=== PATIENT | female | born 1930 | race Hispanic/Latino ===

== ENCOUNTER 2017-09-18 20:20 | Inpatient (IN) | payer MEDICARE ==
[2017-09-18 20:23] VITALS: BMI 21.2
--- NOTE | 2017-09-18 20:40 | ED PDOC ---
Arrival/HPI - General Chief Complaint: Chest Pain Time Seen by Provider: 09/18/17 20:22 Historian: Patient - History of Present Illness Narrative History of Present Illness (Text): 09/18/17 20:37 A 87 year old female, whose past medical history includes hypertension, NPH with MANAGER SOCIAL SERVICES shunt, anemia, and hypothyroidism, presents to the emergency department complaining of chest discomfort since early today. Patient describes the pain as a burning sensation. She notes 1 episode of non-bilious non-bloody vomiting. Patient denies any nausea at this time, fever, chills, abdominal pain, shortness of breath, leg pain or any other complaints. Time/Duration: Other (today) Symptom Course: Unchanged Quality: Burning Context: Home Past Medical History - Provider Review Nursing Documentation Reviewed: Yes - Infectious Disease Hx of Infectious Diseases: None - Cardiac Hx Cardiac Disorders: Yes Hx Hypertension: Yes - Pulmonary Hx Chronic Obstructive Pulmonary Disease (COPD): Yes - Neurological Hx Neurological Disorder: Yes Hx Dementia: Yes Hx Dizziness: Yes Hx Transient Ischemic Attacks (TIA): No Other/Comment: hydrocephalus-WITH SHUNT - HEENT Hx HEENT Disorder: Yes Hx Deafness: Yes (ROSEBUD) - Renal Hx Renal Failure: Yes (CKD) - Endocrine/Metabolic Hx Diabetes Mellitus Type 1: No Hx Diabetes Mellitus Type 2: No - Hematological/Oncological Hx Blood Disorders: Yes Hx Anemia: Yes - Integumentary Hx Dermatological Disorder: No - Musculoskeletal/Rheumatological Hx Falls: Yes (08-23-16) - Gastrointestinal Hx Gastrointestinal Disorders: Yes Hx Gall Bladder Disease: Yes - Genitourinary/Gynecological Hx Genitourinary Disorders: Yes (BLADDER LIFT) Hx Urinary Tract Infection: Yes - Psychiatric Hx Psychophysiologic Disorder: Yes (INSOMNIA) Hx Depression: Yes Hx Substance Use: No - Surgical History Hx Cholecystectomy: Yes Hx Orthopedic Surgery: Yes (l hip replacement) Other/Comment: shunt on the brain - Anesthesia Hx Anesthesia: Yes Hx Anesthesia Reactions: No Hx Malignant Hyperthermia: No - Suicidal Assessment Feels Threatened In Home Enviroment: No Family/Social History - Physician Review Nursing Documentation Reviewed: Yes Family/Social History: No Known Family HX Smoking Status: Former Smoker Hx Alcohol Use: No Hx Substance Use: No Hx Substance Use Treatment: No Allergies/Home Meds Allergies/Adverse Reactions: Allergies No Known Allergies Allergy (Verified 09/18/17 20:26) Home Medications: Home Meds Medication Instructions Recorded Confirmed Losartan [Cozaar] 25 mg PO DAILY 07/31/16 09/18/17 Levothyroxine [Synthroid] 25 mcg PO DAILY 09/18/17 09/18/17 Potassium Chloride [Klor-Con 20 meq PO DAILY 09/18/17 09/18/17 Sprinkle] Review of Systems - Physician Review All systems were reviewed & negative as marked: Yes - Review of Systems Constitutional: absent: Fevers, Night Sweats Respiratory: absent: SOB Cardiovascular: Chest Pain Gastrointestinal: Vomiting. absent: Abdominal Pain, Nausea Musculoskeletal: absent: Other (leg pain) Physical Exam Vital Signs Reviewed: Yes Vital Signs Temp Pulse Resp BP Pulse Ox 09/18/17 23:00 64 17 109/62 97 09/18/17 20:32 97.6 F 76 17 142/64 99 Temperature: Afebrile Blood Pressure: Normal Pulse: Regular Respiratory Rate: Normal Appearance: Positive for: Well-Appearing, Non-Toxic, Comfortable Pain Distress: None Mental Status: Positive for: Alert and Oriented X 3 - Systems Exam Head: Present: Atraumatic, Normocephalic Pupils: Present: PERRL Extroacular Muscles: Present: EOMI Conjunctiva: Present: Normal Mouth: Present: Moist Mucous Membranes Neck: Present: Normal Range of Motion Respiratory/Chest: Present: Clear to Auscultation, Good Air Exchange. No: Respiratory Distress, Accessory Muscle Use Cardiovascular: Present: Regular Rate and Rhythm, Normal S1, S2. No: Murmurs Abdomen: Present: Normal Bowel Sounds. No: Tenderness, Distention, Peritoneal Signs Back: Present: Normal Inspection Upper Extremity: Present: Normal Inspection. No: Cyanosis, Edema Lower Extremity: Present: Normal Inspection. No: Edema Neurological: Present: GCS=15, CN II-XII Intact, Speech Normal Skin: Present: Warm, Dry, Normal Color. No: Rashes Psychiatric: Present: Alert, Oriented x 3, Normal Insight, Normal Concentration Medical Decision Making ED Course and Treatment: 09/18/17 20:37 Impression: A 87 year old female with chest discomfort. Plan: -- Chest xray -- EKG -- Labs -- Pepcid -- Reassess and disposition Progress Notes: 09/18/17 21:01 Reviewed EKG, NSR at 70 bpm. PACs. RBBB. Non-specific ST/T waver changes. 09/18/17 22:48 Chest X-ray reviewed, no acute processes. 09/18/17 23:[address] Valerio, who is aware and agrees with plan. Accepts pt in to his service. Pt will go to Telemetry observation for chest pain. - Lab Interpretations Lab Results: 09/18/17 20:40 09/18/17 20:40 Lab Results 09/18/17 20:40: PT 11.5, INR 1.05, APTT 28.6 09/18/17 20:40: WBC 5.3, RBC 4.31, Hgb 12.2, Hct 37.7, MCV 87.5, MCH 28.3, MCHC 32.4, RDW 14.3, Plt Count 197, MPV 9.9 09/18/17 20:40: Sodium 140, Potassium 4.7, Chloride 106, Carbon Dioxide 27, Anion Gap 12, BUN 20, Creatinine 0.9, Est GFR ( Amer) > 60, Est GFR (Non- Af Amer) 60, Random Glucose 148 H, Calcium 9.9, Total Bilirubin 0.7, AST 22, ALT 17, Alkaline Phosphatase 70, Lactate Dehydrogenase 412, Total Creatine Kinase 27 L, Troponin I < 0.01, Total Protein 7.2, Albumin 3.9, Globulin 3.3, Albumin/Globulin Ratio 1.2 I have reviewed the lab results: Yes - RAD Interpretation Radiology Orders: 09/18/17 20:25 CHEST PORTABLE [RAD] Stat Care Manager: ED Physician - EKG Interpretation Interpreted by ED Physician: Yes Type: 12 lead EKG - Medication Orders Current Medication Orders: Discontinued Medications Al Hydrox/Mg Hydrox/Simethicone (Maalox Plus 30 Ml) 15 ml PO STAT STA Stop: 09/18/17 20:42 Last Admin: 09/18/17 20:52 Dose: 15 ml Famotidine (Pepcid) 20 mg IVP STAT STA Stop: 09/18/17 20:41 Last Admin: 09/18/17 20:53 Dose: 20 mg IVP Administration Document 09/18/17 20:53 IT (Rec: 09/18/17 20:53 IT [id number]) Charges for Administration # of IVP Administrations 1 - Scribe Statement The provider has reviewed the documentation as recorded by the Scribe Nanci Power Provider Fabricioibe Attestation: All medical record entries made by the Scribe were at my direction and personally dictated by me. I have reviewed the chart and agree that the record accurately reflects my personal performance of the history, physical exam, medical decision making, and the department course for this patient. I have also personally directed, reviewed, and agree with the discharge instructions and disposition. Disposition/Present on Arrival - Present on Arrival Any Indicators Present on Arrival: No History of DVT/PE: No History of Uncontrolled Diabetes: No Urinary Catheter: No History of Decub. Ulcer: No History Surgical Site Infection Following: None - Disposition Have Diagnosis and Disposition been Completed?: Yes Diagnosis: Chest pain Disposition: HOSPITALIZED Disposition Time: 23:05 Patient Plan: Observation Condition: STABLE Discharge Instructions (ExitCare): Chest Pain (ED) Referrals: Syl Avila, [Non-Staff] - Follow up with primary Forms: [employer] ([place])
[2017-09-18] MEDS ORDERED: Alum-Mag Hydrox-Simethicone Susp (30 mL) PO STA (20:41)
[2017-09-18 20:52] LABS: HEMATOCRIT 37.7 % (36.0-48.0); MEAN CELL VOLUME 87.5 fl (80.0-105.0); MEAN CORPUSCULAR HEMOGLOBIN 28.3 pg (25.0-35.0); MEAN CORPUSCULAR HGB CONC 32.4 g/dl (31.0-37.0); MEAN PLATELET VOLUME 9.9 fl (7.0-11.0); RED CELL DISTRIBUTION WIDTH 14.3 % (11.5-14.5); WHITE BLOOD COUNT 5.3 10^3/ul (4.5-11.0)
[2017-09-18 20:58] LABS: ALB/GLOB RATIO 1.2 (1.1-1.8); ALKALINE PHOSPHATASE 70 U/L (38-126); ALT/SGPT 17 U/L (7-56); AST/SGOT 22 U/L (14-36); BILIRUBIN,TOTAL 0.7 mg/dL (0.2-1.3); BLOOD UREA NITROGEN 20 mg/dL (7-21); CALCIUM 9.9 mg/dL (8.4-10.5); CARBON DIOXIDE 27 mmol/L (21-33); CHLORIDE 106 mmol/L (98-107); GFR AFRICAN-AMERICAN > 60; GLUCOSE,RANDOM 148 mg/dL (70-110); POTASSIUM 4.7 mmol/L (3.6-5.0); SODIUM 140 mmol/L (132-148); TOTAL PROTEIN 7.2 g/dL (5.8-8.3)
[2017-09-18 21:03] LABS: INR 1.05 (0.93-1.08); PARTIAL THROMBOPLASTIN TIME 28.6 Seconds (25.1-36.5)
[2017-09-18 21:10] LABS: TROPONIN I < 0.01 ng/mL
[2017-09-19] MEDS ORDERED: Alum-Mag Hydrox-Simethicone Susp (30 mL) PO ONE (04:44)
--- NOTE | 2017-09-19 08:00 | CP.PCM.HP ---
History of Present Illness - History of Present Illness History of Present Illness: 87 year old female with history of hypertension, hypothyroidism, mild dementia, normal pressure hydrocephalus with shunt and anemia presented to the Emergency Room at the [facility] in [place] with chest pain. Patient says that the pain was under the left breast. She denies shortness of breath, or diaphoresis. She did feel nauseus and vomited up some food 1 time 2 days ago. She denies pain this morning. Present on Admission - Present on Admission Any Indicators Present on Admission: No History of DVT/PE: No History of Uncontrolled Diabetes: No Urinary Catheter: No Decubitus Ulcer Present: No Review of Systems - Cardiovascular Cardiovascular: As Per HPI - Respiratory Respiratory: absent: Cough, Dyspnea, Wheezing - Gastrointestinal Gastrointestinal: Nausea, Vomiting. absent: Abdominal Pain Past Patient History - Infectious Disease Hx of Infectious Diseases: None - Past Social History Smoking Status: Former Smoker - CARDIAC Hx Cardiac Disorders: Yes Hx Angina: No Hx Cardia Arrhythmia: No Hx Circulatory Problems: No Hx Congestive Heart Failure: No Hx Heart Murmur: No Hx Heart Transplant: No Hx Hypercholesterolemia: No Hx Hypertension: Yes Hx Internal Defibrillator: No Hx Mitral Valve Prolapse: No Hx Pacemaker: No Hx Peripheral Edema: No Hx Peripheral Vascular Disease: No - PULMONARY Hx Respiratory Disorders: Yes Hx Asthma: No Hx Bronchitis: Yes Hx Chronic Obstructive Pulmonary Disease (COPD): Yes Hx Emphysema: No Hx Pneumonia: No Hx Respiratory Aspiration: No Hx Respiratory Tract Infection: No Hx Sleep Apnea: No Hx Tuberculosis: No - NEUROLOGICAL Hx Neurological Disorder: Yes (hydrocephalus,FISHERIES MANAGER shunt) Hx Alzheimer's Disease: No HX Cerebrovascular Accident: No Hx Dementia: Yes Hx Dizziness: Yes Hx Meningitis: No Hx Migraine: No Hx Parkinson's Disease: No Hx Seizures: No Hx Transient Ischemic Attacks (TIA): No - HEENT Hx HEENT Problems: Yes Hx Blind: No Hx Cataracts: No Hx Deafness: No Hx Difficulty Chewing: No Hx Epistaxis: No Hx Glaucoma: No Hx Macular Degeneration: No - RENAL Hx Dialysis: No Hx Kidney Stones: No Hx Neurogenic Bladder: No Hx Pyelonephritis: No Hx Renal (Kidney) Cancer: No Hx Renal Failure: No - ENDOCRINE/METABOLIC Hx Endocrine Disorders: Yes Hx Adrenal Cancer: No Hx Diabetes Insipidus: No Hx Diabetes Mellitus Type 1: No Hx Diabetes Mellitus Type 2: No Hx Hyperthyroidism: No Hx Hypothyroidism: Yes Hx Systemic Lupus Erythematosus: No - HEMATOLOGICAL/ONCOLOGICAL Hx Blood Disorders: Yes Hx AIDS: No Hx Anemia: Yes Hx Cancer: No Hx Chemotherapy: No Hx Cirrhosis: No Hx Hemophilia: No Hx Hepatitis A: No Hx Hepatitis B: No Hx Hepatitis C: No Hx Human Immunodeficiency Virus (HIV): No Hx Metastesis: No Hx Shingles: Yes Hx Sickle Cell Disease: No Hx Unexplained Bleeding: No - INTEGUMENTARY Hx Dermatological Problems: No Hx Basil Cell: No Hx Eczema: No Hx Melanoma: No Hx Psoriasis: No Hx Squamous Cell: No - MUSCULOSKELETAL/RHEUMATOLOGICAL Hx Musculoskeletal Disorders: Yes Hx Arthritis: Yes Hx Back Pain: No Hx Degenerative Joint Disease: No Hx Falls: Yes Hx Fractures: Yes (hip) Hx Gout: No Hx Herniated Disk: No Hx Myasthenia Gravis: No Hx Osteoarthritis: No Hx Osteomyelitis: No Hx Osteoporosis: No Hx Rhabdomyolysis: No Hx Spinal Stenosis: No Hx Unsteady Gait: Yes - GASTROINTESTINAL Hx Gastrointestinal Disorders: Yes Hx Colostomy: No Hx Crohn's Disease: No Hx Diverticulitis: No Hx Gall Bladder Disease: Yes Hx Gastroesophageal Reflux: Yes Hx Ileostomy: No Hx Liver Failure: No Hx Pancreatitis: No HX Swallowing Problems: No Hx Ulcer: No - GENITOURINARY/GYNECOLOGICAL Hx Genitourinary Disorders: Yes (Bladder lift surgery) Hx Hematuria: No Hx Incontinence: Yes Hx Sexually Transmitted Disorders: No Hx Urinary Tract Infection: Yes - PSYCHIATRIC Hx Psychophysiologic Disorder: Yes Hx Anxiety: Yes Hx Bipolar Disorder: No Hx Depression: No Hx Emotional Abuse: No Hx Hallucinations: No Hx Panic Symptoms: No Hx Paranoia: No Hx Post Traumatic Stress Disorder: No Hx Psychosis: No Hx Physical Abuse: No Hx Schizophrenia: No Hx Sexual Abuse: No - SURGICAL HISTORY Hx Surgeries: Yes (FISHERIES MANAGER shunt) Hx Amputation: No Hx Appendectomy: No Hx Cardiac Catheterization: No Hx Cholecystectomy: Yes Hx Coronary Stent: No Hx Gastric Bypass Surgery: No Hx Hysterectomy: No Hx Joint Replacement: Yes (left hip replacement) Hx Kidney Transplant: No Hx Liver Transplant: No Hx Mastectomy: No Hx Musculoskeletal Surgery: Yes Hx Open Heart Surgery: No Hx Orthopedic Surgery: Yes (right knee surgery, rotator cuff surgery) Hx Splenectomy: No Hx Valve Replacement: No - ANESTHESIA Hx Anesthesia: Yes Hx Anesthesia Reactions: No Hx Malignant Hyperthermia: No Meds Allergies/Adverse Reactions: Allergies Allergy/AdvReac Type Severity Reaction Status Date / Time No Known Allergies Allergy Verified 09/18/17 20:26 Physical Exam - Constitutional Appears: No Acute Distress - Head Exam Head Exam: ATRAUMATIC, NORMOCEPHALIC - Respiratory Exam Respiratory Exam: Clear to Auscultation Bilateral, NORMAL BREATHING PATTERN - Cardiovascular Exam Cardiovascular Exam: REGULAR RHYTHM, +S1, +S2. absent: Systolic Murmur - GI/Abdominal Exam GI & Abdominal Exam: Normal Bowel Sounds, Soft. absent: Tenderness - Extremities Exam Extremities exam: Positive for: normal inspection - Neurological Exam Neurological exam: Alert, CN II-XII Intact, Oriented x3 Results - Vital Signs Recent Vital Signs: Last Vital Signs Temp 98.3 F 09/19/17 06:00 Pulse 62 09/19/17 06:00 Resp 19 09/19/17 06:00 BP 119/60 09/19/17 06:00 Pulse Ox 97 09/19/17 06:00 - Labs Result Diagrams: 09/18/17 20:40 09/18/17 20:40 Assessment & Plan - Assessment and Plan (Free Text) Assessment: Chest pain GERD Hypothyroidism mild dementia arthritis NPH with shunt Anemia COPD Plan: Patient here for chest pain. She denies pain this morning. continue ASA, Losartan. Cardiology consult with Dr. Wolf. 1st set of CE and troponin negative. 2nd set of troponin pending will start Protonix. continue synthroid for hypothyroidism. check TSH and free T4 continue aricept for dementia continue respiratory treatments for COPD
[2017-09-19 08:03] LABS: TROPONIN I 0.01 ng/mL
--- NOTE | 2017-09-19 08:15 | RAD ---
HISTORY: chest pain COMPARISON: 08/26/2016 FINDINGS: LUNGS: No active pulmonary disease. PLEURA: No significant pleural effusion identified, no pneumothorax apparent. CARDIOVASCULAR: Normal. OSSEOUS STRUCTURES: No significant abnormalities. VISUALIZED UPPER ABDOMEN: Normal. OTHER FINDINGS: None. IMPRESSION: No active disease.
[2017-09-19 08:27] LABS: IRON 61 ug/dL (45-180)
[2017-09-19] MEDS: Albuterol-Ipratrop 3 mg / 0.5 (3 ml) UD IH SCH ×3 (09:09→20:52)
[2017-09-19] MEDS: Pantoprazole 40 mg EC Tab PO SCH (09:37)
[2017-09-19] MEDS: Levothyroxine 25 MCG TAB PO SCH (09:37)
[2017-09-19 10:02] LABS: FREE T4 1.03 ng/dL (0.78-2.19)
[2017-09-19 10:16] LABS: THYROID STIMULATING HORMONE 2.38 mIU/mL (0.46-4.68)
--- NOTE | 2017-09-19 10:53 | CARD ---
APPROVED REPORT EKG Measurement Heart [id number] <Conclusion> Sinus rhythm with premature atrial complexes Right bundle branch block Abnormal ECG
[2017-09-19 16:13] LABS: TROPONIN I < 0.01 ng/mL
--- NOTE | 2017-09-19 23:52 | CON ---
DATE: 09/19/2017 CONSULT SERVICE: Cardiology. REASON FOR CONSULTATION: Chest pain and cardiac evaluation. BRIEF CLINICAL HISTORY: This is an 87-year-old female with past medical history significant for hypertension, normal-pressure hydrocephalus status post WIDE AREA NETWORK ADMINISTRATOR shunt, chronic back pain, insomnia, iron-deficiency anemia, dementia, brought by the family because the patient was complaining of chest pain. The patient initially had vomiting and nausea and then developed chest pain just below the clavicle and the back, and then the patient had nonbilious large vomitus and then feel chest pain off and on. Later on, chest pain completely subsided. The patient is sitting on the bed and the son is at the bedside. Information obtained from the son as the patient is unable to give the detail, but complained that she feels better and no further episode of chest pain. PAST MEDICAL HISTORY: Significant for dementia; normal-pressure hydrocephalus, status post WIDE AREA NETWORK ADMINISTRATOR shunt, ventriculoperitoneal shunt; hypertension; back pain; insomnia; iron-deficiency anemia; history of dehydration; history of diarrhea; history of CVA; history of altered mental status; and history of COPD. CURRENT MEDICATIONS: Levothyroxine, aspirin, potassium, and losartan 25 mg daily. ALLERGIES: NO KNOWN DRUG ALLERGIES. REVIEW OF SYSTEMS: As per HPI. PHYSICAL EXAMINATION: As follows: VITAL SIGNS: Temperature is afebrile, heart rate is 62, and blood pressure is 119/60. HEENT: PERRLA. Extraocular muscles intact. NECK: Supple. No carotid bruits or thyromegaly. CHEST: Clear to auscultation. HEART: S1 and S2 regular. ABDOMEN: Soft. EXTREMITIES: Clubbing and cyanosis negative. LABORATORY DATA: Blood workup as follows: WBC of 5.3, hemoglobin of 12.3, hematocrit of 37.7, and platelet count of 197. Chemistry shows sodium of 140, potassium of 4.7, chloride of 106, carbon dioxide of 27, anion gap of 4, BUN of 20, and creatinine of 0.9. Hemoglobin A1c of 5.4. Troponins of 0.01 and 0.01. IMPRESSION: An 87-year-old female with past medical history significant for normal blood pressure, hydrocephalus, status post ventriculoperitoneal shunt; chronic back pain; hypertension; dementia; iron-deficiency anemia in the past; hypertension, and chronic obstructive pulmonary disease admitted with one episode of chest pain after having vomitus. So far, no evidence of acute myocardial infarction. Electrocardiogram shows normal sinus, right bundle-branch block at a rate of 80. RECOMMENDATIONS: Given the patient's overall condition, dementia, mental status, and atypical chest pain, we will try to treat medical management. The patient has history of shaking and unable to lie, so we will not go for invasive or noninvasive test. Discussed with son, he wanted to be treated medically and wanted to take home when the patient is medically cleared. We suggested, we will do one more sets of troponin, and if the troponin remains negative, possibly the patient will be discharged home tomorrow on medical treatment. The patient had last echocardiography in the system is 2011 that showed normal LV function, mild tricuspid regurgitation, possible tricuspid regurgitation. The patient's repeat echo on 08/30/2016, recently that showed ejection fraction 55% to 60%, aortic sclerosis, mild aortic stenosis, trace [id number] tricuspid regurgitation and end diastolic pressure of 45. So, we will continue Aricept, continue baby aspirin, continue losartan, and continue levothyroxine. If the blood pressure remains stable, we can start low dose of beta madeleine; otherwise, if the blood pressure is on the lower side, then we will leave it on home previous medication that is losartan and aspirin. We will follow with you. Thank you Dr. Valerio for providing us the opportunity in taking care of the patient, Bethany Espinoza. We will repeat another CPK at 2:00 p.m. Christa Wolf MD
[2017-09-20] MEDS: Albuterol-Ipratrop 3 mg / 0.5 (3 ml) UD IH SCH ×3 (02:03→13:51)
[2017-09-20] MEDS: Pantoprazole 40 mg EC Tab PO SCH (05:47)
[2017-09-20 06:38] VITALS: O2SAT 95
--- NOTE | 2017-09-20 07:57 | CON ---
DATE: 09/19/2017 This patient was seen and evaluated earlier today. REASON FOR CONSULTATION: Anemia and history of vomiting. HISTORY OF PRESENT ILLNESS: This is an 87-year-old patient with past medical history of hypertension, hypothyroidism, mild dementia, and normal pressure hydrocephalus, who was initially admitted with a certain chest discomfort, and she was complaining of left-sided chest discomfort. She had an episode of vomiting also, nonbilious. No further episodes. The patient's both sons were at bedside. PAST MEDICAL HISTORY: Other past medical history as above, history of status post CVA, COPD, status post cholecystectomy. ALLERGIES: NO KNOWN DRUG ALLERGIES. REVIEW OF SYSTEMS: Limited. Positive as above. Other systems reviewed, negative. PHYSICAL EXAMINATION: GENERAL: The patient is lying on the bed, not in acute distress. VITAL SIGNS: Temperature 98.1, pulse 80, blood pressure 92/41, respirations . HEENT: Atraumatic, anicteric. NECK: Supple. HEART: S1 and S2 heard. LUNGS: Bilateral air entry present. ABDOMEN: Soft. There is no mass palpable. No tenderness. EXTREMITIES: No edema. No cyanosis. NEUROLOGIC: Alert. Moves all the extremities. LABORATORY DATA: Hemoglobin 12.2, hematocrit 37.7, WBC 5.3, and platelet count 157,000. Chemistry is essentially unremarkable. The patient did have CT scan of the abdomen and pelvis with p.o. contrast done in 08/27/2017 was unremarkable. IMPRESSION: This is an 87-year-old patient admitted with an episode of vomiting and chest pain. No further episodes of vomiting. History of anemia, now repeat hemoglobin on this admission was normal. PLAN: 1. The patient's hemoglobin was around 8.5. We will consider repeating the hemoglobin and hematocrit. 2. Refer her to do iron studies B12, and folate. 3. Empiric therapy with proton pump inhibitors. 4. I did discuss with the patient's both sons who were at bedside. They are very reluctant to have any invasive procedure. The plan is now to continue to follow her with hemoglobin, hematocrit, and PPI therapy. If there is any acute bleeding or drop in blood count significantly, we will consider endoscopic evaluation and also consider transfusion, and we will also consider elective endoscopy evaluation. Thank you very much for allowing us to participate in the care of the patient. Caroline Brown MD [facility] # [id number]
[2017-09-20 09:07] LABS: BASO # 0.01 K/mm3 (0.0-2.0); BASO % 0.2 % (0.0-3.0); EOS # 0.1 (0.0-0.7); EOS % 1.2 % (1.5-5.0); GRAN # 2.83 (1.4-6.5); GRAN % 56.9 % (50.0-68.0); HEMATOCRIT 30.4 % (36.0-48.0); LYMPH # 1.6 (1.2-3.4); LYMPH % 32.6 % (22.0-35.0); MEAN CELL VOLUME 87.9 fl (80.0-105.0); MEAN CORPUSCULAR HEMOGLOBIN 29.2 pg (25.0-35.0); MEAN CORPUSCULAR HGB CONC 33.2 g/dl (31.0-37.0); MONO # 0.5 (0.1-0.6); MONO % 9.1 % (1.0-6.0); RED CELL DISTRIBUTION WIDTH 14.3 % (11.5-14.5)
--- NOTE | 2017-09-20 09:19 | PN ---
DATE: SUBJECTIVE: The patient is in [facility] in [place], room 277, bed 1. The patient was admitted with chest pain. The patient has had prior to admission, 2 episodes of vomiting and epigastric discomfort. The patient was admitted with rule out [place]. The patient does not have any diagnostic criteria for myocardial infarction. She has past history of normal pressure hydrocephalus. She has a ventriculoperitoneal shunt. She has a history of hypertension, history of dementia, history of chronic lung disease, anemia, hypothyroidism. The patient is seen this morning. She is getting respiratory treatment. PHYSICAL EXAMINATION: GENERAL: The patient is awake and responds to questions. VITAL SIGNS: The pulse is 72, blood pressure 105/89, respirations are 19, O2 sat 95% on room air, temperature 97.6. HEENT: Examination of head is normocephalic; there is of course evidence of the shunting between the brain and the intestine is noted. NECK: JVP is flat. Carotid pulses are present. Thyroid is not enlarged clinically. LUNGS: Trachea central. Breath sounds vesicular. Scattered rhonchi and rales present. HEART: Normal sinus rhythm. S1 and S2 present. No murmurs. ABDOMEN: Soft. No tenderness. No masses. EGG BUYER: The patient is conscious, confused. No focal neurological deficit. Cranial nerves are intact. The patient is able to ambulate prior to her admission. LABORATORY DATA: The laboratory findings; the hemoglobin is 12.2. The chemistry, the patient's admission sugar was 148. The patient has total iron of 61 and the lactic dehydrogenase was elevated slightly. The numbers have come down during the last 2 days. The patient's total protein is 7.2. The patient's HDL cholesterol is 62, total cholesterol is 161. ASSESSMENT AND PLAN: The patient is evaluated by pruner and further management depends on the plan of treatment, patient might be in an upper endoscopy to rule out any acute process of the stomach. She is placed on pantoprazole 40 mg daily. The patient is on albuterol treatment, losartan 25 mg daily, aspirin 81 mg daily, Aricept 5 mg daily. The patient is on Synthroid 25 mcg daily. Overall, prognosis is guarded. Condition is clinically improving. We will continue current management. Wait for GI evaluation and further management will depend on that. Rick Valerio MD
[2017-09-20 09:25] LABS: INR 1.04 (0.93-1.08)
[2017-09-20] MEDS: Levothyroxine 25 MCG TAB PO SCH (10:28)
[2017-09-20 11:51] VITALS: BP 125/60; RESP 16; TEMP 98.7
[2017-09-20 15:51] VITALS: PULSE 90
--- NOTE | 2017-09-20 17:32 | CP.PCM.PN ---
Subjective - Date & Time of Evaluation Date of Evaluation: 09/20/17 Time of Evaluation: 08:20 - Subjective Subjective: S&E at bedside, chart reviewed, no acute overnight events as per nursing staff, patient c/o epigastric discomfort, no N/V or acid reflux. No SOB or chest pain. Objective - Vital Signs/Intake and Output Vital Signs (last 24 hours): Temp Pulse Resp BP Pulse Ox 98.7 F 90 16 125/60 95 09/20/17 11:51 09/20/17 14:00 09/20/17 11:51 09/20/17 11:51 09/20/17 06:00 Intake and Output: 09/20/17 09/20/17 06:59 18:59 Intake Total 80 Output Total 0 Balance 80 - Medications Medications: Current Medications Albuterol/Ipratropium (Duoneb 3 Mg/0.5 Mg (3 Ml) Ud) 3 ml IH [id number] [facility] Last Admin: 09/20/17 13:51 Dose: 3 ml Aspirin (Aspirin Chewable) 81 mg PO DAILY [facility] Last Admin: 09/20/17 10:27 Dose: Not Given Donepezil HCl (Aricept) 5 mg PO HS [facility] Last Admin: 09/19/17 22:06 Dose: 5 mg Levothyroxine Sodium (Synthroid) 25 mcg PO DAILY [facility] Last Admin: 09/20/17 10:28 Dose: 25 mcg Losartan Potassium (Cozaar) 25 mg PO DAILY [facility] Last Admin: 09/20/17 10:28 Dose: 25 mg Ondansetron HCl (Zofran Inj) 4 mg IVP Q4H PRN PRN Reason: Nausea/Vomiting Pantoprazole Sodium (Protonix Ec Tab) 40 mg PO 0600 [facility] Last Admin: 09/20/17 05:47 Dose: 40 mg - Labs Labs: 09/20/17 08:55 PT 11.5 SECONDS (9.4-12.5) 09/20/17 08:55 INR 1.04 (0.93-1.08) 09/20/17 08:55 APTT 25.0 Seconds (25.1-36.5) L 09/20/17 08:55 - Constitutional Appears: No Acute Distress - Head Exam Head Exam: NORMOCEPHALIC - Eye Exam Eye Exam: Normal appearance. absent: Scleral icterus - ENT Exam ENT Exam: Mucous Membranes Moist - Neck Exam Neck Exam: Normal Inspection - Respiratory Exam Respiratory Exam: NORMAL BREATHING PATTERN. absent: Respiratory Distress - Cardiovascular Exam Cardiovascular Exam: +S1, +S2 - GI/Abdominal Exam GI & Abdominal Exam: Soft, Tenderness (epigastric), Normal Bowel Sounds. absent : Guarding, Organomegaly, Rebound - Neurological Exam Neurological Exam: Alert, Awake, Oriented x3 - Skin Skin Exam: Dry, Warm Assessment and Plan - Assessment and Plan (Free Text) Assessment: ASSESSMENT: Chest pain GERD Anemia NPH w/shunt Dementia, mild PLAN: clear liquid for breakfast,npo after for possible EGD, will FU CBC, if drop consider, spoke to nursing staff abdominal US, c/o epigastric pain continue PPI spoke to Dr. Wolf, no contraindication for EGD if needed Discussed w/ Dr. Brown.
--- NOTE | 2017-09-20 22:02 | PN ---
DATE: 09/20/2017 REASON FOR CONSULTATION AND FOLLOWUP: Chest pain, cardiac evaluation. SUBJECTIVE: Denies any chest pain, denies any shortness of breath, denies any palpitation. OBJECTIVE: GENERAL: Not in apparent distress. VITAL SIGNS: As follows: Temperature afebrile, heart rate 60, blood pressure 125/60. HEENT: PERRLA, intact. NECK: Supple. No carotid bruit or thyromegaly. CHEST: Clear to auscultation. HEART: S1, S2 regular. ABDOMEN: Soft. EXTREMITIES: Clubbing and cyanosis negative. LABORATORY DATA: Blood workup as follows: WBC 5, hemoglobin 10, hematocrit 30.4, platelet count 142. Chemistry shows sodium 140, potassium 4.7, chloride 106, anion gap of 12, BUN 20, creatinine 0.9. Troponin 0.01 x3 negative. TSH 2.38 total, triglycerides 73, cholesterol 161, LDL 86, HDL 62. IMPRESSION: Chest pain, so far no evidence no of acute myocardial infarction, history of cerebrovascular accident, history of chronic obstructive pulmonary disease, history of dementia, normal pressure hydrocephalus, status post ventriculoperitoneal shunt, history of insomnia. Patient had echocardiogram on 08/30/2016, it shows ejection fraction 55% to 60%, mild aortic stenosis, [id number] mitral regurgitation, [id number] tricuspid regurgitation, right ventricular systolic pressure of 45. RECOMMENDATIONS: Continue aggressive medical treatment, continue levothyroxine, continue baby aspirin, continue Aricept. We will start low dose of beta-madeleine as blood pressure and heart rate is tolerated. Discussed with son, discussed with Dr. Valerio. If the blood pressure remains elevated, we will start low dose of beta-blockers. Otherwise continue aspirin and losartan. Discussed with the patient's son. Christa Wolf MD
== END 2017-09-20 17:28 | disposition home or self-care (01) | DRG 313 ==
LOC: ED 20:20 → ERH 23:05 → 2RSO 09-19 00:03 → OBSVTOIN 09-19 16:02
PROVIDERS: ADMIT Internal Medicine; ATTEND Internal Medicine
DX: R07.89 Other chest pain (principal); G91.2 (Idiopathic) normal pressure hydrocephalus; D64.9 Anemia, unspecified; F03.90 Unspecified dementia, unspecified severity, without behavioral disturbance, psychotic disturbance, mood disturbance, and anxiety; J44.9 Chronic obstructive pulmonary disease, unspecified; E03.9 Hypothyroidism, unspecified; H91.90 Unspecified hearing loss, unspecified ear; I12.9 Hypertensive chronic kidney disease with stage 1 through stage 4 chronic kidney disease, or unspecified chronic kidney disease; N18.9 Chronic kidney disease, unspecified; I45.10 Unspecified right bundle-branch block; K21.9 Gastro-esophageal reflux disease without esophagitis; M19.90 Unspecified osteoarthritis, unspecified site; Z79.82 Long term (current) use of aspirin; Z79.899 Other long term (current) drug therapy; Z86.73 Personal history of transient ischemic attack (TIA), and cerebral infarction without residual deficits; Z87.440 Personal history of urinary (tract) infections; Z87.891 Personal history of nicotine dependence; Z90.49 Acquired absence of other specified parts of digestive tract; Z96.642 Presence of left artificial hip joint; Z98.2 Presence of cerebrospinal fluid drainage device

== ENCOUNTER 2017-12-20 15:00 | Inpatient (IN) | payer MEDICARE ==
[2017-12-20 15:07] VITALS: BMI 22.1
--- NOTE | 2017-12-20 15:36 | ED PDOC ---
Arrival/HPI - General Chief Complaint: Cough, Cold, Congestion Time Seen by Provider: 12/20/17 15:09 - History of Present Illness Narrative History of Present Illness (Text): 87 y/o F c PMHx thyroid disease, COPD, L hip replacement, NPH s/p MANAGER HOME shunt p/w cough x 1 week. Family states patient with cough x 1 week, no sputum expectorated but sounds congested. Today, the patient began complaining of bilateral chest pain only with coughing and L hip pain only with coughing. Denies fever, dyspnea, vomiting. Past Medical History - Infectious Disease Hx of Infectious Diseases: None - Reproductive Menopause: Yes - Cardiac Hx Cardiac Disorders: Yes Hx Hypertension: Yes - Pulmonary Hx Respiratory Disorders: Yes Hx Bronchitis: Yes Hx Chronic Obstructive Pulmonary Disease (COPD): Yes - Neurological Hx Neurological Disorder: Yes (hydrocephalus,MANAGER HOME shunt) Hx Dementia: Yes Hx Dizziness: Yes Hx Transient Ischemic Attacks (TIA): No - HEENT Hx HEENT Disorder: Yes - Renal Hx Dialysis: No Hx Kidney Stones: No Hx Neurogenic Bladder: No Hx Pyelonephritis: No Hx Renal Cancer: No Hx Renal Failure: No - Endocrine/Metabolic Hx Endocrine Disorders: Yes Hx Hypothyroidism: Yes - Hematological/Oncological Hx Blood Disorders: Yes Hx Anemia: Yes Hx Shingles: Yes - Integumentary Hx Dermatological Disorder: No - Musculoskeletal/Rheumatological Hx Musculoskeletal Disorders: Yes Hx Arthritis: Yes Hx Falls: Yes Hx Fractures: Yes (hip) Hx Unsteady Gait: Yes - Gastrointestinal Hx Gastrointestinal Disorders: Yes Hx Gall Bladder Disease: Yes Hx Gastroesophageal Reflux: Yes - Genitourinary/Gynecological Hx Genitourinary Disorders: Yes (Bladder lift surgery) Hx Incontinence: Yes Hx Urinary Tract Infection: Yes - Psychiatric Hx Psychophysiologic Disorder: Yes Hx Anxiety: Yes Hx Substance Use: No - Surgical History Hx Cholecystectomy: Yes Hx Joint Replacement: (left hip replacement) Hx Musculoskeletal Surgery: Yes Hx Orthopedic Surgery: Yes (right knee surgery, rotator cuff surgery) Hx Splenectomy: No Hx Valve Replacement: No - Anesthesia Hx Anesthesia: Yes Hx Anesthesia Reactions: No Hx Malignant Hyperthermia: No - Suicidal Assessment Feels Threatened In Home Enviroment: No Family/Social History Family/Social History: No Known Family HX Smoking Status: Former Smoker Hx Alcohol Use: No Hx Substance Use: No Hx Substance Use Treatment: No Allergies/Home Meds Allergies/Adverse Reactions: Allergies No Known Allergies Allergy (Verified 09/18/17 20:26) Home Medications: Home Meds Medication Instructions Recorded Confirmed Losartan [Cozaar] 25 mg PO DAILY 07/31/16 12/20/17 Levothyroxine [Synthroid] 25 mcg PO DAILY 09/18/17 12/20/17 Potassium Chloride [Klor-Con 20 meq PO DAILY 09/18/17 12/20/17 Sprinkle] Albuterol 0.083% [Albuterol 0.083% 2.5 mg IH 5XD 12/20/17 12/20/17 Inhal Bhumi (2.5 mg/3 ml) UD] Fluticasone Propionate [Flovent 10.6 gm IH BID 12/20/17 12/20/17 Hfa] Review of Systems - Physician Review All systems were reviewed & negative as marked: Yes - Review of Systems Constitutional: absent: Fevers Respiratory: absent: SOB Physical Exam - Physical Exam Narrative Physical Exam (Text): Gen: Elderly female in no acute distress Head: NC Eyes: No scleral icterus ENT: MMM Neck: Supple Chest: Reproducible tenderness CV: Regular rate Lungs: Bilateral rhonchi Abd: Soft, NT Skin: No rash Back: No CVA tenderness Extremities: L hip tenderness without deformity. FROM x 4. Neuro: Alert, no focal deficit Vital Signs Temp Pulse Resp BP Pulse Ox 12/20/17 17:12 101.1 F H 12/20/17 17:00 84 22 115/55 L 97 12/20/17 15:01 99.7 F H 95 H 22 116/59 L 91 L Medical Decision Making ED Course and Treatment: EKG NSR 80 bpm, no ST/T wave changes CXR shows retrocardiac infiltrate Patient developed fever while in ED. Acetaminophen ordered. Now triggers sepsis screening. Lactate ordered. Lactate normal, no acidosis, no criteria met for severe sepsis. However, patient with pneumonia, elderly, febrile, elevated WBC and somewhat hypoxic. Dr. Valerio accepts patient to his service, will treat with antibiotics, duonebs, steroids, monitor closely to improvement. - Lab Interpretations Lab Results: 12/20/17 16:00 12/20/17 16:00 Lab Results 12/20/17 17:40: pCO2 34 L, pO2 58.0 L, HCO3 23.6, ABG pH 7.45, ABG Total CO2 24.6, ABG O2 Saturation 94.9 L, ABG Base Excess 0.1, ABG Potassium 3.7, Glucose 116 H, Lactate 0.9, FiO2 21.0, Sodium 135.0, Chloride 108.0 H, Arterial Blood Potassium 3.7 12/20/17 16:00: Sodium 137, Potassium 4.0, Chloride 104, Carbon Dioxide 23, Anion Gap 14, BUN 28 H, Creatinine 0.8, Est GFR ( Amer) > 60, Est GFR ( Non-Af Amer) > 60, Random Glucose 126 H, Calcium 9.3, Total Bilirubin 0.6, AST 19, ALT 27, Alkaline Phosphatase 62, Total Protein 6.4, Albumin 3.4, Globulin 3.0, Albumin/Globulin Ratio 1.1 12/20/17 16:00: WBC 14.6 H D, RBC 3.96, Hgb 10.1 L, Hct 31.5 L, MCV 79.5 L D, MCH 25.5, MCHC 32.1, RDW 14.6 H, Plt Count 217, MPV 10.5, Gran % 80.8 H, Lymph % (Auto) 10.2 L, [place] % (Auto) 8.9 H, Eos % (Auto) 0.0 L, Baso % (Auto) 0.1, Gran # 11.81 H, Lymph # (Auto) 1.5, [place] # (Auto) 1.3 H, Eos # (Auto) 0.0, Baso # (Auto) 0.01 - RAD Interpretation Radiology Orders: 12/20/17 15:33 CHEST TWO VIEWS (PA/LAT) [RAD] Stat PELVIS ONE VIEW [RAD] Stat - Medication Orders Current Medication Orders: Cefepime HCl (Maxipime 1gm) 1 gm in 100 mls @ 100 mls/hr IVPB Q8 JARRELL PRN Reason: Protocol Last Admin: 12/20/17 17:33 Dose: 100 mls/hr eMAR Start Stop Document 12/20/17 17:33 SRE (Rec: 12/20/17 17:34 SRE [id number]) Intravenous Solution Start Date 12/20/17 Start Time 17:33 End Date 12/20/17 End time 18:35 Total Infusion Time 62 Sodium Chloride (Sodium Chloride 0.9%) 1,000 mls @ 999 mls/hr IV .Q1H1M STA Stop: 12/20/17 18:48 Discontinued Medications Acetaminophen (Tylenol 650mg/20.3ml Solution Ud) 650 mg PO STAT STA Stop: 12/20/17 17:37 Albuterol/Ipratropium (Duoneb 3 Mg/0.5 Mg (3 Ml) Ud) 3 ml IH STAT STA Stop: 12/20/17 17:46 Levofloxacin/Dextrose (Levaquin 750mg) 750 mg IVPB STAT STA Stop: 12/20/17 17:45 Methylprednisolone (Solu-Medrol) 125 mg IVP STAT STA Stop: 12/20/17 17:45 Disposition/Present on Arrival - Present on Arrival Any Indicators Present on Arrival: No History of DVT/PE: No History of Uncontrolled Diabetes: No Urinary Catheter: No History of Decub. Ulcer: No History Surgical Site Infection Following: None - Disposition Have Diagnosis and Disposition been Completed?: Yes Diagnosis: COPD exacerbation, Pneumonia Disposition: HOSPITALIZED Disposition Time: 17:33 Patient Plan: Admission, Telemetry Condition: GUARDED Referrals: Garrett Valerio MD [Primary Care Provider] - Follow up with primary Forms: [employer] ([place])
[2017-12-20 16:18] LABS: BASO # 0.01 K/mm3 (0.0-2.0); BASO % 0.1 % (0.0-3.0); GRAN # 11.81 (1.4-6.5); GRAN % 80.8 % (50.0-68.0); HEMOGLOBIN 10.1 g/dL (12.0-16.0); LYMPH # 1.5 (1.2-3.4); LYMPH % 10.2 % (22.0-35.0); MEAN CELL VOLUME 79.5 fl (80.0-105.0); MEAN CORPUSCULAR HEMOGLOBIN 25.5 pg (25.0-35.0); MEAN CORPUSCULAR HGB CONC 32.1 g/dl (31.0-37.0); MEAN PLATELET VOLUME 10.5 fl (7.0-11.0); MONO # 1.3 (0.1-0.6); MONO % 8.9 % (1.0-6.0); RBC 3.96 10^6/uL (3.5-6.1); RED CELL DISTRIBUTION WIDTH 14.6 % (11.5-14.5); WHITE BLOOD COUNT 14.6 10^3/ul (4.5-11.0)
[2017-12-20 16:39] LABS: ALB/GLOB RATIO 1.1 (1.1-1.8); ALBUMIN 3.4 g/dL (3.0-4.8); ALT/SGPT 27 U/L (7-56); AST/SGOT 19 U/L (14-36); BLOOD UREA NITROGEN 28 mg/dL (7-21); CALCIUM 9.3 mg/dL (8.4-10.5); GFR AFRICAN-AMERICAN > 60; GFR NON-AFRICAN AMERICAN > 60
--- NOTE | 2017-12-20 17:15 | RAD ---
HISTORY: cough COMPARISON: 09/18/2017 TECHNIQUE: Chest PA and lateral FINDINGS: LUNGS: There is a minimal infiltrate at the left lung base that partially obscures the diaphragm. This could represent atelectasis or a developing pneumonia PLEURA: No significant pleural effusion identified. No pneumothorax apparent. CARDIOVASCULAR: Normal. OSSEOUS STRUCTURES: No significant abnormalities. VISUALIZED UPPER ABDOMEN: Normal. OTHER FINDINGS: None. IMPRESSION: There is a minimal infiltrate at the left lung base that partially obscures the diaphragm. This could represent atelectasis or a developing pneumonia
--- NOTE | 2017-12-20 17:16 | RAD ---
PROCEDURE: Radiographs of the pelvis. HISTORY: L hip pain with coughing COMPARISON: None. FINDINGS: BONES: Pelvic Bones: Unremarkable. Hips: There is a left hip prosthesis. There is no dislocation or loosening JOINTS: Sacroiliac Joints: Unremarkable. Pubic Symphysis: Unremarkable. OTHER FINDINGS: None. IMPRESSION: Unremarkable radiographs of the pelvis.
[2017-12-20] MEDS: Cefepime 1gm in NS 100ml 1 GM/100 ML BAG IVPB SCH ×2 (17:33→22:06)
[2017-12-20] MEDS ORDERED: Acetaminophen 650mg/20.3ml solution UD PO STA (17:36)
[2017-12-20] MEDS ORDERED: levoFLOXacin 750 mg in D5W 150 ML BAG IVPB STA (17:44)
[2017-12-20] MEDS ORDERED: Albuterol-Ipratrop 3 mg / 0.5 (3 ml) UD IH STA (17:45)
[2017-12-20 17:46] LABS: ARTERIAL BLOOD GAS HCO3 23.6 mmol/L (21-28); ARTERIAL BLOOD GAS O2 SAT 94.9 % (95-98); ARTERIAL BLOOD GAS PCO2 34 mm/Hg (35-45); ARTERIAL BLOOD GAS PH 7.45 (7.35-7.45); ARTERIAL BLOOD GAS TCO2 24.6 mmol.L (22-28)
[2017-12-20] MEDS ORDERED: Sodium Chloride 0.9% 1,000 ML IV STA (17:48)
[2017-12-20 18:15] LABS: URINE BILIRUBIN NEGATIVE (NEGATIVE); URINE BLOOD TRACE-INTACT (NEGATIVE); URINE GLUCOSE (UA) NEGATIVE (NEGATIVE); URINE LEUKOCYTE ESTERASE NEGATIVE Leu/uL (NEGATIVE); URINE PROTEIN NEGATIVE mg/dL (<30 mg/dL); URINE UROBILINOGEN 0.2 E.U./dL (<1 E.U./dL)
[2017-12-20 18:16] LABS: URINE APPEARANCE CLEAR (CLEAR); URINE COLOR YELLOW (YELLOW)
[2017-12-20 18:23] LABS: URINE RBC 0 - 2 /hpf (0-2); URINE WBC NEGATIVE /hpf (0-6)
[2017-12-20] MEDS: Budesonide 0.25 mg/2 ml Inhal Susp UD IH SCH (20:00)
[2017-12-20] MEDS: Albuterol-Ipratrop 3 mg / 0.5 (3 ml) UD IH SCH (20:04)
[2017-12-20] MEDS ORDERED: Influenza Vaccine 60 mcg/0.5 mL SYR (4YR UP) IM ONE (22:52)
[2017-12-20] MEDS ORDERED: Pneumococcal 23-Valent Vaccine IM ONE (22:52)
[2017-12-21] MEDS: Albuterol-Ipratrop 3 mg / 0.5 (3 ml) UD IH SCH ×4 (01:05→20:54)
[2017-12-21] MEDS: Cefepime 1gm in NS 100ml 1 GM/100 ML BAG IVPB SCH ×3 (05:08→21:33)
[2017-12-21 07:11] LABS: GRAN # 9.38 (1.4-6.5); GRAN % 90.5 % (50.0-68.0); HEMOGLOBIN 8.7 g/dL (12.0-16.0); LYMPH # 0.7 (1.2-3.4); LYMPH % 6.9 % (22.0-35.0); MEAN CELL VOLUME 79.9 fl (80.0-105.0); MEAN CORPUSCULAR HEMOGLOBIN 25.4 pg (25.0-35.0); MEAN CORPUSCULAR HGB CONC 31.8 g/dl (31.0-37.0); MEAN PLATELET VOLUME 10.5 fl (7.0-11.0); MONO # 0.3 (0.1-0.6); MONO % 2.6 % (1.0-6.0); PLATELET COUNT 177 10^3/uL (120.0-450.0); RBC 3.43 10^6/uL (3.5-6.1); RED CELL DISTRIBUTION WIDTH 14.7 % (11.5-14.5); WHITE BLOOD COUNT 10.4 10^3/ul (4.5-11.0)
[2017-12-21] MEDS: Budesonide 0.25 mg/2 ml Inhal Susp UD IH SCH ×2 (07:29→20:54)
[2017-12-21 07:31] LABS: ALBUMIN 2.9 g/dL (3.0-4.8); ALT/SGPT 20 U/L (7-56); AST/SGOT 23 U/L (14-36); BLOOD UREA NITROGEN 23 mg/dL (7-21); CALCIUM 9.2 mg/dL (8.4-10.5); GFR AFRICAN-AMERICAN > 60; GFR NON-AFRICAN AMERICAN 60
--- NOTE | 2017-12-21 09:36 | CARD ---
APPROVED REPORT EKG Measurement Heart [id number] <Conclusion> Sinus rhythm with premature atrial complexes Incomplete right bundle branch block Borderline ECG
[2017-12-21] MEDS: MethylPREDNISolone 40 mg Vial IVP SCH ×2 (09:52→21:35)
[2017-12-21] MEDS: Levothyroxine 25 MCG TAB PO SCH (09:58)
[2017-12-21] MEDS: Potassium Chloride 20 mEq ER Tab PO SCH (09:58)
[2017-12-21 10:46] LABS: BAND 3 % (0-2); LYMPHOCYTE 8 % (22.0-35.0); MONOCYTE 2 % (1.0-6.0); NEUTROPHIL 87 % (50.0-70.0)
--- NOTE | 2017-12-21 11:13 | PN ---
DATE: LOCATION: The patient is in [facility] in [place], room 262, bed 2. SUBJECTIVE: The patient was seen in the Emergency Room and admitted with shortness of breath, fever. The patient had hypoxia at the time of evaluation initially in the Emergency Room. The patient was diagnosed with left-sided pulmonary infiltrate. The patient has past history of hypertension, anemia, chronic lung disease. She had normal-pressure hydrocephalus. She has a ventriculoperitoneal shunt . PHYSICAL EXAMINATION: GENERAL: She is awake, but tired and lethargic. VITAL SIGNS: Pulse is 72, blood pressure 110/62, respirations are 18, O2 saturation 94% on 2 liters of oxygen. HEENT: The patient's head is normocephalic. NECK: The thyroid is not clinically enlarged. The patient does have history of hypothyroidism. LUNGS: Trachea central. Bilateral crepitation and rhonchi present. HEART: Normal sinus rhythm. S1, S2 present. ABDOMEN: Soft. Liver and spleen not palpable. No ascites. CENTRAL NERVOUS SYSTEM: The patient is conscious, somewhat confused. She has mild dementia. MEDICATIONS: The patient is on aspirin 81 mg daily, losartan 25 mg daily. The patient is on doxycycline 100 mg q. 12 hours, DuoNeb respiratory treatment, Pulmicort respiratory treatment. The patient is on Maxipime 1 g q. 8 hours and Solu-Medrol twice a day 40 mg. The patient is on a heart-healthy diet. The patient's condition seems to be improving. We will continue . Rick Valerio MD
--- NOTE | 2017-12-21 11:33 | CP.PCM.CON ---
History of Present Illness - History of Present Illness History of Present Illness: 87 year old female with PMH of HTN, COPD, S/P left hip replacement, normal pressure hydrocephalus S/P PAD MACHINE OFFBEARER shunt placement, hypothyroidism, history of shingles, GERD, S/P right knee surgery was brought in to [facility] because of cough which has been ongoing for the past week, worsening over the lasst several days. She denies fever or chills but was noted to have fever yesterday afternoon on this admission. She denies headache or dizziness, no chest pain, no SOB, no abdominal pain, no sore throat, no rhinorrhea, no dysuria or diarrhea. CXR was done which showed left lower lobe infiltrate. Infectious Diseases consult is requested to further evaluate and manage. Review of Systems - Review of Systems All systems: reviewed and no additional remarkable complaints except (as per HPI ) Past Patient History - Infectious Disease Hx of Infectious Diseases: None - Past Social History Smoking Status: Former Smoker - CARDIAC Hx Cardiac Disorders: Yes Hx Hypertension: Yes - PULMONARY Hx Respiratory Disorders: Yes Hx Bronchitis: Yes Hx Chronic Obstructive Pulmonary Disease (COPD): Yes - NEUROLOGICAL Hx Neurological Disorder: Yes (hydrocephalus,PAD MACHINE OFFBEARER shunt) Hx Dementia: Yes Hx Dizziness: Yes Hx Transient Ischemic Attacks (TIA): No - HEENT Hx HEENT Problems: Yes - RENAL Hx Dialysis: No Hx Kidney Stones: No Hx Neurogenic Bladder: No Hx Pyelonephritis: No Hx Renal (Kidney) Cancer: No Hx Renal Failure: No - ENDOCRINE/METABOLIC Hx Endocrine Disorders: Yes Hx Hypothyroidism: Yes - HEMATOLOGICAL/ONCOLOGICAL Hx Blood Disorders: Yes Hx Anemia: Yes Hx Shingles: Yes - INTEGUMENTARY Hx Dermatological Problems: No - MUSCULOSKELETAL/RHEUMATOLOGICAL Hx Musculoskeletal Disorders: Yes Hx Arthritis: Yes Hx Falls: Yes Hx Fractures: Yes (hip) Hx Unsteady Gait: Yes - GASTROINTESTINAL Hx Gastrointestinal Disorders: Yes Hx Gall Bladder Disease: Yes Hx Gastroesophageal Reflux: Yes - GENITOURINARY/GYNECOLOGICAL Hx Genitourinary Disorders: Yes (Bladder lift surgery) Hx Incontinence: Yes Hx Urinary Tract Infection: Yes - PSYCHIATRIC Hx Psychophysiologic Disorder: Yes Hx Anxiety: Yes Hx Substance Use: No - SURGICAL HISTORY Hx Cholecystectomy: Yes Hx Joint Replacement: (left hip replacement) Hx Musculoskeletal Surgery: Yes Hx Orthopedic Surgery: Yes (right knee surgery, rotator cuff surgery) Hx Splenectomy: No Hx Valve Replacement: No - ANESTHESIA Hx Anesthesia: Yes Hx Anesthesia Reactions: No Hx Malignant Hyperthermia: No Meds Allergies/Adverse Reactions: Allergies Allergy/AdvReac Type Severity Reaction Status Date / Time No Known Allergies Allergy Verified 12/20/17 20:02 - Medications Medications: Current Medications Albuterol/Ipratropium (Duoneb 3 Mg/0.5 Mg (3 Ml) Ud) 3 ml IH [id number] JARRELL Aspirin (Aspirin Chewable) 81 mg PO DAILY JARRELL Budesonide (Pulmicort Respules) 0.25 mg IH [id number] JARRELL Cefepime HCl (Maxipime 1gm) 1 gm in 100 mls @ 100 mls/hr IVPB Q8 JARRELL PRN Reason: Protocol Last Admin: 12/20/17 22:06 Dose: 100 mls/hr Levothyroxine Sodium (Synthroid) 25 mcg PO DAILY JARRELL Losartan Potassium (Cozaar) 25 mg PO DAILY JARRELL Methylprednisolone (Solu-Medrol) 40 mg IVP Q12 JARRELL Potassium Chloride (K-Dur 20 Meq Er Tab) 20 meq PO DAILY JARRELL Physical Exam - Constitutional Appears: Non-toxic, Chronically Ill - Head Exam Head Exam: NORMAL INSPECTION - ENT Exam ENT Exam: Mucous Membranes Moist - Neck Exam Neck exam: Negative for: Meningismus - Respiratory Exam Respiratory Exam: Decreased Breath Sounds - Cardiovascular Exam Cardiovascular Exam: +S1, +S2 - GI/Abdominal Exam GI & Abdominal Exam: Soft. absent: Tenderness Results - Vital Signs Recent Vital Signs: Last Vital Signs Temp 99.1 F 12/20/17 20:31 Pulse 84 12/20/17 21:57 Resp 18 12/20/17 20:31 BP 112/72 12/20/17 20:31 Pulse Ox 93 L 12/20/17 20:31 - Labs Result Diagrams: 12/21/17 05:20 12/21/17 05:20 Labs: Laboratory Results - last 24 hr 12/20/17 12/20/17 18:03 18:43 Urine Color Yellow Urine Appearance Clear Urine pH 6.0 Ur Specific Bates 1.020 Urine Protein Negative Urine Glucose (UA) Negative Urine Ketones Trace H Urine Blood Trace-intact H Urine Nitrate Negative Urine Bilirubin Negative Urine Urobilinogen 0.2 Ur Leukocyte Esterase Negative Urine RBC 0 - 2 Urine WBC Negative Urine Other Mucus Influenza Typ A,B (EIA) Negative for flu a/b Assessment & Plan - Assessment and Plan (Free Text) Plan: Assessment Sepsis from left lower lobe healthcare-associated pneumonia HTN COPD S/P left hip replacement normal pressure hydrocephalus S/P PAD MACHINE OFFBEARER shunt placement hypothyroidism history of shingles GERD S/P right knee surgery Plan Started the patient on Cefepime, Doxycycline and will add Vancomycin pending blood, sputum cx, PCT; reviewed CXR rapid flu test is negative will monitor clinically
[2017-12-21] MEDS ORDERED: Vancomycin 1gm in NS 250ml 1 GM/250 ML BAG IVPB SCH (11:45)
[2017-12-21] MEDS: Vancomycin 1gm in NS 250ml 1 GM/250 ML BAG IVPB SCH (18:49)
[2017-12-21] MEDS ORDERED: guaiFENesin DM 200 mg-20 mg/10 ml UD PO ONE (23:37)
[2017-12-22] MEDS: Albuterol-Ipratrop 3 mg / 0.5 (3 ml) UD IH SCH ×4 (03:58→21:15)
[2017-12-22] MEDS: Vancomycin 1gm in NS 250ml 1 GM/250 ML BAG IVPB SCH ×2 (05:18→18:38)
[2017-12-22] MEDS: Cefepime 1gm in NS 100ml 1 GM/100 ML BAG IVPB SCH ×3 (05:18→21:33)
[2017-12-22] MEDS: Budesonide 0.25 mg/2 ml Inhal Susp UD IH SCH ×2 (07:44→21:15)
[2017-12-22] MEDS: MethylPREDNISolone 40 mg Vial IVP SCH ×2 (11:05→21:32)
[2017-12-22] MEDS: Potassium Chloride 20 mEq ER Tab PO SCH (11:05)
[2017-12-22] MEDS: Levothyroxine 25 MCG TAB PO SCH (11:07)
[2017-12-22] MEDS ORDERED: Potassium Chloride 20 mEq ER Tab PO ONE (11:09)
--- NOTE | 2017-12-22 12:09 | PN ---
PHYSICAL EXAMINATION: VITAL SIGNS: Pulse is 50, blood pressure 123/55, respirations are 18, O2 sat 96% on 2 L oxygen. LUNGS: Bilateral crepitations and rales heard. HEART: Normal sinus rhythm, sinus bradycardia. ABDOMEN: Soft. Liver and spleen not palpable. CENTRAL NERVOUS SYSTEM: The patient is conscious, oriented, and confused. Occasionally, the patient has SHOWROOM MANAGER lethargy. The patient had diagnosis of normal-pressure hydrocephalus. She has a ventriculoperitoneal shunt. MEDICATIONS: Consist of potassium chloride 20 mEq daily. The patient is on Losartan 25 mg daily. The patient is on Pulmicort for respiratory treatment. The patient is on DuoNeb for respiratory treatment. The patient is on vancomycin 1 g. The patient is also on Synthroid 25 mcg, Solu-Medrol 40 mg q. 12 hours. The patient's diet is heart-healthy diet. The patient gets Maxipime 1 g q. 8 hours, potassium chloride as mentioned 20 mEq. The patient is seen by Infectious Disease. We will have the patient to be seen by her marksmanship instructor because of significant bradycardia the patient has at this time, may put a Holter monitor on and request an echocardiogram. Rick Valerio MD
[2017-12-22] MEDS: guaiFENesin 100 mg/5 ml Syrup UD PO PRN ×2 (14:30→21:35)
--- NOTE | 2017-12-22 15:59 | CP.PCM.PN ---
Subjective - Date & Time of Evaluation Date of Evaluation: 12/22/17 Time of Evaluation: 09:25 - Subjective Subjective: Comfortable, still with cough, no SOB at rest, no fevers. Objective - Vital Signs/Intake and Output Vital Signs (last 24 hours): Temp Pulse Resp BP Pulse Ox 98.5 F 50 L 18 123/55 L 96 12/22/17 06:00 12/22/17 06:00 12/22/17 06:00 12/22/17 06:00 12/22/17 06:00 Intake and Output: 12/22/17 12/22/17 06:59 18:59 Intake Total 1000 Output Total 800 Balance 200 - Medications Medications: Current Medications Albuterol/Ipratropium (Duoneb 3 Mg/0.5 Mg (3 Ml) Ud) 3 ml IH [id number] [facility] Last Admin: 12/22/17 07:44 Dose: 3 ml Aspirin (Aspirin Chewable) 81 mg PO DAILY [facility] Last Admin: 12/21/17 09:57 Dose: 81 mg Budesonide (Pulmicort Respules) 0.25 mg IH [id number] [facility] Last Admin: 12/22/17 07:44 Dose: 0.25 mg Cefepime HCl (Maxipime 1gm) 1 gm in 100 mls @ 100 mls/hr IVPB Q8 JARRELL PRN Reason: Protocol Last Admin: 12/22/17 05:18 Dose: 100 mls/hr Doxycycline Hyclate 100 mg/ (Sodium Chloride) 100 mls @ 100 mls/hr IVPB Q12 JARRELL PRN Reason: Protocol Last Admin: 12/21/17 21:35 Dose: 100 mls/hr Vancomycin HCl (Vancomycin 1gm) 1 gm in 250 mls @ 167 mls/hr IVPB 0600,1800 JARRELL PRN Reason: Protocol Last Admin: 12/22/17 05:18 Dose: 167 mls/hr Levothyroxine Sodium (Synthroid) 25 mcg PO DAILY [facility] Last Admin: 12/21/17 09:58 Dose: 25 mcg Losartan Potassium (Cozaar) 25 mg PO DAILY [facility] Last Admin: 12/21/17 09:52 Dose: 25 mg Methylprednisolone (Solu-Medrol) 40 mg IVP Q12 [facility] Last Admin: 12/21/17 21:35 Dose: 40 mg Potassium Chloride (K-Dur 20 Meq Er Tab) 20 meq PO DAILY JARRELL Last Admin: 12/21/17 09:58 Dose: 20 meq - Labs Labs: 12/21/17 05:20 12/21/17 05:20 - Constitutional Appears: Chronically Ill - Head Exam Head Exam: NORMAL INSPECTION - Respiratory Exam Respiratory Exam: Decreased Breath Sounds - Cardiovascular Exam Cardiovascular Exam: +S1, +S2 - GI/Abdominal Exam GI & Abdominal Exam: Soft. absent: Tenderness Assessment and Plan - Assessment and Plan (Free Text) Plan: Assessment Sepsis from left lower lobe healthcare-associated pneumonia HTN COPD S/P left hip replacement normal pressure hydrocephalus S/P CARE COORDINATION MANAGER shunt placement hypothyroidism history of shingles GERD S/P right knee surgery Plan continue Cefepime, Doxycycline and will add Vancomycin day 2; cultures have been negative; reviewed CXR - complete 4-7 days of therapy rapid flu test is negative will continue to monitor clinically
--- NOTE | 2017-12-22 20:42 | PN ---
DATE: REASON FOR CONSULTATION AND FOLLOWUP: Cardiac evaluation, admitted with cold congestion, bradycardia. 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 Denies any chest pain. PAST HISTORY: Significant for dementia, normal pressure hydrocephalus status post ventriculoperitoneal shunt, hypertension, back pain, insomnia, iron deficiency anemia, history of dehydration, history of diarrhea in the past, history of CVA, history of altered mental status and COPD. ALLERGIES: NO KNOW DRUG ALLERGIES. CURRENT MEDICATIONS: The patient is on levothyroxine, aspirin, potassium and losartan daily as well as albuterol inhaler. REVIEW OF SYSTEMS: As per HPI. PREVIOUS CARDIAC WORKUP: As follows, the patient's echo at 08/30/2016 showed ejection fraction of 55%-60%, mild aortic regurgitation, mild aortic stenosis, mitral regurgitation, mild to moderate tricuspid regurgitation, RV systolic pressure of 45, no vegetation, no thrombus noted. IMPRESSION: This is an 87-year-old female who was admitted with congestion, cough, found to be in bradycardia, heart rate baseline at 43, but hemodynamically stable, history of dementia, normal pressure hydrocephalus, status post ventriculoperitoneal shunt, chronic back pain, hypertension, iron deficiency anemia, chronic obstructive pulmonary disease, impaired cognitive behavior. RECOMMENDATION: EKG at baseline shows sinus rate, incomplete right bundle. Telemetry, the patient has sometime heart rate of 43 while sleeping. Because of these risk factors, we will try to treat the patient medically. In the previous admission, it was also discussed with the son, who wanted her to be treated medically. We will get echo to assess LV function. We will get TSH, lipid profile, hemoglobin A1c. Further recommendations will be made as per hospital course. We will follow with you. Thank you Dr. Valerio to provide us the opportunity in taking care of the patient, Bethany Espinoza. We will follow with you. Christa Wolf MD
[2017-12-23] MEDS: Albuterol-Ipratrop 3 mg / 0.5 (3 ml) UD IH SCH ×3 (03:00→13:15)
[2017-12-23] MEDS: Cefepime 1gm in NS 100ml 1 GM/100 ML BAG IVPB SCH ×3 (05:18→21:21)
[2017-12-23] MEDS: Vancomycin 1gm in NS 250ml 1 GM/250 ML BAG IVPB SCH ×2 (05:18→17:33)
[2017-12-23 06:16] LABS: GRAN # 8.26 (1.4-6.5); GRAN % 90.6 % (50.0-68.0); HEMOGLOBIN 8.4 g/dL (12.0-16.0); LYMPH # 0.5 (1.2-3.4); LYMPH % 5.5 % (22.0-35.0); MEAN CELL VOLUME 79.8 fl (80.0-105.0); MEAN CORPUSCULAR HEMOGLOBIN 25.4 pg (25.0-35.0); MEAN CORPUSCULAR HGB CONC 31.8 g/dl (31.0-37.0); MEAN PLATELET VOLUME 10.7 fl (7.0-11.0); MONO # 0.4 (0.1-0.6); MONO % 3.9 % (1.0-6.0); RBC 3.31 10^6/uL (3.5-6.1); RED CELL DISTRIBUTION WIDTH 15.1 % (11.5-14.5); WHITE BLOOD COUNT 9.1 10^3/ul (4.5-11.0)
[2017-12-23 06:42] LABS: ALBUMIN 2.8 g/dL (3.0-4.8); ALT/SGPT 22 U/L (7-56); AST/SGOT 20 U/L (14-36); BLOOD UREA NITROGEN 24 mg/dL (7-21); CALCIUM 9.3 mg/dL (8.4-10.5); GFR AFRICAN-AMERICAN > 60; GFR NON-AFRICAN AMERICAN > 60; HDL CHOLESTEROL 52 mg/dL (29-60)
[2017-12-23 06:53] LABS: LDL CHOLESTEROL 72 mg/dL (0-129)
--- NOTE | 2017-12-23 07:35 | HP ---
HISTORY OF PRESENT ILLNESS: The patient is seen in the emergency room. The patient was brought in by ambulance to the emergency room because she had shortness of breath, coughing and shallow respirations with rodriguez color of face. The patient was evaluated in the emergency room. The patient's presentation, the patient was in some distress when evaluated in the ER. The patient's O2 saturation at the time of initial evaluation showed that it was about 91% on room air. PAST MEDICAL HISTORY: Significant in that she has had history of chronic obstructive lung disease. The patient has history of hypertension. The patient has history of normal pressure hydrocephalus. She has a ventriculoperitoneal shunt and the patient has been treated for anemia also, chronic. ALLERGIC: THE PATIENT IS NOT ALLERGIC TO ANY MEDICATIONS AT THIS TIME. The patient has had surgery that was mentioned. PHYSICAL EXAMINATION: GENERAL: The patient is lying in bed. She has a cough that is present, on and off she coughs and has some respiratory difficulty. VITAL SIGNS: Temperature 101.1. The patient's pulse is 95, blood pressure 115/55. O2 sat is 91% and improved with treatment in the emergency room to 97%. HEENT: Head is normocephalic. She has the site of ventriculoperitoneal shunt on the right side of the head temporal area. NECK: Thyroid is not enlarged. JVP is flat. No lymphadenopathy in the neck. HEART: Normal sinus rhythm. S1 and S2 present as mentioned. ABDOMEN: Soft. Liver and spleen not palpable. No tenderness. LUNGS: Trachea is central. Breath sounds are vesicular. No adventitious sounds heard. The patient has bilateral crepitations and rhonchi. There is evidence of localizing signs on the left side of the chest. CENTRAL NERVOUS SYSTEM: She is conscious. She is rational, oriented, but her ability to talk is very muffled. LABORATORY DATA: Done in the emergency room, white count is 14,600, hemoglobin is 10.1. The patient's granulocyte which has shifted to the left, consistent with sepsis. Chemistry: The patient's sodium is 137, BUN is 28, creatinine 0.8, sugar is 126. Other parameters are within normal limits. The patient's chest x-ray shows an infiltrate in the left side of the lung. EKG showed nonspecific ST-T wave changes. The patient had blood cultures taken in the emergency room, antibiotic is started on the patient. The patient will have IV fluids, oxygen, Solu-Medrol. The patient will have consultation with Dr. Ward, who is a crm marketing analyst, and also the patient be seen by Infectious Disease Department. MEDICATIONS: The patient's list of medication at this time, the patient is on aspirin 81 mg daily, losartan 25 mg daily, DuoNeb q. 6 hours, potassium chloride 20 mEq daily, Maxipime 1 g q. 8 hours. The patient is on Pulmicort 0.25 mg q. 12 hours, methylprednisolone 40 mg IV q. 12 hours, Synthroid 25 mcg. The patient also will be placed on a heart-healthy diet. The patient's condition is clinically stable at this time. Overall prognosis is guarded. We will follow up with medical management. Rick Valerio MD
[2017-12-23] MEDS: Budesonide 0.25 mg/2 ml Inhal Susp UD IH SCH (07:53)
--- NOTE | 2017-12-23 08:27 | PN ---
DATE: 12/23/2017 PULMONARY NOTE SUBJECTIVE: The patient appears comfortable this morning. She is not short of breath at rest. PHYSICAL EXAMINATION VITAL SIGNS: Temperature is 98.6, pulse is 74, respirations 18, blood pressure 118/55. Oxygen saturation on nasal cannula is 97%. HEENT: Normocephalic, atraumatic. No JVD. CARDIOVASCULAR: Systolic ejection murmur at the lower left sternal border. No S3 gallop. LUNGS: Minimal crackles at left base. Minimal bilateral rhonchi. No wheezing. EXTREMITIES: Positive for mild edema. No cyanosis, no clubbing. Calves are nontender to palpation. GI: Abdomen is soft, nontender and nondistended. Bowel sounds are positive. SKIN: No acute rash. NEUROLOGIC: Limited at the present time. IMPRESSION: 1. Left lower lobe pneumonia. 2. Chronic obstructive pulmonary disease. 3. Mild bronchospasm. 4. Anemia. PLAN: The patient appears comfortable this morning. She is not short of breath at rest. She does state to feeling better overall. On physical exam, only minimal bronchospasm is noted. In addition, there is no significant alveolar-arterial gradient. I will continue the current nebulizer treatments and decrease the intravenous steroids this morning. The patient remains on antibiotic therapy - as per Infectious Disease. The temperatures have now fully resolved. The leukocytosis has also fully resolved. The clinical status of the patient is certainly improved - compared to the initial presentation. The patient is reminded to be out of bed as much as possible. Repeat a.m. labs are pending. I will discuss the above with the attending physician. Abdoul Ward MD JESSICA
--- NOTE | 2017-12-23 08:35 | CP.PCM.PN ---
Subjective - Date & Time of Evaluation Date of Evaluation: 12/23/17 Time of Evaluation: 08:00 - Subjective Subjective: Patient is seen this morning in room 262 bed 2. She is tired and wants to sleep. Objective - Vital Signs/Intake and Output Vital Signs (last 24 hours): Temp Pulse Resp BP Pulse Ox 98.6 F 74 18 118/55 L 97 12/23/17 06:00 12/23/17 06:00 12/23/17 06:00 12/23/17 06:00 12/23/17 06:00 Intake and Output: 12/23/17 12/23/17 06:59 18:59 Intake Total 550 0 Output Total 250 Balance 550 -250 - Medications Medications: Current Medications Albuterol/Ipratropium (Duoneb 3 Mg/0.5 Mg (3 Ml) Ud) 3 ml IH [id number] [facility] Last Admin: 12/23/17 07:53 Dose: 3 ml Aspirin (Aspirin Chewable) 81 mg PO DAILY [facility] Last Admin: 12/22/17 11:05 Dose: 81 mg Budesonide (Pulmicort Respules) 0.25 mg IH [id number] [facility] Last Admin: 12/23/17 07:53 Dose: 0.25 mg Guaifenesin (Robitussin) 100 mg PO Q6H PRN PRN Reason: Cough Last Admin: 12/22/17 21:35 Dose: 100 mg Cefepime HCl (Maxipime 1gm) 1 gm in 100 mls @ 100 mls/hr IVPB Q8 [facility] PRN Reason: Protocol Last Admin: 12/23/17 05:18 Dose: 100 mls/hr Doxycycline Hyclate 100 mg/ (Sodium Chloride) 100 mls @ 100 mls/hr IVPB Q12 [facility] PRN Reason: Protocol Last Admin: 12/22/17 21:32 Dose: 100 mls/hr Vancomycin HCl (Vancomycin 1gm) 1 gm in 250 mls @ 167 mls/hr IVPB 0600,1800 J[facility] PRN Reason: Protocol Last Admin: 12/23/17 05:18 Dose: 167 mls/hr Levothyroxine Sodium (Synthroid) 25 mcg PO DAILY [facility] Last Admin: 12/22/17 11:07 Dose: 25 mcg Losartan Potassium (Cozaar) 25 mg PO DAILY [facility] Last Admin: 12/22/17 11:06 Dose: 25 mg Methylprednisolone (Solu-Medrol) 30 mg IVP Q12 [facility] Potassium Chloride (K-Dur 20 Meq Er Tab) 20 meq PO DAILY [facility] Last Admin: 12/22/17 11:05 Dose: 20 meq - Labs Labs: 12/23/17 06:00 12/23/17 06:00 - Constitutional Appears: No Acute Distress - Head Exam Head Exam: ATRAUMATIC, NORMOCEPHALIC - Respiratory Exam Respiratory Exam: Rhonchi, NORMAL BREATHING PATTERN - Cardiovascular Exam Cardiovascular Exam: +S1, +S2 - GI/Abdominal Exam GI & Abdominal Exam: Soft, Normal Bowel Sounds. absent: Tenderness - Extremities Exam Extremities Exam: Normal Inspection - Neurological Exam Neurological Exam: Alert, Awake Assessment and Plan - Assessment and Plan (Free Text) Assessment: Pneumonia Bradycardia normal pressure hydrocephalus hypothyroidism mild dementia COPD Plan: Patient is on antibiotics for pneumonia as per infectious disease. She is currently undergoing evaluation for bradycardia by cardiology, Dr Iniguez and Dr. Wolf. Echocardiogram has been ordered. continue respiratory treatments and steroids as per pulmonary.
--- NOTE | 2017-12-23 08:58 | CON ---
DATE: 12/21/2017 PULMONARY CONSULTATION This is an 87-year-old female who was seen in the emergency room last night, worked up and diagnosed with suspected sepsis, suspected pneumonia, respiratory distress and fever. Patient was worked up and admitted to medical floor, given intravenous antibiotics and intravenous steroids. I evaluated the patient on telemetry floor. She is currently not in acute distress. HISTORY OF PRESENT ILLNESS: An 87-year-old with past medical history of chronic obstructive pulmonary disease, thyroid disease, left hip replacement. Apparently, she complained of cough that started one week prior to that. She did not state that she had any expectoration. She sounded congested. In the emergency room, she apparently had fever of 101. She also complained of left hip pain. She did not admit to any fever during this week at home. 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 MEDICATIONS AT HOME: Included losartan, levothyroxine, potassium, albuterol, Flovent. FAMILY HISTORY: Negative for inherited diseases. SOCIAL HISTORY: She is nonsmoker, nondrinker, never used illicit drugs. REVIEW OF SYSTEMS: Conducted by reviewing all sources. RESPIRATORY: See history of present illness. CARDIOVASCULAR: Denied chest pain. Denied palpitations. GASTROINTESTINAL: No history of nausea, vomiting, or diarrhea. GENITOURINARY: No history of dysuria or hematuria. The rest of the systems were reviewed and found to be negative. PHYSICAL EXAMINATION: GENERAL: Elderly female, in no acute distress. VITAL SIGNS: Temperature is 99.7, pulse is 84, respirations 22, blood pressure 115/55, pulse oximetry is 97% on nasal cannula and 91% room air. HEENT: Examination of head, ears, nose, and throat is within normal limits. NECK: Supple with no jugular vein distentions. CARDIOVASCULAR: S1, S2. No S3. Regular. PULMONARY: Diminished breath sounds at both lung bases with few rhonchi. No wheezing. There is upper airway congestion and coarse rhonchi in the anterior chest. GASTROINTESTINAL: Soft, nontender. No organomegaly. EXTREMITIES: No pedal edema. SKIN: Clear with no cyanosis. No skin rashes. NEUROLOGIC: Limited at present time. IMAGING STUDIES: I personally evaluated her chest x-ray, which was reported as left lower lobe pneumonia. There is a haziness at the left lung base, which appears more technical than real because on the lateral film, there are no infiltrates and diaphragms are sharp. So I doubt pneumonia in this case, although patient has severe bronchitis with congestive changes. So, the treatment will be the same. ASSESSMENT: 1. Acute bronchitis. 2. Exacerbation of chronic obstructive pulmonary disease. 3. Rule out pneumonia. 4. Sepsis syndrome. 5. Status post ventriculoperitoneal shunt for hydrocephalus. PLAN: Patient will be treated with antibiotics. She already started on doxycycline and ceftriaxone. Her laboratory data was reviewed by me. She has an elevated white count of 14.6. She also has mild anemia with hemoglobin of 10.1. Her chemistries are unremarkable. Her arterial blood gas shows mild hypoxia, normal pH of 7.45 and pCO2 of 34. She is not a CO2 retainer. The hypoxia could be caused by acute bronchitis with congestion and suspected pneumonia. The rest of her laboratory data was described above. She was given a dose of intravenous steroids and she is on nebulizer treatment, which I agree with. Josiah Lance MD
--- NOTE | 2017-12-23 09:46 | CARD ---
APPROVED REPORT EKG Measurement Heart [id number] <Conclusion> Sinus rhythm with premature atrial complexes Incomplete right bundle branch block Borderline ECG
--- NOTE | 2017-12-23 10:00 | PN ---
DATE: 12/22/2017 PULMONARY PROGRESS NOTE SUBJECTIVE: The patient was seen and examined at bedside. She is an 87-year-old female with past medical history of COPD, hypertension and normal pressure hydrocephalous status post repeat shunt placement. She was brought to [facility] because of cough and shortness of breath. We evaluated her yesterday and reviewed her chest x-ray. The official report was of left lower lobe infiltrate; however, on lateral film, it does not appear to be infiltrate. There is a haziness on the PA chest x-ray. The chest x-ray will be repeated. In the meantime, she is being treated with double antibiotic therapy for exacerbation of chronic obstructive pulmonary disease and community-acquired pneumonia. PHYSICAL EXAMINATION GENERAL: On today's examination, she is awake, confused, in no respiratory distress. HEAD, EARS, NOSE, AND THROAT: Within normal limits. NECK: Supple with no jugular vein distention. CHEST: Symmetrical. HEART: S1 and S2. No S3. Regular. LUNGS: Slightly diminished breath sounds at both lung bases with no rhonchi, rales or wheezing. GASTROINTESTINAL: Soft, nontender. No organomegaly. GENITOURINARY: No costovertebral angle tenderness. EXTREMITIES: A 1+ pedal edema. SKIN: Clear with no skin rashes. NEUROLOGIC: No focal deficits. MEDICATIONS: The patient is receiving inhalations with DuoNeb, was added budesonide and she is on Solu-Medrol 40 mg every 12 hours. ASSESSMENT: 1. Exacerbation of chronic obstructive pulmonary disease. 2. Rule out pneumonia. PLAN: The patient will continue with current inhalation therapy with DuoNeb and added budesonide. She is on appropriate antibiotic coverage. Chest x-ray initially reported as left lower lobe infiltrate; however, left lateral film does not reveal infiltrates, so repeat chest x-ray or CT scan will be done in the next 24-48 hours to further review whether there is actual pneumonia or just bronchitis and exacerbation of chronic obstructive pulmonary disease. We will follow closely. Josiah Lance MD
[2017-12-23] MEDS: guaiFENesin 100 mg/5 ml Syrup UD PO PRN (10:49)
[2017-12-23] MEDS: Levothyroxine 25 MCG TAB PO SCH (10:49)
[2017-12-23] MEDS: Potassium Chloride 20 mEq ER Tab PO SCH (10:49)
[2017-12-23] MEDS: MethylPREDNISolone 40 mg Vial IVP SCH ×2 (10:49→21:21)
--- NOTE | 2017-12-23 14:24 | PN ---
DATE: 12/23/2017 LOCATION: Patient in room 262, bed 2. REASON FOR CONSULTATION AND FOLLOWUP: Bradycardia, COPD, hypothyroidism, normal pressure hydrocephalus. SUBJECTIVE: Patient lying flat in bed. There is no history of any chest pain, shortness of breath, or palpitations. Patient does not respond well on calling; however, patient's heart rate has been stable since yesterday, this night, and this morning. Only one time, patient's heart rate yesterday morning was 48, other time it was in the 70s, 90s, and 80s. PHYSICAL EXAMINATION: VITAL SIGNS: Blood pressure 118/55, respirations 18, pulse 74, temperature 98.6. HEENT: Head is normocephalic. Eyes: Pupils are normal. Conjunctivae slightly pale. NECK: JVP low. Carotids are equal. THORAX: AP diameter normal. LUNGS: Clear. CARDIOVASCULAR: S1 and S2. ABDOMEN: Soft. No tenderness. No organomegaly. EXTREMITIES: No clubbing. No cyanosis. LABORATORY DATA: WBC 9.1, hemoglobin 8.4, hematocrit 26.4, and platelet 192. Sodium 140, potassium 3.8. BUN 24, creatinine 0.7. AST and ALT normal. Total protein 5.6, albumin 2.8. TSH 0.42. DIAGNOSES: Bradycardia, asymptomatic, admitted with cough, congestion, dementia, normal pressure hydrocephalus status post ventriculoperitoneal shunt, chronic back pain, hypertension, iron deficiency anemia, chronic obstructive pulmonary disease, impaired cognitive behavior. RECOMMENDATION: Plan is, patient yesterday only had one time, morning time heart rate 48, otherwise most of the day, last night, and this morning, heart rate had been 70, 80, and 90, and then heart rate was 48. Patient hemodynamically stable. So we will continue to treat the patient medically. Dr. Wolf had discussed with the son who also wanted the patient to be treated medically and the patient at the present moment with the finding does not need any pacemaker anyway. Patient's echo has been ordered. We will follow the echo and give further recommendation if any. At the present moment, patient on aspirin 81 mg daily, Cozaar 25 daily, DuoNeb hand nebulizer therapy, cefepime 1 g IV q. 8 hours, methylprednisolone 30 mg IV q. 12 hours, levothyroxine 25 mcg p.o. daily, vancomycin 1 g IV b.i.d. Continue present therapy. We will follow. Christa Iniguez MD
--- NOTE | 2017-12-23 14:31 | CP.PCM.PN ---
Subjective - Date & Time of Evaluation Date of Evaluation: 12/23/17 Time of Evaluation: 09:35 - Subjective Subjective: Comfortable, no fevers, improved cough and breathing. Objective - Vital Signs/Intake and Output Vital Signs (last 24 hours): Temp Pulse Resp BP Pulse Ox 97 F L 67 16 124/83 96 12/22/17 12:00 12/22/17 12:00 12/22/17 12:00 12/22/17 12:00 12/22/17 06:00 Intake and Output: 12/22/17 12/22/17 06:59 18:59 Intake Total 1000 Output Total 800 Balance 200 - Medications Medications: Current Medications Albuterol/Ipratropium (Duoneb 3 Mg/0.5 Mg (3 Ml) Ud) 3 ml IH [id number] [facility] Last Admin: 12/22/17 13:41 Dose: 3 ml Aspirin (Aspirin Chewable) 81 mg PO DAILY [facility] Last Admin: 12/22/17 11:05 Dose: 81 mg Budesonide (Pulmicort Respules) 0.25 mg IH [id number] [facility] Last Admin: 12/22/17 07:44 Dose: 0.25 mg Guaifenesin (Robitussin) 100 mg PO Q6H PRN PRN Reason: Cough Last Admin: 12/22/17 14:30 Dose: 100 mg Cefepime HCl (Maxipime 1gm) 1 gm in 100 mls @ 100 mls/hr IVPB Q8 [facility] PRN Reason: Protocol Last Admin: 12/22/17 14:09 Dose: 100 mls/hr Doxycycline Hyclate 100 mg/ (Sodium Chloride) 100 mls @ 100 mls/hr IVPB Q12 [facility] PRN Reason: Protocol Last Admin: 12/22/17 11:08 Dose: 100 mls/hr Vancomycin HCl (Vancomycin 1gm) 1 gm in 250 mls @ 167 mls/hr IVPB 0600,1800 J[facility]RELL PRN Reason: Protocol Last Admin: 12/22/17 05:18 Dose: 167 mls/hr Levothyroxine Sodium (Synthroid) 25 mcg PO DAILY [facility] Last Admin: 12/22/17 11:07 Dose: 25 mcg Losartan Potassium (Cozaar) 25 mg PO DAILY [facility] Last Admin: 12/22/17 11:06 Dose: 25 mg Methylprednisolone (Solu-Medrol) 40 mg IVP Q12 [facility] Last Admin: 12/22/17 11:05 Dose: 40 mg Potassium Chloride (K-Dur 20 Meq Er Tab) 20 meq PO DAILY [facility] Last Admin: 12/22/17 11:05 Dose: 20 meq - Labs Labs: 12/21/17 05:20 12/21/17 05:20 - Constitutional Appears: Chronically Ill - Head Exam Head Exam: NORMAL INSPECTION - ENT Exam ENT Exam: Mucous Membranes Moist - Neck Exam Neck Exam: absent: Meningismus - Respiratory Exam Respiratory Exam: Decreased Breath Sounds - Cardiovascular Exam Cardiovascular Exam: +S1, +S2 - GI/Abdominal Exam GI & Abdominal Exam: Soft. absent: Tenderness Assessment and Plan - Assessment and Plan (Free Text) Plan: Assessment Sepsis from left lower lobe healthcare-associated pneumonia, slowly improving HTN COPD S/P left hip replacement normal pressure hydrocephalus S/P DIELECTRIC TESTER shunt placement hypothyroidism history of shingles GERD S/P right knee surgery Plan continue Cefepime, Doxycycline and Vancomycin day 3; cultures have been negative ; reviewed CXR - complete 4-7 days of therapy; will repeat PCT today to trend rapid flu test is negative will continue to monitor clinically
--- NOTE | 2017-12-23 16:17 | CARD ---
APPROVED REPORT EXAM: Two-dimensional and M-mode echocardiogram with Doppler and color Doppler. INDICATION BRADYCARDIA/LVFX 2D DIMENSIONS Left Atrium (2D)4.1 (1.6-4.0cm)IVSd0.9 (0.7-1.1cm) LVDd3.9 (3.9-5.9cm)PWd1.0 (0.7-1.1cm) LVDs2.5 (2.5-4.0cm)FS (%) 35.6 % LVEF (%)65.7 (>50%) M-Mode DIMENSIONS Aortic Root3.20 (2.2-3.7cm)Aortic Cusp Exc.1.80 (1.5-2.0cm) Aortic Valve AoV Peak Txkpbkah137.0cm/[place] Peak GR.12mmHgAI P 1/2 [id number] Mitral Valve E/A ratio0.0 TDI E/Lateral E'0.0E/Medial E'0.0 Pulmonary Valve PV Peak Ayonpajg200.0cm/sPV Peak Grad.4mmHg Tricuspid Valve TR Peak Yafvymca306wu/sRAP [id number] Peak Gr.63mmHg [id number] LEFT VENTRICLE The left ventricle is normal size. There is normal left ventricular wall thickness. The left ventricular function is normal.EF-65% There is normal LV segmental wall motion. The left ventricular diastolic function is normal. No left ventricle thrombus noted on this study. There is no ventricular septal defect visualized. There is no left ventricular aneurysm. There is no mass noted in the left ventricle. RIGHT VENTRICLE The right ventricle is mildly dilated. The right ventricle is borderline hypertrophied. Systolic function of RV is mildly to moderately reduced. ATRIA The left atrium is mildly dilated. The right atrium is mildly dilated. Asmall intermittent Left to right shunt by color flow noted ( small tiny intermittent PFO). AORTIC VALVE The aortic valve is thickened but opens well. There is mild aortic regurgitation. There is no aortic valvular stenosis. There is no aortic valvular vegetation. MITRAL VALVE The mitral valve is thickened but opens well. Mitral annular calcification is mild to moderate. Mitral regurgitation is mild. There is no mitral valve stenosis. There is no evidence of mitral valve prolapse. TRICUSPID VALVE The tricuspid valve leaflets are thickened , but open well. There is moderate to severe tricuspid regurgitation.RVSP-73 mmof Hg There is moderate to severe pulmonary hypertension. There is no tricuspid valve stenosis. There is no tricuspid valve prolapse or vegetation. PULMONIC VALVE The pulmonic valve is borderline thickened. There is mild to moderate pulmonic valvular regurgitation. There is no pulmonic valvular stenosis. GREAT VESSELS The aortic root is normal in size. The ascending aorta is normal in size. The pulmonary artery is normal. The IVC is normal in size and collapses >50% with inspiration. PERICARDIAL EFFUSION There is no pleural effusion. There is no pericardial effusion. <Conclusion> The left ventricle is normal size. There is normal left ventricular wall thickness. The left ventricular function is normal.EF-65% The right ventricle is mildly dilated. There is mild aortic regurgitation. Mitral regurgitation is mild. There is moderate to severe tricuspid regurgitation.RVSP-73 mmof Hg There is moderate to severe pulmonary hypertension. There is mild to moderate pulmonic valvular regurgitation. The IVC is normal in size and collapses >50% with inspiration. Asmall intermittent Left to right shunt by color flow noted ( small tiny intermittent PFO).
[2017-12-23 17:07] LABS: FOLATE 18.2 ng/mL
[2017-12-24] MEDS: Cefepime 1gm in NS 100ml 1 GM/100 ML BAG IVPB SCH ×2 (05:36→14:25)
[2017-12-24] MEDS: Vancomycin 1gm in NS 250ml 1 GM/250 ML BAG IVPB SCH (06:29)
[2017-12-24 06:32] LABS: GRAN # 6.15 (1.4-6.5); GRAN % 83.5 % (50.0-68.0); HEMOGLOBIN 7.9 g/dL (12.0-16.0); LYMPH # 0.8 (1.2-3.4); LYMPH % 10.9 % (22.0-35.0); MEAN CELL VOLUME 79.7 fl (80.0-105.0); MEAN CORPUSCULAR HEMOGLOBIN 25.5 pg (25.0-35.0); MONO # 0.4 (0.1-0.6); MONO % 5.6 % (1.0-6.0); RBC 3.1 10^6/uL (3.5-6.1); RED CELL DISTRIBUTION WIDTH 15.1 % (11.5-14.5); WHITE BLOOD COUNT 7.4 10^3/ul (4.5-11.0)
--- NOTE | 2017-12-24 07:31 | PN ---
DATE: 12/24/2017 SUBJECTIVE: The patient appears comfortable this morning. She is not short of breath at rest. OBJECTIVE VITAL SIGNS: Temperature is 97.8, pulse 70, respirations 18, blood pressure 141/75. Oxygen saturation on nasal cannula is 97%. HEENT: Normocephalic, atraumatic. NECK: No JVD. CARDIOVASCULAR: Systolic ejection murmur at the lower left sternal border. No S3 gallop. LUNGS: Minimal crackles at the left base. Less rhonchi. No wheezing. EXTREMITIES: Positive for mild edema. No cyanosis or clubbing. Calves are nontender to palpation. GASTROINTESTINAL: Abdomen is soft, nontender and nondistended. Bowel sounds are positive. Skin: No acute rash. NEUROLOGIC: Exam limited at the present time. IMPRESSION 1. Left lower lobe pneumonia. 2. Chronic obstructive pulmonary disease. 3. Mild bronchospasm. 4. Anemia. PLAN: The patient appears comfortable this morning. She is not short of breath at rest. On physical exam, there is less bronchospasm noted. In addition, the oxygen saturation on nasal cannula is 97%. I will continue with the current nebulizer treatments and current low dose intravenous steroids (decreased yesterday) for now. The patient also remains on antibiotic therapy - as per Infectious Disease. Temperatures have completely resolved. The leukocytosis has also completely resolved. Clinical status of the patient is certainly improved - compared to the initial presentation. Repeat morning labs are pending. Physical Therapy has been consulted. I will discuss the above with the attending physician. Abdoul Ward MD < MTDD
[2017-12-24] MEDS: Budesonide 0.25 mg/2 ml Inhal Susp UD IH SCH ×2 (07:47→19:24)
[2017-12-24] MEDS: Albuterol-Ipratrop 3 mg / 0.5 (3 ml) UD IH SCH ×3 (07:47→19:24)
--- NOTE | 2017-12-24 07:54 | CP.PCM.PN ---
Subjective - Date & Time of Evaluation Date of Evaluation: 12/24/17 Time of Evaluation: 07:15 - Subjective Subjective: Patient is seen this morning in room 262 bed 2. She is arousable but lethargic this morning. Her hemoglobin is steadily dropping. Objective - Vital Signs/Intake and Output Vital Signs (last 24 hours): Temp Pulse Resp BP Pulse Ox 97.8 F 70 18 141/75 97 12/24/17 05:58 12/24/17 05:58 12/24/17 05:58 12/24/17 05:58 12/24/17 05:58 Intake and Output: 12/24/17 12/24/17 06:59 18:59 Intake Total 570 Output Total 300 Balance 270 - Medications Medications: Current Medications Albuterol/Ipratropium (Duoneb 3 Mg/0.5 Mg (3 Ml) Ud) 3 ml IH [id number] [facility] Last Admin: 12/23/17 13:15 Dose: 3 ml Aspirin (Aspirin Chewable) 81 mg PO DAILY [facility] Last Admin: 12/23/17 10:49 Dose: 81 mg Budesonide (Pulmicort Respules) 0.25 mg IH [id number] [facility] Last Admin: 12/23/17 07:53 Dose: 0.25 mg Doxycycline Hyclate (Doryx) 100 mg PO Q12 [facility] Last Admin: 12/23/17 21:21 Dose: 100 mg Guaifenesin (Robitussin) 100 mg PO Q6H PRN PRN Reason: Cough Last Admin: 12/23/17 10:49 Dose: 100 mg Cefepime HCl (Maxipime 1gm) 1 gm in 100 mls @ 100 mls/hr IVPB Q8 [facility] PRN Reason: Protocol Last Admin: 12/24/17 05:36 Dose: 100 mls/hr Vancomycin HCl (Vancomycin 1gm) 1 gm in 250 mls @ 167 mls/hr IVPB 0600,1800 [facility] PRN Reason: Protocol Last Admin: 12/24/17 06:29 Dose: 167 mls/hr Levothyroxine Sodium (Synthroid) 25 mcg PO DAILY [facility] Last Admin: 12/23/17 10:49 Dose: 25 mcg Losartan Potassium (Cozaar) 25 mg PO DAILY [facility] Last Admin: 12/23/17 10:49 Dose: 25 mg Methylprednisolone (Solu-Medrol) 30 mg IVP Q12 [facility] Last Admin: 12/23/17 21:21 Dose: 30 mg Potassium Chloride (K-Dur 20 Meq Er Tab) 20 meq PO DAILY [facility] Last Admin: 12/23/17 10:49 Dose: 20 meq - Labs Labs: 12/24/17 05:30 12/23/17 06:00 - Constitutional Appears: No Acute Distress - Head Exam Head Exam: ATRAUMATIC, NORMOCEPHALIC - Respiratory Exam Respiratory Exam: Decreased Breath Sounds, NORMAL BREATHING PATTERN - Cardiovascular Exam Cardiovascular Exam: +S1, +S2 - GI/Abdominal Exam GI & Abdominal Exam: Soft, Normal Bowel Sounds. absent: Tenderness - Neurological Exam Neurological Exam: Awake Assessment and Plan - Assessment and Plan (Free Text) Assessment: Pneumonia Anemia COPD HTN Hypothyroidism Plan: Patient's hemoglobin is 7.9 this morning. We will type and cross and transfuse 1 unit of blood. Stool for occult blood is pending. Patient has not had a bowel movement the past 2 days according to the nurse. Will order Miralax for constipation. check iron levels. TSH is low. Will check free T4. continue antibiotics as per infectious disease.
[2017-12-24] MEDS: Levothyroxine 25 MCG TAB PO SCH (09:12)
[2017-12-24] MEDS: Potassium Chloride 20 mEq ER Tab PO SCH (09:12)
[2017-12-24] MEDS: MethylPREDNISolone 40 mg Vial IVP SCH ×2 (09:19→21:21)
[2017-12-24] MEDS ORDERED: Albuterol-Ipratrop 3 mg / 0.5 (3 ml) UD IH PRN (12:10)
--- NOTE | 2017-12-24 13:06 | PN ---
DATE: 12/23/2017 LOCATION: Patient in room 262, bed 2. REASON FOR CONSULTATION AND FOLLOWUP: Bradycardia, COPD, hypothyroidism, normal-pressure hydrocephalus. SUBJECTIVE: The patient conscious and alert, answering questions. Denies any chest pain, shortness of breath or palpitation. No dizziness. No syncope. PHYSICAL EXAMINATION VITAL SIGNS: Blood pressure 141/75 earlier, blood pressure today was 133/70; respirations 18; pulse 70 and temperature 97.8. HEENT: Head is normocephalic. Eyes: Pupils normal. Conjunctivae slightly pale. NECK: JVP low. Carotids equal. THORAX: AP diameter normal. LUNGS: Clear. CARDIOVASCULAR: S1 and S2. ABDOMEN: Soft, nontender. No organomegaly. Bowel sounds normal. EXTREMITIES: No clubbing. No cyanosis. LABORATORY DATA: WBC 7.4, hemoglobin 7.9, hematocrit 24.7, platelet 193,000. Sodium 140, potassium 3.8, BUN 24, creatinine 0.7, random glucose 158. Calcium, phosphorus and magnesium is normal. AST and ALT normal. Total protein 5.6. Albumin 2.8. TSH 0.42. Echo was done on 12/23/2017 and it showed left ventricular normal size, normal LV systolic function with ejection fraction of 65%, right ventricle mildly dilated, mild aortic regurgitation, mild mitral regurgitation, bvqkkehv-[id number] tricuspid regurgitation with RVSP 73 mmHg suggestive of [id number] pulmonary hypertension. There is ydvh-pn-axhsuljn pulmonic valvular regurgitation. A small intermittent xayz-mp-sfrjt shunt by color flow noted. This is suggestive of a very small tiny intermittent PFO. DIAGNOSES: Bradycardia at present, but the patient has been asymptomatic and no more bradycardia seen. The patient had two days ago, one episode when heart rate was 148, after that heart . The patient is asymptomatic, doing , cough with congestion, dementia, normal pressure hydrocephalus, status post ventriculoperitoneal shunt, chronic back pain, hypertension, iron deficiency anemia, chronic obstructive pulmonary disease with swanftqu-xf-ypmfme pulmonary hypertension, impaired cognitive behavior. On echo, very tiny small intermittent shunt from left to right on color flow suggestive of very tiny intermittent PFO. The patient is on levothyroxine 25 mcg daily, vancomycin 1 g IV b.i.d., Cozaar 25 mg daily, doxycycline hyclate 100 mg p.o. q. 12 hour, aspirin 81 mg daily, potassium 20 mEq p.o. daily, cefepime 1 g IV q. 8 hours, methylprednisolone 30 mg IV q. 12 hours. The patient's telemetry can be discontinued. We will follow. Christa Iniguez MD
[2017-12-24] MEDS: guaiFENesin 100 mg/5 ml Syrup UD PO PRN ×2 (16:33→21:21)
--- NOTE | 2017-12-24 21:00 | PN ---
DATE: SUBJECTIVE: Patient is seen early this morning, in room 262, bed 2. No fevers and no chills. No abdominal pain or diarrhea. PHYSICAL EXAMINATION: VITAL SIGNS: On exam, temperature is 98, blood pressure is 130/70, respiratory rate of 20, heart rate of 81. HEENT: Unremarkable. NECK: Supple. LUNGS: Have decreased breath sounds. HEART: Normal S1 and S2. ABDOMEN: Mild tenderness. No rebound, guarding or masses. LABORATORY DATA: Reveals a white count of 7.4, hemoglobin of 7, platelets of 193. Chemistries reveal a procalcitonin of 0.60, and BUN of 24 and creatinine of 0.7, and the LFTs are noted. Earlier procalcitonin was 1.56. Urinalysis is noted. Serology, influenza type is negative. Urine for Legionella antigen is negative. Microbiology reveals the blood cultures are no growth, urine cultures are no growth. Dr. Iniguez's progress note is reviewed. progress note is reviewed. Dr. Prajapati's progress note is reviewed. Dr. Ward's progress note is reviewed. 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 Reviewed medication doxycycline, cefepime and vancomycin to be active, with negative blood and negative urine cultures, and concerned about that abdominal tenderness. We will order a CAT scan of the abdomen and pelvis with p.o. contrast only. We will follow closely with you. We will change the cefepime to meropenem, and repeat a procalcitonin, and discontinue the vancomycin. The patient is also on Solu-Medrol. We will follow with you. Eduar Nolan MD [facility] # [id number]
[2017-12-24] MEDS: Meropenem IV 1 gm in NS 50 ML IVPB SCH (21:22)
[2017-12-25] MEDS: Albuterol-Ipratrop 3 mg / 0.5 (3 ml) UD IH SCH ×5 (00:54→20:17)
[2017-12-25] MEDS: guaiFENesin 100 mg/5 ml Syrup UD PO PRN (02:51)
[2017-12-25] MEDS: Meropenem IV 1 gm in NS 50 ML IVPB SCH ×3 (05:04→23:10)
[2017-12-25 06:26] LABS: BASO # 0.01 K/mm3 (0.0-2.0); BASO % 0.1 % (0.0-3.0); GRAN # 5.5 (1.4-6.5); GRAN % 80.2 % (50.0-68.0); LYMPH # 0.9 (1.2-3.4); LYMPH % 12.8 % (22.0-35.0); MEAN CELL VOLUME 80.2 fl (80.0-105.0); MEAN CORPUSCULAR HEMOGLOBIN 26.2 pg (25.0-35.0); MEAN CORPUSCULAR HGB CONC 32.7 g/dl (31.0-37.0); MEAN PLATELET VOLUME 10.4 fl (7.0-11.0); MONO # 0.5 (0.1-0.6); MONO % 6.9 % (1.0-6.0); RBC 3.43 10^6/uL (3.5-6.1); RED CELL DISTRIBUTION WIDTH 15.3 % (11.5-14.5); WHITE BLOOD COUNT 6.9 10^3/ul (4.5-11.0)
[2017-12-25] MEDS ORDERED: Barium Sulfate Susp 2.1% w/v, 2.0% w/w 450 mL Bottle PO ONE (06:38)
[2017-12-25 06:50] LABS: BLOOD UREA NITROGEN 22 mg/dL (7-21); GFR AFRICAN-AMERICAN > 60; GFR NON-AFRICAN AMERICAN > 60
[2017-12-25] MEDS: Budesonide 0.25 mg/2 ml Inhal Susp UD IH SCH ×2 (08:02→20:21)
[2017-12-25] MEDS: Levothyroxine 25 MCG TAB PO SCH (11:20)
[2017-12-25] MEDS: MethylPREDNISolone 40 mg Vial IVP SCH ×2 (11:21→23:09)
[2017-12-25] MEDS: Potassium Chloride 20 mEq ER Tab PO SCH (11:21)
--- NOTE | 2017-12-25 11:53 | CT ---
PROCEDURE: CT Abdomen and Pelvis without intravenous contrast HISTORY: left abd tenderness COMPARISON: CT 08/28/2016 TECHNIQUE: Without contrast. Contrast Dose: Radiation dose: Total exam DLP = 415 mGy-cm. This CT exam was performed using one or more of the following dose reduction techniques: Automated exposure control, adjustment of the mA and/or kV according to patient size, and/or use of iterative reconstruction technique. FINDINGS: LOWER THORAX: Moderate hiatal hernia. Small pleural effusions LIVER: Unremarkable. No gross lesion or ductal dilatation. GALLBLADDER AND BILE DUCTS: Unremarkable. PANCREAS: Unremarkable. No gross lesion or ductal dilatation. SPLEEN: Unremarkable. ADRENALS: Unremarkable. No mass. KIDNEYS AND URETERS: Unremarkable. No hydronephrosis. No solid mass. VASCULATURE: Unremarkable. No aortic aneurysm. BOWEL: Unremarkable. No obstruction. No gross mural thickening. Mild sigmoid diverticulosis. No evidence of diverticulitis APPENDIX: Unremarkable. Normal appendix. PERITONEUM: Unremarkable. No free fluid. No free air. LYMPH NODES: Unremarkable. No enlarged lymph nodes. BLADDER: Unremarkable. REPRODUCTIVE: Unremarkable. BONES: No acute fracture. OTHER FINDINGS: None. IMPRESSION: No acute intra-abdominal findings
--- NOTE | 2017-12-25 11:56 | PN ---
DATE: 12/25/2017 PULMONARY NOTE SUBJECTIVE: The patient appears comfortable this morning. She is not short of breath at rest. OBJECTIVE VITAL SIGNS: Temperature is 98.7, pulse 72, respirations 18/20, blood pressure 144/76. Oxygen saturation on nasal cannula is 96%. HEENT: Normocephalic, atraumatic. NECK: No JVD. CARDIOVASCULAR: Systolic ejection murmur at the lower left sternal border. No S3 gallop. LUNGS: Minimal crackles in the left base. Much less rhonchi. No wheezing. EXTREMITIES: Positive for mild edema. No cyanosis, no clubbing. Calves are nontender to palpation. GASTROINTESTINAL: Abdomen is soft, nontender and nondistended. Bowel sounds are positive. SKIN: No acute rash. NEUROLOGIC: Exam limited at the present time. IMPRESSION 1. Left lower lobe pneumonia. 2. Chronic obstructive pulmonary disease. 3. Mild bronchospasm. 4. Anemia. PLAN: The patient appears comfortable this morning. She is not short of breath at rest. On physical exam, her bronchospasm continues to slowly resolve. In addition, there is no significant alveolar-arterial gradient. I will continue with the current nebulizer treatments and decrease the intravenous steroids this morning. The patient remains on antibiotic therapy - as per Infectious Disease. The temperatures have fully resolved. The leukocytosis has also fully resolved. Clinical status of the patient is certainly improved - compared to the initial presentation. I will discuss the above the attending physician. Abdoul Ward MD MTDAncelmo
--- NOTE | 2017-12-25 12:44 | PN ---
DATE: 12/25/2017 REASON FOR CONSULTATION AND FOLLOWUP: Bradycardia, COPD, hypothyroidism, and normal pressure hydrocephalus. SUBJECTIVE: The patient is conscious, alert, awake. Denies any chest pain, shortness of breath, or any palpitation. OBJECTIVE: GENERAL: Not in apparent distress, lying flat on the bed. VITAL SIGNS: Temperature afebrile, heart rate 72, blood pressure 144/76. HEENT: PERRLA, intact. NECK: Supple. No carotid bruit. No thyromegaly. CHEST: Clear to auscultation. HEART: S1 and S2, regular. ABDOMEN: Soft. EXTREMITIES: Clubbing and cyanosis negative. LABORATORY DATA: Blood workup as follows; WBC 6.9, hemoglobin 9, hematocrit 27.5, platelet count of 175. Chemistries show sodium 137, potassium 4.1, chloride of 106, carbon dioxide 24, anion gap of 10. BUN 22, creatinine 0.7. EKG on 12/23/2017, shows normal sinus rhythm, premature atrial complex, incomplete right bundle branch block. IMPRESSION: An 87-year-old female with past medical history of hypertension, admitted with history of hypertension, history of ventriculoperitoneal shunt, normal pressure hydrocephalus, dementia, chronic back pain, chronic obstructive pulmonary disease, severe pulmonary hypertension, impaired cognitive behavior, admitted with congestion, found to be in bradycardia, heart rate in 43, but hemodynamically remained stable, history of dementia in the past, history of hypertension, iron deficiency anemia, chronic obstructive pulmonary disease, as mentioned impaired cognitive behavior. The patient underwent echocardiography that showed ejection fraction of 65%, right ventricle mildly dilated, mild aortic regurgitation, mild mitral regurgitation, moderate severe tricuspid regurgitation, right ventricular systolic pressure of 73 consistent with moderate severe pulmonary hypertension, mild to moderate pulmonary insufficiency, a small intermittent left to right shunt by color flow noted. A small tiny intermittent patent foramen ovale noted. RECOMMENDATION: Continue levothyroxine. Continue antibiotic. Supplemental electrolytes as needed. Discontinue telemetry. CVS status is stable. No more bradyarrhythmia noted. In the past also discussed with son who wanted to be treated medically. Currently, the patient is hemodynamically stable. No further episode of bradyarrhythmia noted. We will follow with you. Avoid beta-madeleine. Avoid rate limiting calcium channel madeleine. Thank you Dr. Valerio to provide us the opportunity in taking care of the patient, Olga Sims. Christa Wolf MD
--- NOTE | 2017-12-25 13:10 | PN ---
DATE: The patient is in [facility], room 262, bed 2. SUBJECTIVE: The patient was admitted via the Emergency Room. The patient was septic and the patient has history of shortness of breath and cough, respiratory induction. The patient is seen this morning. She is awake, alert but lethargic and seems to be very lethargic in the morning, but the patient recovers in the afternoon. The patient's past history is significant. She has history of ventriculoperitoneal shunt for normal-pressure hydrocephalus. She has a history of mild dementia associated with anemia, chronic. The patient has history of chronic obstructive lung disease, hypertension and the patient has had GI evaluation in the past, does not show any significant pathology. The patient has history of myelodysplastic syndrome too, chronic anemia associated with inactive bone marrow. The patient's platelet count is 175,000, hemoglobin is 9.0. We will give another unit of blood today because of the patient's chronic diagnosis of myelodysplastic syndrome. PHYSICAL EXAMINATION LUNGS: Clear. HEART: Normal sinus rhythm. ABDOMEN: Soft, distended. Liver and spleen not palpable. CENTRAL NERVOUS SYSTEM: The patient is lethargic. No focal neurological deficits are noted. MEDICATIONS: Consists of aspirin 81 mg daily, Colace 100 mg b.i.d., losartan 25 mg p.o. daily, docusate 500 mg q. 12 hours. For respiratory infection, the patient is on albuterol, DuoNeb treatment. The patient is on meropenem 1 g q. 8 hours. The patient is on Pulmicort 0.25 mg q. 12 hours, methylprednisolone 20 mg IV q. 12 hours. The steroid has been decreased from 40 to 20 now and we will gradually decrease the steroid to more lesser and convert it to oral steroid. In view of the fact that the patient's mental state and anemia problem, we will give another blood transfusion. I think it will help her general condition and the mental consciousness. Rick Valerio MD
--- NOTE | 2017-12-25 22:05 | PN ---
DATE: 12/25/2017 SUBJECTIVE: The patient is seen in room 262, bed 1. No fevers. No chills. The patient was seen early this morning. Denied any abdominal pain. I have reviewed the CAT scan earlier. PHYSICAL EXAMINATION: VITAL SIGNS: Temperature is 98, blood pressure is 150/70, respiratory rate of 19, heart rate of 75. HEENT: Examination of HEENT is unremarkable. NECK: Supple. LUNGS: Have decreased breath sounds. HEART: Normal S1 and S2. ABDOMEN: Soft, nontender. LABORATORY DATA: Laboratory examination reveals the patient's white count of 6.9, hemoglobin of 9, platelets of 175. Chemistries reveals a BUN of 22, creatinine of 0.7. Procalcitonin is 0.14. Urinalysis is noted and influenza is negative. Microbiology reveals the blood cultures not growth, urine cultures no growth. The patient did agree with a CAT scan of the abdomen and pelvis finally for today. Did have the CAT scan. No acute intraabdominal findings. There is mild sigmoid diverticulosis. No evidence of diverticulitis. Dr. Ward's note is reviewed. ASSESSMENT AND PLAN: This is an 87-year-old female, seen earlier this morning, who was admitted with sepsis with a left lower lobe healthcare-associated pneumonia. The patient is doing better. The patient with chronic obstructive lung disease and hypertension, history of left hip replacement and normal pressure hydrocephalus, status post ventriculoperitoneal shunt placement, hypothyroidism and history of shingles and gastroesophageal reflux disease, knee surgery and currently on doxycycline and meropenem, day #5. Negative CAT scan of the abdomen and pelvis. We will complete 4 to 7 days of antibiotics. The patient has a repeat procalcitonin, it is now within normal as of yesterday 0.14, initial one was 0.60. May be able to discharge on p.o. doxycycline to complete a total of 7 days. Eduar Nolan MD
--- NOTE | 2017-12-25 22:26 | CP.PCM.CON ---
<Becky Balbuena - Last Filed: 12/25/17 22:19> History of Present Illness - History of Present Illness History of Present Illness: GI Consult Note - Dr. 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 Pt found to have lower lobe pneumonia and is being managed with IV abx. Pt was found to be anemic as well with concerns of GI bleed. Pt noted to have LLQ abdominal pain. Pt transfused without complications. Pt denied fever, chills, sob, chest pains, nausea, vomiting, diarrhea or urinary symptoms. 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, hypothyroidism, history of shingles, GERD PSHx: total hip replacement, rt knee, bladder lift SHx: social etoh, +tobacco, denied illicits FamHx; Noncontributory Meds: MAR Reviewed Allergies: NKDA Review of Systems - Review of Systems Review of Systems: as per HPI otherwise negative Past Patient History - Infectious Disease Hx of Infectious Diseases: None - Past Social History Smoking Status: Former Smoker - CARDIAC Hx Cardiac Disorders: Yes Hx Hypertension: Yes - PULMONARY Hx Respiratory Disorders: Yes Hx Bronchitis: Yes Hx Chronic Obstructive Pulmonary Disease (COPD): Yes - NEUROLOGICAL Hx Neurological Disorder: Yes (hydrocephalus,CHIEF STATION ENGINEER shunt) Hx Dementia: Yes Hx Dizziness: Yes Hx Transient Ischemic Attacks (TIA): No - HEENT Hx HEENT Problems: Yes - RENAL Hx Dialysis: No Hx Kidney Stones: No Hx Neurogenic Bladder: No Hx Pyelonephritis: No Hx Renal (Kidney) Cancer: No Hx Renal Failure: No - ENDOCRINE/METABOLIC Hx Endocrine Disorders: Yes Hx Hypothyroidism: Yes - HEMATOLOGICAL/ONCOLOGICAL Hx Blood Disorders: Yes Hx Anemia: Yes Hx Shingles: Yes - INTEGUMENTARY Hx Dermatological Problems: No - MUSCULOSKELETAL/RHEUMATOLOGICAL Hx Musculoskeletal Disorders: Yes Hx Arthritis: Yes Hx Falls: Yes Hx Fractures: Yes (hip) Hx Unsteady Gait: Yes - GASTROINTESTINAL Hx Gastrointestinal Disorders: Yes Hx Gall Bladder Disease: Yes Hx Gastroesophageal Reflux: Yes - GENITOURINARY/GYNECOLOGICAL Hx Genitourinary Disorders: Yes (Bladder lift surgery) Hx Incontinence: Yes Hx Urinary Tract Infection: Yes - PSYCHIATRIC Hx Psychophysiologic Disorder: Yes Hx Anxiety: Yes Hx Substance Use: No - SURGICAL HISTORY Hx Cholecystectomy: Yes Hx Joint Replacement: (left hip replacement) Hx Musculoskeletal Surgery: Yes Hx Orthopedic Surgery: Yes (right knee surgery, rotator cuff surgery) Hx Splenectomy: No Hx Valve Replacement: No - ANESTHESIA Hx Anesthesia: Yes Hx Anesthesia Reactions: No Hx Malignant Hyperthermia: No Meds Allergies/Adverse Reactions: Allergies Allergy/AdvReac Type Severity Reaction Status Date / Time No Known Allergies Allergy Verified 12/20/17 20:02 - Medications Medications: Current Medications Albuterol/Ipratropium (Duoneb 3 Mg/0.5 Mg (3 Ml) Ud) 3 ml IH [id number] [facility] Last Admin: 12/25/17 20:17 Dose: 3 ml Albuterol/Ipratropium (Duoneb 3 Mg/0.5 Mg (3 Ml) Ud) 3 ml IH Q2 PRN PRN Reason: Shortness of Breath Last Admin: 12/24/17 12:16 Dose: 3 ml Aspirin (Aspirin Chewable) 81 mg PO DAILY [facility] Last Admin: 12/25/17 11:20 Dose: 81 mg Budesonide (Pulmicort Respules) 0.25 mg IH [id number] [facility] Last Admin: 12/25/17 20:21 Dose: 0.25 mg Docusate Sodium (Colace) 100 mg PO BID [facility] Last Admin: 12/25/17 18:26 Dose: 100 mg Doxycycline Hyclate (Doryx) 100 mg PO Q12 [facility] Last Admin: 12/25/17 11:21 Dose: 100 mg Guaifenesin (Robitussin) 100 mg PO Q6H PRN PRN Reason: Cough Last Admin: 12/25/17 02:51 Dose: 100 mg Meropenem (Merrem Iv 1 Gm Premix) 50 mls @ 100 mls/hr IVPB Q8 JARRELL PRN Reason: Protocol Stop: 01/02/18 22:01 Last Admin: 12/25/17 15:49 Dose: 100 mls/hr Levothyroxine Sodium (Synthroid) 25 mcg PO DAILY [facility] Last Admin: 12/25/17 11:20 Dose: 25 mcg Losartan Potassium (Cozaar) 25 mg PO DAILY [facility] Last Admin: 12/25/17 11:20 Dose: 25 mg Methylprednisolone (Solu-Medrol) 20 mg IVP Q12 [facility] Last Admin: 12/25/17 11:21 Dose: 20 mg Potassium Chloride (K-Dur 20 Meq Er Tab) 20 meq PO DAILY JARRELL Last Admin: 12/25/17 11:21 Dose: 20 meq Physical Exam - Constitutional Appears: No Acute Distress - Head Exam Head Exam: ATRAUMATIC, NORMAL INSPECTION, NORMOCEPHALIC - Eye Exam Eye Exam: EOMI, Normal appearance, PERRL Pupil Exam: NORMAL ACCOMODATION, PERRL - ENT Exam ENT Exam: Mucous Membranes Moist, Normal Exam - Respiratory Exam Respiratory Exam: Clear to Auscultation Bilateral, NORMAL BREATHING PATTERN - Cardiovascular Exam Cardiovascular Exam: REGULAR RHYTHM, +S1, +S2 - GI/Abdominal Exam GI & Abdominal Exam: Normal Bowel Sounds, Soft, Tenderness (LLQ) - Neurological Exam Neurological exam: Alert, CN II-XII Intact, Oriented x3, Reflexes Normal - Psychiatric Exam Psychiatric exam: Normal Affect, Normal Mood - Skin Skin Exam: Dry, Intact, Normal Color, Warm Results - Vital Signs Recent Vital Signs: Last Vital Signs Temp 98.2 F 12/25/17 18:01 Pulse 75 12/25/17 18:01 Resp 19 12/25/17 18:01 BP 150/79 12/25/17 18:01 Pulse Ox 97 12/25/17 18:01 - Labs Result Diagrams: 12/25/17 06:00 12/25/17 06:00 Labs: Laboratory Results - last 24 hr 12/24/17 12/25/17 12/25/17 08:00 06:00 06:00 WBC 6.9 RBC 3.43 L Hgb 9.0 L Hct 27.5 L MCV 80.2 MCH 26.2 MCHC 32.7 RDW 15.3 H Plt Count 175 MPV 10.4 Gran % 80.2 H Lymph % (Auto) 12.8 L Merrick % (Auto) 6.9 H Eos % (Auto) 0.0 L Baso % (Auto) 0.1 Gran # 5.50 Lymph # (Auto) 0.9 L Merrick # (Auto) 0.5 Eos # (Auto) 0.0 Baso # (Auto) 0.01 Sodium 136 Potassium 4.1 Chloride 106 Carbon Dioxide 24 Anion Gap 10 BUN 22 H Creatinine 0.7 Est GFR ( Amer) > 60 Est GFR (Non-Af Amer) > 60 Random Glucose 125 H Calcium 9.0 Procalcitonin Blood Type O POSITIVE Antibody Screen Negative Crossmatch See Detail BBK History Checked Patient has bt 12/25/17 06:30 WBC RBC Hgb Hct MCV MCH MCHC RDW Plt Count MPV Gran % Lymph % (Auto) Merrick % (Auto) Eos % (Auto) Baso % (Auto) Gran # Lymph # (Auto) Merrick # (Auto) Eos # (Auto) Baso # (Auto) Sodium Potassium Chloride Carbon Dioxide Anion Gap BUN Creatinine Est GFR ( Amer) Est GFR (Non-Af Amer) Random Glucose Calcium Procalcitonin 0.14 L Blood Type Antibody Screen Crossmatch BBK History Checked Assessment & Plan - Assessment and Plan (Free Text) Assessment: Sepsis from left lower lobe healthcare-associated pneumonia, slowly improving HTN COPD S/P left hip replacement NPH s/p CHIEF STATION ENGINEER shunt placement hypothyroidism history of shingles GERD S/P right knee surgery anemia s/p transfusion constipation CT abdomen reviewed, hiatal hernia noted, constipation anemia likely 2/2 hiatal hernia causing aren ulcer bladder scan miralax for constipation PPI, pt on steroids soft diet Possible EGD Discussed with Dr. Brown <Caroline Brown V - Last Filed: 12/26/17 00:00> Meds - Medications Medications: Current Medications Albuterol/Ipratropium (Duoneb 3 Mg/0.5 Mg (3 Ml) Ud) 3 ml IH [id number] [facility] Last Admin: 12/25/17 20:17 Dose: 3 ml Albuterol/Ipratropium (Duoneb 3 Mg/0.5 Mg (3 Ml) Ud) 3 ml IH Q2 PRN PRN Reason: Shortness of Breath Last Admin: 12/24/17 12:16 Dose: 3 ml Aspirin (Aspirin Chewable) 81 mg PO DAILY [facility] Last Admin: 12/25/17 11:20 Dose: 81 mg Budesonide (Pulmicort Respules) 0.25 mg IH [id number] [facility] Last Admin: 12/25/17 20:21 Dose: 0.25 mg Docusate Sodium (Colace) 100 mg PO BID [facility] Last Admin: 12/25/17 18:26 Dose: 100 mg Doxycycline Hyclate (Doryx) 100 mg PO Q12 [facility] Last Admin: 12/25/17 23:10 Dose: 100 mg Guaifenesin (Robitussin) 100 mg PO Q6H PRN PRN Reason: Cough Last Admin: 12/25/17 02:51 Dose: 100 mg Meropenem (Merrem Iv 1 Gm Premix) 50 mls @ 100 mls/hr IVPB Q8 JARRELL PRN Reason: Protocol Stop: 01/02/18 22:01 Last Admin: 12/25/17 23:10 Dose: 100 mls/hr Levothyroxine Sodium (Synthroid) 25 mcg PO DAILY [facility] Last Admin: 12/25/17 11:20 Dose: 25 mcg Losartan Potassium (Cozaar) 25 mg PO DAILY [facility] Last Admin: 12/25/17 11:20 Dose: 25 mg Methylprednisolone (Solu-Medrol) 20 mg IVP Q12 JARRELL Last Admin: 12/25/17 23:09 Dose: 20 mg Pantoprazole Sodium (Protonix Ec Tab) 40 mg PO 0600 [facility] Potassium Chloride (K-Dur 20 Meq Er Tab) 20 meq PO DAILY [facility] Last Admin: 12/25/17 11:21 Dose: 20 meq Results - Vital Signs Recent Vital Signs: Last Vital Signs Temp 98.2 F 12/25/17 18:01 Pulse 75 12/25/17 18:01 Resp 19 12/25/17 18:01 BP 150/79 12/25/17 18:01 Pulse Ox 97 12/25/17 18:01 - Labs Result Diagrams: 12/25/17 06:00 12/25/17 06:00 Labs: Laboratory Results - last 24 hr 12/24/17 12/25/17 12/25/17 08:00 06:00 06:00 WBC 6.9 RBC 3.43 L Hgb 9.0 L Hct 27.5 L MCV 80.2 MCH 26.2 MCHC 32.7 RDW 15.3 H Plt Count 175 MPV 10.4 Gran % 80.2 H Lymph % (Auto) 12.8 L Merrick % (Auto) 6.9 H Eos % (Auto) 0.0 L Baso % (Auto) 0.1 Gran # 5.50 Lymph # (Auto) 0.9 L Merrick # (Auto) 0.5 Eos # (Auto) 0.0 Baso # (Auto) 0.01 Sodium 136 Potassium 4.1 Chloride 106 Carbon Dioxide 24 Anion Gap 10 BUN 22 H Creatinine 0.7 Est GFR ( Amer) > 60 Est GFR (Non-Af Amer) > 60 Random Glucose 125 H Calcium 9.0 Procalcitonin Blood Type O POSITIVE Antibody Screen Negative Crossmatch See Detail BBK History Checked Patient has bt 12/25/17 06:30 WBC RBC Hgb Hct MCV MCH MCHC RDW Plt Count MPV Gran % Lymph % (Auto) Merrick % (Auto) Eos % (Auto) Baso % (Auto) Gran # Lymph # (Auto) Merrick # (Auto) Eos # (Auto) Baso # (Auto) Sodium Potassium Chloride Carbon Dioxide Anion Gap BUN Creatinine Est GFR ( Amer) Est GFR (Non-Af Amer) Random Glucose Calcium Procalcitonin 0.14 L Blood Type Antibody Screen Crossmatch BBK History Checked Attending/Attestation - Attestation I have personally seen and examined this patient.: Yes I have fully participated in the care of the patient.: Yes I have reviewed all pertinent clinical information: Yes Notes (Text): This is an addendum to GI consult report dictated by the Glass Installer Technician.The patient was seen and examined earlier. Medical records, lab studies, imagings were reviewed. Last 24 hours events reviewed. Agreed with the above treatment plan as outlined in Glass Installer Technician 's notes the with the addition of the following 12/26/17 00:00
[2017-12-25] MEDS ORDERED: POLYETHYLENE GLYCOL 3350 17 GM/Dose PACKET PO ONE (22:37)
[2017-12-26] MEDS: Albuterol-Ipratrop 3 mg / 0.5 (3 ml) UD IH SCH ×3 (02:30→13:10)
[2017-12-26] MEDS ORDERED: Pantoprazole 40 mg EC Tab PO SCH (06:00)
[2017-12-26] MEDS: Meropenem IV 1 gm in NS 50 ML IVPB SCH ×2 (06:12→13:33)
[2017-12-26] MEDS: Budesonide 0.25 mg/2 ml Inhal Susp UD IH SCH (07:07)
--- NOTE | 2017-12-26 07:29 | PN ---
DATE: 12/26/2017 PULMONARY NOTE SUBJECTIVE: The patient appears comfortable this morning. She is not short of breath at rest. PHYSICAL EXAMINATION: VITAL SIGNS: (last noted in the computer): Temperature is 98.2, pulse is 75, respirations 19, blood pressure 150/79. Oxygen saturation on nasal cannula is 97-99%. HEENT: Normocephalic, atraumatic. No JVD. CARDIOVASCULAR: Systolic ejection murmur at the lower left sternal border. No S3 gallop. LUNGS: Minimal crackles at the left base. Very minimal/less rhonchi. No wheezing. EXTREMITIES: Positive for mild edema. No cyanosis, no clubbing. Calves are nontender to palpation. GI: Abdomen is soft, nontender and nondistended. Bowel sounds are positive. SKIN: No acute rash. NEUROLOGIC: Limited at the present time. IMPRESSION: 1. Left lower lobe pneumonia. 2. Chronic obstructive pulmonary disease. 3. Mild bronchospasm. 4. Anemia. PLAN: The patient appears comfortable this morning. She is not short of breath at rest. She does state to feeling better overall. I did discuss the case with the night nurse at length. The night nurse stated that the patient had a good night. On physical exam, there is certainly less bronchospasm noted. In addition, oxygen saturation on nasal cannula is 97-99%. I will continue with the current nebulizer treatments and low-dose intravenous steroids (decreased yesterday) for now. I would continue with the antibiotic coverage as per Infectious Disease. Input by Dr. Nolan is noted. I will also continue with the aspiration precautions. Clinical status of the patient is definitely improved - compared to the initial presentation. However, her overall status/prognosis does remain guarded. The patient is for possible transfer to the transitional unit. I will discuss the above with the attending physician. Abdoul Ward MD MTDD
[2017-12-26 07:55] VITALS: RESP 18
--- NOTE | 2017-12-26 08:42 | CP.PCM.PN ---
Subjective - Date & Time of Evaluation Date of Evaluation: 12/26/17 Time of Evaluation: 08:15 - Subjective Subjective: Patient is seen this morning. She is much more awake and alert this morning. She has not had a bowel movement. Objective - Vital Signs/Intake and Output Vital Signs (last 24 hours): Temp Pulse Resp BP Pulse Ox 98.9 F 64 18 145/78 97 12/26/17 07:54 12/26/17 07:54 12/26/17 07:54 12/26/17 07:54 12/26/17 07:54 Intake and Output: 12/26/17 12/26/17 06:59 18:59 Intake Total 120 Balance 120 - Medications Medications: Current Medications Albuterol/Ipratropium (Duoneb 3 Mg/0.5 Mg (3 Ml) Ud) 3 ml IH [id number] [facility] Last Admin: 12/26/17 07:07 Dose: 3 ml Albuterol/Ipratropium (Duoneb 3 Mg/0.5 Mg (3 Ml) Ud) 3 ml IH Q2 PRN PRN Reason: Shortness of Breath Last Admin: 12/24/17 12:16 Dose: 3 ml Aspirin (Aspirin Chewable) 81 mg PO DAILY [facility] Last Admin: 12/25/17 11:20 Dose: 81 mg Budesonide (Pulmicort Respules) 0.25 mg IH [id number] [facility] Last Admin: 12/26/17 07:07 Dose: 0.25 mg Docusate Sodium (Colace) 100 mg PO BID [facility] Last Admin: 12/25/17 18:26 Dose: 100 mg Doxycycline Hyclate (Doryx) 100 mg PO Q12 [facility] Last Admin: 12/25/17 23:10 Dose: 100 mg Guaifenesin (Robitussin) 100 mg PO Q6H PRN PRN Reason: Cough Last Admin: 12/25/17 02:51 Dose: 100 mg Meropenem (Merrem Iv 1 Gm Premix) 50 mls @ 100 mls/hr IVPB Q8 [facility] PRN Reason: Protocol Stop: 01/02/18 22:01 Last Admin: 12/26/17 06:12 Dose: 100 mls/hr Levothyroxine Sodium (Synthroid) 25 mcg PO DAILY [facility] Last Admin: 12/25/17 11:20 Dose: 25 mcg Losartan Potassium (Cozaar) 25 mg PO DAILY [facility] Last Admin: 12/25/17 11:20 Dose: 25 mg Methylprednisolone (Solu-Medrol) 20 mg IVP Q12 [facility] Last Admin: 12/25/17 23:09 Dose: 20 mg Pantoprazole Sodium (Protonix Ec Tab) 40 mg PO 0600 [facility] Last Admin: 12/26/17 06:12 Dose: 40 mg Potassium Chloride (K-Dur 20 Meq Er Tab) 20 meq PO DAILY [facility] Last Admin: 12/25/17 11:21 Dose: 20 meq - Labs Labs: 12/25/17 06:00 12/25/17 06:00 - Constitutional Appears: No Acute Distress - Head Exam Head Exam: ATRAUMATIC, NORMOCEPHALIC - Respiratory Exam Respiratory Exam: Rhonchi, NORMAL BREATHING PATTERN - Cardiovascular Exam Cardiovascular Exam: +S1, +S2 - GI/Abdominal Exam GI & Abdominal Exam: Soft, Normal Bowel Sounds. absent: Tenderness - Extremities Exam Extremities Exam: Normal Inspection - Neurological Exam Neurological Exam: Alert, Awake Assessment and Plan - Assessment and Plan (Free Text) Assessment: Pneumonia HTN ASHD Hydrocephalus s/p SLEEP MANAGER shunt COPD Plan: Patient has not had a bowel movement since admission. continue Colace. will order enema for today. Abdominal tenderness has resolved. CT abd/pelvis shows no acute abnormalities. Patient received transfusion yesterday. She is more awake and less lethargic than yesterday. Awaiting today's labs. She is on IV Merrem and oral doxycyline for pneumonia. continue PT. TRCU evaluation has been ordered.
[2017-12-26 08:57] LABS: BASO # 0.02 K/mm3 (0.0-2.0); BASO % 0.2 % (0.0-3.0); GRAN # 7.8 (1.4-6.5); GRAN % 75.2 % (50.0-68.0); HEMOGLOBIN 12.9 g/dL (12.0-16.0); LYMPH # 1.6 (1.2-3.4); LYMPH % 14.9 % (22.0-35.0); MEAN CELL VOLUME 81.9 fl (80.0-105.0); MEAN CORPUSCULAR HEMOGLOBIN 27.2 pg (25.0-35.0); MEAN CORPUSCULAR HGB CONC 33.2 g/dl (31.0-37.0); MEAN PLATELET VOLUME 10.4 fl (7.0-11.0); MONO % 9.7 % (1.0-6.0); RBC 4.75 10^6/uL (3.5-6.1); RED CELL DISTRIBUTION WIDTH 15.2 % (11.5-14.5); WHITE BLOOD COUNT 10.4 10^3/ul (4.5-11.0)
[2017-12-26] MEDS: Levothyroxine 25 MCG TAB PO SCH (09:25)
[2017-12-26] MEDS: Potassium Chloride 20 mEq ER Tab PO SCH (09:25)
[2017-12-26] MEDS: MethylPREDNISolone 40 mg Vial IVP SCH (09:25)
[2017-12-26] MEDS: Lactulose 10 gm/15 ml (Rectal Use) PR ONE ×2 (09:25→09:33)
--- NOTE | 2017-12-26 15:07 | PN ---
DATE: 12/26/2017 LOCATION: The patient is in room 262, bed 2. REASON FOR CONSULTATION: Bradycardia, COPD, hypothyroidism, normal pressure hydrocephalus. SUBJECTIVE: The patient is sitting in chair comfortably without chest pain, shortness of breath, or palpitation. The patient is conscious, alert, and answering questions. PHYSICAL EXAMINATION: VITAL SIGNS: Blood pressure 145/78, respirations 18, pulse 64, temperature 98.9. HEENT: Head is normocephalic. Eyes: Pupils normal. Conjunctivae normal. NECK: JVP is low. Carotids are equal. THORAX: AP diameter normal. LUNGS: Clear. CARDIOVASCULAR: S1 and S2. ABDOMEN: Soft. No tenderness. No organomegaly. Bowel sounds normal. EXTREMITIES: No clubbing. No cyanosis. LABORATORY DATA: WBC 10.4, hemoglobin 12.9, hematocrit 38.9, and platelets 190. Sodium 136, potassium 4.1. BUN 22, creatinine 0.7. Glucose 90. Calcium 9.0. DIAGNOSES: Hypertension, ventriculoperitoneal shunt, normal pressure hydrocephalus, dementia, chronic back pain, chronic obstructive lung disease, severe pulmonary hypertension, impaired cognitive behavior. On admission, the patient had bradycardia which has improved. The patient was asymptomatic, anemia. Echo showed left ventricular ejection fraction 65%, right ventricle mildly dilated, mild aortic regurgitation, mild mitral regurgitation, moderate to severe tricuspid regurgitation with right ventricular pressure of 73 mmHg consistent with moderate to severe pulmonary hypertension, mild to moderate pulmonary insufficiency, a small intermittent left to right shunt by color flow and Doppler suggestive of a small tiny intermittent patent foramen ovale noted on echo. PLAN: The patient is on aspirin 81 mg daily, Losartan 25 daily, doxycycline hyclate 100 mg q. 12 hours, potassium 20 mEq daily, meropenem IV q. 8 hours, Protonix 40 daily, methylprednisolone 20 mg IV q. 12 hours, levothyroxine 50 mcg p.o. daily. We will continue present therapy and monitor heart rate. We will follow with you. Christa Iniguez MD
[2017-12-26 17:02] VITALS: BP 113/69; PULSE 72; TEMP 98.3; O2SAT 100
--- NOTE | 2017-12-27 01:32 | PN ---
DATE: SUBJECTIVE: The patient is seen in bed, in no acute distress. OBJECTIVE: VITAL SIGNS: On exam, temperature is 98, blood pressure is 113/60, respiratory rate of 18. HEENT: Unremarkable. NECK: Supple. LUNGS: Had decreased breath sounds. HEART: Normal S1 and S2. ABDOMEN: Soft. LABORATORY DATA: Reveals the patient's white count is 10,000 and chemistries are noted. ASSESSMENT AND PLAN: An 87-year-old female seen earlier this morning, who was admitted with sepsis, left lower lobe healthcare-associated pneumonia, and doing better, chronic obstructive lung disease, history of left hip replacement, and negative CAT scan of the abdomen. She will complete the antibiotic therapy, doxycycline and meropenem be discharged on p.o. doxycycline for a total of 7 days. Eduar Nolan MD
--- NOTE | 2017-12-27 05:35 | PN ---
DATE: 12/26/2017 SUBJECTIVE: This patient was seen and evaluated earlier today. Patient tolerated the diet. No further episode of vomiting. No abdominal pain. PHYSICAL EXAMINATION: VITAL SIGNS: Temperature is 97.9, pulse 72, blood pressure is 105/59, respirations 20. HEENT: Atraumatic, anicteric. NECK: Supple. HEART: S1 and S2 heard. LUNGS: Bilateral air entry present. ABDOMEN: Soft. No tenderness. LABORATORY DATA: Hemoglobin now 12.9, hematocrit 38.9, WBC 10.4, platelets 190, status post 2 units of packed RBC transfusion. Hemoglobin is stable. IMPRESSION: This is an 87-year-old patient admitted with shortness of breath, has pneumonia, coronary artery disease, found to be anemic, guaiac positive, status post 2 units transfusion, hemodynamically stable. CAT scan shows hiatal hernia. Patient does have some large amount of stool present mainly in the right side of the colon. Patient has DuoNeb, dose of Miralax yesterday. Patient is placed on aspirin, Plavix, and also on steroid and the . Patient would benefit from the PPI short course at least at the present time and start her on Protonix. Close followup of the hemoglobin and hematocrit. Patient may benefit from the upper GI endoscopic evaluation and possibly colon, but I did discuss during the previous admission with the patient's children they wanted . The patient wanted only conservative management at that time. We will reach out to them again after discussing with Dr. Valerio. In view of the patient's respiratory status, we will await for it to be optimized even before considering this. Thank you very much for allowing me to participate in the care of this patient. Caroline Brown MD
== END 2017-12-26 16:59 | DRG 871 ==
LOC: ED 15:00 → ERH 17:49 → 2RNO 20:24 → 5RNO 12-25 21:06
PROVIDERS: ADMIT Internal Medicine; ATTEND Internal Medicine
PROC: 30233N1 Transfusion of Nonautologous Red Blood Cells into Peripheral Vein, Percutaneous Approach (ICD-10-PCS; principal; 2017-12-24)
DX: A41.9 Sepsis, unspecified organism (principal); J18.9 Pneumonia, unspecified organism; J44.1 Chronic obstructive pulmonary disease with (acute) exacerbation; J44.0 Chronic obstructive pulmonary disease with (acute) lower respiratory infection; G91.2 (Idiopathic) normal pressure hydrocephalus; Q21.1 Atrial septal defect; J20.9 Acute bronchitis, unspecified; F03.90 Unspecified dementia, unspecified severity, without behavioral disturbance, psychotic disturbance, mood disturbance, and anxiety; D46.9 Myelodysplastic syndrome, unspecified; I08.3 Combined rheumatic disorders of mitral, aortic and tricuspid valves; I27.20 Pulmonary hypertension, unspecified; I10 Essential (primary) hypertension; K21.9 Gastro-esophageal reflux disease without esophagitis; E03.9 Hypothyroidism, unspecified; D50.9 Iron deficiency anemia, unspecified; R00.1 Bradycardia, unspecified; K59.00 Constipation, unspecified; I45.10 Unspecified right bundle-branch block; I25.10 Atherosclerotic heart disease of native coronary artery without angina pectoris; K44.9 Diaphragmatic hernia without obstruction or gangrene; Y95 Nosocomial condition; Z96.642 Presence of left artificial hip joint; Z98.2 Presence of cerebrospinal fluid drainage device; Z86.73 Personal history of transient ischemic attack (TIA), and cerebral infarction without residual deficits; Z87.891 Personal history of nicotine dependence; Z86.19 Personal history of other infectious and parasitic diseases; Z79.82 Long term (current) use of aspirin

== ENCOUNTER 2017-12-26 16:59 | Inpatient (IN) | payer OTHER, MEDICARE ==
[2017-12-26 17:59] VITALS: BMI 19.3
[2017-12-26] MEDS ORDERED: Albuterol-Ipratrop 3 mg / 0.5 (3 ml) UD IH PRN (18:10)
[2017-12-26] MEDS: Albuterol-Ipratrop 3 mg / 0.5 (3 ml) UD IH SCH (20:40)
[2017-12-26] MEDS: Budesonide 0.25 mg/2 ml Inhal Susp UD IH SCH (20:40)
[2017-12-26] MEDS ORDERED: MethylPREDNISolone 40 mg Vial IVP SCH (22:00)
[2017-12-27] MEDS: Pantoprazole 40 mg EC Tab PO SCH (05:28)
[2017-12-27] MEDS: Levothyroxine 25 MCG TAB PO SCH (05:28)
[2017-12-27 06:19] LABS: BASO # 0.01 K/mm3 (0.0-2.0); BASO % 0.1 % (0.0-3.0); GRAN # 5.9 (1.4-6.5); GRAN % 74.1 % (50.0-68.0); HEMOGLOBIN 11.3 g/dL (12.0-16.0); LYMPH # 1.4 (1.2-3.4); LYMPH % 16.9 % (22.0-35.0); MEAN CELL VOLUME 81.6 fl (80.0-105.0); MEAN CORPUSCULAR HEMOGLOBIN 26.7 pg (25.0-35.0); MEAN CORPUSCULAR HGB CONC 32.8 g/dl (31.0-37.0); MEAN PLATELET VOLUME 10.4 fl (7.0-11.0); MONO # 0.7 (0.1-0.6); MONO % 8.9 % (1.0-6.0); RBC 4.23 10^6/uL (3.5-6.1); RED CELL DISTRIBUTION WIDTH 15.6 % (11.5-14.5)
[2017-12-27 07:13] LABS: BLOOD UREA NITROGEN 23 mg/dL (7-21); CALCIUM 9.1 mg/dL (8.4-10.5); GFR AFRICAN-AMERICAN > 60; GFR NON-AFRICAN AMERICAN > 60
[2017-12-27] MEDS: Albuterol-Ipratrop 3 mg / 0.5 (3 ml) UD IH SCH ×3 (07:26→20:09)
[2017-12-27] MEDS: Budesonide 0.25 mg/2 ml Inhal Susp UD IH SCH ×2 (07:26→20:10)
--- NOTE | 2017-12-27 08:13 | PN ---
DATE: 12/27/2017 PULMONARY NOTE SUBJECTIVE: The patient appears comfortable this morning. She is not short of breath at rest. PHYSICAL EXAMINATION VITAL SIGNS: Temperature is 97.9, pulse is 72, respirations 18/20, blood pressure 105/57. Oxygen saturation on nasal cannula is 100%. HEENT: Normocephalic, atraumatic. No JVD. CARDIOVASCULAR: Systolic ejection murmur at the lower left sternal border. No S3 gallop. LUNGS: Minimal crackles at the left base. Very minimal/less rhonchi. No wheezing. EXTREMITIES: Positive for mild edema. No cyanosis, no clubbing. Calves are nontender to palpation. GI: Abdomen is soft, nontender and nondistended. Bowel sounds are positive. SKIN: No acute rash. NEUROLOGIC: Limited at the present time. IMPRESSION: 1. Left lower lobe pneumonia. 2. Chronic obstructive pulmonary disease. 3. Mild bronchospasm. 4. Anemia. PLAN: The patient appears comfortable this morning. She is not short of breath at rest. She does state to feeling better overall. On physical exam, her bronchospasm continues to resolve. In addition, the oxygen saturation on nasal cannula is now 100%. I will continue the current nebulizer treatments and change to oral steroids this morning. The patient remains on antibiotic therapy - as per Infectious Disease. Input by Dr. Nolan is noted. Clinical status of the patient is significantly improved overall. She is now on the Transitional Unit - where she will participate with physical therapy. I will discuss the above with the attending physician. Abdoul Ward MD MTDAncelmo
[2017-12-27] MEDS: Potassium Chloride 20 mEq ER Tab PO SCH (08:45)
--- NOTE | 2017-12-27 14:20 | HP ---
HISTORY OF PRESENT ILLNESS: Patient is in the Transitional Care Unit, room 320, bed 1. Patient was admitted to the Transitional Care Unit from the Acute Care Facility of [facility] in [place]. The patient was originally admitted with pneumonia. The patient has history of hypertension, chronic lung disease. Patient also has history of hypothyroidism. PATIENT IS NOT ALLERGIC TO ANY MEDICATIONS. She has a DNR order. Patient's past history is significant in that she has a history of chronic obstructive lung disease, anemia. Patient has history of normal-pressure hydrocephalus. She has ventriculoperitoneal shunt, which has been placed several years ago. PHYSICAL EXAMINATION VITAL SIGNS: The pulse is 72, blood pressure 105/57. Patient's O2 saturation 97% on 2 liters of oxygen. HEENT: The head is normocephalic. There is a bump over the eye on the right side of the moravian at the site where the COMMUNITY HEALTH ADVISOR shunt was placed. NECK: Patient's neck is flat. JVP is not elevated. Carotid pulses are present. HEART: Normal sinus rhythm. S1, S2 present. LUNGS: Trachea central, breath sounds are vesicular. Crepitation and rhonchi are heard, bilaterally scattered. ABDOMEN: Soft. Liver and spleen not palpable. No focal deficits are noted. CENTRAL NERVOUS SYSTEM: Patient is conscious, very confused at times, but answers questions. LABORATORY FINDINGS: Patient's hemoglobin is 11.3. The chemistry is noted. The potassium is 4.8. Sodium is 136. BUN is 23, sugar is 121. MEDICATIONS: Patient's list of medication consist of aspirin 81 mg daily, Colace. Patient is on losartan 25 mg daily, doxycycline 100 mg q. 12 hours. Patient is on respiratory treatment with DuoNeb and also, patient gets Pulmicort q. 12 hours, prednisone 30 mg daily p.o. Patient is also on pantoprazole 40 mg daily, and Synthroid 25 mcg daily. Patient's diet is heart-healthy diet. The patient gets physical therapy, rehabilitation, deconditioning, management of treatment with antibiotics for her respiratory infection. We will continue this management. Rick Valerio MD [facility] # [id number] JESSICA
--- NOTE | 2017-12-27 16:38 | CP.PCM.CON ---
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 The patient was given antibiotics and has been doing well. She is now transferred to [facility] for continued medical therapy and physical rehab. Infectious diseases consult is requested to continue her antibiotics. She is currently comfortable in bed, breathing better, cough is improved, no fever or chills, no nausea or vomiting, no abdominal pain, no sore throat, no rhinorrhea, no dysuria or diarrhea. Review of Systems - Review of Systems All systems: reviewed and no additional remarkable complaints except (as per HPI ) Past Patient History - Infectious Disease Hx of Infectious Diseases: None - Past Social History Smoking Status: Former Smoker - CARDIAC Hx Cardiac Disorders: Yes Hx Hypertension: Yes - PULMONARY Hx Respiratory Disorders: Yes Hx Bronchitis: Yes Hx Chronic Obstructive Pulmonary Disease (COPD): Yes - NEUROLOGICAL Hx Neurological Disorder: Yes (hydrocephalus,SYSTEM MANAGER shunt) Hx Dementia: Yes Hx Dizziness: Yes Hx Transient Ischemic Attacks (TIA): No - HEENT Hx HEENT Problems: Yes - RENAL Hx Dialysis: No Hx Kidney Stones: No Hx Neurogenic Bladder: No Hx Pyelonephritis: No Hx Renal (Kidney) Cancer: No Hx Renal Failure: No - ENDOCRINE/METABOLIC Hx Endocrine Disorders: Yes Hx Hypothyroidism: Yes - HEMATOLOGICAL/ONCOLOGICAL Hx Blood Disorders: Yes Hx Anemia: Yes Hx Shingles: Yes - INTEGUMENTARY Hx Dermatological Problems: No - MUSCULOSKELETAL/RHEUMATOLOGICAL Hx Falls: Yes - GASTROINTESTINAL Hx Gastrointestinal Disorders: Yes (GERD) - GENITOURINARY/GYNECOLOGICAL Hx Genitourinary Disorders: No Hx Reproductive Disorders: No - PSYCHIATRIC Hx Psychophysiologic Disorder: Yes Hx Anxiety: Yes Hx Substance Use: No - SURGICAL HISTORY Hx Cholecystectomy: Yes Hx Joint Replacement: (left hip replacement) Hx Musculoskeletal Surgery: Yes Hx Orthopedic Surgery: Yes (right knee surgery, rotator cuff surgery) Hx Splenectomy: No Hx Valve Replacement: No - ANESTHESIA Hx Anesthesia: Yes Hx Anesthesia Reactions: No Hx Malignant Hyperthermia: No Meds Allergies/Adverse Reactions: Allergies Allergy/AdvReac Type Severity Reaction Status Date / Time No Known Allergies Allergy Verified 12/27/17 03:54 - Medications Medications: Current Medications Albuterol/Ipratropium (Duoneb 3 Mg/0.5 Mg (3 Ml) Ud) 3 ml IH [id number] JARRELL PRN Reason: Protocol Last Admin: 12/27/17 07:26 Dose: 3 ml Albuterol/Ipratropium (Duoneb 3 Mg/0.5 Mg (3 Ml) Ud) 3 ml IH Q2H PRN; Protocol PRN Reason: Shortness of Breath Aspirin (Aspirin Chewable) 81 mg PO 0800 JARRELL PRN Reason: Protocol Last Admin: 12/27/17 08:45 Dose: 81 mg Budesonide (Pulmicort Respules) 0.25 mg IH [id number] JARRELL PRN Reason: Protocol Last Admin: 12/27/17 07:26 Dose: 0.25 mg Docusate Sodium (Colace) 100 mg PO BID JARRELL PRN Reason: Protocol Last Admin: 12/27/17 09:59 Dose: 100 mg Doxycycline Hyclate (Doryx) 100 mg PO Q12 JARRELL PRN Reason: Protocol Last Admin: 12/27/17 09:58 Dose: 100 mg Levothyroxine Sodium (Synthroid) 25 mcg PO 0600 JARRELL PRN Reason: Protocol Last Admin: 12/27/17 05:28 Dose: 25 mcg Losartan Potassium (Cozaar) 25 mg PO DAILY JARRELL PRN Reason: Protocol Last Admin: 12/27/17 09:58 Dose: 25 mg Pantoprazole Sodium (Protonix Ec Tab) 40 mg PO 0600 JARRELL PRN Reason: Protocol Last Admin: 12/27/17 05:28 Dose: 40 mg Potassium Chloride (K-Dur 20 Meq Er Tab) 20 meq PO 0800 JARRELL PRN Reason: Protocol Last Admin: 12/27/17 08:45 Dose: 20 meq Prednisone (Prednisone Tab) 30 mg PO 0800 [facility] Physical Exam - Constitutional Appears: Non-toxic, Chronically Ill - Head Exam Head Exam: NORMAL INSPECTION - ENT Exam ENT Exam: Mucous Membranes Moist - Neck Exam Neck exam: Negative for: Meningismus - Respiratory Exam Respiratory Exam: Decreased Breath Sounds - Cardiovascular Exam Cardiovascular Exam: +S1, +S2 - GI/Abdominal Exam GI & Abdominal Exam: Soft. absent: Tenderness Results - Vital Signs Recent Vital Signs: Last Vital Signs Temp 97.9 F 12/26/17 17:40 Pulse 62 12/27/17 09:58 Resp 20 12/26/17 17:40 BP 139/65 12/27/17 09:58 Pulse Ox - Labs Result Diagrams: 12/27/17 06:10 12/27/17 06:10 Labs: Laboratory Results - last 24 hr 12/27/17 12/27/17 06:10 06:10 WBC 8.0 D RBC 4.23 Hgb 11.3 L Hct 34.5 L MCV 81.6 MCH 26.7 MCHC 32.8 RDW 15.6 H Plt Count 183 MPV 10.4 Gran % 74.1 H Lymph % (Auto) 16.9 L Pratt % (Auto) 8.9 H Eos % (Auto) 0.0 L Baso % (Auto) 0.1 Gran # 5.90 Lymph # (Auto) 1.4 Pratt # (Auto) 0.7 H Eos # (Auto) 0.0 Baso # (Auto) 0.01 Sodium 136 Potassium 4.8 Chloride 102 Carbon Dioxide 29 Anion Gap 10 BUN 23 H Creatinine 0.8 Est GFR ( Amer) > 60 Est GFR (Non-Af Amer) > 60 Random Glucose 121 H Calcium 9.1 Assessment & Plan - Assessment and Plan (Free Text) Plan: Assessment sepsis from left lower lobe healthcare-associated pneumonia, clinically improving HTN COPD S/P left hip replacement normal pressure hydrocephalus S/P SYSTEM MANAGER shunt placement hypothyroidism history of shingles GERD S/P right knee surgery Plan continue Doxycycline to complete a 5-7 day course
--- NOTE | 2017-12-27 18:12 | CP.PCM.CON ---
History of Present Illness - History of Present Illness History of Present Illness: GI Consult Note - Dr. Brown 87 F with a PMHx of HTN, COPD, S/P left hip replacement, NPH s/p RADIOLOGY SERVICES MANAGER shunt placement, hypothyroidism, history of shingles, GERD, presented to [facility] ED with complaints of dyspnea, cough. Pt found to have lower lobe pneumonia and is being managed with IV abx. Pt was found to be anemic as well with concerns of GI bleed. Pt noted to have LLQ abdominal pain. Abdominal pain has improved. Pt cough has also improved. Pt is tolerating po intake. Pt denied fever, chills, sob, chest pains, nausea, vomiting, diarrhea or urinary symptoms. PMHx: PMH of HTN, COPD, S/P left hip replacement, NPH s/p RADIOLOGY SERVICES MANAGER shunt placement, hypothyroidism, history of shingles, GERD PSHx: total hip replacement, rt knee, bladder lift SHx: social etoh, +tobacco, denied illicits FamHx; Noncontributory Meds: MAR Reviewed Allergies: NKDA Review of Systems - Review of Systems Review of Systems: as per HPI otherwise negative Past Patient History - Infectious Disease Hx of Infectious Diseases: None - Past Social History Smoking Status: Former Smoker - CARDIAC Hx Cardiac Disorders: Yes Hx Hypertension: Yes - PULMONARY Hx Respiratory Disorders: Yes Hx Bronchitis: Yes Hx Chronic Obstructive Pulmonary Disease (COPD): Yes - NEUROLOGICAL Hx Neurological Disorder: Yes (hydrocephalus,RADIOLOGY SERVICES MANAGER shunt) Hx Dementia: Yes Hx Dizziness: Yes Hx Transient Ischemic Attacks (TIA): No - HEENT Hx HEENT Problems: Yes - RENAL Hx Dialysis: No Hx Kidney Stones: No Hx Neurogenic Bladder: No Hx Pyelonephritis: No Hx Renal (Kidney) Cancer: No Hx Renal Failure: No - ENDOCRINE/METABOLIC Hx Endocrine Disorders: Yes Hx Hypothyroidism: Yes - HEMATOLOGICAL/ONCOLOGICAL Hx Blood Disorders: Yes Hx Anemia: Yes Hx Shingles: Yes - INTEGUMENTARY Hx Dermatological Problems: No - MUSCULOSKELETAL/RHEUMATOLOGICAL Hx Falls: Yes - GASTROINTESTINAL Hx Gastrointestinal Disorders: Yes (GERD) - GENITOURINARY/GYNECOLOGICAL Hx Genitourinary Disorders: No Hx Reproductive Disorders: No - PSYCHIATRIC Hx Psychophysiologic Disorder: Yes Hx Anxiety: Yes Hx Substance Use: No - SURGICAL HISTORY Hx Cholecystectomy: Yes Hx Joint Replacement: (left hip replacement) Hx Musculoskeletal Surgery: Yes Hx Orthopedic Surgery: Yes (right knee surgery, rotator cuff surgery) Hx Splenectomy: No Hx Valve Replacement: No - ANESTHESIA Hx Anesthesia: Yes Hx Anesthesia Reactions: No Hx Malignant Hyperthermia: No Meds Allergies/Adverse Reactions: Allergies Allergy/AdvReac Type Severity Reaction Status Date / Time No Known Allergies Allergy Verified 12/27/17 03:54 - Medications Medications: Current Medications Albuterol/Ipratropium (Duoneb 3 Mg/0.5 Mg (3 Ml) Ud) 3 ml IH [id number] JARRELL PRN Reason: Protocol Last Admin: 12/27/17 13:07 Dose: 3 ml Albuterol/Ipratropium (Duoneb 3 Mg/0.5 Mg (3 Ml) Ud) 3 ml IH Q2H PRN; Protocol PRN Reason: Shortness of Breath Aspirin (Aspirin Chewable) 81 mg PO 0800 JARRELL PRN Reason: Protocol Last Admin: 12/27/17 08:45 Dose: 81 mg Budesonide (Pulmicort Respules) 0.25 mg IH [id number] JARRELL PRN Reason: Protocol Last Admin: 12/27/17 07:26 Dose: 0.25 mg Docusate Sodium (Colace) 100 mg PO BID JARRELL PRN Reason: Protocol Last Admin: 12/27/17 17:55 Dose: 100 mg Doxycycline Hyclate (Doryx) 100 mg PO Q12 JARRELL PRN Reason: Protocol Last Admin: 12/27/17 09:58 Dose: 100 mg Levothyroxine Sodium (Synthroid) 25 mcg PO 0600 JARRELL PRN Reason: Protocol Last Admin: 12/27/17 05:28 Dose: 25 mcg Losartan Potassium (Cozaar) 25 mg PO DAILY JARRELL PRN Reason: Protocol Last Admin: 12/27/17 09:58 Dose: 25 mg Pantoprazole Sodium (Protonix Ec Tab) 40 mg PO 0600 JARRELL PRN Reason: Protocol Last Admin: 12/27/17 05:28 Dose: 40 mg Potassium Chloride (K-Dur 20 Meq Er Tab) 20 meq PO 0800 JARRELL PRN Reason: Protocol Last Admin: 12/27/17 08:45 Dose: 20 meq Prednisone (Prednisone Tab) 30 mg PO 0800 JARRELL Physical Exam - Constitutional Appears: No Acute Distress - Head Exam Head Exam: ATRAUMATIC, NORMAL INSPECTION, NORMOCEPHALIC - Eye Exam Eye Exam: EOMI, Normal appearance, PERRL Pupil Exam: NORMAL ACCOMODATION, PERRL - ENT Exam ENT Exam: Mucous Membranes Moist, Normal Exam - Neck Exam Neck exam: Positive for: Normal Inspection - Respiratory Exam Respiratory Exam: Clear to Auscultation Bilateral, NORMAL BREATHING PATTERN - Cardiovascular Exam Cardiovascular Exam: REGULAR RHYTHM, +S1, +S2 - GI/Abdominal Exam GI & Abdominal Exam: Normal Bowel Sounds, Soft. absent: Tenderness - Neurological Exam Neurological exam: Alert, CN II-XII Intact, Oriented x3, Reflexes Normal - Psychiatric Exam Psychiatric exam: Normal Affect, Normal Mood - Skin Skin Exam: Dry, Intact, Normal Color, Warm Results - Vital Signs Recent Vital Signs: Last Vital Signs Temp 98 F 12/27/17 16:35 Pulse 80 12/27/17 16:35 Resp 18 12/27/17 16:35 BP 112/59 L 12/27/17 16:35 Pulse Ox 96 12/27/17 16:35 - Labs Result Diagrams: 12/27/17 06:10 12/27/17 06:10 Labs: Laboratory Results - last 24 hr 12/27/17 12/27/17 06:10 06:10 WBC 8.0 D RBC 4.23 Hgb 11.3 L Hct 34.5 L MCV 81.6 MCH 26.7 MCHC 32.8 RDW 15.6 H Plt Count 183 MPV 10.4 Gran % 74.1 H Lymph % (Auto) 16.9 L Miller % (Auto) 8.9 H Eos % (Auto) 0.0 L Baso % (Auto) 0.1 Gran # 5.90 Lymph # (Auto) 1.4 Miller # (Auto) 0.7 H Eos # (Auto) 0.0 Baso # (Auto) 0.01 Sodium 136 Potassium 4.8 Chloride 102 Carbon Dioxide 29 Anion Gap 10 BUN 23 H Creatinine 0.8 Est GFR ( Amer) > 60 Est GFR (Non-Af Amer) > 60 Random Glucose 121 H Calcium 9.1 Assessment & Plan - Assessment and Plan (Free Text) Assessment: Sepsis from left lower lobe healthcare-associated pneumonia, slowly improving HTN COPD S/P left hip replacement NPH s/p RADIOLOGY SERVICES MANAGER shunt placement hypothyroidism history of shingles GERD S/P right knee surgery anemia s/p transfusion constipation CT abdomen reviewed, hiatal hernia noted, constipation Doxycycline to complete a 5-7 day course as per ID anemia likely 2/2 hiatal hernia causing aren ulcer miralax for constipation PPI, pt on steroids soft diet Possible EGD outpt after pneumonia resolves Discussed with Dr. Brown
--- NOTE | 2017-12-27 20:05 | CON ---
DATE: 12/27/2017 REASON FOR THE CONSULTATION: Bradycardia, hypotension, hypothyroidism, normal pressure hydrocephalus, cardiac evaluation; continuity of the care and continued care in Transitional Care Unit. BRIEF CLINICAL HISTORY: This is an 87-year-old female with a past medical history of significant for hypothyroidism, COPD, history of hip replacement, normal pressure hydrocephalus status post ventriculoperitoneal shunt, admitted to the acute floor in telemetry with 1 week history of cough and mild shortness of breath. Denies any bringing up of sputum phlegm, found to be bradycardic, Cardiology consult was called. Now, patient stabilizes and transferred to TCU and Cardiology consult was called for continuity of care. PAST HISTORY: Significant for dementia, normal pressure hydrocephalus status post ventriculoperitoneal shunt, hypertension, back pain, insomnia, iron-deficiency anemia, history of dehydration, history of diarrhea in the past, history of CVA, history of altered mental status, mild dementia, and COPD. ALLERGY: NO KNOWN DRUG ALLERGY. CURRENT MEDICATIONS: The patient is taking levothyroxine, aspirin, potassium, losartan as well as albuterol inhaler. PREVIOUS CARDIAC WORKUP: As follows; patient's echo at 08/30/2016, ejection fraction of 55% to 60%, mild aortic regurgitation, mild aortic stenosis, mild mitral regurgitation, [id number] tricuspid regurgitation, RV systolic pressure of 45, no vegetation or thrombus noted. REVIEW OF SYSTEMS: As per HPI. PHYSICAL EXAMINATION: VITAL SIGNS: Temperature afebrile, heart rate 72, and blood pressure 105/57. HEENT: PERRLA. Extraocular muscles intact. NECK: Supple. No carotid bruits or thyromegaly. CHEST: Clear to auscultation. HEART: S1 and S2, regular. ABDOMEN: Soft. EXTREMITIES: Clubbing and cyanosis negative. LABORATORY DATA: Blood workup as follows; WBC 8, hemoglobin 11. , hematocrit 34.5, and platelet count 183. Chemistry shows sodium , chloride 102, carbon dioxide 29, anion gap of 10, BUN 23, and creatinine 0.8. IMPRESSION: Hypotension; bradycardia, resolved; normal pressure hydrocephalus, status post ventriculoperitoneal shunt; dementia; chronic back pain; chronic obstructive pulmonary disease; impaired cognitive behavior. Bradycardia on admission, which improved. The patient is asymptomatic. Echocardiogram recently shows ejection fraction of 65%, right ventricle dilated, mild aortic regurgitation, mild mitral regurgitation, [id number] tricuspid regurgitation, right ventricular systolic pressure of 76 which is severe consistent with [id number]-[id number] pulmonary hypertension, [id number] pulmonary insufficiency, intermittent left to right shunt by color Doppler a small tiny intermittent patent foramen ovale by echocardiogram. RECOMMENDATION: Continue baby aspirin. Continue losartan. Continue antibiotic for COPD exacerbation. Continue levothyroxine. Bradycardia as mentioned improved. CVS status is stable. Continue rehab. Continue doxycycline as per Pulmonary. Continue treatment for COPD. We will follow with you. No further cardiac workup is planned. Thank you Dr. Valerio to provide us the opportunity in taking care of the patient, Bethany Espinoza. Christa Wolf MD
[2017-12-28] MEDS: Albuterol-Ipratrop 3 mg / 0.5 (3 ml) UD IH SCH ×5 (01:47→19:46)
[2017-12-28] MEDS: Pantoprazole 40 mg EC Tab PO SCH (05:15)
[2017-12-28] MEDS: Levothyroxine 25 MCG TAB PO SCH (05:15)
[2017-12-28] MEDS: Budesonide 0.25 mg/2 ml Inhal Susp UD IH SCH (07:23)
[2017-12-28] MEDS: Potassium Chloride 20 mEq ER Tab PO SCH (07:54)
--- NOTE | 2017-12-28 11:47 | CP.PCM.PN ---
Subjective - Date & Time of Evaluation Date of Evaluation: 12/28/17 Time of Evaluation: 09:55 - Subjective Subjective: Seen and examined by me and Dr. Iniguez Reason for consultation and follow up: bradycardia, hypotension,hypothyroidism, cardiac evaluation,continuity of care in TCU Denies shortness of breath or chest pain, feeling okay Objective - Vital Signs/Intake and Output Vital Signs (last 24 hours): Temp Pulse Resp BP Pulse Ox 97.6 F 64 18 101/56 L 98 12/28/17 06:00 12/28/17 06:00 12/28/17 06:00 12/28/17 10:02 12/28/17 06:00 - Medications Medications: Current Medications Albuterol/Ipratropium (Duoneb 3 Mg/0.5 Mg (3 Ml) Ud) 3 ml IH [id number] JARRELL PRN Reason: Protocol Last Admin: 12/28/17 07:21 Dose: 3 ml Albuterol/Ipratropium (Duoneb 3 Mg/0.5 Mg (3 Ml) Ud) 3 ml IH Q2H PRN; Protocol PRN Reason: Shortness of Breath Aspirin (Aspirin Chewable) 81 mg PO 0800 JARRELL PRN Reason: Protocol Last Admin: 12/28/17 07:54 Dose: 81 mg Budesonide (Pulmicort Respules) 0.25 mg IH [id number] JARRELL PRN Reason: Protocol Last Admin: 12/28/17 07:23 Dose: 0.25 mg Docusate Sodium (Colace) 100 mg PO BID JARRELL PRN Reason: Protocol Last Admin: 12/28/17 10:02 Dose: 100 mg Doxycycline Hyclate (Doryx) 100 mg PO Q12 JARRELL PRN Reason: Protocol Last Admin: 12/28/17 10:02 Dose: 100 mg Levothyroxine Sodium (Synthroid) 25 mcg PO 0600 JARRELL PRN Reason: Protocol Last Admin: 12/28/17 05:15 Dose: 25 mcg Losartan Potassium (Cozaar) 25 mg PO DAILY JARRELL PRN Reason: Protocol Last Admin: 12/28/17 10:02 Dose: 25 mg Pantoprazole Sodium (Protonix Ec Tab) 40 mg PO 0600 JARRELL PRN Reason: Protocol Last Admin: 12/28/17 05:15 Dose: 40 mg Potassium Chloride (K-Dur 20 Meq Er Tab) 20 meq PO 0800 JARRELL PRN Reason: Protocol Last Admin: 12/28/17 07:54 Dose: 20 meq Prednisone (Prednisone Tab) 30 mg PO 0800 [facility] Last Admin: 12/28/17 07:54 Dose: 30 mg - Labs Labs: 12/27/17 06:10 12/27/17 06:10 - Constitutional Appears: Well, No Acute Distress - Head Exam Head Exam: NORMAL INSPECTION - ENT Exam ENT Exam: Normal Exam - Respiratory Exam Respiratory Exam: Clear to Ausculation Bilateral, NORMAL BREATHING PATTERN - Cardiovascular Exam Cardiovascular Exam: +S1, +S2 - GI/Abdominal Exam GI & Abdominal Exam: Soft, Normal Bowel Sounds - Extremities Exam Extremities Exam: Normal Capillary Refill - Psychiatric Exam Psychiatric exam: Flat Affect - Skin Skin Exam: Dry, Intact, Normal Color, Warm Assessment and Plan - Assessment and Plan (Free Text) Assessment: Impression: Hypotension,bradycardia, s/p ventriculoperitoneal shunt,dementia, chronic back pain, chronic obstructive pulmonary disease,dementia, Recent ECHO EF 65% with moderate to severe tricuspid regurgitation, mild to moderate pulmonary insufficiency Plan: Bradycardia and hypotension resolved Contniue ASA 81 mg and Cozaar as ordered No further cardiac work up Will follow up Plan and treatment reviewed with Dr. Iniguez
--- NOTE | 2017-12-28 13:46 | PN ---
DATE: SUBJECTIVE: The patient is in [facility] Transitional Care Unit, room 320, bed 1. The patient was admitted to [facility] with respiratory infection. The patient has had lethargy and fever. PAST MEDICAL HISTORY: She has history of hypertension, normal pressure hydrocephalus, dementia, hypothyroidism, chronic respiratory disorder, and COPD. PHYSICAL EXAMINATION: GENERAL: Currently, the patient is seen this morning. She is awake, able to communicate, seems to be much better than couple of days ago. VITAL SIGNS: The patient's pulse is 64, blood pressure 110/70, respirations are 18, O2 sat is 98% on 2 L of oxygen. HEENT: The patient's head is normocephalic. NECK: Thyroid is not enlarged. JVP is flat. LUNGS: Trachea central. Occasional scattered rales and rhonchi heard. HEART: Normal sinus rhythm. S1, S2 present. ABDOMEN: Soft. No tenderness. No enlargement of any organ like liver or spleen. NEUROLOGIC: The patient is seen and examined. She is conscious, confused somewhat. There are no focal neurological deficits. MEDICATIONS: Consist of aspirin. The patient is on Colace, losartan, doxycycline, DuoNeb. The patient is on prednisone, pantoprazole, Pulmicort and Synthroid. She is on heart healthy diet 2 g sodium. LABORATORY DATA: Currently, the hemoglobin is 11.3. She did receive 1 unit of blood, then, her hemoglobin was going down to 9. The patient has past history of myelodysplastic syndrome also. The patient's platelet count is 183,000. The patient's chemistry: BUN is 23, GFR is within normal limits. The patient's sodium is 136, potassium is 4.8. ASSESSMENT AND PLAN: The patient's condition is improving. She is getting physical therapy, rehabilitation, deconditioning. The patient will continue current management. Rick Valerio MD JESSICA
--- NOTE | 2017-12-28 16:33 | PN ---
DATE: SUBJECTIVE: The patient is seen early this morning in room 310. The patient is in bed, in no acute distress, nontoxic. PHYSICAL EXAMINATION: VITAL SIGNS: Temperature is 98, blood pressure is 109/60, respiratory rate of 18. HEENT: Examination of HEENT is unremarkable. NECK: Supple. LUNGS: Decreased breath sounds. HEART: Normal S1 and S2. ABDOMEN: Soft, nontender. LABORATORY DATA: Laboratory examination reveals a white count of 8 and hemoglobin of 11, platelets of 183. BUN of 23, creatinine of 0.8. Microbiology is noted. ASSESSMENT AND PLAN: An 87-year-old with hypertension and chronic obstructive pulmonary disease, status post left hip replacement, history of normal pressure hydrocephalus, status post ventriculoperitoneal shunt placement, hypothyroidism, history of shingles and gastroesophageal reflux disease, status post right knee surgery with sepsis , healthcare-associated pneumonia. Doxycycline, complete a 5 to 7 grade A course. The patient is also on prednisone. Eduar Nolan MD
[2017-12-29] MEDS: Albuterol-Ipratrop 3 mg / 0.5 (3 ml) UD IH SCH ×4 (01:16→20:26)
--- NOTE | 2017-12-29 01:42 | PN ---
DATE:12/28/2017 SUBJECTIVE: This patient was seen and evaluated earlier today. Patient is comfortable, tolerating the diet. PHYSICAL EXAMINATION: VITAL SIGNS: Temperature is 98.4, pulse 51, blood pressure 105/63, respirations is 16, O2 saturation 99%. HEENT: Atraumatic, anicteric. NECK: Supple. HEART: S1, S2 heard. LUNGS: Bilateral air entry present. ABDOMEN: Soft. There is no mass palpable. No tenderness. EXTREMITIES: No edema. No cyanosis. LABORATORY DATA: There is no recent labs today, but last hemoglobin on 12/28 was stable, hemoglobin was 11.3. IMPRESSION: This 87-year-old patient with normal pressure hydrocephalus status post ventriculoperitoneal shunt placement, hypertension, chronic obstructive pulmonary edema, admitted with pneumonia. Patient is on doxycyline antibiotics, in Transitional Care Unit. Patient was anemic with occult blood positive status post transfusion given. Patient has been on aspirin and steroid She was started on Protonix. The hemoglobin is stable. Patient clearly would benefit from the endoscopic evaluation in view of the severe anemia , especially in the setting the patient being on aspirin. I did have a discussion in the past with the family if they wanted a more conservative management and they were concerned about doing any invasive procedure. I did discuss with Dr. Valerio today. I will also discuss with the patient's family. If they are agreeable, we will consider upper gastrointestinal endoscopy. Meanwhile, we will continue the proton pump inhibitors and close followup of the hemoglobin and hematocrit. In view of the pneumonia, we will be concerned about doing the endoscopy till her respiratory status is more optimized. Thank you very much for allowing me to participate in the care of this patient. Caroline Brown MD JESSICA
[2017-12-29] MEDS: Pantoprazole 40 mg EC Tab PO SCH (05:40)
[2017-12-29] MEDS: Levothyroxine 25 MCG TAB PO SCH (05:40)
[2017-12-29] MEDS: Budesonide 0.25 mg/2 ml Inhal Susp UD IH SCH ×2 (07:10→20:27)
[2017-12-29] MEDS: Potassium Chloride 20 mEq ER Tab PO SCH (09:00)
--- NOTE | 2017-12-29 09:24 | PN ---
DATE: 12/29/2017 PULMONARY NOTE SUBJECTIVE: The patient appears comfortable this morning. She is not short of breath at rest. OBJECTIVE VITAL SIGNS (last noted in the computer): Temperature is 98.4, pulse 51, respirations 16, blood pressure 105/63. Oxygen saturation on nasal cannula is 99%. HEENT: Normocephalic, atraumatic. NECK: No JVD. CARDIOVASCULAR: Systolic ejection murmur at the lower left sternal border. No S3 gallop. LUNGS: Minimal crackles at the left base. Very minimal rhonchi. No wheezing. EXTREMITIES: Positive for mild edema. No cyanosis, no clubbing. Calves are nontender to palpation. GASTROINTESTINAL: Abdomen is soft, nontender, nondistended. Bowel sounds are positive. SKIN: No acute rash. NEUROLOGIC: Exam limited at the present time. IMPRESSION 1. Left lower lobe pneumonia. 2. Chronic obstructive pulmonary disease. 3. Mild bronchospasm. 4. Anemia. PLAN: The patient appears comfortable this morning. She is not short of breath at rest. She does state to feeling much better overall. On physical exam, her bronchospasm continues to resolve. In addition, the alveolar arterial gradient also continues to resolve. I will continue with the current nebulizer treatments and decrease the oral steroids this morning. The patient remains on oral antibiotic therapy. The temperatures have resolved. The leukocytosis has also resolved. Clinical status of the patient is significantly improved - compared to the initial presentation. Her overall status/prognosis does remain somewhat guarded. I will discuss the above with the attending physician. Abdolu Ward MD JESSICA
--- NOTE | 2017-12-29 11:54 | PN ---
DATE: SUBJECTIVE: The patient is in the Transitional Care Unit - room 320, bed 1. The patient was admitted for rehabilitation, deconditioning and antibiotic treatment for respiratory infection. The patient has a history of dementia and normal-pressure hydrocephalus. The patient has a history of gastritis. The patient has a history of anemia and hypothyroidism. This morning, the patient was sleeping - she was awakened for conversation. PHYSICAL EXAMINATION VITAL SIGNS: The pulse is 56 per minute, blood pressure 110/70, the patient's respirations were 16, and O2 saturation is 97% on room air. HEENT: Head is normocephalic. She has a bump in the right temporal area where the ventriculoperitoneal shunt was inserted. LUNGS: Clear excepting that the patient has scattered rales and rhonchi. No localizing signs. HEART: Normal sinus rhythm/sinus bradycardia. ABDOMEN: Soft. Liver and spleen are not palpable. CENTRAL NERVOUS SYSTEM: She is conscious and able to recognize people. She has mild dementia associated with normal-pressure hydrocephalus. MEDICATIONS: Consist of aspirin 81 mg daily. The patient is on Colace for constipation, losartan 25 mg daily. The patient is on doxycycline for respiratory infection. The patient is on DuoNeb and Pulmicort. The prednisone - the patient is getting 20 mg at this time. She is also on pantoprazole IV for GI support - the patient has gastritis and there is some occult blood in the stool. DATA: The patient's blood work - the hemoglobin is 11.3 - that was the day before yesterday. White count is normal. Chemistry: The BUN and creatinine are within normal limits more or less. Sugar is 121. The patient's condition is improving. The patient gets deconditioning treatment, physical therapy, and antibiotic treatment. Rick Valerio MD JESSICA
--- NOTE | 2017-12-29 15:29 | PN ---
DATE: 12/29/2017 SUBJECTIVE: The patient is in bed, in no acute distress, nontoxic. PHYSICAL EXAMINATION: VITAL SIGNS: Temperature is 98, blood pressure is 125/70, respiratory rate of 18. HEENT: Unremarkable. NECK: Supple. LUNGS: Have decreased breath sounds. HEART: Normal S1, S2. ABDOMEN: Soft, nontender. LABORATORY DATA: Reveals a white count of 8000, hemoglobin of 11, platelets of 183. Chemistries reveals a BUN of 23, creatinine of 0.8. Microbiology is noted. ASSESSMENT AND PLAN: An 87-year-old female with hypertension, chronic obstructive lung disease, status post left hip replacement, history of normal-pressure hydrocephalus, status post ventricular peritoneal shunt placement, hypothyroidism, history of shingles, gastroesophageal reflux disease, status post a right knee surgery, sepsis and completed course of doxycycline. We will discontinue doxycycline. Patient is on prednisone. Eduar Nolan MD
--- NOTE | 2017-12-29 15:32 | PN ---
DATE: 12/28/2017 LOCATION: Room 320, bed 1. REASON FOR CONSULTATION AND FOLLOWUP: Episode of bradycardia, hypotension, hypothyroidism, deconditioning. SUBJECTIVE: The patient is lying flat in bed without any cardiac symptom. No chest pain, no shortness of breath, no palpitations, no dizziness. PHYSICAL EXAMINATION: VITAL SIGNS: Blood pressure 125/70, respirations 16, pulse 78, temperature 98.4. HEENT: Head is normocephalic. Eyes: Pupils normal. Conjunctivae are slightly pale. NECK: JVP low. Carotids equal. THORAX: AP diameter normal. LUNGS: Clear. CARDIOVASCULAR: S1 and S2. ABDOMEN: Soft. No tenderness. No organomegaly. Bowel sounds normal. EXTREMITIES: No clubbing, no cyanosis. LABORATORY DATA: WBC 8.0, hemoglobin 11.3, hematocrit 34.5, and platelets 183. Sodium 136, potassium 4.8, BUN 23, creatinine 0.8. Random glucose 121. Calcium 9.1. DIAGNOSES: Episode of hypotension; bradycardia, which has improved. The patient is status post ventriculoperitoneal shunt, dementia, chronic back pain, chronic obstructive pulmonary disease. Recent echocardiogram showed left ventricular ejection fraction 65% with [id number]-[id number] tricuspid regurgitation, aior-vz-[id number] pulmonary insufficiency. PLAN: Continue physical therapy for deconditioning. Bradycardia and hypotension have resolved. So, we will continue therapy with aspirin 81 mg daily, losartan 25 mg daily, doxycycline hyclate 100 mg p.o. q. 12 hours, DuoNeb hand nebulizer therapy, potassium 20 mEq p.o. daily, prednisone 20 daily, Protonix 40 daily, levothyroxine 25 mcg p.o. daily. We will follow with you. Christa Iniguez MD
--- NOTE | 2017-12-29 21:59 | PN ---
DATE: 12/29/2017 SUBJECTIVE: This patient was seen and evaluated earlier today. Patient comfortable, tolerating the diet. Patient's son was at the bedside who has the power of commercial real estate attorney. PHYSICAL EXAMINATION: VITAL SIGNS: Temperature is 97.8, pulse 73, and blood pressure 126/69. HEENT: Atraumatic, anicteric. NECK: Supple. HEART: S1, S2 heard. LUNGS: Bilateral air entry present. ABDOMEN: Soft. There is no tenderness present. EXTREMITIES: No cyanosis or clubbing. NEUROLOGICAL: Alert and oriented. Moves all the extremities. LABORATORY DATA: There is no recent labs. IMPRESSION AND PLAN: This is an 87-year-old patient with a normal pressure hydrocephalus, status post ventriculoperitoneal shunt, chronic obstructive pulmonary disease, admitted with pneumonia. Patient was on doxycycline. I do not find in MAR today the medication. Patient is also on steroid for chronic obstructive pulmonary disease. The patient was found to be anemic, status post transfusion, given hemoglobin was stable. The patient was started on Protonix. We will follow up the hemoglobin and hematocrit. I had a detailed discussion with the patient's son who was at bedside, who has the power of commercial real estate attorney. He is reluctant at the present time to have any invasive workup done. He will discuss with his brothers and other families and also with Dr. Valerio and primary physician before making the decision. Meanwhile, we will follow up the blood count. We will discuss with Dr. Valerio regarding the doxycycline. We will continue the Protonix at the present time. Thank you very much for allowing me to participate in the care of this patient. Caroline Brown MD
[2017-12-30] MEDS: Albuterol-Ipratrop 3 mg / 0.5 (3 ml) UD IH SCH ×4 (01:18→20:16)
[2017-12-30] MEDS: Levothyroxine 25 MCG TAB PO SCH (05:33)
[2017-12-30] MEDS: Pantoprazole 40 mg EC Tab PO SCH (05:33)
[2017-12-30] MEDS: Budesonide 0.25 mg/2 ml Inhal Susp UD IH SCH ×2 (07:21→20:23)
[2017-12-30] MEDS: Potassium Chloride 20 mEq ER Tab PO SCH (07:57)
--- NOTE | 2017-12-30 08:03 | PN ---
DATE: 12/30/2017 PULMONARY NOTE SUBJECTIVE: The patient appears comfortable this morning. She is not short of breath at rest. PHYSICAL EXAMINATION: VITAL SIGNS: (Last noted in the computer): Temperature is 97.3, pulse 54, respirations 16, blood pressure 133/67. Oxygen saturation on nasal cannula is 99%. HEENT: Normocephalic, atraumatic. No JVD. CARDIOVASCULAR: Systolic ejection murmur at the lower left sternal border. No S3 gallop. LUNGS: Minimal crackles at the left base. Very minimal rhonchi. No wheezing. EXTREMITIES: Less edema. No cyanosis. No clubbing. Calves are nontender to palpation. GI: Abdomen is soft, nontender and nondistended. Bowel sounds are positive. SKIN: No acute rash. NEUROLOGIC: Limited at the present time. IMPRESSION: 1. Left lower lobe pneumonia. 2. Chronic obstructive pulmonary disease. 3. Mild bronchospasm. 4. Anemia. PLAN: The patient appears comfortable this morning. She is not short of breath at rest. She does state to feeling much better overall. On physical exam, her bronchospasm continues to slowly resolve. In addition, there is no significant alveolar-arterial gradient. I will continue with the current nebulizer treatments and low-dose oral steroids (decreased yesterday) for now. The patient is now off antibiotic therapy - as per Infectious Disease. Input by Dr. Nolan is noted. There are no temperatures noted. There is no leukocytosis. Clinical status of the patient is significantly improved overall. I will discuss the above with the attending physician. Abdoul Ward MD JESSICA
--- NOTE | 2017-12-30 10:17 | PN ---
DATE: 12/28/2017 PULMONARY PROGRESS NOTE SUBJECTIVE: The patient was seen and examined on Transitional Care Unit. She appears comfortable. No signs of respiratory distress. PHYSICAL EXAMINATION VITAL SIGNS: Temperature is 97.6, pulse 64, respirations 18, her pulse oxymetry on room air is 94%. HEAD, EYES, EARS, NOSE, AND THROAT: Within normal limits. NECK: Supple with no jugular vein distention. CHEST: Symmetrical. CARDIOVASCULAR: S1 and S2. No S3. Regular. PULMONARY: Few basal crackles. No wheezing. GASTROINTESTINAL: Soft, nontender. No organomegaly. EXTREMITIES: No pedal edema. SKIN: Clear. There are no skin rashes. NEUROLOGIC: Limited at the present time. IMPRESSION: 1. Left lower lobe pneumonia. 2. Chronic obstructive pulmonary disease. 3. Mild bronchospasm. 4. Chronic congestive heart failure. PLAN: The patient appears comfortable and stable. She should continue with passive and active physical therapy, range of motions, and breathing exercises. There is minimal bronchospasm and her oxygen saturation has improved. We will continue with current nebulizer treatment and taper oral steroids. Infectious Disease, Dr. Nolan, is administering the antibiotics. We will follow on an as needed basis. Josiah Lance MD
--- NOTE | 2017-12-30 11:25 | CP.PCM.PN ---
Subjective - Date & Time of Evaluation Date of Evaluation: 12/30/17 Time of Evaluation: 11:05 - Subjective Subjective: Patient is improving. She continues to have cough. Objective - Vital Signs/Intake and Output Vital Signs (last 24 hours): Temp Pulse Resp BP Pulse Ox 97.3 F L 54 L 16 125/67 99 12/29/17 17:34 12/29/17 17:34 12/29/17 17:34 12/30/17 10:21 12/29/17 17:34 - Medications Medications: Current Medications Albuterol/Ipratropium (Duoneb 3 Mg/0.5 Mg (3 Ml) Ud) 3 ml IH [id number] JARRELL PRN Reason: Protocol Last Admin: 12/30/17 07:20 Dose: 3 ml Albuterol/Ipratropium (Duoneb 3 Mg/0.5 Mg (3 Ml) Ud) 3 ml IH Q2H PRN; Protocol PRN Reason: Shortness of Breath Aspirin (Aspirin Chewable) 81 mg PO 0800 JARRELL PRN Reason: Protocol Last Admin: 12/30/17 07:57 Dose: 81 mg Budesonide (Pulmicort Respules) 0.25 mg IH [id number] JARRELL PRN Reason: Protocol Last Admin: 12/30/17 07:21 Dose: 0.25 mg Docusate Sodium (Colace) 100 mg PO BID JARRELL PRN Reason: Protocol Last Admin: 12/30/17 10:19 Dose: Not Given Levothyroxine Sodium (Synthroid) 25 mcg PO 0600 JARRELL PRN Reason: Protocol Last Admin: 12/30/17 05:33 Dose: 25 mcg Losartan Potassium (Cozaar) 25 mg PO DAILY JARRELL PRN Reason: Protocol Last Admin: 12/30/17 10:21 Dose: 25 mg Pantoprazole Sodium (Protonix Ec Tab) 40 mg PO 0600 JARRELL PRN Reason: Protocol Last Admin: 12/30/17 05:33 Dose: 40 mg Potassium Chloride (K-Dur 20 Meq Er Tab) 20 meq PO 0800 JARRELL PRN Reason: Protocol Last Admin: 12/30/17 07:57 Dose: 20 meq Prednisone (Prednisone Tab) 20 mg PO DAILY [facility] Last Admin: 12/30/17 10:26 Dose: 20 mg - Labs Labs: 12/27/17 06:10 12/27/17 06:10 - Constitutional Appears: No Acute Distress - Head Exam Head Exam: ATRAUMATIC, NORMOCEPHALIC - Respiratory Exam Respiratory Exam: Decreased Breath Sounds, NORMAL BREATHING PATTERN - Cardiovascular Exam Cardiovascular Exam: +S1, +S2 - GI/Abdominal Exam GI & Abdominal Exam: Soft, Normal Bowel Sounds. absent: Tenderness - Extremities Exam Extremities Exam: Normal Inspection - Neurological Exam Neurological Exam: Alert, Awake Assessment and Plan - Assessment and Plan (Free Text) Assessment: Pneumonia Anemia COPD HTN Hypothyroidism normal pressure hydrocephalus s/p [employer] shunt Plan: Patient is improving. continue duoneb, pulmicort respiratory treatments and prednisone taper. continue PT. Will repeat H&H. Family does not want endoscopy. continue colace for constipation.
--- NOTE | 2017-12-30 12:57 | PN ---
DATE: 12/30/2017 LOCATION: Patient in room 320, bed 1. REASON FOR CONSULTATION AND FOLLOWUP: Episode of bradycardia, hypotension, hypothyroidism, deconditioning. SUBJECTIVE: The patient lying flat in bed without any cardiac symptoms like chest pain, shortness of breath, palpitations. Family present at bedside. PHYSICAL EXAMINATION: VITAL SIGNS: Blood pressure is 125/67, respirations 16, pulse 74, temperature 97.8. HEENT: Head is normocephalic. Eyes: Pupils normal. Conjunctivae slightly pale. NECK: JVP low. Carotids equal. THORAX: AP diameter normal. LUNGS: Few rales. CARDIOVASCULAR: S1, S2. ABDOMEN: Soft, nontender. No organomegaly. EXTREMITIES: No clubbing, no cyanosis. LABORATORY DATA: WBC 8, hemoglobin is 11.3, hematocrit 34.5, platelet 183. Sodium 136, potassium 4.8, BUN 23, creatinine 0.8, random glucose 121, calcium 9.1. DIAGNOSES: Episode of hypotension, bradycardia which has improved, patient is status post ventriculoperitoneal shunt, dementia, chronic back pain, chronic obstructive pulmonary disease. Recent echo showed normal left ventricular ejection fraction of 65% with pyxpuulq-ps-[id number] tricuspid regurgitation, [id number]-hk-[id number] pulmonary insufficiency. PLAN: Patient lying comfortably in bed without any cardiac symptoms. Continue physical therapy and we will continue present medications, aspirin 81 daily, Coreg 25 daily, DuoNeb hand nebulizer therapy, potassium 20 daily, prednisone 20 daily, Protonix 40 daily, levothyroxine 25 mcg p.o. daily. We will follow with you. Christa Iniguez MD
--- NOTE | 2017-12-30 13:34 | CP.PCM.PN ---
Subjective - Date & Time of Evaluation Date of Evaluation: 12/30/17 Time of Evaluation: 12:00 - Subjective Subjective: Comfortable, afebrile, no distress. Objective - Vital Signs/Intake and Output Vital Signs (last 24 hours): Temp Pulse Resp BP Pulse Ox 97.3 F L 54 L 16 133/67 99 12/29/17 17:34 12/29/17 17:34 12/29/17 17:34 12/29/17 17:34 12/29/17 17:34 - Medications Medications: Current Medications Albuterol/Ipratropium (Duoneb 3 Mg/0.5 Mg (3 Ml) Ud) 3 ml IH [id number] JARRELL PRN Reason: Protocol Last Admin: 12/30/17 07:20 Dose: 3 ml Albuterol/Ipratropium (Duoneb 3 Mg/0.5 Mg (3 Ml) Ud) 3 ml IH Q2H PRN; Protocol PRN Reason: Shortness of Breath Aspirin (Aspirin Chewable) 81 mg PO 0800 JARRELL PRN Reason: Protocol Last Admin: 12/30/17 07:57 Dose: 81 mg Budesonide (Pulmicort Respules) 0.25 mg IH [id number] JARRELL PRN Reason: Protocol Last Admin: 12/30/17 07:21 Dose: 0.25 mg Docusate Sodium (Colace) 100 mg PO BID JARRELL PRN Reason: Protocol Last Admin: 12/29/17 17:22 Dose: 100 mg Levothyroxine Sodium (Synthroid) 25 mcg PO 0600 JARRELL PRN Reason: Protocol Last Admin: 12/30/17 05:33 Dose: 25 mcg Losartan Potassium (Cozaar) 25 mg PO DAILY JARRELL PRN Reason: Protocol Last Admin: 12/29/17 09:41 Dose: 25 mg Pantoprazole Sodium (Protonix Ec Tab) 40 mg PO 0600 JARRELL PRN Reason: Protocol Last Admin: 12/30/17 05:33 Dose: 40 mg Potassium Chloride (K-Dur 20 Meq Er Tab) 20 meq PO 0800 JARRELL PRN Reason: Protocol Last Admin: 12/30/17 07:57 Dose: 20 meq Prednisone (Prednisone Tab) 20 mg PO DAILY [facility] Last Admin: 12/29/17 09:41 Dose: 20 mg - Labs Labs: 12/27/17 06:10 12/27/17 06:10 - Constitutional Appears: Non-toxic - Head Exam Head Exam: NORMAL INSPECTION - Respiratory Exam Respiratory Exam: Decreased Breath Sounds - Cardiovascular Exam Cardiovascular Exam: +S1, +S2 - GI/Abdominal Exam GI & Abdominal Exam: Soft. absent: Tenderness Assessment and Plan - Assessment and Plan (Free Text) Assessment: Assessment S/P sepsis from left lower lobe healthcare-associated pneumonia, clinically improved and S/P treatment with antibiotics HTN COPD S/P left hip replacement normal pressure hydrocephalus S/P [employer] OUT shunt placement hypothyroidism history of shingles GERD S/P right knee surgery Plan continue to monitor off antibiotics since she is at risk for nosocomial infections
[2017-12-30] MEDS: Promethazine DM 6.25 mg-15 mg/5 ml Syrup PO PRN (21:53)
[2017-12-31] MEDS: Albuterol-Ipratrop 3 mg / 0.5 (3 ml) UD IH SCH ×4 (01:29→21:15)
--- NOTE | 2017-12-31 03:39 | PN ---
DATE:12/30/2017 SUBJECTIVE: This patient was seen and evaluated earlier today. Comfortable, tolerating the diet. No complaints of any abdominal pain. The patient is off the antibiotics. PHYSICAL EXAMINATION: VITAL SIGNS: Temperature 97.7, blood pressure 101/63. HEENT: Atraumatic, anicteric. HEART: S1 and S2 heard. LUNGS: Bilateral air entry present. Occasional rhonchi present. ABDOMEN: Soft, no tenderness. EXTREMITIES: No cyanosis, no clubbing. LABORATORY DATA: No recent labs. IMPRESSION and PLAN : This is an 87-year-old patient with normal pressure hydrocephalus, status post ventriculoperitoneal shunt, chronic obstructive pulmonary disease, admitted with pneumonia. Patient was on doxycycline which has been discontinued, now on steroid, also on aspirin. Started on proton pump inhibitor for prophylaxis at this time. History of anemia, drop in blood count, status post transfusion, hemoglobin has been stable. I did discuss with the patient's son yesterday. At the present time, patient does not want any endoscopic evaluation, but wanted to discuss with the primary physician and family members. If the patient is agreeable, we will consider endoscopy; otherwise, follow the conservative management. Thank you very much for allowing us to participate in the care of this patient. Caroline Brown MD JESSICA
[2017-12-31] MEDS: Promethazine DM 6.25 mg-15 mg/5 ml Syrup PO PRN ×2 (05:13→18:01)
[2017-12-31] MEDS: Levothyroxine 25 MCG TAB PO SCH (05:13)
[2017-12-31] MEDS: Pantoprazole 40 mg EC Tab PO SCH (05:13)
--- NOTE | 2017-12-31 07:19 | CP.PCM.PN ---
Subjective - Date & Time of Evaluation Date of Evaluation: 12/31/17 Time of Evaluation: 06:50 - Subjective Subjective: Seen and examined by me and Dr. Iniguez Reason for consultation and follow up: bradycardia, hypotension,hypothyroidism, cardiac evaluation,continuity of care in TCU,COPD Denies shortness of breath or chest pain, feeling okay,feels cold Objective - Vital Signs/Intake and Output Vital Signs (last 24 hours): Temp Pulse Resp BP Pulse Ox 97.7 F 90 20 101/63 95 12/30/17 17:37 12/30/17 17:37 12/30/17 17:37 12/30/17 17:37 12/30/17 17:37 - Medications Medications: Current Medications Albuterol/Ipratropium (Duoneb 3 Mg/0.5 Mg (3 Ml) Ud) 3 ml IH [id number] JARRELL PRN Reason: Protocol Last Admin: 12/31/17 01:29 Dose: Not Given Albuterol/Ipratropium (Duoneb 3 Mg/0.5 Mg (3 Ml) Ud) 3 ml IH Q2H PRN; Protocol PRN Reason: Shortness of Breath Aspirin (Aspirin Chewable) 81 mg PO 0800 JARRELL PRN Reason: Protocol Last Admin: 12/30/17 07:57 Dose: 81 mg Budesonide (Pulmicort Respules) 0.25 mg IH [id number] JARRELL PRN Reason: Protocol Last Admin: 12/30/17 20:23 Dose: 0.25 mg Docusate Sodium (Colace) 100 mg PO BID JARRELL PRN Reason: Protocol Last Admin: 12/30/17 17:54 Dose: 100 mg Levothyroxine Sodium (Synthroid) 25 mcg PO 0600 JARRELL PRN Reason: Protocol Last Admin: 12/31/17 05:13 Dose: 25 mcg Losartan Potassium (Cozaar) 25 mg PO DAILY JARRELL PRN Reason: Protocol Last Admin: 12/30/17 10:21 Dose: 25 mg Pantoprazole Sodium (Protonix Ec Tab) 40 mg PO 0600 JARRELL PRN Reason: Protocol Last Admin: 12/31/17 05:13 Dose: 40 mg Potassium Chloride (K-Dur 20 Meq Er Tab) 20 meq PO 0800 JARRELL PRN Reason: Protocol Last Admin: 12/30/17 07:57 Dose: 20 meq Prednisone (Prednisone Tab) 20 mg PO DAILY JARRELL Last Admin: 12/30/17 10:26 Dose: 20 mg Promethazine HCl/Dextromethorphan (Phenergan Dm Syrup) 5 ml PO Q6H PRN PRN Reason: Cough Last Admin: 12/31/17 05:13 Dose: 5 ml - Labs Labs: 12/27/17 06:10 12/27/17 06:10 - Constitutional Appears: No Acute Distress - Head Exam Head Exam: NORMAL INSPECTION - Eye Exam Eye Exam: Normal appearance Pupil Exam: NORMAL ACCOMODATION - ENT Exam ENT Exam: Mucous Membranes Moist - Neck Exam Neck Exam: Normal Inspection - Respiratory Exam Respiratory Exam: Clear to Ausculation Bilateral - Cardiovascular Exam Cardiovascular Exam: REGULAR RHYTHM, +S1, +S2 - GI/Abdominal Exam GI & Abdominal Exam: Soft, Normal Bowel Sounds - Extremities Exam Extremities Exam: Normal Capillary Refill - Neurological Exam Neurological Exam: Alert, Awake, Oriented x3 - Psychiatric Exam Psychiatric exam: Normal Affect, Normal Mood - Skin Skin Exam: Dry, Intact, Normal Color, Warm Assessment and Plan - Assessment and Plan (Free Text) Assessment: Impression: bradycardia, hypotension,hypothyroidism, COPD Plan: Stable cardiac alan Continue current medications Cozaar 25 mg OD,ASA 81 mg OD Continue physical theraphy Continue current plan of care Will follow up. Plan and treatment discussed with Dr. Iniguez
[2017-12-31] MEDS: Budesonide 0.25 mg/2 ml Inhal Susp UD IH SCH ×2 (07:23→21:15)
[2017-12-31 07:28] LABS: EOS # 0.1 (0.0-0.7); EOS % 1.2 % (1.5-5.0); GRAN # 4.74 (1.4-6.5); GRAN % 61.8 % (50.0-68.0); HEMOGLOBIN 11.6 g/dL (12.0-16.0); LYMPH # 2.2 (1.2-3.4); LYMPH % 29.2 % (22.0-35.0); MEAN CELL VOLUME 81.3 fl (80.0-105.0); MEAN CORPUSCULAR HEMOGLOBIN 26.1 pg (25.0-35.0); MEAN CORPUSCULAR HGB CONC 32.1 g/dl (31.0-37.0); MEAN PLATELET VOLUME 10.8 fl (7.0-11.0); MONO # 0.6 (0.1-0.6); MONO % 7.8 % (1.0-6.0); RBC 4.44 10^6/uL (3.5-6.1); RED CELL DISTRIBUTION WIDTH 16.3 % (11.5-14.5); WHITE BLOOD COUNT 7.7 10^3/ul (4.5-11.0)
[2017-12-31 07:42] LABS: BLOOD UREA NITROGEN 27 mg/dL (7-21); CALCIUM 9.1 mg/dL (8.4-10.5); GFR AFRICAN-AMERICAN > 60; GFR NON-AFRICAN AMERICAN > 60
--- NOTE | 2017-12-31 09:34 | PN ---
DATE: 12/31/2017 PULMONARY NOTE SUBJECTIVE: The patient appears comfortable this morning. She is not short of breath at rest. PHYSICAL EXAMINATION: VITAL SIGNS: (Last noted in the computer): Temperature is 97.7, pulse 90, respirations 18/20, blood pressure 101/63. Oxygen saturation on room air is 95%. HEENT: Normocephalic, atraumatic. No JVD. CARDIOVASCULAR: Systolic ejection murmur at the lower left sternal border. No S3 gallop. LUNGS: Minimal crackles at the left base. No rhonchi or wheezing this morning. EXTREMITIES: Less edema. No cyanosis. No clubbing. Calves are nontender to palpation. GI: Abdomen is soft, nontender and nondistended. Bowel sounds are positive. SKIN: No acute rash. NEUROLOGIC: Limited at the present time. IMPRESSION: 1. Left lower lobe pneumonia. 2. Chronic obstructive pulmonary disease. 3. Mild bronchospasm. 4. Anemia. PLAN: The patient appears comfortable this morning. She is not short of breath at rest. She does state to feeling much better overall. On physical exam, her bronchospasm continues to slowly resolve. In addition, the oxygen saturation on room air is now 95%. I will continue with the current nebulizer treatments and low-dose oral steroids for now. The patient remains off antibiotic therapy. Input by Dr. Ngo is noted. Repeat a.m. labs are pending. Clinical status of the patient is significantly improved overall. I will discuss the above with the attending physician. Abdoul Ward MD cc: MTDD
[2017-12-31] MEDS: Potassium Chloride 20 mEq ER Tab PO SCH (11:18)
--- NOTE | 2017-12-31 15:42 | PN ---
DATE: SUBJECTIVE: The patient is in the transitional care unit, room 320, bed 1. Patient was admitted for treatment of respiratory infection, anemia. Patient has history of dementia, shortness of breath, chronic lung disease, respiratory infection. I have seen the patient this morning. She is sitting in the recliner. The patient feels comfortable and she has no complaints. She is comfortable as far her breathing is concerned and responds to questions. She barely speaks, but nods her head. OBJECTIVE: VITAL SIGNS: Patient's pulse is 92, blood pressure 108/51, respirations are 16, O2 saturation is 94% on room air, temperature 97.3. HEENT: Patient's head is normocephalic. As mentioned, the patient has bump on the right rastafarian area where the ventriculoperitoneal shunt was inserted. NECK: Thyroid is not enlarged. JVP is flat. Carotid pulses present. LUNGS: Trachea central. Scattered rhonchi heard. No localizing signs. HEART: Normal sinus rhythm. Sinus tachycardia. ABDOMEN: Soft. Liver and spleen not palpable. No tenderness. No masses. CENTRAL NERVOUS SYSTEM: Patient is conscious, answers questions, but patient has features of mild dementia; patient is able to ambulate. MEDICATIONS: The patient is on aspirin 81 mg daily. Patient is on Colace, losartan 25 mg daily, DuoNeb, respiratory treatment. Patient is on prednisone 20 mg daily. At this time, patient is also taking pantoprazole 40 mg p.o. daily. Patient gets Pulmicort which is budesonide, respiratory treatment by nebulizer 0.25 mg inhalation q. 12 hours. Patient's diet is heart-healthy diet. Patient also takes 25 mcg of Synthroid for hypothyroidism related to chronic sickness. LABORATORY DATA: CBC 7,700, hemoglobin 11.6. Patient's platelets are within normal limits. Chemistry: Patient's BUN is 27. Sugar is 74 today. The patient seems to be in good spirits. We will continue the physical therapy and continue current medication. We will follow up. Rick Valerio MD JESSICA
--- NOTE | 2017-12-31 15:58 | CP.PCM.PN ---
Subjective - Date & Time of Evaluation Date of Evaluation: 12/31/17 Time of Evaluation: 11:20 - Subjective Subjective: No fevers, not in distress, afebrile. Objective - Vital Signs/Intake and Output Vital Signs (last 24 hours): Temp Pulse Resp BP Pulse Ox 97.3 F L 61 16 108/51 L 94 L 12/31/17 10:14 12/31/17 13:33 12/31/17 10:14 12/31/17 10:14 12/31/17 10:14 - Medications Medications: Current Medications Albuterol/Ipratropium (Duoneb 3 Mg/0.5 Mg (3 Ml) Ud) 3 ml IH [id number] JARRELL PRN Reason: Protocol Last Admin: 12/31/17 13:32 Dose: 3 ml Albuterol/Ipratropium (Duoneb 3 Mg/0.5 Mg (3 Ml) Ud) 3 ml IH Q2H PRN; Protocol PRN Reason: Shortness of Breath Aspirin (Aspirin Chewable) 81 mg PO 0800 JARRELL PRN Reason: Protocol Last Admin: 12/31/17 11:14 Dose: 81 mg Budesonide (Pulmicort Respules) 0.25 mg IH [id number] JARRELL PRN Reason: Protocol Last Admin: 12/31/17 07:23 Dose: 0.25 mg Docusate Sodium (Colace) 100 mg PO BID JARRELL PRN Reason: Protocol Last Admin: 12/31/17 11:17 Dose: 100 mg Levothyroxine Sodium (Synthroid) 25 mcg PO 0600 JARRELL PRN Reason: Protocol Last Admin: 12/31/17 05:13 Dose: 25 mcg Losartan Potassium (Cozaar) 25 mg PO DAILY JARRELL PRN Reason: Protocol Last Admin: 12/31/17 11:17 Dose: 25 mg Pantoprazole Sodium (Protonix Ec Tab) 40 mg PO 0600 JARRELL PRN Reason: Protocol Last Admin: 12/31/17 05:13 Dose: 40 mg Potassium Chloride (K-Dur 20 Meq Er Tab) 20 meq PO 0800 JARRELL PRN Reason: Protocol Last Admin: 12/31/17 11:18 Dose: 20 meq Prednisone (Prednisone Tab) 20 mg PO DAILY [facility] Last Admin: 12/31/17 11:18 Dose: 20 mg Promethazine HCl/Dextromethorphan (Phenergan Dm Syrup) 5 ml PO Q6H PRN PRN Reason: Cough Last Admin: 12/31/17 05:13 Dose: 5 ml - Labs Labs: 12/31/17 06:45 12/31/17 06:45 - Constitutional Appears: Non-toxic, Chronically Ill - Head Exam Head Exam: NORMAL INSPECTION - Respiratory Exam Respiratory Exam: Decreased Breath Sounds - Cardiovascular Exam Cardiovascular Exam: +S1, +S2 - GI/Abdominal Exam GI & Abdominal Exam: Soft. absent: Tenderness Assessment and Plan - Assessment and Plan (Free Text) Plan: Assessment S/P sepsis from left lower lobe healthcare-associated pneumonia, clinically improved and S/P treatment with antibiotics HTN COPD S/P left hip replacement normal pressure hydrocephalus S/P FABRIC CUTTER shunt placement hypothyroidism history of shingles GERD S/P right knee surgery Plan continue to monitor off antibiotics since she is at risk for hospital-acquired infections
[2018-01-01] MEDS: Albuterol-Ipratrop 3 mg / 0.5 (3 ml) UD IH SCH ×4 (02:00→19:35)
[2018-01-01] MEDS: Levothyroxine 25 MCG TAB PO SCH (05:33)
[2018-01-01] MEDS: Pantoprazole 40 mg EC Tab PO SCH (05:33)
[2018-01-01] MEDS: Budesonide 0.25 mg/2 ml Inhal Susp UD IH SCH ×2 (07:17→19:35)
--- NOTE | 2018-01-01 08:18 | PN ---
DATE: 01/01/2018 PULMONARY NOTE SUBJECTIVE: The patient appears comfortable this morning. She is not short of breath at rest. PHYSICAL EXAMINATION: VITAL SIGNS: Temperature is 97.9, pulse 61, respirations 16, blood pressure 107/53. Oxygen saturation on room air is 93%-94%. HEENT: Normocephalic, atraumatic. NECK: No JVD. CARDIOVASCULAR: Systolic ejection murmur at the lower left sternal border. No S3 gallop. LUNGS: Minimal crackles at the left base. No rhonchi or wheezing. EXTREMITIES: Less edema. No cyanosis, no clubbing. Calves are nontender to palpation. GI: Abdomen is soft, nontender, nondistended. Bowel sounds are positive. SKIN: No acute rash. NEUROLOGIC: Exam limited at the present time. IMPRESSION: 1. Left lower lobe pneumonia. 2. Chronic obstructive pulmonary disease. 3. Mild bronchospasm. 4. Anemia. PLAN: The patient appears comfortable this morning. She is not short of breath at rest. She does state to feeling much better overall. On physical exam, there is no significant bronchospasm noted. In addition, there is no significant alveolar-arterial gradient. I will continue the current nebulizer treatments and decrease the oral prednisone this morning. The patient remains off antibiotic therapy. There are no temperatures noted. There is no leukocytosis. Clinical status of the patient is significantly improved. I will discuss the above with the attending physician. Abdoul Ward MD MTDD
[2018-01-01] MEDS: Potassium Chloride 20 mEq ER Tab PO SCH (09:56)
--- NOTE | 2018-01-01 12:58 | PN ---
DATE: 01/01/2018 LOCATION: The patient is in room 320, bed 1. REASON FOR CONSULTATION AND FOLLOWUP: Episode of bradycardia, hypotension, hypothyroidism, deconditioning. SUBJECTIVE: The patient is lying fat in bed. Denies any dizziness or syncope or chest pain. No shortness of breath. PHYSICAL EXAMINATION: VITAL SIGNS: Blood pressure 107/53, respirations 16, pulse 61, temperature 97.9. HEENT: Head is normocephalic. Eyes: Pupils normal. Conjunctivae normal. Nose and throat normal. NECK: JVP low. Carotids equal. THORAX: AP diameter normal. LUNGS: Clear. CARDIOVASCULAR: S1 and S2. ABDOMEN: Soft. No tenderness. No organomegaly. Bowel sounds normal. EXTREMITIES: No clubbing. No cyanosis. LABORATORY DATA: WBC 7.7, hemoglobin 11.6, hematocrit 36.1, platelet 177. Sodium 136, potassium 4.3, BUN 27, creatinine 0.7, sugar 74, calcium 9.1, creatinine 0.7, BUN 27. DIAGNOSES: Episode of hypotension and bradycardia, which has improved now; status post ventriculoperitoneal shunt; dementia; chronic back pain; chronic obstructive pulmonary disease. Recent echocardiogram shows normal left ventricular ejection fraction of 65% with moderate to severe tricuspid regurgitation, mild to moderate pulmonary insufficiency. PLAN: Continue physical therapy. From cardiac point of view, the patient is stable. The patient on aspirin 81 daily, losartan 25 daily, potassium 20 daily, prednisone 10 daily, Protonix 40 daily, levothyroxine 25 mcg daily. We will continue present therapy. We will follow. Christa Iniguez MD
--- NOTE | 2018-01-01 15:38 | CP.PCM.PN ---
Subjective - Date & Time of Evaluation Date of Evaluation: 01/01/18 Time of Evaluation: 11:25 - Subjective Subjective: No fevers, not in distress, no diarrhea. Objective - Vital Signs/Intake and Output Vital Signs (last 24 hours): Temp Pulse Resp BP Pulse Ox 97.7 F 84 16 109/68 98 01/01/18 10:00 01/01/18 10:00 01/01/18 10:00 01/01/18 10:00 01/01/18 10:00 - Medications Medications: Current Medications Albuterol/Ipratropium (Duoneb 3 Mg/0.5 Mg (3 Ml) Ud) 3 ml IH [id number] JARRELL PRN Reason: Protocol Last Admin: 01/01/18 13:38 Dose: 3 ml Albuterol/Ipratropium (Duoneb 3 Mg/0.5 Mg (3 Ml) Ud) 3 ml IH Q2H PRN; Protocol PRN Reason: Shortness of Breath Aspirin (Aspirin Chewable) 81 mg PO 0800 JARRELL PRN Reason: Protocol Last Admin: 01/01/18 09:57 Dose: 81 mg Budesonide (Pulmicort Respules) 0.25 mg IH [id number] JARRELL PRN Reason: Protocol Last Admin: 01/01/18 07:17 Dose: 0.25 mg Docusate Sodium (Colace) 100 mg PO BID JARRELL PRN Reason: Protocol Last Admin: 01/01/18 10:00 Dose: Not Given Levothyroxine Sodium (Synthroid) 25 mcg PO 0600 JARRELL PRN Reason: Protocol Last Admin: 01/01/18 05:33 Dose: 25 mcg Losartan Potassium (Cozaar) 25 mg PO DAILY JARRELL PRN Reason: Protocol Last Admin: 01/01/18 09:57 Dose: 25 mg Pantoprazole Sodium (Protonix Ec Tab) 40 mg PO 0600 JARRELL PRN Reason: Protocol Last Admin: 01/01/18 05:33 Dose: 40 mg Potassium Chloride (K-Dur 20 Meq Er Tab) 20 meq PO 0800 JARRELL PRN Reason: Protocol Last Admin: 01/01/18 09:56 Dose: 20 meq Prednisone (Prednisone Tab) 10 mg PO DAILY JARRELL Last Admin: 01/01/18 10:00 Dose: 10 mg Promethazine HCl/Dextromethorphan (Phenergan Dm Syrup) 5 ml PO Q6H PRN PRN Reason: Cough Last Admin: 12/31/17 18:01 Dose: 5 ml - Labs Labs: 12/31/17 06:45 12/31/17 06:45 - Constitutional Appears: Non-toxic, Chronically Ill - Head Exam Head Exam: NORMAL INSPECTION - Respiratory Exam Respiratory Exam: Decreased Breath Sounds - Cardiovascular Exam Cardiovascular Exam: +S1, +S2 - GI/Abdominal Exam GI & Abdominal Exam: Soft. absent: Tenderness Assessment and Plan - Assessment and Plan (Free Text) Plan: Assessment S/P sepsis from left lower lobe healthcare-associated pneumonia, clinically improved and S/P treatment with antibiotics HTN COPD S/P left hip replacement normal pressure hydrocephalus S/P MANAGER ROOM shunt placement hypothyroidism history of shingles GERD S/P right knee surgery Plan continue to monitor off antibiotics since she is at risk for healthcare- associated infections
--- NOTE | 2018-01-01 21:21 | CP.PCM.PN ---
Subjective - Date & Time of Evaluation Date of Evaluation: 01/01/18 Time of Evaluation: 14:30 - Subjective Subjective: Patient is improving. She has a cough at times. Objective - Vital Signs/Intake and Output Vital Signs (last 24 hours): Temp Pulse Resp BP Pulse Ox 97.5 F L 92 H 18 95/61 L 99 01/01/18 17:36 01/01/18 17:36 01/01/18 17:36 01/01/18 17:36 01/01/18 17:36 - Medications Medications: Current Medications Albuterol/Ipratropium (Duoneb 3 Mg/0.5 Mg (3 Ml) Ud) 3 ml IH [id number] JARRELL PRN Reason: Protocol Last Admin: 01/01/18 19:35 Dose: 3 ml Albuterol/Ipratropium (Duoneb 3 Mg/0.5 Mg (3 Ml) Ud) 3 ml IH Q2H PRN; Protocol PRN Reason: Shortness of Breath Aspirin (Aspirin Chewable) 81 mg PO 0800 JARRELL PRN Reason: Protocol Last Admin: 01/01/18 09:57 Dose: 81 mg Budesonide (Pulmicort Respules) 0.25 mg IH [id number] JARRELL PRN Reason: Protocol Last Admin: 01/01/18 19:35 Dose: 0.25 mg Docusate Sodium (Colace) 100 mg PO BID JARRELL PRN Reason: Protocol Last Admin: 01/01/18 17:36 Dose: 100 mg Levothyroxine Sodium (Synthroid) 25 mcg PO 0600 JARRELL PRN Reason: Protocol Last Admin: 01/01/18 05:33 Dose: 25 mcg Losartan Potassium (Cozaar) 25 mg PO DAILY JARRELL PRN Reason: Protocol Last Admin: 01/01/18 09:57 Dose: 25 mg Pantoprazole Sodium (Protonix Ec Tab) 40 mg PO 0600 JARRELL PRN Reason: Protocol Last Admin: 01/01/18 05:33 Dose: 40 mg Potassium Chloride (K-Dur 20 Meq Er Tab) 20 meq PO 0800 JARRELL PRN Reason: Protocol Last Admin: 01/01/18 09:56 Dose: 20 meq Prednisone (Prednisone Tab) 10 mg PO DAILY [facility] Last Admin: 01/01/18 10:00 Dose: 10 mg Promethazine HCl/Dextromethorphan (Phenergan Dm Syrup) 5 ml PO Q6H PRN PRN Reason: Cough Last Admin: 12/31/17 18:01 Dose: 5 ml - Labs Labs: 12/31/17 06:45 12/31/17 06:45 - Constitutional Appears: No Acute Distress - Head Exam Head Exam: ATRAUMATIC, NORMOCEPHALIC - Respiratory Exam Respiratory Exam: Clear to Ausculation Bilateral, NORMAL BREATHING PATTERN - Cardiovascular Exam Cardiovascular Exam: +S1, +S2 - GI/Abdominal Exam GI & Abdominal Exam: Soft, Normal Bowel Sounds. absent: Tenderness - Neurological Exam Neurological Exam: Alert, Awake Assessment and Plan - Assessment and Plan (Free Text) Assessment: Pneumonia COPD Hypothyroidism mild dementia NPH s/p INCINERATOR PLANT LABORER shunt anemia Plan: Patient is currently off antibiotics. finished course of antibiotics for pneumonia, respiratory infection. continue respiratory treatments. Prednisone has been tapered down to 10 mg. continue physical therapy.
[2018-01-01] MEDS: Promethazine DM 6.25 mg-15 mg/5 ml Syrup PO PRN (21:46)
[2018-01-02] MEDS: Albuterol-Ipratrop 3 mg / 0.5 (3 ml) UD IH SCH ×3 (03:00→19:32)
[2018-01-02] MEDS: Pantoprazole 40 mg EC Tab PO SCH (05:42)
[2018-01-02] MEDS: Levothyroxine 25 MCG TAB PO SCH (05:42)
[2018-01-02] MEDS: Budesonide 0.25 mg/2 ml Inhal Susp UD IH SCH ×2 (07:35→19:32)
--- NOTE | 2018-01-02 07:40 | CP.PCM.PN ---
Subjective - Date & Time of Evaluation Date of Evaluation: 01/02/18 Time of Evaluation: 06:40 - Subjective Subjective: Seen and examined by me and Dr. Wolf Reason for consultation and follow up:episode of bradycardia,hypotension, shortness of breath, Subjective: denies chest pain,denies shortness of breath,lying comfortably in bed Objective - Vital Signs/Intake and Output Vital Signs (last 24 hours): Temp Pulse Resp BP Pulse Ox 97.5 F L 92 H 18 95/61 L 99 01/01/18 17:36 01/01/18 17:36 01/01/18 17:36 01/01/18 17:36 01/01/18 17:36 - Medications Medications: Current Medications Albuterol/Ipratropium (Duoneb 3 Mg/0.5 Mg (3 Ml) Ud) 3 ml IH [id number] JARRELL PRN Reason: Protocol Last Admin: 01/02/18 07:35 Dose: 3 ml Albuterol/Ipratropium (Duoneb 3 Mg/0.5 Mg (3 Ml) Ud) 3 ml IH Q2H PRN; Protocol PRN Reason: Shortness of Breath Aspirin (Aspirin Chewable) 81 mg PO 0800 JARRELL PRN Reason: Protocol Last Admin: 01/01/18 09:57 Dose: 81 mg Budesonide (Pulmicort Respules) 0.25 mg IH [id number] JARRELL PRN Reason: Protocol Last Admin: 01/02/18 07:35 Dose: 0.25 mg Docusate Sodium (Colace) 100 mg PO BID JARRELL PRN Reason: Protocol Last Admin: 01/01/18 17:36 Dose: 100 mg Levothyroxine Sodium (Synthroid) 25 mcg PO 0600 JARRELL PRN Reason: Protocol Last Admin: 01/02/18 05:42 Dose: 25 mcg Losartan Potassium (Cozaar) 25 mg PO DAILY JARRELL PRN Reason: Protocol Last Admin: 01/01/18 09:57 Dose: 25 mg Pantoprazole Sodium (Protonix Ec Tab) 40 mg PO 0600 JARRELL PRN Reason: Protocol Last Admin: 01/02/18 05:42 Dose: 40 mg Potassium Chloride (K-Dur 20 Meq Er Tab) 20 meq PO 0800 JARRELL PRN Reason: Protocol Last Admin: 01/01/18 09:56 Dose: 20 meq Prednisone (Prednisone Tab) 10 mg PO DAILY JARRELL Last Admin: 01/01/18 10:00 Dose: 10 mg Promethazine HCl/Dextromethorphan (Phenergan Dm Syrup) 5 ml PO Q6H PRN PRN Reason: Cough Last Admin: 01/01/18 21:46 Dose: 5 ml - Labs Labs: 12/31/17 06:45 12/31/17 06:45 - Constitutional Appears: No Acute Distress - Head Exam Head Exam: NORMAL INSPECTION - Eye Exam Eye Exam: Normal appearance Pupil Exam: NORMAL ACCOMODATION - ENT Exam ENT Exam: Mucous Membranes Moist - Neck Exam Neck Exam: Normal Inspection - Respiratory Exam Respiratory Exam: Clear to Ausculation Bilateral, NORMAL BREATHING PATTERN - Cardiovascular Exam Cardiovascular Exam: REGULAR RHYTHM, +S1, +S2 - GI/Abdominal Exam GI & Abdominal Exam: Soft, Normal Bowel Sounds - Extremities Exam Extremities Exam: Full ROM, Normal Capillary Refill - Neurological Exam Neurological Exam: Alert, Awake - Psychiatric Exam Psychiatric exam: Normal Affect, Normal Mood - Skin Skin Exam: Dry, Intact, Normal Color, Warm Assessment and Plan - Assessment and Plan (Free Text) Assessment: Impression:Episode of bradycardia,episode of hypotension,hypothyroidism, status post ventriculoperitoneal shunt,dementia,chronic back pain,chronic obstructive pulmonary disease, ECHO normal EF 65%, Moderate to severe tricuspid regurgitation,mild to moderate pulmonary insufficiency. Plan: Cardiac status stable Continue current medications Cozaar 25 mg OD,ASA 81 mg OD Continue physical theraphy Continue current plan of care Will follow up. Plan and treatment discussed with Dr. Wolf
[2018-01-02] MEDS: Potassium Chloride 20 mEq ER Tab PO SCH (08:10)
--- NOTE | 2018-01-02 09:27 | PN ---
DATE: 01/02/2018 PULMONARY NOTE SUBJECTIVE: The patient appears very comfortable this morning. She is not short of breath at rest. PHYSICAL EXAMINATION: VITAL SIGNS (Last noted in the computer): Temperature is 97.5, pulse 92, respirations 18, blood pressure 95/61. Oxygen saturation on room air is 99%. HEENT: Normocephalic, atraumatic. No JVD. CARDIOVASCULAR: Systolic ejection murmur at the lower left sternal border. No S3 gallop. LUNGS: Minimal/less crackles at the left base. No rhonchi or wheezing. EXTREMITIES: Less edema. No cyanosis, no clubbing. Calves are nontender to palpation. GASTROINTESTINAL: Abdomen is soft, nontender and nondistended. Bowel sounds are positive. SKIN: No acute rash. NEUROLOGIC: Exam limited at the present time. IMPRESSION: 1. Left lower lobe pneumonia. 2. Chronic obstructive pulmonary disease. 3. Mild bronchospasm. 4. Anemia. PLAN: Patient appears very comfortable this morning. She is not short of breath at rest. She does state to feeling much better overall. On physical exam, her bronchospasm continues to resolve. In addition, the oxygen saturation on room air is now 99%. I will continue the current nebulizer treatments and low-dose oral steroids (decreased yesterday) for now. The patient remains off antibiotic therapy. There are no temperatures noted. There is no leukocytosis. Clinical status of the patient is significantly improved overall. I will discuss the above with the attending physician. Abdoul Ward MD MTDAncelmo
--- NOTE | 2018-01-02 11:35 | PN ---
DATE: The patient is in Transitional Care Unit. SUBJECTIVE: The patient is seen this morning. She is comfortable, lying down. She gets physical therapy rehabilitation, deconditioning and administration of antibiotics. She presented with respiratory infection, chronic obstructive lung disease, and anemia. The patient had blood transfusion during this hospital stay. The patient is comfortable, lying down, respirations are normal, respiratory rate is about 15. PHYSICAL EXAMINATION VITAL SIGNS: The pulse is 92, blood pressure is 110/70. The patient's respirations are 18, O2 saturation is 99% on room air. HEENT: The patient's head is normocephalic. She has bump on the right temporal area which is area where the ventriculoperitoneal shunt was inserted. NECK: Thyroid is not enlarged (the patient is hypothyroid). The JVP is flat. Carotid pulses are present. LUNGS: Trachea central. Breath sounds vesicular. There are crepitations and occasional rhonchi heard, scattered. No focal signs. HEART: Normal sinus rhythm. S1 and S2 present. No murmur. ABDOMEN: Soft. Liver and spleen not palpable. No tenderness. No masses. CENTRAL NERVOUS SYSTEM: The patient has altered mental state, but oriented to person and place. The patient able to answer questions. She cannot concentrate. Cranial nerves are intact. The motor functions and sensory functions are clinically obtainable. MEDICATIONS LIST: Consists of aspirin 81 mg daily, Colace 100 mg b.i.d. and losartan 25 mg daily. The patient is on DuoNeb and Pulmicort for respiratory treatment. She gets potassium 20 mEq daily, prednisone 10 mg daily. LABORATORY DATA: The recent lab work done on the , hemoglobin 11.6 which is good for her and the patient's chemistry shows that sodium is 136, GFR is greater than 60, BUN is 27, creatinine is 0.7. DIAGNOSES: Chronic obstructive lung disease, respiratory infection. The patient has anemia, normal-pressure hydrocephalus and dementia. PLAN: We will follow up. Discharge plan is for tomorrow. We will continue all her medications when she goes home. Rick Valerio MD [facility] # [id number] JESSICA
[2018-01-02 13:44] VITALS: RESP 16
--- NOTE | 2018-01-02 15:46 | CP.PCM.PN ---
Subjective - Date & Time of Evaluation Date of Evaluation: 01/02/18 Time of Evaluation: 11:25 - Subjective Subjective: Comfortable, afebrile, not in distress. Objective - Vital Signs/Intake and Output Vital Signs (last 24 hours): Temp Pulse Resp BP Pulse Ox 98.1 F 78 16 102/65 94 L 01/02/18 10:00 01/02/18 10:00 01/02/18 10:00 01/02/18 10:00 01/02/18 10:00 - Medications Medications: Current Medications Albuterol/Ipratropium (Duoneb 3 Mg/0.5 Mg (3 Ml) Ud) 3 ml IH [id number] JARRELL PRN Reason: Protocol Last Admin: 01/02/18 07:35 Dose: 3 ml Albuterol/Ipratropium (Duoneb 3 Mg/0.5 Mg (3 Ml) Ud) 3 ml IH Q2H PRN; Protocol PRN Reason: Shortness of Breath Aspirin (Aspirin Chewable) 81 mg PO 0800 JARRELL PRN Reason: Protocol Last Admin: 01/02/18 08:09 Dose: 81 mg Budesonide (Pulmicort Respules) 0.25 mg IH [id number] JARRELL PRN Reason: Protocol Last Admin: 01/02/18 07:35 Dose: 0.25 mg Docusate Sodium (Colace) 100 mg PO BID JARRELL PRN Reason: Protocol Last Admin: 01/02/18 09:06 Dose: 100 mg Levothyroxine Sodium (Synthroid) 25 mcg PO 0600 JARRELL PRN Reason: Protocol Last Admin: 01/02/18 05:42 Dose: 25 mcg Losartan Potassium (Cozaar) 25 mg PO DAILY JARRELL PRN Reason: Protocol Last Admin: 01/02/18 09:06 Dose: 25 mg Pantoprazole Sodium (Protonix Ec Tab) 40 mg PO 0600 JARRELL PRN Reason: Protocol Last Admin: 01/02/18 05:42 Dose: 40 mg Potassium Chloride (K-Dur 20 Meq Er Tab) 20 meq PO 0800 JARRELL PRN Reason: Protocol Last Admin: 01/02/18 08:10 Dose: 20 meq Prednisone (Prednisone Tab) 10 mg PO DAILY [facility] Last Admin: 01/02/18 09:06 Dose: 10 mg Promethazine HCl/Dextromethorphan (Phenergan Dm Syrup) 5 ml PO Q6H PRN PRN Reason: Cough Last Admin: 01/01/18 21:46 Dose: 5 ml - Labs Labs: 12/31/17 06:45 12/31/17 06:45 - Constitutional Appears: Chronically Ill - Head Exam Head Exam: NORMAL INSPECTION - ENT Exam ENT Exam: Mucous Membranes Moist - Neck Exam Neck Exam: absent: Meningismus - Respiratory Exam Respiratory Exam: Decreased Breath Sounds - Cardiovascular Exam Cardiovascular Exam: +S1, +S2 - GI/Abdominal Exam GI & Abdominal Exam: Soft. 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
[2018-01-02 17:48] VITALS: TEMP 98.3; O2SAT 100
[2018-01-02] MEDS: Promethazine DM 6.25 mg-15 mg/5 ml Syrup PO PRN (21:32)
[2018-01-03] MEDS: Albuterol-Ipratrop 3 mg / 0.5 (3 ml) UD IH SCH ×2 (01:49→07:19)
[2018-01-03] MEDS: Levothyroxine 25 MCG TAB PO SCH (05:26)
[2018-01-03] MEDS: Promethazine DM 6.25 mg-15 mg/5 ml Syrup PO PRN (05:26)
[2018-01-03] MEDS: Pantoprazole 40 mg EC Tab PO SCH (05:26)
--- NOTE | 2018-01-03 07:10 | CP.PCM.PN ---
Subjective - Date & Time of Evaluation Date of Evaluation: 01/03/18 Time of Evaluation: 06:55 - Subjective Subjective: Seen and examined by me and Dr. Iniguez Reason for consult and follow up: Episode of bradycardia,episode of hypotension, hypothyroidism, status post ventriculoperitoneal shunt,dementia,chronic back pain,chronic obstructive pulmonary disease, Subjective: denies chest pain, denies shortness of breath, verbalized she is hungry Objective - Vital Signs/Intake and Output Vital Signs (last 24 hours): Temp Pulse Resp BP Pulse Ox 98.3 F 72 16 119/98 H 100 01/02/18 17:47 01/02/18 17:47 01/02/18 17:47 01/02/18 17:47 01/02/18 17:47 - Medications Medications: Current Medications Albuterol/Ipratropium (Duoneb 3 Mg/0.5 Mg (3 Ml) Ud) 3 ml IH [id number] JARRELL PRN Reason: Protocol Last Admin: 01/03/18 01:49 Dose: Not Given Albuterol/Ipratropium (Duoneb 3 Mg/0.5 Mg (3 Ml) Ud) 3 ml IH Q2H PRN; Protocol PRN Reason: Shortness of Breath Aspirin (Aspirin Chewable) 81 mg PO 0800 JARRELL PRN Reason: Protocol Last Admin: 01/02/18 08:09 Dose: 81 mg Budesonide (Pulmicort Respules) 0.25 mg IH [id number] JARRELL PRN Reason: Protocol Last Admin: 01/02/18 19:32 Dose: 0.25 mg Docusate Sodium (Colace) 100 mg PO BID JARRELL PRN Reason: Protocol Last Admin: 01/02/18 17:08 Dose: 100 mg Levothyroxine Sodium (Synthroid) 25 mcg PO 0600 JARRELL PRN Reason: Protocol Last Admin: 01/03/18 05:26 Dose: 25 mcg Losartan Potassium (Cozaar) 25 mg PO DAILY JARRELL PRN Reason: Protocol Last Admin: 01/02/18 09:06 Dose: 25 mg Pantoprazole Sodium (Protonix Ec Tab) 40 mg PO 0600 JARRELL PRN Reason: Protocol Last Admin: 01/03/18 05:26 Dose: 40 mg Potassium Chloride (K-Dur 20 Meq Er Tab) 20 meq PO 0800 JARRELL PRN Reason: Protocol Last Admin: 01/02/18 08:10 Dose: 20 meq Prednisone (Prednisone Tab) 10 mg PO DAILY JARRELL Last Admin: 01/02/18 09:06 Dose: 10 mg Promethazine HCl/Dextromethorphan (Phenergan Dm Syrup) 5 ml PO Q6H PRN PRN Reason: Cough Last Admin: 01/03/18 05:26 Dose: 5 ml - Labs Labs: 12/31/17 06:45 12/31/17 06:45 - Constitutional Appears: Well, No Acute Distress - Head Exam Head Exam: NORMAL INSPECTION - Eye Exam Eye Exam: Normal appearance Pupil Exam: NORMAL ACCOMODATION - ENT Exam ENT Exam: Mucous Membranes Moist - Neck Exam Neck Exam: Normal Inspection - Respiratory Exam Respiratory Exam: Clear to Ausculation Bilateral, NORMAL BREATHING PATTERN - Cardiovascular Exam Cardiovascular Exam: REGULAR RHYTHM, +S1 - GI/Abdominal Exam GI & Abdominal Exam: Soft, Normal Bowel Sounds - Extremities Exam Extremities Exam: Full ROM, Normal Capillary Refill - Neurological Exam Neurological Exam: Alert, Awake - Psychiatric Exam Psychiatric exam: Normal Affect, Normal Mood - Skin Skin Exam: Intact, Normal Color, Warm Assessment and Plan - Assessment and Plan (Free Text) Assessment: Impression:Episode of bradycardia,episode of hypotension,hypothyroidism, status post ventriculoperitoneal shunt,dementia,chronic back pain,chronic obstructive pulmonary disease, ECHO normal EF 65%, Moderate to severe tricuspid regurgitation,mild to moderate pulmonary insufficiency. Plan: Possible discharge today Cardiac status stable Continue current medications Cozaar 25 mg OD,ASA 81 mg OD Continue physical theraphy Plan and treatment discussed with Dr. Iniguez
[2018-01-03] MEDS: Budesonide 0.25 mg/2 ml Inhal Susp UD IH SCH (07:19)
[2018-01-03] MEDS: Potassium Chloride 20 mEq ER Tab PO SCH (08:04)
[2018-01-03 10:51] VITALS: BP 100/58; PULSE 79
--- NOTE | 2018-01-03 11:10 | PN ---
DATE: 01/03/2018 PULMONARY NOTE SUBJECTIVE: The patient appears very comfortable this morning. She is not short of breath at rest. PHYSICAL EXAMINATION: VITAL SIGNS: (Last noted in the computer): Temperature is 98.3, pulse 72, respirations 16, blood pressure 119/98. Oxygen saturation on room air is 100%. HEENT: Normocephalic, atraumatic. No JVD. CARDIOVASCULAR: Systolic ejection murmur at the lower left sternal border. No S3 gallop. LUNGS: Minimal/less crackles at the left base. Otherwise clear. EXTREMITIES: Less edema. No cyanosis. No clubbing. Calves are nontender to palpation. GI: Abdomen is soft, nontender and nondistended. Bowel sounds are positive. SKIN: No acute rash. NEUROLOGIC: Limited at the present time. IMPRESSION: 1. Left lower lobe pneumonia. 2. Chronic obstructive pulmonary disease. 3. Mild bronchospasm. 4. Anemia. PLAN: The patient appears very comfortable this morning. She is not short of breath at rest. She does state to feeling much better overall. On physical exam, her bronchospasm continues to resolve. In addition, the oxygen saturation on room air is now 100%. I will continue with the current nebulizer treatments and very low-dose oral steroids for now. The patient remains off antibiotic therapy. There are no temperatures noted. There is no leukocytosis. Clinical status of the patient is significantly improved overall. I will discuss the above with the attending physician. Abdoul Ward MD MTDD
--- NOTE | 2018-01-03 11:58 | CP.PCM.PN ---
Subjective - Date & Time of Evaluation Date of Evaluation: 01/03/18 Time of Evaluation: 07:30 - Subjective Subjective: GI Progress Note Dr rBown Pt was seen and examined at bedside. No acute complaints, pt found to be resting comfortably. Pt is moving bowels regularly and is well formed. Pt denied fever, chills, sob, chest pains, abdominal pains, nausea, vomiting, diarrhea, or constipation. Objective - Vital Signs/Intake and Output Vital Signs (last 24 hours): Temp Pulse Resp BP Pulse Ox 98.3 F 79 16 100/58 L 100 01/02/18 17:47 01/03/18 10:42 01/02/18 17:47 01/03/18 10:42 01/02/18 17:47 - Medications Medications: Current Medications Albuterol/Ipratropium (Duoneb 3 Mg/0.5 Mg (3 Ml) Ud) 3 ml IH [id number] JARRELL PRN Reason: Protocol Last Admin: 01/03/18 07:19 Dose: 3 ml Albuterol/Ipratropium (Duoneb 3 Mg/0.5 Mg (3 Ml) Ud) 3 ml IH Q2H PRN; Protocol PRN Reason: Shortness of Breath Aspirin (Aspirin Chewable) 81 mg PO 0800 JARRELL PRN Reason: Protocol Last Admin: 01/03/18 08:03 Dose: 81 mg Budesonide (Pulmicort Respules) 0.25 mg IH [id number] JARRELL PRN Reason: Protocol Last Admin: 01/03/18 07:19 Dose: 0.25 mg Docusate Sodium (Colace) 100 mg PO BID JARRELL PRN Reason: Protocol Last Admin: 01/03/18 10:41 Dose: 100 mg Levothyroxine Sodium (Synthroid) 25 mcg PO 0600 JARRELL PRN Reason: Protocol Last Admin: 01/03/18 05:26 Dose: 25 mcg Losartan Potassium (Cozaar) 25 mg PO DAILY JARRELL PRN Reason: Protocol Last Admin: 01/03/18 10:42 Dose: 25 mg Pantoprazole Sodium (Protonix Ec Tab) 40 mg PO 0600 JARRELL PRN Reason: Protocol Last Admin: 01/03/18 05:26 Dose: 40 mg Potassium Chloride (K-Dur 20 Meq Er Tab) 20 meq PO 0800 JARRELL PRN Reason: Protocol Last Admin: 01/03/18 08:04 Dose: 20 meq Prednisone (Prednisone Tab) 10 mg PO DAILY JARRELL Last Admin: 01/03/18 10:46 Dose: 10 mg Promethazine HCl/Dextromethorphan (Phenergan Dm Syrup) 5 ml PO Q6H PRN PRN Reason: Cough Last Admin: 01/03/18 05:26 Dose: 5 ml - Labs Labs: 12/31/17 06:45 12/31/17 06:45 - Constitutional Appears: No Acute Distress - Head Exam Head Exam: ATRAUMATIC, NORMAL INSPECTION, NORMOCEPHALIC - Eye Exam Eye Exam: EOMI, Normal appearance, PERRL - ENT Exam ENT Exam: Mucous Membranes Moist, Normal Exam - Neck Exam Neck Exam: Full ROM, Normal Inspection. absent: Lymphadenopathy - Respiratory Exam Respiratory Exam: Clear to Ausculation Bilateral, NORMAL BREATHING PATTERN - Cardiovascular Exam Cardiovascular Exam: REGULAR RHYTHM, +S1, +S2. absent: Murmur - GI/Abdominal Exam GI & Abdominal Exam: Soft, Normal Bowel Sounds. absent: Tenderness - Neurological Exam Neurological Exam: Alert, Awake, CN II-XII Intact, Oriented x3 - Psychiatric Exam Psychiatric exam: Normal Affect, Normal Mood - Skin Skin Exam: Dry, Intact, Normal Color, Warm Assessment and Plan - Assessment and Plan (Free Text) Assessment: Sepsis from left lower lobe healthcare-associated pneumonia, slowly improving HTN COPD S/P left hip replacement NPH s/p TREASURER shunt placement hypothyroidism history of shingles GERD S/P right knee surgery anemia s/p transfusion constipation CT abdomen reviewed, hiatal hernia noted, constipation Doxycycline course completed miralax for constipation as needed PPI, pt on steroids soft diet EGD outpt Discussed with Dr. Brown
--- NOTE | 2018-01-03 13:50 | PN ---
DATE: SUBJECTIVE: The patient is in the transitional care unit, room 320, bed 1. The patient was admitted for rehabilitation, deconditioning, treatment of respiratory infection, chronic obstructive lung disease, anemia and mild dementia. The patient is seen this morning. She is awake. PHYSICAL EXAMINATION: VITAL SIGNS: The patient's pulse is 72, blood pressure 120/90, respirations are 16, O2 sat is 100% on room air. HEENT: The patient's head is normocephalic. NECK: Thyroid is not enlarged. JVP is flat. Carotid pulses present. HEART: Normal sinus rhythm. S1 and S2 present. LUNGS: Trachea is central. Breath sounds are vesicular, equal bilaterally. ABDOMEN: Soft. Liver and spleen not palpable. No ascites. No tenderness. CENTRAL NERVOUS SYSTEM: Patient is conscious, rational, oriented in person, but not in place and not in time. The patient's cranial nerves are intact. Sensory and motor functions are relatively normal. MEDICATIONS: The patient's medications consist of aspirin 81 mg daily. Losartan 25 mg daily; DuoNeb for respiratory treatment, the patient gets that at home; potassium chloride 20 mEq. The patient is on prednisone 10 mg daily, Protonix 40 mg, Synthroid 25 mcg. Patient is on Pulmicort 0.25 mg twice a day by inhalation, metered-dose inhaler. PLAN: The patient is to be discharged today. She will continue her home medications with the addition of Protonix 40 mg daily. Rick Valerio MD MTDAncelmo
--- NOTE | 2018-01-05 12:09 | DS ---
HISTORY OF PRESENT ILLNESS: This is an 87-year-old female with history of hypertension, COPD, normal pressure hydrocephalus, hypothyroidism, atherosclerotic heart disease, and anemia, who was admitted to the acute medical floor for pneumonia. She was then transferred to Transitional Care Unit for rehab, for deconditioning, tapering off steroids, and completion of IV antibiotics. HOSPITAL COURSE: The patient's steroids were tapered. She completed her course of antibiotics. Her breathing improved and she was discharged home in improved condition. DISCHARGE DIAGNOSES: Pneumonia, chronic obstructive pulmonary disease, atherosclerotic heart disease, normal pressure hydrocephalus, hypothyroidism, and hypertension. DISCHARGE MEDICATIONS: Albuterol q. 6 hours, aspirin 81 mg once a day, Cozaar 25 mg daily, Flovent twice a day, potassium 10 mEq daily, Protonix 40 mg daily, and Synthroid 25 mcg daily. FOLLOWUP: The patient will be followed up as a house call. Pedro Valerio MD
== END 2018-01-03 13:01 | disposition home health service (06) | DRG 871 ==
LOC: TRCU 16:59
PROVIDERS: ADMIT Internal Medicine; ATTEND Internal Medicine
PROC: 3E0F7GC Introduction of Other Therapeutic Substance into Respiratory Tract, Via Natural or Artificial Opening (ICD-10-PCS; 2017-12-26)
PROC: F07Z9FZ Gait Training/Functional Ambulation Treatment using Assistive, Adaptive, Supportive or Protective Equipment (ICD-10-PCS; principal; 2017-12-27)
PROC: F08Z4FZ Home Management Treatment using Assistive, Adaptive, Supportive or Protective Equipment (ICD-10-PCS; 2017-12-27)
DX: A41.9 Sepsis, unspecified organism (principal); J18.9 Pneumonia, unspecified organism; Z79.2 Long term (current) use of antibiotics; I11.0 Hypertensive heart disease with heart failure; G91.2 (Idiopathic) normal pressure hydrocephalus; I27.20 Pulmonary hypertension, unspecified; I50.9 Heart failure, unspecified; J44.0 Chronic obstructive pulmonary disease with (acute) lower respiratory infection; I08.3 Combined rheumatic disorders of mitral, aortic and tricuspid valves; I25.10 Atherosclerotic heart disease of native coronary artery without angina pectoris; E03.9 Hypothyroidism, unspecified; D64.9 Anemia, unspecified; Z66 Do not resuscitate; K21.9 Gastro-esophageal reflux disease without esophagitis; K59.00 Constipation, unspecified; K44.9 Diaphragmatic hernia without obstruction or gangrene; D50.9 Iron deficiency anemia, unspecified; F03.90 Unspecified dementia, unspecified severity, without behavioral disturbance, psychotic disturbance, mood disturbance, and anxiety; J98.01 Acute bronchospasm; Y95 Nosocomial condition; G89.29 Other chronic pain; Z98.2 Presence of cerebrospinal fluid drainage device; Z86.19 Personal history of other infectious and parasitic diseases; Z86.73 Personal history of transient ischemic attack (TIA), and cerebral infarction without residual deficits; Z96.642 Presence of left artificial hip joint; Z87.891 Personal history of nicotine dependence

== ENCOUNTER 2018-10-31 17:55 | Inpatient (IN) | payer MEDICARE ==
[2018-10-31 18:29] VITALS: BMI 21.9
[2018-10-31] MEDS: Albuterol-Ipratrop 3 mg / 0.5 (3 ml) UD IH SCH ×3 (19:17→19:55)
[2018-10-31 19:51] LABS: BASO # 0.01 K/mm3 (0.0-2.0); BASO % 0.2 % (0.0-3.0); EOS % 0.3 % (1.5-5.0); GRAN # 4.46 (1.4-6.5); GRAN % 70.9 % (50.0-68.0); LYMPH # 1.1 (1.2-3.4); LYMPH % 16.7 % (22.0-35.0); MEAN CELL VOLUME 67.6 fl (80.0-105.0); MEAN CORPUSCULAR HEMOGLOBIN 19.6 pg (25.0-35.0); MEAN CORPUSCULAR HGB CONC 28.9 g/dl (31.0-37.0); MEAN PLATELET VOLUME 9.2 fl (7.0-11.0); MONO # 0.8 (0.1-0.6); MONO % 11.9 % (1.0-6.0); RBC 2.81 10^6/uL (3.5-6.1); RED CELL DISTRIBUTION WIDTH 17.4 % (11.5-14.5); WHITE BLOOD COUNT 6.3 10^3/uL (4.5-11.0)
--- NOTE | 2018-10-31 19:51 | ED PDOC ---
Arrival/HPI - General Historian: Patient, Family - History of Present Illness Narrative History of Present Illness (Text): 10/31/18 19:51 88 y/o F with PMHx of COPD, HTN, NPH w/ LIVESTOCK RANCHER shunt, hypothyroidism presents to ED brought in by family after family noticed increased SOB and wheezing since this am, with associated cough. Per family, pt has chronic cough, but was wheezing more than usual today. Pt had tried flonvent treatment prior to arrival without treatment. Pt has baseline dementia, majority of history obtained from family members at bedside. Upon interview, pt denies any acute complaints. She denies fevers, chills, headache, dizziness, chest pain, palpitations, n/v/c/d. PMD: Dr. Valerio Time/Duration: Prior to Arrival Symptom Onset: Gradual Symptom Course: Unchanged Severity Level: Moderate Context: Sitting <Marcelino Juares - Last Filed: 10/31/18 20:27> <Jeffrey Jenkins DO - Last Filed: 10/31/18 20:39> - General Chief Complaint: Respiratory Distress Past Medical History - Provider Review Nursing Documentation Reviewed: Yes - Infectious Disease Hx of Infectious Diseases: None - Cardiac Hx Cardiac Disorders: Yes Hx Hypertension: Yes - Pulmonary Hx Respiratory Disorders: Yes Hx Bronchitis: Yes Hx Chronic Obstructive Pulmonary Disease (COPD): Yes - Neurological Hx Neurological Disorder: Yes (hydrocephalus,LIVESTOCK RANCHER shunt) Hx Dementia: Yes Hx Dizziness: Yes - HEENT Hx HEENT Disorder: Yes - Renal Hx Renal Disorder: No - Endocrine/Metabolic Hx Endocrine Disorders: Yes Hx Hypothyroidism: Yes - Hematological/Oncological Hx Blood Disorders: Yes Hx Anemia: Yes Hx Shingles: Yes - Integumentary Hx Dermatological Disorder: No - Musculoskeletal/Rheumatological Hx Musculoskeletal Disorders: Yes Hx Falls: Yes - Gastrointestinal Hx Gastrointestinal Disorders: Yes - Genitourinary/Gynecological Hx Genitourinary Disorders: Yes (Bladder lift surgery) - Psychiatric Hx Psychophysiologic Disorder: Yes Hx Anxiety: Yes Hx Substance Use: No - Surgical History Hx Cholecystectomy: Yes Hx Joint Replacement: (left hip replacement) Hx Musculoskeletal Surgery: Yes Hx Orthopedic Surgery: Yes (right knee surgery, rotator cuff surgery) - Anesthesia Hx Anesthesia: Yes Hx Anesthesia Reactions: No Hx Malignant Hyperthermia: No - Suicidal Assessment Feels Threatened In Home Enviroment: No <Marcelino Juares - Last Filed: 10/31/18 20:27> Family/Social History - Physician Review Nursing Documentation Reviewed: Yes Family/Social History: Unknown Family HX Smoking Status: Former Smoker Hx Alcohol Use: Yes (SOCIAL) Hx Substance Use: No Hx Substance Use Treatment: No <Marcelino Juares - Last Filed: 10/31/18 20:27> Allergies/Home Meds <Marcelino Juares - Last Filed: 10/31/18 20:27> <Jeffrey Jenkins DO - Last Filed: 10/31/18 20:39> Allergies/Adverse Reactions: Allergies No Known Allergies Allergy (Verified 10/31/18 18:17) Home Medications: Home Meds Medication Instructions Recorded Confirmed Losartan [Cozaar] 25 mg PO DAILY 07/31/16 12/27/17 Levothyroxine [Synthroid] 25 mcg PO DAILY 09/18/17 12/27/17 Potassium Chloride [Klor-Con 20 meq PO DAILY 09/18/17 12/27/17 Sprinkle] Albuterol 0.083% [Albuterol 0.083% 2.5 mg IH 5XD 12/20/17 12/27/17 Inhal Bhumi (2.5 mg/3 ml) UD] Fluticasone Propionate [Flovent 10.6 gm IH BID 12/20/17 12/27/17 Hfa] Review of Systems - Review of Systems Constitutional: Normal Eyes: Normal ENT: Normal Respiratory: SOB, Cough, Wheezing Cardiovascular: Normal Gastrointestinal: Normal. absent: Hematochezia, Hematemesis Genitourinary Female: Normal. absent: Vaginal Bleeding Musculoskeletal: Normal Skin: Normal Neurological: Normal Endocrine: Normal Hemo/Lymphatic: Normal Psychiatric: Normal <Marcelino Juares - Last Filed: 10/31/18 20:27> Physical Exam Vital Signs Reviewed: Yes Vital Signs Pulse BP 10/31/18 18:46 90 116/52 L Temperature: Afebrile Blood Pressure: Normal Pulse: Regular Respiratory Rate: Normal Appearance: Positive for: Well-Appearing, Non-Toxic, Comfortable Pain Distress: None Mental Status: Positive for: Alert and Oriented X 3 - Systems Exam Head: Present: Atraumatic, Normocephalic Pupils: Present: PERRL Extroacular Muscles: Present: EOMI Conjunctiva: Present: Normal Mouth: Present: Moist Mucous Membranes Neck: Present: Normal Range of Motion Respiratory/Chest: Present: Clear to Auscultation, Good Air Exchange Cardiovascular: Present: Regular Rate and Rhythm, Normal S1, S2. No: Murmurs Abdomen: No: Tenderness, Distention, Peritoneal Signs Back: Present: Normal Inspection Upper Extremity: Present: Normal Inspection. No: Cyanosis, Edema Lower Extremity: Present: Normal Inspection. No: Edema Neurological: Present: GCS=15, CN II-XII Intact, Speech Normal Skin: Present: Warm, Dry, Normal Color. No: Rashes Psychiatric: Present: Alert, Oriented x 3, Normal Insight, Normal Concentration <Marcelino Juares - Last Filed: 10/31/18 20:27> Vital Signs Pulse BP 10/31/18 18:46 90 116/52 L <Jeffrey Jenkins DO - Last Filed: 10/31/18 20:39> Medical Decision Making ED Course and Treatment: 10/31/18 19:56 Impression: 88 y/o F with PMHx of COPD, HTN, NPH w/ LIVESTOCK RANCHER shunt, hypothyroidism presents to ED with COPD exacerbation Prior notes and results have been reviewed Differential diagnosis includes but is not limited to: COPD exacerbation Plan: Solumedrol IVP Duoneb treatments Labs EKG Chest xray Rapid flu Reassess & dispo Progress Notes: 10/31/18 20:23 CBC resulted. Family informed of results. Consent for transfusion obtained from POA. Case discussed with PMD, Dr. Valerio. Accepted to his service. Will admit to remote telemetry - RAD Interpretation Radiology Orders: 10/31/18 18:54 CHEST PORTABLE [RAD] Stat - Medication Orders Current Medication Orders: Discontinued Medications Albuterol/Ipratropium (Duoneb 3 Mg/0.5 Mg (3 Ml) Ud) 3 ml IH Q15M JARRELL Stop: 10/31/18 19:31 Last Admin: 10/31/18 19:28 Dose: 3 ml Methylprednisolone (Solu-Medrol) 125 mg IVP STAT STA Stop: 10/31/18 18:55 Last Admin: 10/31/18 19:28 Dose: 125 mg IVP Administration Document 10/31/18 19:28 [place] (Rec: 10/31/18 19:28 [facility] [id number]) Charges for Administration # of IVP Administrations 1 <Marcelino Juares - Last Filed: 10/31/18 20:27> ED Course and Treatment: 10/31/18 20:32 Bethany Espinoza is an 88 year old female who presents to the emergency department with a complaint of SOB and wheezing. In agreement with resident note, which includes further HPI details. Patient was seen and evaluated with resident, came up with plan and treatment together. - Lab Interpretations Lab Results: Troponin I < 0.01 ng/mL 10/31/18 19:38 NT-Pro-B Natriuret Pep 738 pg/mL (0-450) H 10/31/18 19:38 Total Bilirubin 0.3 mg/dL (0.2-1.3) 10/31/18 19:38 AST 29 U/L (14-36) 10/31/18 19:38 ALT 19 U/L (7-56) 10/31/18 19:38 Alkaline Phosphatase 66 U/L (38-126) 10/31/18 19:38 Total Protein 5.9 g/dL (5.8-8.3) 10/31/18 19:38 Albumin 3.3 g/dL (3.0-4.8) 10/31/18 19:38 Globulin 2.6 gm/dL 10/31/18 19:38 Albumin/Globulin Ratio 1.3 (1.1-1.8) 10/31/18 19:38 - RAD Interpretation Radiology Orders: 10/31/18 18:54 CHEST PORTABLE [RAD] Stat - Medication Orders Current Medication Orders: Pantoprazole Sodium (Protonix 40mg Ivpb) 40 mg in 100 mls @ 20 mls/hr IVPB .Q5H JARRELL Discontinued Medications Albuterol/Ipratropium (Duoneb 3 Mg/0.5 Mg (3 Ml) Ud) 3 ml IH Q15M JARRELL Stop: 10/31/18 19:31 Last Admin: 10/31/18 19:28 Dose: 3 ml Methylprednisolone (Solu-Medrol) 125 mg IVP STAT STA Stop: 10/31/18 18:55 Last Admin: 10/31/18 19:28 Dose: 125 mg IVP Administration Document 10/31/18 19:28 [place] (Rec: 10/31/18 19:28 [place] [facility] [id number]) Charges for Administration # of IVP Administrations 1 <Jeffrey Jenkins DO - Last Filed: 10/31/18 20:39> - PA / CUSTOMER GREETER / Resident Statement ELEAZAR has reviewed & agrees with the documentation as recorded. ELEAZAR has examined the patient and agrees with the treatment plan. <Marcelino Juares - Last Filed: 10/31/18 20:27> - Scribe Statement The provider has reviewed the documentation as recorded by the Heri Rudolph Provider Fabricioibe Attestation: All medical record entries made by the Fabricioibshanika were at my direction and personally dictated by me. I have reviewed the chart and agree that the record accurately reflects my personal performance of the history, physical exam, medical decision making, and the department course for this patient. I have also personally directed, reviewed, and agree with the discharge instructions and disposition. <Alice LEONEJeffrey - Last Filed: 10/31/18 20:39> Disposition/Present on Arrival - Present on Arrival Any Indicators Present on Arrival: No History of DVT/PE: No History of Uncontrolled Diabetes: No Urinary Catheter: No History of Decub. Ulcer: No History Surgical Site Infection Following: None - Disposition Have Diagnosis and Disposition been Completed?: Yes Disposition Time: 20:24 Patient Plan: Admission <Marcelino Juares - Last Filed: 10/31/18 20:27> - Disposition Disposition Time: 20:10 <Alice LEONEJeffrey - Last Filed: 10/31/18 20:39> - Disposition Diagnosis: Symptomatic anemia Disposition: HOSPITALIZED Patient Problems: Current Active Problems Problem Status Onset COPD exacerbation Acute Symptomatic anemia Acute Condition: GUARDED Forms: [employer] (Urdu)
[2018-10-31 19:57] LABS: ALB/GLOB RATIO 1.3 (1.1-1.8); ALBUMIN 3.3 g/dL (3.0-4.8); ALT/SGPT 19 U/L (7-56); AST/SGOT 29 U/L (14-36); BLOOD UREA NITROGEN 20 mg/dL (7-21); CALCIUM 9.1 mg/dL (8.4-10.5); GFR NON-AFRICAN AMERICAN 53; HEMOGLOBIN 5.5 g/dL (12.0-16.0)
[2018-10-31 20:09] LABS: B-TYPE NATRIURETIC PEPTIDE 738 pg/mL (0-450); TROPONIN I < 0.01 ng/mL
[2018-10-31] MEDS: Pantoprazole 40mg/100mL NS 40 MG/100 ML BAG IVPB SCH (20:45)
[2018-11-01 00:07] LABS: IRON < 10 ug/dL (45-180); TOTAL IRON BINDING CAPACITY 430 ug/dL (265-497)
[2018-11-01 00:11] LABS: % IRON SATURATION 2 % (20-55)
[2018-11-01] MEDS: Pantoprazole 40mg/100mL NS 40 MG/100 ML BAG IVPB SCH ×6 (02:00→21:57)
[2018-11-01] MEDS: Albuterol-Ipratrop 3 mg / 0.5 (3 ml) UD IH SCH ×4 (02:45→20:06)
[2018-11-01] MEDS: Levothyroxine 25 MCG TAB PO SCH (05:48)
--- NOTE | 2018-11-01 09:45 | HP ---
DATE OF EXAM: 11/01/2018 HISTORY OF PRESENT ILLNESS: The patient was admitted via the emergency room, where she presented with shortness of breath according to the family. She was feeling confused and weak. She also had some abdominal discomfort. She was evaluated in the emergency room, and she was found to have severe anemia, presumably iron deficiency anemia with her low MCV. PAST MEDICAL HISTORY: Significant in that she has had history of hypertension. She has history of normal pressure hydrocephalus. She has a ventriculoperitoneal shunt. She has history of chronic lung disease. The patient has history of anemia, chronic and hypothyroidism. The patient has chronic lung disease. PHYSICAL EXAMINATION: The patient is seen this morning on examination. VITAL SIGNS: The pulse is 89, blood pressure 120/60, and respirations are 18. The patient's O2 saturation is 95% on room air. HEENT: The patient's head is normocephalic, but she has the site of the ventriculoperitoneal shunt on the right side. NECK: The thyroid is not clinically enlarged. JVP is flat. Carotid pulses present. HEART: Normal sinus rhythm. S1 and S2 present. No murmurs. ABDOMEN: Soft. There are no localizing signs. The patient has some diffuse tenderness. CENTRAL NERVOUS SYSTEM: The patient has no focal neurological deficits, but she has symptoms of cognitive dysfunction. No orientation. Attention is poor, but she is confused from time to time and disoriented. LABORATORY DATA: The patient's blood work done in the emergency room, the hemoglobin was 5.5. The patient's white count was normal. Platelet count; the patient's platelet count was 327,000. The patient's MCV is significantly low at 70, that is consistent with iron deficiency anemia. The patient's chemistry; the potassium is 4.9. The patient's magnesium is 2.1. Iron level is very low, it is less than 10. The patient's TIBC is 430. The patient received 2 units of blood after admission in the emergency room. The patient is on telemetry, being observed. MEDICATIONS: The patient is on losartan 25 mg daily, DuoNeb every 6 hours. The patient is on pantoprazole IV drip. The patient is on Synthroid 25 mcg. We will have to place the patient on Aricept 5 mg daily. IMPRESSION AND PLAN: We will have a gastroenterological evaluation with Dr. Brown and hematological evaluation with Dr. Coleman. The patient's current condition is clinically improved. Her overall prognosis is guarded. We will continue and follow up clinical management. Rick Valerio MD MTDAncelmo
--- NOTE | 2018-11-01 09:46 | RAD ---
Date of service: 10/31/2018 HISTORY: Shortness of breath COMPARISON: 12/20/2017 single-view chest FINDINGS: LUNGS: Left lower lobe infiltrate. PLEURA: Left pleural effusion. CARDIOVASCULAR: Cardiomegaly. No evidence of acute, significant cardiovascular disease. Atherosclerotic calcifications identified primarily aortic arch. OSSEOUS STRUCTURES: No significant abnormalities. VISUALIZED UPPER ABDOMEN: Normal. OTHER FINDINGS: None. IMPRESSION: New left lower lobe infiltrate inseparable from left pleural effusion.
[2018-11-01 10:39] LABS: GRAN # 5.57 (1.4-6.5); GRAN % 89.8 % (50.0-68.0); LYMPH # 0.4 (1.2-3.4); LYMPH % 7.1 % (22.0-35.0); MEAN CELL VOLUME 71.8 fl (80.0-105.0); MEAN CORPUSCULAR HEMOGLOBIN 22.8 pg (25.0-35.0); MEAN CORPUSCULAR HGB CONC 31.7 g/dl (31.0-37.0); MEAN PLATELET VOLUME 9.6 fl (7.0-11.0); MONO # 0.2 (0.1-0.6); MONO % 3.1 % (1.0-6.0); RBC 3.51 10^6/uL (3.5-6.1); RED CELL DISTRIBUTION WIDTH 21.2 % (11.5-14.5); WHITE BLOOD COUNT 6.2 10^3/uL (4.5-11.0)
[2018-11-01] MEDS ORDERED: Iohexol 240 (50 ml) ONE (11:12)
[2018-11-01 11:39] LABS: ALB/GLOB RATIO 1.4 (1.1-1.8); ALBUMIN 3.3 g/dL (3.0-4.8); ALT/SGPT 18 U/L (7-56); AST/SGOT 40 U/L (14-36); BLOOD UREA NITROGEN 22 mg/dL (7-21); GFR NON-AFRICAN AMERICAN 59
--- NOTE | 2018-11-01 16:36 | CT ---
Date of service: 11/01/2018 PROCEDURE: CT Abdomen and Pelvis with contrast HISTORY: anemia COMPARISON: 12/25/2017 CT abdomen and pelvis TECHNIQUE: Oral contrast only. Radiation dose: Total exam DLP = 373.02 mGy-cm. This CT exam was performed using one or more of the following dose reduction techniques: Automated exposure control, adjustment of the mA and/or kV according to patient size, and/or use of iterative reconstruction technique. FINDINGS: LOWER THORAX: Left lower lobe infiltrate/left pleural effusion. Confirmation of findings on recent chest radiograph. Hiatal hernia. Intrathoracic component of the stomach displays wall thickening likely gastritis. LIVER: Unremarkable. No gross lesion or ductal dilatation. GALLBLADDER AND BILE DUCTS: Status post cholecystectomy. No abnormality is seen in the gallbladder fossa. PANCREAS: Atrophic pancreas. No mass or ductal dilatation identified. SPLEEN: Unremarkable. ADRENALS: Unremarkable. No mass. KIDNEYS AND URETERS: Unremarkable. No hydronephrosis. No solid mass. Incidental finding(s): Bilateral simple renal cysts. VASCULATURE: Calcified nonaneurysmal abdominal aorta. BOWEL: Fecal impaction without constipation or mechanical obstruction. APPENDIX: No abnormalities to suggest acute appendicitis. No right lower quadrant inflammatory processes identified. PERITONEUM: Unremarkable. No free fluid. No free air. THERMITE WELDER shunt catheter again identified. LYMPH NODES: Unremarkable. No enlarged lymph nodes. BLADDER: Hernandez catheter in place in a decompressed urinary bladder. REPRODUCTIVE: Prior hysterectomy. BONES: No acute fracture. OTHER FINDINGS: None. IMPRESSION: Hiatal hernia with gastric wall thickening likely gastritis. Fecal impaction without obstructing lesion. Additional benign and/or incidental findings described above.
[2018-11-01] MEDS ORDERED: levoFLOXacin 500 mg in D5W 500 MG/100 ML BAG IVPB SCH (17:45)
[2018-11-01] MEDS ORDERED: levoFLOXacin 500 mg in D5W 500 MG/100 ML BAG IVPB ONE (18:31)
--- NOTE | 2018-11-01 20:52 | CARD ---
APPROVED REPORT Date of service: 10/31/2018 EKG Measurement Heart [id number] <Conclusion> Normal sinus rhythm with frequent premature atrial complexes Incomplete right bundle branch block Abnormal ECG
--- NOTE | 2018-11-01 21:20 | CON ---
DATE: 11/01/2018 This consult is for Dr. Brown, Dr. Moraima miner. REASON FOR CONSULT: I have been asked to see this 88-year-old female with multiple comorbidities including hypertension, normal-pressure hydrocephalous, COPD, hypothyroidism, anemia, who comes to the hospital with weakness, shortness of breath, dyspnea on exertion, and confusion. In the emergency room, the patient was found to be profoundly anemic with the hemoglobin in the 5 g range. She denies any nausea, vomiting, rectal bleeding, or melena. She admits to occasional mild mid abdominal pain. She denies any chest pain or palpitations. PAST MEDICAL HISTORY: As above. She has a history of normal-pressure hydrocephalus, status post ventriculoperitoneal shunt; hypertension; anemia; COPD; hypothyroidism. PAST SURGICAL HISTORY: Notable for placement of a ventriculoperitoneal shunt, cholecystectomy, left hip replacement, right knee surgery, and rotator cuff surgery. SOCIAL HISTORY: She is a former cigarette smoker, having quit years ago. She denies alcohol use. She lives at home in a multi-family dwelling alone with her family living below her. REVIEW OF SYSTEMS: A 14-point review of systems is notable for generalized weakness, dyspnea on exertion, and cough. MEDICATIONS AT HOME: Include potassium chloride, Protonix, losartan, Levoxyl, Flovent, aspirin, and albuterol. PHYSICAL EXAMINATION: GENERAL: Elderly female, awake, alert, in no acute distress. VITAL SIGNS: Reveals temperature of 98.3, blood pressure 122/61, heart rate of 90. HEENT: Reveals sclerae to be white, conjunctivae pale. NECK: Supple. CHEST: Reveals lungs to be clear. HEART: Reveals a regular rate and rhythm. ABDOMEN: Soft. Minimal mid abdominal tenderness to deep palpation. No mass. EXTREMITIES: No edema. LABORATORY DATA: Reveal white blood cell count 6.3, hemoglobin 5.5, platelet count 327,000. Chemistries reveal an iron saturation of 2%. Chloride of 111. AST, ALT, alk phos were all normal. IMPRESSION: An 88-year-old female with multiple comorbidities including normal-pressure hydrocephalous, hypertension, chronic obstructive pulmonary disease, anemia, comes to the hospital with symptomatic anemia with dyspnea on exertion, shortness of breath, generalized weakness and found to be profoundly anemic with hemoglobin of 5.5. I suspect that this is a chronic anemia. She is iron deficient. One must rule out chronic gastrointestinal blood loss. RECOMMENDATIONS: 1. Check stool for occult blood. 2. We will request a CT scan of the abdomen and pelvis to rule out any masses in the GI tract to account for iron deficiency anemia. Tan Valera MD
[2018-11-02] MEDS: Albuterol-Ipratrop 3 mg / 0.5 (3 ml) UD IH SCH ×5 (01:05→19:34)
[2018-11-02] MEDS: Pantoprazole 40mg/100mL NS 40 MG/100 ML BAG IVPB SCH ×2 (03:44→08:16)
[2018-11-02] MEDS: Levothyroxine 25 MCG TAB PO SCH (05:28)
[2018-11-02 08:04] LABS: BASO # 0.01 K/mm3 (0.0-2.0); BASO % 0.1 % (0.0-3.0); EOS # 0.1 (0.0-0.7); EOS % 0.5 % (1.5-5.0); GRAN # 8.02 (1.4-6.5); GRAN % 76.9 % (50.0-68.0); HEMOGLOBIN 7.4 g/dL (12.0-16.0); LYMPH # 1.5 (1.2-3.4); MEAN CELL VOLUME 72.2 fl (80.0-105.0); MEAN CORPUSCULAR HEMOGLOBIN 22.6 pg (25.0-35.0); MEAN CORPUSCULAR HGB CONC 31.4 g/dl (31.0-37.0); MEAN PLATELET VOLUME 9.5 fl (7.0-11.0); MONO # 0.9 (0.1-0.6); MONO % 8.5 % (1.0-6.0); RBC 3.27 10^6/uL (3.5-6.1); RED CELL DISTRIBUTION WIDTH 21.3 % (11.5-14.5); WHITE BLOOD COUNT 10.4 10^3/uL (4.5-11.0)
[2018-11-02] MEDS ORDERED: Magnesium Citrate Oral SOL (300 ml) PO ONE (08:15)
--- NOTE | 2018-11-02 08:37 | CP.PCM.PN ---
Subjective - Date & Time of Evaluation Date of Evaluation: 11/02/18 Time of Evaluation: 08:00 - Subjective Subjective: Patient is seen this morning. She denies abdominal pain. She was retaining urine. Hernandez catheter was inserted. Objective - Vital Signs/Intake and Output Vital Signs (last 24 hours): Temp Pulse Resp BP Pulse Ox 98.6 F 58 L 18 120/62 97 11/02/18 06:00 11/02/18 06:00 11/02/18 06:00 11/02/18 06:00 11/02/18 06:00 Intake and Output: 11/02/18 11/02/18 06:59 18:59 Intake Total 480 Output Total 1100 Balance -620 - Medications Medications: Current Medications Albuterol/Ipratropium (Duoneb 3 Mg/0.5 Mg (3 Ml) Ud) 3 ml IH [id number] [facility] Last Admin: 11/02/18 07:47 Dose: 3 ml Ferrous Sulfate (Feosol) 324 mg PO TID [facility] [place] Pantoprazole Sodium (Protonix 40mg Ivpb) 40 mg in 100 mls @ 20 mls/hr IVPB .Q5H [facility] [place] Last Admin: 11/02/18 08:16 Dose: 20 mls/hr Levofloxacin/Dextrose (Levaquin 250mg) 250 mg in 50 mls @ 50 mls/hr IVPB 1800 [facility] [place] Levothyroxine Sodium (Synthroid) 25 mcg PO 0600 [facility] [place] Last Admin: 11/02/18 05:28 Dose: 25 mcg Losartan Potassium (Cozaar) 25 mg PO DAILY [facility] [place] Last Admin: 11/01/18 09:44 Dose: 25 mg Polyethylene Glycol (Miralax) 17 gm PO TID [facility] - Labs Labs: 11/01/18 10:15 11/01/18 10:15 - Constitutional Appears: No Acute Distress - Head Exam Head Exam: ATRAUMATIC, NORMOCEPHALIC - Respiratory Exam Respiratory Exam: Decreased Breath Sounds, NORMAL BREATHING PATTERN - Cardiovascular Exam Cardiovascular Exam: REGULAR RHYTHM, +S1, +S2 - GI/Abdominal Exam GI & Abdominal Exam: Soft, Normal Bowel Sounds. absent: Tenderness - Extremities Exam Extremities Exam: Normal Inspection - Neurological Exam Neurological Exam: Alert, Awake Assessment and Plan - Assessment and Plan (Free Text) Assessment: Symptomatic Anemia Pneumonia Pleural Effusion HTN dementia COPD Hypothyroidism Plan: Patient's CT abd/pelvis shows fecal impaction, pleural effusion and infiltrate. Patient started on IV Levaquin. Will consult infectious disease with Dr. Nolan. Enema has been ordered. Hernandez catheter inserted for urinary retention. Stool for occult blood is negative. We will discontinue protonix drip and change to IV protonix. Hemoglobin is 7.4 today after 2 units packed red blood cells. continue to monitor hemoglobin. Patient may need iron infusion.
[2018-11-02] MEDS: POLYETHYLENE GLYCOL 3350 17 GM/Dose PACKET PO SCH ×3 (09:14→18:02)
--- NOTE | 2018-11-02 10:37 | PN ---
DATE: 11/02/2018 This visit is for Dr. Brown, Dr. Valera covering. SUBJECTIVE: The patient is lying in bed, comfortable. She is tolerating a diet. She denies any rectal bleeding, melena, nausea, vomiting or abdominal pain. PHYSICAL EXAMINATION: VITAL SIGNS: Temperature of 98.6, blood pressure 120/62, heart rate of 94. HEENT: Sclerae to be white. Conjunctivae pale. NECK: Supple. CHEST: Lungs are clear. HEART: Regular rate and rhythm. ABDOMEN: Soft, nontender. No mass. EXTREMITIES: Show no edema. LABORATORY DATA: Hemoglobin of 7.4 after 2 units of packed red blood cells. Chemistries reveal BUN 22, creatinine 0.9. CT scan of the abdomen and pelvis revealed fecal impaction and a large hiatal hernia with thickened gastric wall in the hiatal hernia sac. IMPRESSION: 1. Anemia, iron deficient. Stool for occult blood is negative. 2. Fecal impaction. 3. Large hiatal hernia. RECOMMENDATIONS: 1. We will transfuse two more units of packed red blood cells. 2. Citrate of magnesia 10 ounces now. 3. MiraLax 17 g twice a day. 4. I will schedule the patient for an upper endoscopy with Dr. Brown for the morning. He will take over the case starting tomorrow. Tan Valera MD
[2018-11-02 13:13] LABS: URINE BILIRUBIN NEGATIVE (NEGATIVE); URINE BLOOD SMALL (NEGATIVE); URINE GLUCOSE (UA) NEGATIVE (NEGATIVE); URINE LEUKOCYTE ESTERASE SMALL Leu/uL (NEGATIVE); URINE PROTEIN NEGATIVE mg/dL (<30 mg/dL); URINE UROBILINOGEN 0.2 E.U./dL (<1 E.U./dL)
[2018-11-02 13:14] LABS: URINE APPEARANCE CLEAR (CLEAR); URINE COLOR YELLOW (YELLOW)
[2018-11-02 14:31] LABS: URINE BACTERIA MOD /hpf
[2018-11-02] MEDS: Cefepime 1gm in NS 100ml 1 GM/100 ML BAG IVPB SCH ×2 (14:47→22:40)
[2018-11-02] MEDS ORDERED: levoFLOXacin 250 mg in D5W 250 MG/50 ML BAG IVPB SCH (18:00)
[2018-11-02] MEDS ORDERED: Promethazine 6.25 MG/5 ML CUP PO PRN (18:44)
--- NOTE | 2018-11-02 20:13 | CON ---
DATE OF CONSULTATION: 11/02/2018 The patient is seen in Room 277, Bed 1 CHIEF COMPLAINT: Shortness of breath and cough for several days. HISTORY OF PRESENT ILLNESS: This is an 88-year-old female with a history of normal-pressure hydrocephalus with a ventriculoperitoneal shunt, has a history of hypertension, iron-deficiency anemia, depression, history of zoster and dementia, chronic obstructive lung disease, who has had a left hip replacement in the past, who was admitted through the emergency room 2 days ago, on 10/31/2018. The patient was found to have weakness, shortness of breath and complaining of cough, and no fevers. PAST MEDICAL HISTORY: Significant for chronic obstructive lung disease, dementia, zoster, depression, iron-deficiency anemia, hypertension, normal pressure hydrocephalus. PAST SURGICAL HISTORY: Significant for cholecystectomy, left hip surgery and a [employer] shunt placement. MEDICATIONS AT HOME: Reviewed and include Protonix, Cozaar, Synthroid, inhaler, aspirin. ALLERGIES: THE PATIENT HAS NO KNOWN ALLERGIES. REVIEW OF SYSTEMS: A 12-point review of systems is performed. No bright red blood per rectum. No melena. No dysuria or frequency. No headaches. No blurred vision. No abdominal pain or diarrhea. There is constipation. No nausea or vomiting. PHYSICAL EXAMINATION: GENERAL: She is in bed, in no acute distress and communicates. No headaches have been reported. VITAL SIGNS: Temperature of 98, heart rate of 94, blood pressure is 120/60, respiratory rate 20. HEENT: Unremarkable. NECK: Supple. LUNGS: Decreased breath sounds. HEART: Normal S1 and S2. ABDOMEN: Soft, nontender. No rebound, guarding or masses. LABORATORY EXAMINATION: White count of 6.3, hemoglobin of 5, platelets of 327,000. Chemistries: BUN of 20 and creatinine of 1. BNP is 738. Stool occult blood negative. Influenza is negative. The patient had a CAT scan of the abdomen, which is negative except for a left infiltrate. Chest x-ray showed left lower lobe infiltrate. EKG showed a QTc of 460. ASSESSMENT/PLAN: This is an 88-year-old female with normal-pressure hydrocephalus, hypertension, anemia, depression, history of zoster and dementia, chronic obstructive lung disease, who was admitted now from home. She has had recent hospitalization with a left lower lobe community-acquired pneumonia versus healthcare-associated pneumonia because of normal pressure hydrocephalus. We will treat the patient with Maxipime and doxycycline. Order blood cultures, urine cultures, sputum cultures, MRSA screen, urine for Legionella antigen, procalcitonin and a nasal MRSA screen. We will treat with cefepime and doxycycline and we will make further recommendations upon availability of initial results and we will follow with you. Eduar Nolan MD
[2018-11-03] MEDS: Albuterol-Ipratrop 3 mg / 0.5 (3 ml) UD IH SCH ×4 (02:22→20:23)
[2018-11-03] MEDS: Cefepime 1gm in NS 100ml 1 GM/100 ML BAG IVPB SCH ×3 (06:17→21:59)
[2018-11-03] MEDS: Levothyroxine 25 MCG TAB PO SCH (06:18)
[2018-11-03 07:32] LABS: BASO # 0.02 K/mm3 (0.0-2.0); BASO % 0.3 % (0.0-3.0); EOS # 0.2 (0.0-0.7); EOS % 2.9 % (1.5-5.0); GRAN # 4.68 (1.4-6.5); GRAN % 66.7 % (50.0-68.0); LYMPH # 1.3 (1.2-3.4); LYMPH % 18.1 % (22.0-35.0); MEAN CELL VOLUME 74.1 fl (80.0-105.0); MEAN CORPUSCULAR HEMOGLOBIN 23.8 pg (25.0-35.0); MEAN CORPUSCULAR HGB CONC 32.2 g/dl (31.0-37.0); MEAN PLATELET VOLUME 9.8 fl (7.0-11.0); MONO # 0.8 (0.1-0.6); RBC 4.24 10^6/uL (3.5-6.1); RED CELL DISTRIBUTION WIDTH 20.7 % (11.5-14.5)
[2018-11-03 07:34] LABS: HEMOGLOBIN 10.1 g/dL (12.0-16.0)
[2018-11-03 08:06] LABS: ALB/GLOB RATIO 1.3 (1.1-1.8); ALBUMIN 3.2 g/dL (3.0-4.8); ALT/SGPT 23 U/L (7-56); AST/SGOT 27 U/L (14-36); BLOOD UREA NITROGEN 14 mg/dL (7-21); CALCIUM 8.7 mg/dL (8.4-10.5); GFR NON-AFRICAN AMERICAN 59
--- NOTE | 2018-11-03 08:27 | CP.PCM.PN ---
Subjective - Date & Time of Evaluation Date of Evaluation: 11/03/18 Time of Evaluation: 08:00 - Subjective Subjective: Patient is seen this morning. She is confused. Overnight, patient had a run of SVT with rate of 160. Objective - Vital Signs/Intake and Output Vital Signs (last 24 hours): Temp Pulse Resp BP Pulse Ox 98 F 89 20 125/60 95 11/03/18 06:00 11/03/18 06:00 11/03/18 06:00 11/03/18 06:00 11/03/18 06:00 Intake and Output: 11/03/18 11/03/18 06:59 18:59 Intake Total 1440 200 Output Total 1150 Balance 290 200 - Medications Medications: Current Medications Albuterol/Ipratropium (Duoneb 3 Mg/0.5 Mg (3 Ml) Ud) 3 ml IH [id number] [facility] Last Admin: 11/03/18 07:49 Dose: 3 ml Doxycycline Hyclate (Doryx) 100 mg PO Q12 [facility]; Protocol Stop: 11/11/18 12:08 Last Admin: 11/02/18 22:39 Dose: 100 mg Ferrous Sulfate (Feosol Liq) 300 mg PO WM [facility] Cefepime HCl (Maxipime 1gm) 1 gm in 100 mls @ 100 mls/hr IVPB Q8 [facility]; Protocol Stop: 11/11/18 14:01 Last Admin: 11/03/18 06:17 Dose: 100 mls/hr Levothyroxine Sodium (Synthroid) 25 mcg PO 0600 [facility] Last Admin: 11/03/18 06:18 Dose: Not Given Losartan Potassium (Cozaar) 25 mg PO DAILY [facility] Last Admin: 11/02/18 09:14 Dose: 25 mg Pantoprazole Sodium (Protonix Inj) 40 mg IVP DAILY [facility] Last Admin: 11/02/18 09:14 Dose: 40 mg Polyethylene Glycol (Miralax) 17 gm PO TID [facility] Last Admin: 11/02/18 18:02 Dose: Not Given Promethazine HCl (Phenergan Syrup) 6.25 mg PO Q6H PRN PRN Reason: Cough Last Admin: 11/02/18 19:07 Dose: 6.25 mg - Labs Labs: 11/03/18 07:15 11/03/18 07:15 - Constitutional Appears: No Acute Distress - Head Exam Head Exam: ATRAUMATIC, NORMOCEPHALIC - Respiratory Exam Respiratory Exam: Decreased Breath Sounds, NORMAL BREATHING PATTERN - Cardiovascular Exam Cardiovascular Exam: +S1, +S2 - GI/Abdominal Exam GI & Abdominal Exam: Soft, Normal Bowel Sounds. 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 There are also telemetry monitoring strips with heart rate as low as 48. Will consult Dr. Wolf for cardiology. Hemoglobin is 10.1 after a total of 4 units PRBCs. continue antibiotics for pneumonia as per infectious disease. Patient was given citrate of magnesia yesterday and had diarrhea according to the nurse. No overt signs of bleeding seen. continue Protonix.
[2018-11-03 09:12] LABS: INR 1.03; PARTIAL THROMBOPLASTIN TIME 23.4 Seconds (25.1-36.5); PROTHROMBIN TIME 11.8 SECONDS (9.4-12.5)
[2018-11-03] MEDS: POLYETHYLENE GLYCOL 3350 17 GM/Dose PACKET PO SCH ×3 (11:44→17:59)
[2018-11-03] MEDS: Ferrous Sulfate 300 mg/5 mL Liq UD PO SCH ×3 (13:34→17:58)
--- NOTE | 2018-11-03 13:59 | CP.PCM.PN ---
Subjective - Date & Time of Evaluation Date of Evaluation: 11/03/18 Time of Evaluation: 13:50 - Subjective Subjective: GI Progress Note for Dr. Brown Patient seen and examined at bedside. No acute overnight events. Patient admits to fatigue and epigastric pain. Patient is oriented to self and place, but not time. Patient's son Pastor is POA and is currently refusing EGD today. Patient denies CP, n/v/d, fever, chills, CONTRERAS, or dizziness. Objective - Vital Signs/Intake and Output Vital Signs (last 24 hours): Temp Pulse Resp BP Pulse Ox 98 F 80 20 133/62 95 11/03/18 12:00 11/03/18 12:00 11/03/18 12:00 11/03/18 12:00 11/03/18 06:00 Intake and Output: 11/03/18 11/03/18 06:59 18:59 Intake Total 1440 200 Output Total 1150 Balance 290 200 - Medications Medications: Current Medications Albuterol/Ipratropium (Duoneb 3 Mg/0.5 Mg (3 Ml) Ud) 3 ml IH [id number] [facility] Last Admin: 11/03/18 13:02 Dose: 3 ml Doxycycline Hyclate (Doryx) 100 mg PO Q12 [facility]; Protocol Stop: 11/11/18 12:08 Last Admin: 11/03/18 11:43 Dose: 100 mg Ferrous Sulfate (Feosol Liq) 300 mg PO WM [facility] Last Admin: 11/03/18 13:34 Dose: Not Given Cefepime HCl (Maxipime 1gm) 1 gm in 100 mls @ 100 mls/hr IVPB Q8 [facility]; Protocol Stop: 11/11/18 14:01 Last Admin: 11/03/18 06:17 Dose: 100 mls/hr Levothyroxine Sodium (Synthroid) 25 mcg PO 0600 [facility] Last Admin: 11/03/18 06:18 Dose: Not Given Losartan Potassium (Cozaar) 25 mg PO DAILY [facility] Last Admin: 11/03/18 11:43 Dose: 25 mg Pantoprazole Sodium (Protonix Inj) 40 mg IVP DAILY [facility] Last Admin: 11/03/18 11:43 Dose: 40 mg Polyethylene Glycol (Miralax) 17 gm PO TID [facility] Last Admin: 11/03/18 13:38 Dose: Not Given Promethazine HCl (Phenergan Syrup) 6.25 mg PO Q6H PRN PRN Reason: Cough Last Admin: 11/02/18 19:07 Dose: 6.25 mg - Labs Labs: 11/03/18 07:15 11/03/18 07:15 PT 11.8 SECONDS (9.4-12.5) 11/03/18 08:40 INR 1.03 11/03/18 08:40 APTT 23.4 Seconds (25.1-36.5) L 11/03/18 08:40 - Constitutional Appears: No Acute Distress - Head Exam Head Exam: NORMAL INSPECTION - Eye Exam Eye Exam: Normal appearance Pupil Exam: NORMAL ACCOMODATION - ENT Exam ENT Exam: Mucous Membranes Moist, Normal Exam - Respiratory Exam Respiratory Exam: Clear to Ausculation Bilateral. absent: Rales, Rhonchi, Wheezes - Cardiovascular Exam Cardiovascular Exam: RRR, +S1, +S2. absent: Gallop, Rubs, Murmur - GI/Abdominal Exam GI & Abdominal Exam: Soft, Tenderness (epigastric). absent: Distended, Guarding, Rebound - Extremities Exam Extremities Exam: Normal Inspection - Back Exam Back Exam: NORMAL INSPECTION - Neurological Exam Neurological Exam: Alert, Awake. absent: Oriented x3 (not oriented to time) - Skin Skin Exam: Pallor, Pallor Assessment and Plan - Assessment and Plan (Free Text) Assessment: 88 yo F with PMH of NPH s/p shunt, HTN, anemia, COPD, and hypothyroidism presents to [facility] due to weakness and dyspnea. Patient was found to have a hemoglobin of 5.5 on admission. Patient was admitted for symptomatic anemia. She was transfused 4 units of pRBC overall with improvement of her Hgb to 10.1, which appears to be stable. CT abdomen/pelvis showed large hiatal hernia and gastritis, Samuel ulcer is possible source for her anemia. Patient was scheduled for EGD today, however family is refusing. - Symptomatic Anemia - Fecal impaction - Large hiatal hernia - CAP vs HCAP Plan: - Discussed with family in detail the risks and benefits of endoscopy; family will take time to consider options - Miralax TID - PPI - Abx per ID Patient seen and discussed in detail with Dr. Brown. Rhys Powell, DO PGY2
--- NOTE | 2018-11-03 17:23 | CP.PCM.PN ---
Subjective - Date & Time of Evaluation Date of Evaluation: 11/03/18 Time of Evaluation: 10:55 - Subjective Subjective: Resting comfortably in bed, no fevers, not in distress. Objective - Vital Signs/Intake and Output Vital Signs (last 24 hours): Temp Pulse Resp BP Pulse Ox 98.6 F 88 20 123/83 96 11/03/18 00:01 11/03/18 02:00 11/03/18 00:01 11/03/18 00:01 11/03/18 00:01 Intake and Output: 11/03/18 11/03/18 06:59 18:59 Intake Total 1440 Output Total 1150 Balance 290 - Medications Medications: Current Medications Albuterol/Ipratropium (Duoneb 3 Mg/0.5 Mg (3 Ml) Ud) 3 ml IH [id number] [facility] Last Admin: 11/03/18 02:22 Dose: 3 ml Doxycycline Hyclate (Doryx) 100 mg PO Q12 [facility]; Protocol Stop: 11/11/18 12:08 Last Admin: 11/02/18 22:39 Dose: 100 mg Ferrous Sulfate (Feosol Liq) 300 mg PO WM [facility] Levofloxacin/Dextrose (Levaquin 250mg) 250 mg in 50 mls @ 50 mls/hr IVPB 1800 [facility] Last Admin: 11/02/18 18:06 Dose: 50 mls/hr Cefepime HCl (Maxipime 1gm) 1 gm in 100 mls @ 100 mls/hr IVPB Q8 [facility]; Protocol Stop: 11/11/18 14:01 Last Admin: 11/03/18 06:17 Dose: 100 mls/hr Levothyroxine Sodium (Synthroid) 25 mcg PO 0600 [facility] Last Admin: 11/03/18 06:18 Dose: Not Given Losartan Potassium (Cozaar) 25 mg PO DAILY [facility] Last Admin: 11/02/18 09:14 Dose: 25 mg Pantoprazole Sodium (Protonix Inj) 40 mg IVP DAILY [facility] Last Admin: 11/02/18 09:14 Dose: 40 mg Polyethylene Glycol (Miralax) 17 gm PO TID [facility] Last Admin: 11/02/18 18:02 Dose: Not Given Promethazine HCl (Phenergan Syrup) 6.25 mg PO Q6H PRN PRN Reason: Cough Last Admin: 11/02/18 19:07 Dose: 6.25 mg - Labs Labs: 11/02/18 07:30 11/01/18 10:15 - Constitutional Appears: Chronically Ill - Head Exam Head Exam: NORMAL INSPECTION - Respiratory Exam Respiratory Exam: Decreased Breath Sounds - Cardiovascular Exam Cardiovascular Exam: +S1, +S2 - GI/Abdominal Exam GI & Abdominal Exam: Soft. 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
--- NOTE | 2018-11-03 22:03 | CON ---
DATE: 11/03/2018 REASON FOR CONSULTATION: SVT/bradycardia, rule out tachy-edson syndrome, cardiac evaluation, who was initially admitted with left lower lobe pneumonia on 10/31/2018. BRIEF CLINICAL HISTORY: This is an 88-year-old female with past medical history significant for hypertension; history of normal pressure hydrocephalus, status post ventriculoperitoneal shunt; history of anemia; history of chronic hypothyroidism; history of chronic lung disease and a questionable history of dementia and COPD, who came in with shortness of breath, found to be left lower lob pneumonia. The patient is being treated for pneumonia. This morning, the patient has burst of SVT and last night, the patient had heart rate while sleeping in the 50. Cardiology consult was called to rule out tachy-edson syndrome. The patient denies any chest pain, denies shortness of breath, denies any palpitation, though is a poor historian and questionable history of dementia as well. PAST MEDICAL HISTORY: Significant for dementia; normal pressure hydrocephalus, status post ventriculoperitoneal shunt; hypertension; back pain; insomnia; iron-deficiency anemia; history of dehydration; history of diarrhea in the past; history of CVA; history of altered mental status; history of mild dementia; and COPD. SOCIAL HISTORY: Denies any history of smoking; socially drinks. ALLERGIES: NO KNOWN DRUG ALLERGY. MEDICATIONS: Currently, the patient is taking at home levothyroxine 25 daily, potassium chloride 20, Protonix 40 mg daily, losartan 25 mg daily, aspirin 81 mg daily, and albuterol inhaler. PREVIOUS CARDIAC WORKUP: As follows; the patient had an echocardiography on 12/23/2017 that revealed normal ejection fraction of 65%, RV mildly dilated. There is mild aortic regurgitation, mild mitral regurgitation, ixryhrai-wy-gidqvt tricuspid regurg, RV systolic pressure of 73, etrqzweg-pc-vbzguw pulmonary hypertension, moderate pulmonary valvular insufficiency, also a small intermittent mjqw-qx-lcixq shunt flow by color flow noted, a small tiny intermittent PFO. Hemodynamics, not significant. Date of echo, 12/23/2017. Prior to that, the patient had an echo on 08/30/2016, ejection fraction 55% to 60%, mild aortic regurgitation, mild mitral regurgitation, hgaj-an-dybklkyr tricuspid regurgitation, RV systolic pressure at that time was 45. No vegetation or thrombus noted dated 08/30/2016. REVIEW OF SYSTEMS: As per HPI. No chest pain. No shortness of breath. No palpitation. PHYSICAL EXAMINATION: GENERAL: As follows; height of the patient is 5 feet 2 inches, weight of the patient 120 pounds, and body mass index 20 kg/m2. VITAL SIGNS: Temperature afebrile, heart rate 80, and blood pressure 133/62. HEENT: PERRLA. Extraocular muscles intact. NECK: Supple. No carotid bruit or thyromegaly. CHEST: Clear to auscultation. HEART: S1 and S2 regular. ABDOMEN: Soft. EXTREMITIES: Clubbing and cyanosis negative. LABORATORY DATA: EKG shows on admission normal sinus, frequent APCs, incomplete right bundle. Blood workup; WBC 7, hemoglobin 10.1, hematocrit 31.4, and platelet count 223. Chemistry shows sodium 130, potassium 4.8, chloride 108, carbon dioxide 27, anion gap of 7, BUN 14, and creatinine 0.9. Total protein 5.6, albumin 3, and albumin-globulin ratio 1.3. IMPRESSION: An 88-year-old female with past medical history significant for possible early dementia; normal pressure hydrocephalus, status post ventriculoperitoneal shunt; hypertension; back pain; insomnia; iron-deficiency anemia; history of dehydration; history of diarrhea in the past; history of cerebrovascular accident; history of altered mental status; admitted with pneumonia and severe anemia, hemoglobin 5.5, status post multiple transfusions on admission. Now, the patient's hemoglobin is 10.1. This morning, the patient had a burst of supraventricular tachycardia bradycardia. Cardiology consult was called to rule out tachycardia-bradycardia syndrome. In the past, the patient had also hypertension and bradycardia, which remained stable. RECOMMENDATIONS: We will get lipid profile, TSH, and hemoglobin A1c. We will do 24-hour Holter monitoring and get echo to assess LV function and rule out RV systolic pressure. Recently in 12/2017, RV systolic pressure was significantly elevated to 73 consistent with mxnetfin-wx-ymzsby pulmonary hypertension, preserved left ventricular function with ejection fraction of 65%, and mild mitral regurgitation. Further recommendation will depending upon hospital course to assess the need for pacemaker. We will start low-dose beta-madeleine, atenolol 12.5 to prevent significant tachycardia and monitor with Holter for bradycardia. We will follow with you. Further recommendation as mentioned of the initial workup . Thank you Dr. Valerio for providing us the opportunity in taking care of the patient, Bethany Olga. Christa Wolf MD
[2018-11-04] MEDS: Albuterol-Ipratrop 3 mg / 0.5 (3 ml) UD IH SCH ×4 (01:10→20:35)
[2018-11-04] MEDS: Cefepime 1gm in NS 100ml 1 GM/100 ML BAG IVPB SCH ×3 (05:40→22:30)
[2018-11-04] MEDS: Levothyroxine 25 MCG TAB PO SCH (05:41)
--- NOTE | 2018-11-04 07:42 | CP.PCM.PN ---
<Yosi Powell - Last Filed: 11/04/18 10:37> Subjective - Date & Time of Evaluation Date of Evaluation: 11/04/18 Time of Evaluation: 07:39 - Subjective Subjective: GI Progress Note for Dr. Brown Patient seen and examined at bedside. No acute overnight events. Patient admits to fatigue. Patient denies CP, SOB, n/v/d, abdominal pain, fever, chills, CONTRERAS, or dizziness. Objective - Vital Signs/Intake and Output Vital Signs (last 24 hours): Temp Pulse Resp BP Pulse Ox 98.0 F 74 18 145/71 95 11/04/18 00:01 11/04/18 06:00 11/04/18 00:01 11/04/18 00:01 11/03/18 06:00 Intake and Output: 11/04/18 11/04/18 06:59 18:59 Intake Total 660 Output Total 1225 Balance -565 - Medications Medications: Current Medications Albuterol/Ipratropium (Duoneb 3 Mg/0.5 Mg (3 Ml) Ud) 3 ml IH [id number] [facility] Last Admin: 11/04/18 01:10 Dose: Not Given Atenolol (Tenormin) 12.5 mg PO DAILY [facility] Last Admin: 11/03/18 14:58 Dose: 12.5 mg Doxycycline Hyclate (Doryx) 100 mg PO Q12 [facility]; Protocol Stop: 11/11/18 12:08 Last Admin: 11/03/18 21:59 Dose: 100 mg Ferrous Sulfate (Feosol Liq) 300 mg PO WM [facility] Last Admin: 11/03/18 17:58 Dose: 300 mg Cefepime HCl (Maxipime 1gm) 1 gm in 100 mls @ 100 mls/hr IVPB Q8 [facility]; Protocol Stop: 11/11/18 14:01 Last Admin: 11/04/18 05:40 Dose: 100 mls/hr Levothyroxine Sodium (Synthroid) 25 mcg PO 0600 [facility] Last Admin: 11/04/18 05:41 Dose: 25 mcg Losartan Potassium (Cozaar) 25 mg PO DAILY [facility] Last Admin: 11/03/18 11:43 Dose: 25 mg Pantoprazole Sodium (Protonix Inj) 40 mg IVP DAILY [facility] Last Admin: 11/03/18 11:43 Dose: 40 mg Polyethylene Glycol (Miralax) 17 gm PO TID [facility] Last Admin: 11/03/18 17:59 Dose: Not Given Promethazine HCl (Phenergan Syrup) 6.25 mg PO Q6H PRN PRN Reason: Cough Last Admin: 11/02/18 19:07 Dose: 6.25 mg - Labs Labs: 11/03/18 07:15 11/03/18 07:15 PT 11.8 SECONDS (9.4-12.5) 11/03/18 08:40 INR 1.03 11/03/18 08:40 APTT 23.4 Seconds (25.1-36.5) L 11/03/18 08:40 - Constitutional Appears: No Acute Distress - Head Exam Head Exam: NORMAL INSPECTION - Eye Exam Eye Exam: EOMI, Normal appearance Pupil Exam: NORMAL ACCOMODATION - ENT Exam ENT Exam: Mucous Membranes Moist, Normal Exam - Neck Exam Neck Exam: Normal Inspection - Respiratory Exam Respiratory Exam: Clear to Ausculation Bilateral. absent: Rales, Rhonchi, Wheezes - Cardiovascular Exam Cardiovascular Exam: RRR, +S1, +S2. absent: Clicks, Gallop, Rubs - GI/Abdominal Exam GI & Abdominal Exam: Soft. absent: Distended, Guarding, Tenderness, Rebound - Extremities Exam Extremities Exam: Normal Inspection - Neurological Exam Neurological Exam: Alert, Awake. absent: Oriented x3 (oriented to person and place only) - Psychiatric Exam Psychiatric exam: Normal Mood - Skin Skin Exam: Dry, Warm Assessment and Plan - Assessment and Plan (Free Text) Assessment: 88 yo F with PMH of NPH s/p shunt, HTN, anemia, COPD, and hypothyroidism [place] [facility] [place] and dyspnea. Patient was found to have a hemoglobin of 5.5 on admission. Patient was admitted for symptomatic anemia. She was transfused 4 units of pRBC overall with improvement of her Hgb to 10.1, which appears to be stable. CT abdomen/pelvis showed large hiatal hernia and gastritis, Samuel ulcer is possible source for her anemia. Patient was scheduled for EGD, however family is currently refusing. 1. Symptomatic Anemia 2. Fecal impaction 3. Large hiatal hernia 4. HCAP Plan: - Family is agreeable to EGD, will consent and plan for Saturday - Miralax TID - PPI - Abx per ID Patient seen and discussed in detail with Dr. Brown. Rhys Powell, DO PGY2 <Caroline rBown V - Last Filed: 11/05/18 00:11> Objective - Vital Signs/Intake and Output Vital Signs (last 24 hours): Temp Pulse Resp BP Pulse Ox 98.5 F 82 18 123/60 95 11/04/18 18:00 11/04/18 22:00 11/04/18 18:00 11/04/18 18:00 11/03/18 06:00 Intake and Output: 11/04/18 11/05/18 18:59 06:59 Intake Total 300 Balance 300 - Medications Medications: Current Medications Acetaminophen (Tylenol 325mg Tab) 650 mg PO Q6H PRN PRN Reason: Headache Last Admin: 11/04/18 17:33 Dose: 650 mg Albuterol/Ipratropium (Duoneb 3 Mg/0.5 Mg (3 Ml) Ud) 3 ml IH [id number] [facility] Last Admin: 11/04/18 20:35 Dose: 3 ml Atenolol (Tenormin) 12.5 mg PO DAILY [facility] Last Admin: 11/04/18 10:47 Dose: 12.5 mg Doxycycline Hyclate (Doryx) 100 mg PO Q12 [facility]; Protocol Stop: 11/11/18 12:08 Last Admin: 11/04/18 22:30 Dose: 100 mg Ferrous Sulfate (Feosol Liq) 300 mg PO WM [facility] Last Admin: 11/04/18 17:33 Dose: 300 mg Cefepime HCl (Maxipime 1gm) 1 gm in 100 mls @ 100 mls/hr IVPB Q8 [facility]; Protocol Stop: 11/11/18 14:01 Last Admin: 11/04/18 22:30 Dose: 100 mls/hr Levothyroxine Sodium (Synthroid) 25 mcg PO 0600 [facility] Last Admin: 11/04/18 05:41 Dose: 25 mcg Losartan Potassium (Cozaar) 25 mg PO DAILY [facility] Last Admin: 11/04/18 10:48 Dose: 25 mg Pantoprazole Sodium (Protonix Inj) 40 mg IVP DAILY [facility] Last Admin: 11/04/18 10:48 Dose: 40 mg Polyethylene Glycol (Miralax) 17 gm PO TID [facility] Last Admin: 11/04/18 17:34 Dose: Not Given Promethazine HCl (Phenergan Syrup) 6.25 mg PO Q6H PRN PRN Reason: Cough Last Admin: 11/02/18 19:07 Dose: 6.25 mg - Labs Labs: 11/04/18 08:45 11/04/18 08:45 PT 11.8 SECONDS (9.4-12.5) 11/03/18 08:40 INR 1.03 11/03/18 08:40 APTT 23.4 Seconds (25.1-36.5) L 11/03/18 08:40 Attending/Attestation - Attestation I have personally seen and examined this patient.: Yes I have fully participated in the care of the patient.: Yes I have reviewed all pertinent clinical information, including history, physical exam and plan: Yes Notes (Text): This is an addendum to GI progress report dictated by the resident.The patient was seen and examined earlier. Medical records, lab studies, imagings were reviewed. Last 24 hours events reviewed. Agreed with the above treatment plan as outlined in resident 's notes with the addition of the following 11/05/18 00:11
--- NOTE | 2018-11-04 08:15 | CP.PCM.PN ---
Subjective - Date & Time of Evaluation Date of Evaluation: 11/04/18 Time of Evaluation: 06:45 - Subjective Subjective: Awake, confuse Reason for consultation and follow up:Cardiac evaluation of bradycardia. History of COPD, hypertension hypothyroidism Seen and examined by me and Dr. Wolf Objective - Vital Signs/Intake and Output Vital Signs (last 24 hours): Temp Pulse Resp BP Pulse Ox 98.0 F 74 18 145/71 95 11/04/18 00:01 11/04/18 06:00 11/04/18 00:01 11/04/18 00:01 11/03/18 06:00 Intake and Output: 11/04/18 11/04/18 06:59 18:59 Intake Total 660 Output Total 1225 Balance -565 - Medications Medications: Current Medications Albuterol/Ipratropium (Duoneb 3 Mg/0.5 Mg (3 Ml) Ud) 3 ml IH [id number] [facility] Last Admin: 11/04/18 01:10 Dose: Not Given Atenolol (Tenormin) 12.5 mg PO DAILY [facility] Last Admin: 11/03/18 14:58 Dose: 12.5 mg Doxycycline Hyclate (Doryx) 100 mg PO Q12 [facility]; Protocol Stop: 11/11/18 12:08 Last Admin: 11/03/18 21:59 Dose: 100 mg Ferrous Sulfate (Feosol Liq) 300 mg PO WM [facility] Last Admin: 11/03/18 17:58 Dose: 300 mg Cefepime HCl (Maxipime 1gm) 1 gm in 100 mls @ 100 mls/hr IVPB Q8 [facility]; Protocol Stop: 11/11/18 14:01 Last Admin: 11/04/18 05:40 Dose: 100 mls/hr Levothyroxine Sodium (Synthroid) 25 mcg PO 0600 [facility] Last Admin: 11/04/18 05:41 Dose: 25 mcg Losartan Potassium (Cozaar) 25 mg PO DAILY [facility] Last Admin: 11/03/18 11:43 Dose: 25 mg Pantoprazole Sodium (Protonix Inj) 40 mg IVP DAILY [facility] Last Admin: 11/03/18 11:43 Dose: 40 mg Polyethylene Glycol (Miralax) 17 gm PO TID [facility] Last Admin: 11/03/18 17:59 Dose: Not Given Promethazine HCl (Phenergan Syrup) 6.25 mg PO Q6H PRN PRN Reason: Cough Last Admin: 11/02/18 19:07 Dose: 6.25 mg - Labs Labs: 11/03/18 07:15 11/03/18 07:15 PT 11.8 SECONDS (9.4-12.5) 11/03/18 08:40 INR 1.03 11/03/18 08:40 APTT 23.4 Seconds (25.1-36.5) L 11/03/18 08:40 - Constitutional Appears: Non-toxic, No Acute Distress - Head Exam Head Exam: NORMAL INSPECTION, NORMOCEPHALIC - Eye Exam Eye Exam: Normal appearance Pupil Exam: NORMAL ACCOMODATION - ENT Exam ENT Exam: Mucous Membranes Dry - Respiratory Exam Respiratory Exam: Clear to Ausculation Bilateral, NORMAL BREATHING PATTERN - Cardiovascular Exam Cardiovascular Exam: +S1, +S2 - GI/Abdominal Exam GI & Abdominal Exam: Soft, Normal Bowel Sounds - Neurological Exam Neurological Exam: Alert, Awake - Psychiatric Exam Psychiatric exam: Normal Affect, Normal Mood - Skin Skin Exam: Dry, Normal Color, Warm Assessment and Plan - Assessment and Plan (Free Text) Assessment: A 88 year old female who initially admitted to the ER due to shortness of breath, admitted for pneumonia. Cardiac consult for SVT/bradycardia. history of hypertension, normal pressure hydrochepalus, post [employer] shunt,anemia, hypothyroidism,COPD. Had burst of SVT and while sleeping heart rate bradycardia. Denies shortness of breath, Plan: No distress Denies chest pain Holter monitor to rule out arrythmia Echo to evaluate LV function On Cozaar 25 mg daily, Synthroid 25 mcg daily, Atenolol 12.5 mg daily Stable blood pressure Continue current treatment Will follow up Plan and treatment discussed with Dr. Wolf
--- NOTE | 2018-11-04 08:16 | CP.PCM.PN ---
Subjective - Date & Time of Evaluation Date of Evaluation: 11/04/18 Time of Evaluation: 07:45 - Subjective Subjective: Patient is seen this morning. She is sleeping and does not want to be bothered. Objective - Vital Signs/Intake and Output Vital Signs (last 24 hours): Temp Pulse Resp BP Pulse Ox 98.0 F 74 18 145/71 95 11/04/18 00:01 11/04/18 06:00 11/04/18 00:01 11/04/18 00:01 11/03/18 06:00 Intake and Output: 11/04/18 11/04/18 06:59 18:59 Intake Total 660 Output Total 1225 Balance -565 - Medications Medications: Current Medications Albuterol/Ipratropium (Duoneb 3 Mg/0.5 Mg (3 Ml) Ud) 3 ml IH [id number] [facility] Last Admin: 11/04/18 01:10 Dose: Not Given Atenolol (Tenormin) 12.5 mg PO DAILY [facility] Last Admin: 11/03/18 14:58 Dose: 12.5 mg Doxycycline Hyclate (Doryx) 100 mg PO Q12 [facility]; Protocol Stop: 11/11/18 12:08 Last Admin: 11/03/18 21:59 Dose: 100 mg Ferrous Sulfate (Feosol Liq) 300 mg PO WM [facility] Last Admin: 11/03/18 17:58 Dose: 300 mg Cefepime HCl (Maxipime 1gm) 1 gm in 100 mls @ 100 mls/hr IVPB Q8 [facility]; Protocol Stop: 11/11/18 14:01 Last Admin: 11/04/18 05:40 Dose: 100 mls/hr Levothyroxine Sodium (Synthroid) 25 mcg PO 0600 [facility] Last Admin: 11/04/18 05:41 Dose: 25 mcg Losartan Potassium (Cozaar) 25 mg PO DAILY [facility] Last Admin: 11/03/18 11:43 Dose: 25 mg Pantoprazole Sodium (Protonix Inj) 40 mg IVP DAILY [facility] Last Admin: 11/03/18 11:43 Dose: 40 mg Polyethylene Glycol (Miralax) 17 gm PO TID [facility] Last Admin: 11/03/18 17:59 Dose: Not Given Promethazine HCl (Phenergan Syrup) 6.25 mg PO Q6H PRN PRN Reason: Cough Last Admin: 11/02/18 19:07 Dose: 6.25 mg - Labs Labs: 11/03/18 07:15 11/03/18 07:15 PT 11.8 SECONDS (9.4-12.5) 11/03/18 08:40 INR 1.03 11/03/18 08:40 APTT 23.4 Seconds (25.1-36.5) L 11/03/18 08:40 - Constitutional Appears: No Acute Distress - Head Exam Head Exam: ATRAUMATIC, NORMOCEPHALIC - Respiratory Exam Respiratory Exam: Decreased Breath Sounds, NORMAL BREATHING PATTERN - Cardiovascular Exam Cardiovascular Exam: REGULAR RHYTHM, +S1, +S2 - GI/Abdominal Exam GI & Abdominal Exam: Soft, Normal Bowel Sounds. absent: Tenderness - Extremities Exam Extremities Exam: Normal Inspection - Neurological Exam Neurological Exam: Alert, Awake Assessment and Plan - Assessment and Plan (Free Text) Assessment: Symptomatic Anemia LLL pneumonia r/o tachy-edson syndrome HTN COPD Dementia Plan: continue antibiotics as per infectious disease for LLL pneumonia. hemoglobin 10.4 after 4 units PRBCs; family is considering endoscopy. Patient undergoing hematological evaluation. on iron supplementation. Patient also undergoing cardiac evaluation for tachy-edson syndrome. Echocardiogram and holter are pending.
[2018-11-04 09:21] LABS: BASO # 0.02 K/mm3 (0.0-2.0); BASO % 0.3 % (0.0-3.0); EOS # 0.3 (0.0-0.7); GRAN # 4.63 (1.4-6.5); GRAN % 69.2 % (50.0-68.0); HEMOGLOBIN 10.5 g/dL (12.0-16.0); LYMPH % 14.6 % (22.0-35.0); MEAN CELL VOLUME 75.1 fl (80.0-105.0); MEAN CORPUSCULAR HEMOGLOBIN 23.8 pg (25.0-35.0); MEAN CORPUSCULAR HGB CONC 31.6 g/dl (31.0-37.0); MEAN PLATELET VOLUME 10.4 fl (7.0-11.0); MONO # 0.8 (0.1-0.6); MONO % 11.9 % (1.0-6.0); RBC 4.42 10^6/uL (3.5-6.1); RED CELL DISTRIBUTION WIDTH 21.1 % (11.5-14.5); WHITE BLOOD COUNT 6.7 10^3/uL (4.5-11.0)
--- NOTE | 2018-11-04 09:25 | CON ---
DATE: 11/04/2018 CONSULT REQUESTED BY: Dr. Valerio. REASON FOR CONSULTATION: Severe anemia. HISTORY OF PRESENT ILLNESS: Ms. Espinoza is an 88-year-old female, admitted to the hospital with hemoglobin of 5.5. She developed shortness of breath and wheezing, brought to the ED by the family. She has a history of COPD. She was found to have left lower lobe pneumonia, currently on IV antibiotic, on cefepime, doxycycline as per ID. She was evaluated by GI, Dr. Brown. CAT scan of the abdomen showed a large hiatal hernia. Family and the patient refused EGD for evaluation. She received a few units of blood transfusion during this hospitalization. Hemoglobin is 10.1 on 11/03/2018. She is currently resting in the bed. No shortness of breath, no chest pain. PAST MEDICAL HISTORY: Hypertension, COPD, dementia, dizziness, hypothyroidism, shingles, anemia, history of recurrent falls, GE reflux. PAST SURGICAL HISTORY: Cholecystectomy, left hip replacement, right knee surgery, bladder lift surgery. ALLERGIES: NO KNOWN DRUG ALLERGIES. PERSONAL HISTORY: Former smoker. No history of alcohol abuse. HOME MEDICATIONS: Cozaar, Synthroid 25 mcg daily, Klor-Con 20 mEq daily, albuterol, Flovent two times a day. REVIEW OF SYSTEMS: As per HPI. Rest of 12-point review of systems reviewed negative. PHYSICAL EXAMINATION: GENERAL: Comfortable in bed, in no acute distress. VITAL SIGNS: Heart rate 90 per minute, blood pressure 116/52. HEENT: Pallor positive. NECK: No lymphadenopathy. CHEST: Air entry present and equal bilaterally. No added sounds. CARDIOVASCULAR: S1 and S2 normal. No murmur. No gallop. ABDOMEN: Soft and nontender. No hepatosplenomegaly. SKIN: Pallor positive, dry, and normal. No rash. SPINE: Nontender. CENTRAL NERVOUS SYSTEM: Alert and oriented x3. No focal sensory or motor deficit. LABORATORY DATA: White count 7, hemoglobin 10.1, hematocrit 31.4, platelet count 233. Sodium 138, potassium 4.5, creatinine 0.8. Flu is negative. ASSESSMENT AND PLAN: Severe anemia, likely gastrointestinal bleed. Hemoglobin 5.5, currently 10.8, status post several units of blood transfusion. Other blood counts are normal; white count and platelet count. Coags are within normal limits. No overt gastrointestinal bleeding. CT abdomen and pelvis showed a large hiatal hernia. No mass lesion identified. Family is refusing esophagogastroduodenoscopy. Gastroenterology, Dr. Brown's note reviewed. She was evaluated by Dr. Wolf also. CEA ordered for screening of colon cancer. Thank you Dr. Valerio for allowing us to participate in Ms. Espinoza's care. We will continue to follow. Cookie Coleman MD JESSICA
[2018-11-04 09:46] LABS: LDL CHOLESTEROL 59 mg/dL (0-129)
[2018-11-04 10:37] LABS: ALB/GLOB RATIO 1.3 (1.1-1.8); ALBUMIN 3.2 g/dL (3.0-4.8); ALT/SGPT 25 U/L (7-56); AST/SGOT 20 U/L (14-36); BLOOD UREA NITROGEN 14 mg/dL (7-21); GFR NON-AFRICAN AMERICAN 59; HDL CHOLESTEROL 57 mg/dL (29-60)
[2018-11-04] MEDS: POLYETHYLENE GLYCOL 3350 17 GM/Dose PACKET PO SCH ×3 (10:49→17:34)
[2018-11-04] MEDS: Ferrous Sulfate 300 mg/5 mL Liq UD PO SCH ×3 (10:49→17:33)
--- NOTE | 2018-11-04 12:49 | CARD ---
APPROVED REPORT Date of service: 11/04/2018 EXAM: Two-dimensional and M-mode echocardiogram with Doppler and color Doppler. INDICATION Pulmonary Hypertention SVT 2D DIMENSIONS Left Atrium (2D)3.2 (1.6-4.0cm)IVSd1.2 (0.7-1.1cm) LVDd3.2 (3.9-5.9cm)PWd1.1 (0.7-1.1cm) LVDs2.4 (2.5-4.0cm)FS (%) 26.9 % LVEF (%)53.8 (>50%) M-Mode DIMENSIONS Aortic Root2.80 (2.2-3.7cm)Aortic Cusp Exc.1.70 (1.5-2.0cm) Aortic Valve AoV Peak Uwkogvdf451.0cm/[place] Peak GR.10mmHg Mitral Valve MV E Etucxnja70.5cm/sMV A Sxqpenua62.7cm/sE/A ratio0.8 TDI E/Lateral E'0.0E/Medial E'0.0 Tricuspid Valve TR Peak Hhupvvdw102mm/sRAP [id number] Peak Gr.31mmHg [id number] LEFT VENTRICLE The left ventricle is normal size. There is normal left ventricular wall thickness. The left ventricular function is normal.EF-55% There is normal LV segmental wall motion. Transmitral Doppler flow pattern is Grade III-reversible restrictive diastolic dysfunction. No left ventricle thrombus noted on this study. There is no ventricular septal defect visualized. There is no left ventricular aneurysm. There is no mass noted in the left ventricle. RIGHT VENTRICLE The right ventricle is normal size. There is normal right ventricular wall thickness. The right ventricular systolic function is normal. ATRIA The left atrium size is normal. The right atrium size is normal. The interatrial septum is intact with no evidence for an atrial septal defect. AORTIC VALVE The aortic valve is calcified but opens well. There is mild to moderate aortic regurgitation. Aortic sclerosis VS Mild There is no aortic valvular vegetation. MITRAL VALVE The mitral valve is thickened but opens well. Mitral annular calcification is moderate. Mitral regurgitation is trace. There is no mitral valve stenosis. There is no evidence of mitral valve prolapse. TRICUSPID VALVE The tricuspid valve leaflets are thickened , but open well. There is mild to moderate tricuspid regurgitation.RVSP-41 mmof hg. There is no tricuspid valve stenosis. There is no tricuspid valve prolapse or vegetation. PULMONIC VALVE The pulmonic valve is mildly thickened. There is mild pulmonic valvular regurgitation. There is no pulmonic valvular stenosis. GREAT VESSELS The aortic root is normal in size. The ascending aorta is normal in size. The pulmonary artery is normal. The IVC is normal in size and collapses >50% with inspiration. PERICARDIAL EFFUSION There is no pleural effusion. There is no pericardial effusion. <Conclusion> Normal chamber Size. EF-55%. There is mild to moderate aortic regurgitation. Aortic sclerosis VS Mild Mitral regurgitation is trace. There is mild to moderate tricuspid regurgitation.RVSP-41 mmof hg. There is mild pulmonic valvular regurgitation. The IVC is normal in size and collapses >50% with inspiration. There is no pericardial effusion. No vegetation or thrombus Noted.
--- NOTE | 2018-11-04 14:20 | CP.PCM.APN ---
Subjective - Date & Time of Evaluation Date of Evaluation: 11/04/18 Time of Evaluation: 11:00 - Subjective Subjective: pt seenand examined with son at her bedside pt in NAD offers no complaints Review of Systems - Review of Systems All systems: reviewed and no additional remarkable complaints except Objective - Vital Signs/Intake and Output Vital Signs (last 24 hours): Temp Pulse Resp BP Pulse Ox 97.4 F L 70 18 124/70 95 11/04/18 12:00 11/04/18 12:00 11/04/18 12:00 11/04/18 12:00 11/03/18 06:00 Intake and Output: 11/04/18 11/04/18 06:59 18:59 Intake Total 660 200 Output Total 1225 Balance -565 200 - Medications Medications: Current Medications Albuterol/Ipratropium (Duoneb 3 Mg/0.5 Mg (3 Ml) Ud) 3 ml IH [id number] [facility] Last Admin: 11/04/18 13:46 Dose: 3 ml Atenolol (Tenormin) 12.5 mg PO DAILY [facility] Last Admin: 11/04/18 10:47 Dose: 12.5 mg Doxycycline Hyclate (Doryx) 100 mg PO Q12 [facility]; Protocol Stop: 11/11/18 12:08 Last Admin: 11/04/18 10:49 Dose: 100 mg Ferrous Sulfate (Feosol Liq) 300 mg PO WM [facility] Last Admin: 11/04/18 13:53 Dose: 300 mg Cefepime HCl (Maxipime 1gm) 1 gm in 100 mls @ 100 mls/hr IVPB Q8 [facility]; Protocol Stop: 11/11/18 14:01 Last Admin: 11/04/18 05:40 Dose: 100 mls/hr Levothyroxine Sodium (Synthroid) 25 mcg PO 0600 [facility] Last Admin: 11/04/18 05:41 Dose: 25 mcg Losartan Potassium (Cozaar) 25 mg PO DAILY [facility] Last Admin: 11/04/18 10:48 Dose: 25 mg Pantoprazole Sodium (Protonix Inj) 40 mg IVP DAILY [facility] Last Admin: 11/04/18 10:48 Dose: 40 mg Polyethylene Glycol (Miralax) 17 gm PO TID [facility] Last Admin: 11/04/18 10:49 Dose: Not Given Promethazine HCl (Phenergan Syrup) 6.25 mg PO Q6H PRN PRN Reason: Cough Last Admin: 11/02/18 19:07 Dose: 6.25 mg - Labs Labs: 11/04/18 08:45 11/04/18 08:45 PT 11.8 SECONDS (9.4-12.5) 11/03/18 08:40 INR 1.03 11/03/18 08:40 APTT 23.4 Seconds (25.1-36.5) L 11/03/18 08:40 - Constitutional Appears: No Acute Distress - Head Exam Head Exam: ATRAUMATIC - Eye Exam Pupil Exam: PERRL - Cardiovascular Exam Cardiovascular Exam: +S1, +S2 - GI/Abdominal Exam GI & Abdominal Exam: Soft, Normal Bowel Sounds - Neurological Exam Neurological Exam: Awake - Skin Skin Exam: Dry, Intact Assessment and Plan - Assessment and Plan (Free Text) Plan: A 88 year old female with PMhistory of hypertension, normal pressure hydrochepalus, post WIC SITE COORDINATOR shunt,anemia, falls, hypothyroidism,COPD who initially admitted to the ER due to shortness of breath wheezing and cough found to have symptomatic anemic at 5.5 and 19 initially, admitted for further mgmt #symptomatic anemia s/p 4 units prbc transfusion H?H stable at protonix regimen stool OB - negative Hematology consult with Dr crespo noted ct abd no mass or lesions,CEA screening plan for Endo with GI awaiting son/POA to consent for upper ENDO with Dr Brown #Cardiac consult for SVT/bradycardia. Had burst of SVT Sleeping heart rate bradycardia- otherwise nsr Holter monitor to rule out arrhythmia Echo to evaluate LV function- ef 53% , normal LVF, moderate AR, trace MR, no ve getation or thrombus On Cozaar 25 mg daily, Synthroid 25 mcg daily, Atenolol 12.5 mg daily regimen # left lobe infiltrate vs effusion ID consultation BC negative, UC negative IV maxipine regimen Will follow Kusum Fishman BPCI/TIC - BPCIA/TIC Educated pt/family on BPCIA/CIR/Med to Bed Programs: Yes Flyers given, including [facility] Beneficiary letter: Yes Pt/family verbalized understanding & agreed to program: Yes
--- NOTE | 2018-11-04 15:27 | PN ---
DATE: 11/04/2018 REASON FOR CONSULTATION AND FOLLOWUP: Rule out tachybrady syndrome, history of COPD, hypertension, hyperthyroidism. SUBJECTIVE: Patient denies any chest pain, shortness of breath, or any palpitation. Just lying in the bed. This note is addition to dictated by nurse practitioner, Milla Chan. Telemetry Strip reviewed, no further episode of edson or tachy arrhythmia noted. Holter in progress. RECOMMENDATION: Continue atenolol 12.5 mg started daily. Followup Holter, continue monitor. Telemetry followup, echo to assess MR hemoglobin 13.2. Chemistry is within normal limits. We will follow with you. Thank you Dr. Valerio for providing us the opportunity in taking care of the patient, Olga Sims. Further recommendation will be made after Holter, but so far patient remains stable, no need at this point for pacemaker, but final recommendation will be made after Holter. Christa Wolf MD JESSICA
--- NOTE | 2018-11-04 15:42 | CP.PCM.PN ---
Subjective - Date & Time of Evaluation Date of Evaluation: 11/04/18 Time of Evaluation: 10:30 - Subjective Subjective: Comfortable in bed, no fevers. Objective - Vital Signs/Intake and Output Vital Signs (last 24 hours): Temp Pulse Resp BP Pulse Ox 98 F 80 20 133/62 95 11/03/18 12:00 11/03/18 12:00 11/03/18 12:00 11/03/18 12:00 11/03/18 06:00 Intake and Output: 11/03/18 11/03/18 06:59 18:59 Intake Total 1440 200 Output Total 1150 Balance 290 200 - Medications Medications: Current Medications Albuterol/Ipratropium (Duoneb 3 Mg/0.5 Mg (3 Ml) Ud) 3 ml IH [id number] [facility] Last Admin: 11/03/18 13:02 Dose: 3 ml Atenolol (Tenormin) 12.5 mg PO DAILY [facility] Doxycycline Hyclate (Doryx) 100 mg PO Q12 [facility]; Protocol Stop: 11/11/18 12:08 Last Admin: 11/03/18 11:43 Dose: 100 mg Ferrous Sulfate (Feosol Liq) 300 mg PO WM [facility] Last Admin: 11/03/18 13:50 Dose: 300 mg Cefepime HCl (Maxipime 1gm) 1 gm in 100 mls @ 100 mls/hr IVPB Q8 [facility]; Protocol Stop: 11/11/18 14:01 Last Admin: 11/03/18 13:50 Dose: 100 mls/hr Levothyroxine Sodium (Synthroid) 25 mcg PO 0600 [facility] Last Admin: 11/03/18 06:18 Dose: Not Given Losartan Potassium (Cozaar) 25 mg PO DAILY [facility] Last Admin: 11/03/18 11:43 Dose: 25 mg Pantoprazole Sodium (Protonix Inj) 40 mg IVP DAILY [facility] Last Admin: 11/03/18 11:43 Dose: 40 mg Polyethylene Glycol (Miralax) 17 gm PO TID [facility] Last Admin: 11/03/18 13:38 Dose: Not Given Promethazine HCl (Phenergan Syrup) 6.25 mg PO Q6H PRN PRN Reason: Cough Last Admin: 11/02/18 19:07 Dose: 6.25 mg - Labs Labs: 11/03/18 07:15 11/03/18 07:15 PT 11.8 SECONDS (9.4-12.5) 11/03/18 08:40 INR 1.03 11/03/18 08:40 APTT 23.4 Seconds (25.1-36.5) L 11/03/18 08:40 - Constitutional Appears: Non-toxic, Chronically Ill - Head Exam Head Exam: NORMAL INSPECTION - Neck Exam Neck Exam: absent: Meningismus - Respiratory Exam Respiratory Exam: Decreased Breath Sounds - Cardiovascular Exam Cardiovascular Exam: +S1, +S2 - GI/Abdominal Exam GI & Abdominal Exam: Soft. absent: Tenderness Assessment and Plan - Assessment and Plan (Free Text) Plan: Assessment left lower HCAP history of sepsis from left lower lobe healthcare-associated pneumonia, clinically improved and S/P treatment with antibiotics HTN COPD S/P left hip replacement normal pressure hydrocephalus S/P CORPORATE LEARNING CONSULTANT shunt placement hypothyroidism history of shingles GERD S/P right knee surgery Plan continue Cefepime and Doxycycline day 3; cultures have been negative; reviewed CT A/P and CXR targert 4-7 days of therapy
[2018-11-05] MEDS: Albuterol-Ipratrop 3 mg / 0.5 (3 ml) UD IH SCH ×4 (02:14→21:46)
[2018-11-05] MEDS: Cefepime 1gm in NS 100ml 1 GM/100 ML BAG IVPB SCH ×3 (05:30→21:12)
[2018-11-05] MEDS: Levothyroxine 25 MCG TAB PO SCH (05:31)
[2018-11-05 07:40] LABS: MEAN CELL VOLUME 75.5 fl (80.0-105.0); MEAN CORPUSCULAR HEMOGLOBIN 23.5 pg (25.0-35.0); MEAN CORPUSCULAR HGB CONC 31.1 g/dl (31.0-37.0); MEAN PLATELET VOLUME 9.6 fl (7.0-11.0); RBC 4.69 10^6/uL (3.5-6.1); RED CELL DISTRIBUTION WIDTH 21.6 % (11.5-14.5); WHITE BLOOD COUNT 6.9 10^3/uL (4.5-11.0)
--- NOTE | 2018-11-05 07:52 | CP.PCM.PN ---
Subjective - Date & Time of Evaluation Date of Evaluation: 11/05/18 Time of Evaluation: 06:55 - Subjective Subjective: Awake, confuse, no distress Reason for consultation and follow up:Cardiac evaluation of bradycardia. History of COPD, hypertension hypothyroidism Seen and examined by me and Dr. Wolf Objective - Vital Signs/Intake and Output Vital Signs (last 24 hours): Temp Pulse Resp BP Pulse Ox 98.0 F 72 18 126/71 95 11/05/18 06:00 11/05/18 06:00 11/05/18 06:00 11/05/18 06:00 11/03/18 06:00 Intake and Output: 11/05/18 11/05/18 06:59 18:59 Intake Total 320 Output Total 700 Balance -380 - Medications Medications: Current Medications Acetaminophen (Tylenol 325mg Tab) 650 mg PO Q6H PRN PRN Reason: Headache Last Admin: 11/04/18 17:33 Dose: 650 mg Albuterol/Ipratropium (Duoneb 3 Mg/0.5 Mg (3 Ml) Ud) 3 ml IH [id number] [facility] Last Admin: 11/05/18 07:23 Dose: 3 ml Atenolol (Tenormin) 12.5 mg PO DAILY [facility] Last Admin: 11/04/18 10:47 Dose: 12.5 mg Doxycycline Hyclate (Doryx) 100 mg PO Q12 [facility]; Protocol Stop: 11/11/18 12:08 Last Admin: 11/04/18 22:30 Dose: 100 mg Ferrous Sulfate (Feosol Liq) 300 mg PO WM [facility] Last Admin: 11/04/18 17:33 Dose: 300 mg Cefepime HCl (Maxipime 1gm) 1 gm in 100 mls @ 100 mls/hr IVPB Q8 [facility]; Protocol Stop: 11/11/18 14:01 Last Admin: 11/05/18 05:30 Dose: 100 mls/hr Levothyroxine Sodium (Synthroid) 25 mcg PO 0600 [facility] Last Admin: 11/05/18 05:31 Dose: 25 mcg Losartan Potassium (Cozaar) 25 mg PO DAILY [facility] Last Admin: 11/04/18 10:48 Dose: 25 mg Pantoprazole Sodium (Protonix Inj) 40 mg IVP DAILY [facility] Last Admin: 11/04/18 10:48 Dose: 40 mg Polyethylene Glycol (Miralax) 17 gm PO TID [facility] Last Admin: 11/04/18 17:34 Dose: Not Given Promethazine HCl (Phenergan Syrup) 6.25 mg PO Q6H PRN PRN Reason: Cough Last Admin: 11/02/18 19:07 Dose: 6.25 mg - Labs Labs: 11/05/18 07:00 11/04/18 08:45 PT 11.8 SECONDS (9.4-12.5) 11/03/18 08:40 INR 1.03 11/03/18 08:40 APTT 23.4 Seconds (25.1-36.5) L 11/03/18 08:40 - Constitutional Appears: Non-toxic, No Acute Distress - Head Exam Head Exam: NORMAL INSPECTION, NORMOCEPHALIC - Eye Exam Eye Exam: Normal appearance Pupil Exam: NORMAL ACCOMODATION - ENT Exam ENT Exam: Mucous Membranes Dry - Respiratory Exam Respiratory Exam: Decreased Breath Sounds, Clear to Ausculation Bilateral, NORMAL BREATHING PATTERN - Cardiovascular Exam Cardiovascular Exam: REGULAR RHYTHM, +S1, +S2 Additional comments: Telemetry 60-80's NSR - GI/Abdominal Exam GI & Abdominal Exam: Soft, Normal Bowel Sounds - Extremities Exam Extremities Exam: Full ROM, Normal Capillary Refill - Neurological Exam Neurological Exam: Alert, Awake, Oriented x3 - Psychiatric Exam Psychiatric exam: Normal Affect, Normal Mood - Skin Skin Exam: Dry, Normal Color, Warm Assessment and Plan - Assessment and Plan (Free Text) Assessment: A 88 year old female who initially admitted to the ER due to shortness of breath, admitted for pneumonia. Cardiac consult for SVT/bradycardia. history of hypertension, normal pressure hydrochepalus, post VB NET PROGRAMMER shunt,anemia, hypothyroidism,COPD. Had burst of SVT and while sleeping heart rate bradycardia. Left lower lobe pneumonia. On IV antibiotics.Severe anemia, hematology and GI on consult. Denies shortness of breath. Echo done. Holter monitor in progress. Cardiac status stable. Plan: Echo done- LVEF 55%, mild to moderate aortic regurgitation, trace MR, mild to moderate TR, RVSP 41 mmHg, mild pulmonic valve regurgitation no thrombus or pericardial effusion. No distress, awake,Denies chest pain Will follow up Holter monitor So far no bradycardia or tachycardia on telemetry, NSR 60-80's/min On Cozaar 25 mg daily, Synthroid 25 mcg daily, Atenolol 12.5 mg daily Stable blood pressure Continue IV antibiotics per ID for pneumonia Continue current treatment Will follow up Plan and treatment discussed with Dr. Wolf
--- NOTE | 2018-11-05 08:44 | CP.PCM.PN ---
Subjective - Date & Time of Evaluation Date of Evaluation: 11/05/18 Time of Evaluation: 08:00 - Subjective Subjective: Patient is seen this morning. She complains of stomach pain. She has mild tenderness in the suprapubic area. Hernandez catheter is in place. Objective - Vital Signs/Intake and Output Vital Signs (last 24 hours): Temp Pulse Resp BP Pulse Ox 98.0 F 72 18 126/71 95 11/05/18 06:00 11/05/18 06:00 11/05/18 06:00 11/05/18 06:00 11/03/18 06:00 Intake and Output: 11/05/18 11/05/18 06:59 18:59 Intake Total 320 Output Total 700 Balance -380 - Medications Medications: Current Medications Acetaminophen (Tylenol 325mg Tab) 650 mg PO Q6H PRN PRN Reason: Headache Last Admin: 11/04/18 17:33 Dose: 650 mg Albuterol/Ipratropium (Duoneb 3 Mg/0.5 Mg (3 Ml) Ud) 3 ml IH [id number] [facility] Last Admin: 11/05/18 07:23 Dose: 3 ml Atenolol (Tenormin) 12.5 mg PO DAILY [facility] Last Admin: 11/04/18 10:47 Dose: 12.5 mg Doxycycline Hyclate (Doryx) 100 mg PO Q12 [facility]; Protocol Stop: 11/11/18 12:08 Last Admin: 11/04/18 22:30 Dose: 100 mg Ferrous Sulfate (Feosol Liq) 300 mg PO WM [facility] Last Admin: 11/04/18 17:33 Dose: 300 mg Cefepime HCl (Maxipime 1gm) 1 gm in 100 mls @ 100 mls/hr IVPB Q8 [facility]; Protocol Stop: 11/11/18 14:01 Last Admin: 11/05/18 05:30 Dose: 100 mls/hr Levothyroxine Sodium (Synthroid) 25 mcg PO 0600 [facility] Last Admin: 11/05/18 05:31 Dose: 25 mcg Losartan Potassium (Cozaar) 25 mg PO DAILY [facility] Last Admin: 11/04/18 10:48 Dose: 25 mg Pantoprazole Sodium (Protonix Inj) 40 mg IVP DAILY [facility] Last Admin: 11/04/18 10:48 Dose: 40 mg Polyethylene Glycol (Miralax) 17 gm PO TID [facility] Last Admin: 11/04/18 17:34 Dose: Not Given Promethazine HCl (Phenergan Syrup) 6.25 mg PO Q6H PRN PRN Reason: Cough Last Admin: 11/02/18 19:07 Dose: 6.25 mg - Labs Labs: 11/05/18 07:00 11/04/18 08:45 PT 11.8 SECONDS (9.4-12.5) 11/03/18 08:40 INR 1.03 11/03/18 08:40 APTT 23.4 Seconds (25.1-36.5) L 11/03/18 08:40 - Constitutional Appears: No Acute Distress - Head Exam Head Exam: ATRAUMATIC, NORMOCEPHALIC - Respiratory Exam Respiratory Exam: Clear to Ausculation Bilateral, NORMAL BREATHING PATTERN - Cardiovascular Exam Cardiovascular Exam: +S1, +S2 - GI/Abdominal Exam GI & Abdominal Exam: Soft, Normal Bowel Sounds. absent: Tenderness - Extremities Exam Extremities Exam: Normal Inspection - Neurological Exam Neurological Exam: Alert, Awake Assessment and Plan - Assessment and Plan (Free Text) Assessment: Symptomatic anemia LLL pneumonia HTN COPD Arthritis Dementia Plan: Patient's hemoglobin is around 10 after 4 units PRBCs. Patient seen by he matology. CEA is within normal limits. She is scheduled for EGD this afternoon. continue antibiotics for pneumonia as per infectious disease. Discussed with Dr. Wolf. Holter monitor does not show any further signs of tachy-edson syndrome. No intervention needed at this time.
[2018-11-05] MEDS: POLYETHYLENE GLYCOL 3350 17 GM/Dose PACKET PO SCH ×3 (10:31→17:39)
[2018-11-05] MEDS: Ferrous Sulfate 300 mg/5 mL Liq UD PO SCH ×3 (10:47→17:39)
--- NOTE | 2018-11-05 10:55 | PN ---
DATE: 11/05/2018 REASON FOR CONSULTATION: Rule out tachybrady syndrome, history of COPD, hypertension, for endoscopy dropping H and H. SUBJECTIVE: Patient denies any chest pain, shortness of breath, or any palpitation. N.p.o. for endoscopy today. This note is in addition to dictated by the nurse practitioner, Milla Chan. Telemetry strip reviewed, no further episode of tachy or bradyarrhythmia noted. Holter is being done. Preliminary reviewed, still not being completely scanned, but no evidence of significant tachy or bradyarrhythmia noted, final when is completely scanned. RECOMMENDATION: Continue atenolol 12.5 mg, we will review the Holter when is completely done. Patient had an echocardiography done yesterday that revealed normal chamber size with ejection fraction 55%, [id number] aortic regurgitation, mild aortic stenosis versus aortic sclerosis, trace mitral regurgitation, [id number] tricuspid regurgitation, systolic pressure 41. Recommended the patient is clear to go for endoscopy from Cardiology point of view. Today, hemoglobin is 11, admitted was 5.5, multiple packed RBC transfusion, now H and H is holding. BUN is 14, creatinine is 0.9. Once endoscopy was done, patient is cleared to be discharged. We will review this Holter is completed. Thank you Dr. Valerio for providing us opportunity in taking care of your patient, Bethany Espinoza. We will discuss with you. We will put order for clearance for endoscopy in physician communication. Christa Wolf MD
--- NOTE | 2018-11-05 11:47 | CP.PCM.APN ---
Subjective - Date & Time of Evaluation Date of Evaluation: 11/05/18 Time of Evaluation: 11:39 - Subjective Subjective: pt seen resting in bed, NAD Pt awaiting GI at 230pm , offers no complaints when asked Objective - Vital Signs/Intake and Output Vital Signs (last 24 hours): Temp Pulse Resp BP Pulse Ox 98.0 F 72 18 126/73 95 11/05/18 06:00 11/05/18 10:48 11/05/18 06:00 11/05/18 10:48 11/03/18 06:00 Intake and Output: 11/05/18 11/05/18 06:59 18:59 Intake Total 320 Output Total 700 Balance -380 - Medications Medications: Current Medications Acetaminophen (Tylenol 325mg Tab) 650 mg PO Q6H PRN PRN Reason: Headache Last Admin: 11/04/18 17:33 Dose: 650 mg Albuterol/Ipratropium (Duoneb 3 Mg/0.5 Mg (3 Ml) Ud) 3 ml IH [id number] [facility] Last Admin: 11/05/18 07:23 Dose: 3 ml Atenolol (Tenormin) 12.5 mg PO DAILY [facility] Last Admin: 11/05/18 10:45 Dose: 12.5 mg Doxycycline Hyclate (Doryx) 100 mg PO Q12 [facility]; Protocol Stop: 11/11/18 12:08 Last Admin: 11/05/18 10:47 Dose: 100 mg Ferrous Sulfate (Feosol Liq) 300 mg PO WM [facility] Last Admin: 11/05/18 10:47 Dose: 300 mg Cefepime HCl (Maxipime 1gm) 1 gm in 100 mls @ 100 mls/hr IVPB Q8 [facility]; Protocol Stop: 11/11/18 14:01 Last Admin: 11/05/18 05:30 Dose: 100 mls/hr Levothyroxine Sodium (Synthroid) 25 mcg PO 0600 [facility] Last Admin: 11/05/18 05:31 Dose: 25 mcg Losartan Potassium (Cozaar) 25 mg PO DAILY [facility] Last Admin: 11/05/18 10:48 Dose: 25 mg Pantoprazole Sodium (Protonix Inj) 40 mg IVP DAILY [facility] Last Admin: 11/05/18 10:48 Dose: 40 mg Polyethylene Glycol (Miralax) 17 gm PO TID [facility] Last Admin: 11/05/18 10:31 Dose: Not Given Promethazine HCl (Phenergan Syrup) 6.25 mg PO Q6H PRN PRN Reason: Cough Last Admin: 11/02/18 19:07 Dose: 6.25 mg - Labs Labs: 11/05/18 07:00 11/04/18 08:45 PT 11.8 SECONDS (9.4-12.5) 11/03/18 08:40 INR 1.03 11/03/18 08:40 APTT 23.4 Seconds (25.1-36.5) L 11/03/18 08:40 - Constitutional Appears: Non-toxic - Head Exam Head Exam: NORMOCEPHALIC - Eye Exam Eye Exam: Normal appearance - ENT Exam ENT Exam: Mucous Membranes Moist - Respiratory Exam Respiratory Exam: Decreased Breath Sounds, Clear to Ausculation Bilateral - Cardiovascular Exam Cardiovascular Exam: +S1, +S2 - GI/Abdominal Exam GI & Abdominal Exam: Soft, Normal Bowel Sounds - Extremities Exam Extremities Exam: Normal Capillary Refill - Neurological Exam Neurological Exam: Alert, Awake, Oriented x3 - Psychiatric Exam Psychiatric exam: Normal Affect, Normal Mood - Skin Skin Exam: Dry, Intact, Normal Color Assessment and Plan - Assessment and Plan (Free Text) Plan: A 88 year old female with PMhistory of hypertension, normal pressure hydrochepalus, 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 #symptomatic anemia s/p 4 units prbc transfusion H/H stable at 11 and 35 protonix regimen stool OB - negative Hematology consult with Dr crespo noted ct abd no mass or lesions,CEA screening plan for Endo today at 2 30pm #Cardiac consult for SVT/bradycardia. Had burst of SVT Sleeping heart rate bradycardia- otherwise nsr Holter monitor to rule out arrhythmia Echo- ef 53% , normal LVF, moderate AR, trace MR, no vegetation or thrombus On Cozaar 25 mg daily, Synthroid 25 mcg daily, Atenolol 12.5 mg daily regimen stable for dc from cardiac standpoint per notes rev'd # left lobe infiltrate vs effusion ID consultation BC negative, UC negative IV maxipine regimen Will follow Kusum Fishman
[2018-11-05] MEDS ORDERED: Etomidate 20 mg/10ml Inj IV ONE (15:56)
[2018-11-05] MEDS ORDERED: Midazolam 2 MG/2 ML VIAL ONE (15:59)
--- NOTE | 2018-11-05 18:45 | CP.PCM.PN ---
Subjective - Date & Time of Evaluation Date of Evaluation: 11/05/18 Time of Evaluation: 09:50 - Subjective Subjective: Comfortable in bed, no fevers, not in distress. Objective - Vital Signs/Intake and Output Vital Signs (last 24 hours): Temp Pulse Resp BP Pulse Ox 97.4 F L 70 18 124/70 95 11/04/18 12:00 11/04/18 12:00 11/04/18 12:00 11/04/18 12:00 11/03/18 06:00 Intake and Output: 11/04/18 11/04/18 06:59 18:59 Intake Total 660 200 Output Total 1225 Balance -565 200 - Medications Medications: Current Medications Albuterol/Ipratropium (Duoneb 3 Mg/0.5 Mg (3 Ml) Ud) 3 ml IH [id number] [facility] Last Admin: 11/04/18 13:46 Dose: 3 ml Atenolol (Tenormin) 12.5 mg PO DAILY [facility] Last Admin: 11/04/18 10:47 Dose: 12.5 mg Doxycycline Hyclate (Doryx) 100 mg PO Q12 [facility]; Protocol Stop: 11/11/18 12:08 Last Admin: 11/04/18 10:49 Dose: 100 mg Ferrous Sulfate (Feosol Liq) 300 mg PO WM [facility] Last Admin: 11/04/18 13:53 Dose: 300 mg Cefepime HCl (Maxipime 1gm) 1 gm in 100 mls @ 100 mls/hr IVPB Q8 [facility]; Protocol Stop: 11/11/18 14:01 Last Admin: 11/04/18 14:16 Dose: 100 mls/hr Levothyroxine Sodium (Synthroid) 25 mcg PO 0600 [facility] Last Admin: 11/04/18 05:41 Dose: 25 mcg Losartan Potassium (Cozaar) 25 mg PO DAILY [facility] Last Admin: 11/04/18 10:48 Dose: 25 mg Pantoprazole Sodium (Protonix Inj) 40 mg IVP DAILY [facility] Last Admin: 11/04/18 10:48 Dose: 40 mg Polyethylene Glycol (Miralax) 17 gm PO TID [facility] Last Admin: 11/04/18 14:25 Dose: Not Given Promethazine HCl (Phenergan Syrup) 6.25 mg PO Q6H PRN PRN Reason: Cough Last Admin: 11/02/18 19:07 Dose: 6.25 mg - Labs Labs: 11/04/18 08:45 11/04/18 08:45 PT 11.8 SECONDS (9.4-12.5) 11/03/18 08:40 INR 1.03 11/03/18 08:40 APTT 23.4 Seconds (25.1-36.5) L 11/03/18 08:40 - Constitutional Appears: Chronically Ill - Head Exam Head Exam: NORMAL INSPECTION - Neck Exam Neck Exam: absent: Meningismus - Respiratory Exam Respiratory Exam: Decreased Breath Sounds - Cardiovascular Exam Cardiovascular Exam: +S1, +S2 - GI/Abdominal Exam GI & Abdominal Exam: Soft. absent: Tenderness Assessment and Plan - Assessment and Plan (Free Text) Plan: Assessment left lower HCAP history of sepsis from left lower lobe healthcare-associated pneumonia, clinically improved and S/P treatment with antibiotics HTN COPD S/P left hip replacement normal pressure hydrocephalus S/P PRIMARY COUNSELOR shunt placement hypothyroidism history of shingles GERD S/P right knee surgery Plan continue Cefepime and Doxycycline day 4; cultures have been negative; reviewed CT A/P and CXR targert 4-7 days of therapy
[2018-11-06] MEDS: Albuterol-Ipratrop 3 mg / 0.5 (3 ml) UD IH SCH ×4 (04:42→19:51)
[2018-11-06] MEDS: Cefepime 1gm in NS 100ml 1 GM/100 ML BAG IVPB SCH ×3 (05:24→22:09)
[2018-11-06] MEDS: Levothyroxine 25 MCG TAB PO SCH (05:24)
--- NOTE | 2018-11-06 06:58 | CP.PCM.PN ---
Subjective - Date & Time of Evaluation Date of Evaluation: 11/06/18 Time of Evaluation: 06:25 - Subjective Subjective: No distress, awake, alert, denies chest pain or shortness of breath Reason for consultation and follow up:Cardiac evaluation of bradycardia. History of COPD, hypertension hypothyroidism Seen and examined by me and Dr. Wolf Objective - Vital Signs/Intake and Output Vital Signs (last 24 hours): Temp Pulse Resp BP Pulse Ox 97.8 F 71 20 115/68 96 11/05/18 18:14 11/05/18 22:00 11/05/18 18:14 11/05/18 18:14 11/05/18 16:27 Intake and Output: 11/05/18 11/06/18 18:59 06:59 Intake Total 100 240 Output Total 1000 Balance 100 -760 - Medications Medications: Current Medications Acetaminophen (Tylenol 325mg Tab) 650 mg PO Q6H PRN PRN Reason: Headache Last Admin: 11/04/18 17:33 Dose: 650 mg Albuterol/Ipratropium (Duoneb 3 Mg/0.5 Mg (3 Ml) Ud) 3 ml IH [id number] [facility] Last Admin: 11/06/18 04:42 Dose: Not Given Atenolol (Tenormin) 12.5 mg PO DAILY [facility] Last Admin: 11/05/18 10:45 Dose: 12.5 mg Doxycycline Hyclate (Doryx) 100 mg PO Q12 [facility]; Protocol Stop: 11/11/18 12:08 Last Admin: 11/05/18 21:27 Dose: 100 mg Ferrous Sulfate (Feosol Liq) 300 mg PO WM [facility] Last Admin: 11/05/18 17:39 Dose: Not Given Cefepime HCl (Maxipime 1gm) 1 gm in 100 mls @ 100 mls/hr IVPB Q8 [facility]; Protocol Stop: 11/11/18 14:01 Last Admin: 11/06/18 05:24 Dose: 100 mls/hr Levothyroxine Sodium (Synthroid) 25 mcg PO 0600 [facility] Last Admin: 11/06/18 05:24 Dose: 25 mcg Losartan Potassium (Cozaar) 25 mg PO DAILY [facility] Last Admin: 11/05/18 10:48 Dose: 25 mg Pantoprazole Sodium (Protonix Inj) 40 mg IVP DAILY [facility] Last Admin: 11/05/18 10:48 Dose: 40 mg Polyethylene Glycol (Miralax) 17 gm PO TID [facility] Last Admin: 11/05/18 17:39 Dose: Not Given Promethazine HCl (Phenergan Syrup) 6.25 mg PO Q6H PRN PRN Reason: Cough Last Admin: 11/02/18 19:07 Dose: 6.25 mg - Labs Labs: 11/05/18 07:00 11/04/18 08:45 PT 11.8 SECONDS (9.4-12.5) 11/03/18 08:40 INR 1.03 11/03/18 08:40 APTT 23.4 Seconds (25.1-36.5) L 11/03/18 08:40 - Constitutional Appears: Non-toxic, No Acute Distress - Head Exam Head Exam: NORMAL INSPECTION, NORMOCEPHALIC - Eye Exam Eye Exam: Normal appearance Pupil Exam: NORMAL ACCOMODATION - ENT Exam ENT Exam: Mucous Membranes Moist, Normal Exam - Respiratory Exam Respiratory Exam: Clear to Ausculation Bilateral, NORMAL BREATHING PATTERN - Cardiovascular Exam Cardiovascular Exam: +S1, +S2 Additional comments: Telemetry NSR 70's - GI/Abdominal Exam GI & Abdominal Exam: Soft, Normal Bowel Sounds - Extremities Exam Extremities Exam: Full ROM, Normal Capillary Refill - Neurological Exam Neurological Exam: Alert, Awake - Psychiatric Exam Psychiatric exam: Normal Affect, Normal Mood - Skin Skin Exam: Dry, Normal Color, Warm Assessment and Plan - Assessment and Plan (Free Text) Assessment: A 88 year old female who initially admitted to the ER due to shortness of breath, admitted for pneumonia. Cardiac consult for SVT/bradycardia. 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 Had burst of SVT and while sleeping heart rate bradycardia. Left lower lobe pneumonia. On IV antibiotics.Severe anemia, hematology and GI on consult. Denies shortness of breath. Echo done. Holter monitor in progress. Cardiac status stable. Echo done- LVEF 55%, mild to moderate aortic regurgitation, trace MR, mild to moderate TR, RVSP 41 mmHg, mild pulmonic valve regurgitation, no thrombus or pericardial effusion. Endoscopy done yesterday. Gastric ulcers, Hiatal hernia. Holter monitor completed will follow up final result. So far no bradycardia or tachycardia on telemetry. Plan: Post Endoscopy yesterday, gastric ulcers and hiatal hernia,Schatzki ring. No distress, awake,Denies chest pain Holter monitor completed, will follow up result So far no bradycardia or tachycardia on telemetry On Cozaar 25 mg daily, Synthroid 25 mcg daily, Atenolol 12.5 mg daily Cardiac status stble Stable blood pressure Continue IV antibiotics per ID for pneumonia Continue current treatment Will follow up Plan and treatment discussed with Dr. Wolf
--- NOTE | 2018-11-06 08:03 | CP.PCM.PN ---
<Yosi Powell - Last Filed: 11/06/18 11:34> Subjective - Date & Time of Evaluation Date of Evaluation: 11/06/18 Time of Evaluation: 07:58 - Subjective Subjective: GI Progress Note for Dr. Brown Patient seen and examined at bedside. No acute overnight events. Patient tolerated endoscopy well. Patient denies CP, SOB, n/v/d, abdominal pain, fever, chills, CONTRERAS, or dizziness. Objective - Vital Signs/Intake and Output Vital Signs (last 24 hours): Temp Pulse Resp BP Pulse Ox 97.8 F 71 20 115/68 96 11/05/18 18:14 11/06/18 02:00 11/05/18 18:14 11/05/18 18:14 11/05/18 16:27 Intake and Output: 11/06/18 11/06/18 06:59 18:59 Intake Total 660 Output Total 1000 Balance -340 - Medications Medications: Current Medications Acetaminophen (Tylenol 325mg Tab) 650 mg PO Q6H PRN PRN Reason: Headache Last Admin: 11/04/18 17:33 Dose: 650 mg Albuterol/Ipratropium (Duoneb 3 Mg/0.5 Mg (3 Ml) Ud) 3 ml IH [id number] [facility] Last Admin: 11/06/18 04:42 Dose: Not Given Atenolol (Tenormin) 12.5 mg PO DAILY [facility] Last Admin: 11/05/18 10:45 Dose: 12.5 mg Doxycycline Hyclate (Doryx) 100 mg PO Q12 [facility]; Protocol Stop: 11/11/18 12:08 Last Admin: 11/05/18 21:27 Dose: 100 mg Ferrous Sulfate (Feosol Liq) 300 mg PO WM [facility] Last Admin: 11/05/18 17:39 Dose: Not Given Cefepime HCl (Maxipime 1gm) 1 gm in 100 mls @ 100 mls/hr IVPB Q8 [facility]; Protocol Stop: 11/11/18 14:01 Last Admin: 11/06/18 05:24 Dose: 100 mls/hr Levothyroxine Sodium (Synthroid) 25 mcg PO 0600 [facility] Last Admin: 11/06/18 05:24 Dose: 25 mcg Losartan Potassium (Cozaar) 25 mg PO DAILY [facility] Last Admin: 11/05/18 10:48 Dose: 25 mg Pantoprazole Sodium (Protonix Inj) 40 mg IVP DAILY [facility] Last Admin: 11/05/18 10:48 Dose: 40 mg Polyethylene Glycol (Miralax) 17 gm PO TID [facility] Last Admin: 11/05/18 17:39 Dose: Not Given Promethazine HCl (Phenergan Syrup) 6.25 mg PO Q6H PRN PRN Reason: Cough Last Admin: 11/02/18 19:07 Dose: 6.25 mg - Labs Labs: 11/05/18 07:00 11/04/18 08:45 PT 11.8 SECONDS (9.4-12.5) 11/03/18 08:40 INR 1.03 11/03/18 08:40 APTT 23.4 Seconds (25.1-36.5) L 11/03/18 08:40 - Constitutional Appears: No Acute Distress - Head Exam Head Exam: NORMAL INSPECTION - Eye Exam Eye Exam: EOMI, Normal appearance Pupil Exam: NORMAL ACCOMODATION - ENT Exam ENT Exam: Mucous Membranes Moist, Normal Exam - Respiratory Exam Respiratory Exam: Clear to Ausculation Bilateral. absent: Rales, Rhonchi, Wheezes - Cardiovascular Exam Cardiovascular Exam: RRR, +S1, +S2. absent: Clicks, Gallop, Murmur - GI/Abdominal Exam GI & Abdominal Exam: Soft. absent: Distended, Tenderness, Rebound - Extremities Exam Extremities Exam: Normal Inspection - Back Exam Back Exam: NORMAL INSPECTION - Neurological Exam Neurological Exam: Alert, Awake, Oriented x3 - Psychiatric Exam Psychiatric exam: Normal Affect, Normal Mood - Skin Skin Exam: Dry, Normal Color Assessment and Plan - Assessment and Plan (Free Text) Assessment: 88 yo F with PMH of NPH s/p shunt, HTN, anemia, COPD, and hypothyroidism presents to [facility] due to weakness and dyspnea. Patient was found to have a hemoglobin of 5.5 on admission. Patient was admitted for symptomatic anemia. Hgb has stabilized overall after requiring transfusion of 4 units of pRBC overall. CT abdomen/pelvis showed large hiatal hernia and gastritis. EGD yesterday revealed large hiatal hernia, gastritis, and samuel ulcer. 1. Symptomatic Anemia 2. Gastritis 3. Samuel Ulcer 4. Large hiatal hernia 5. HCAP Plan: - Continue ASA use with PPI - PPI should be taken at least 30 min prior to meals in the AM - Iron infusion per primary - Miralax TID - Recommend periodic outpatient follow up - At this time, we will sign off. Please reconsult as needed. Patient seen and discussed in detail with Dr. Brown. Rhys Powell, DO PGY2 <Caroline Brown V - Last Filed: 11/06/18 23:17> Objective - Vital Signs/Intake and Output Vital Signs (last 24 hours): Temp Pulse Resp BP Pulse Ox 98 F 74 18 135/68 96 11/06/18 18:10 11/06/18 18:10 11/06/18 18:10 11/06/18 18:10 11/05/18 16:27 Intake and Output: 11/06/18 11/07/18 18:59 06:59 Intake Total 200 900 Output Total 600 Balance 200 300 - Medications Medications: Current Medications Acetaminophen (Tylenol 325mg Tab) 650 mg PO Q6H PRN PRN Reason: Headache Last Admin: 11/04/18 17:33 Dose: 650 mg Albuterol/Ipratropium (Duoneb 3 Mg/0.5 Mg (3 Ml) Ud) 3 ml IH [id number] [facility] Last Admin: 11/06/18 19:51 Dose: 3 ml Atenolol (Tenormin) 12.5 mg PO DAILY [facility] Last Admin: 11/06/18 09:48 Dose: 12.5 mg Doxycycline Hyclate (Doryx) 100 mg PO Q12 [facility]; Protocol Stop: 11/11/18 12:08 Last Admin: 11/06/18 22:09 Dose: 100 mg Ferrous Sulfate (Feosol Liq) 300 mg PO WM [facility] Last Admin: 11/06/18 17:34 Dose: 300 mg Cefepime HCl (Maxipime 1gm) 1 gm in 100 mls @ 100 mls/hr IVPB Q8 [facility]; Protocol Stop: 11/11/18 14:01 Last Admin: 11/06/18 22:09 Dose: 100 mls/hr Levothyroxine Sodium (Synthroid) 25 mcg PO 0600 [facility] Last Admin: 11/06/18 05:24 Dose: 25 mcg Losartan Potassium (Cozaar) 25 mg PO DAILY [facility] Last Admin: 11/06/18 09:48 Dose: 25 mg Pantoprazole Sodium (Protonix Inj) 40 mg IVP DAILY [facility] Last Admin: 11/06/18 09:48 Dose: 40 mg Polyethylene Glycol (Miralax) 17 gm PO TID [facility] Last Admin: 11/06/18 17:31 Dose: Not Given Promethazine HCl (Phenergan Syrup) 6.25 mg PO Q6H PRN PRN Reason: Cough Last Admin: 11/02/18 19:07 Dose: 6.25 mg Sucralfate (Carafate Oral Susp) 1 gm PO 0600,1600 [facility] Last Admin: 11/06/18 17:34 Dose: 1 gm - Labs Labs: 11/05/18 07:00 11/04/18 08:45 PT 11.8 SECONDS (9.4-12.5) 11/03/18 08:40 INR 1.03 11/03/18 08:40 APTT 23.4 Seconds (25.1-36.5) L 11/03/18 08:40 Attending/Attestation - Attestation I have personally seen and examined this patient.: Yes I have fully participated in the care of the patient.: Yes I have reviewed all pertinent clinical information, including history, physical exam and plan: Yes Notes (Text): This is an addendum to GI followup report dictated by the Union Carpenter. The patient was seen and evaluated earlier. Medical records, lab studies, imagings were reviewed. Last 24 hours events reviewed. Agreed with the above treatment plan as outlined in Union Carpenter 's notes with the addition of the following Status post EGD antral ulcers and also Samuel ulcers were noted with a large hiatus hernia in this patient Patient was elderly Protonix at the time of admission. Patient was admittth severe anemia status post transfusi Family discussed withe patient's family who preferred only coservative manageme Would add Carafate 1 g at nighttime and avoid other medications 2 hours before and after. Because of slight risk of confusion with Pepcid would avoid it at this present time 11/06/18 23:15
[2018-11-06] MEDS: Ferrous Sulfate 300 mg/5 mL Liq UD PO SCH ×3 (08:37→17:34)
--- NOTE | 2018-11-06 09:34 | PN ---
DATE: 11/06/2018 LOCATION: The patient is in room 277, bed 1. SUBJECTIVE: The patient was admitted with severe anemia, shortness of breath and iron deficiency anemia. The patient has past history of normal pressure hydrocephalus. She has a ventriculoperitoneal shunt. She has history of hypertension, chronic lung disease, mild hypothyroidism. The patient also has history of gastritis. PHYSICAL EXAMINATION: VITAL SIGNS: This morning, pulse is 75, blood pressure 115/60 and respirations are 20 per minute. The patient appears to be clinically improved, but confused. LUNGS: The patient's lungs are clear. Occasional rhonchi. HEART: Normal sinus rhythm. S1 and S2, present. No murmurs. ABDOMEN: No tenderness. CENTRAL NERVOUS SYSTEM: The patient is conscious and confused. No focal neurological deficit. The patient's endoscopy examination yesterday shows that she has large hiatus hernia, shows she has ulcer within the hiatal hernia. The patient's anemia is probably related to the hiatus hernia and the ulcer in the hiatus hernia. LABORATORY DATA: The patient's blood work, the hemoglobin is 11.0, initially came in with hemoglobin of 5.5. The patient is going to get iron infusion today and we will ambulate the patient and followup. Chemistry, the BUN is 14 and creatinine is 0.9. The patient's GFR is good. Total protein is 5.6 which is low, albumin is 3.2 which is also low, but within normal range. We will followup. Rick Valerio MD MTDAncelmo
[2018-11-06] MEDS: POLYETHYLENE GLYCOL 3350 17 GM/Dose PACKET PO SCH ×3 (09:51→17:31)
--- NOTE | 2018-11-06 10:44 | CP.PCM.APN ---
Subjective - Subjective Subjective: pt seen and examined in bedside , pt reports feeling tired but offers no additional complaints Review of Systems - Review of Systems All systems: reviewed and no additional remarkable complaints except Objective - Vital Signs/Intake and Output Vital Signs (last 24 hours): Temp Pulse Resp BP Pulse Ox 97.8 F 87 20 129/86 96 11/05/18 18:14 11/06/18 09:48 11/05/18 18:14 11/06/18 09:48 11/05/18 16:27 Intake and Output: 11/06/18 11/06/18 06:59 18:59 Intake Total 660 Output Total 1000 Balance -340 - Medications Medications: Current Medications Acetaminophen (Tylenol 325mg Tab) 650 mg PO Q6H PRN PRN Reason: Headache Last Admin: 11/04/18 17:33 Dose: 650 mg Albuterol/Ipratropium (Duoneb 3 Mg/0.5 Mg (3 Ml) Ud) 3 ml IH [id number] [facility] Last Admin: 11/06/18 08:14 Dose: 3 ml Atenolol (Tenormin) 12.5 mg PO DAILY [facility] Last Admin: 11/06/18 09:48 Dose: 12.5 mg Doxycycline Hyclate (Doryx) 100 mg PO Q12 [facility]; Protocol Stop: 11/11/18 12:08 Last Admin: 11/06/18 09:48 Dose: 100 mg Ferrous Sulfate (Feosol Liq) 300 mg PO WM [facility] Last Admin: 11/06/18 08:37 Dose: 300 mg Cefepime HCl (Maxipime 1gm) 1 gm in 100 mls @ 100 mls/hr IVPB Q8 [facility]; Protocol Stop: 11/11/18 14:01 Last Admin: 11/06/18 05:24 Dose: 100 mls/hr Levothyroxine Sodium (Synthroid) 25 mcg PO 0600 [facility] Last Admin: 11/06/18 05:24 Dose: 25 mcg Losartan Potassium (Cozaar) 25 mg PO DAILY [facility] Last Admin: 11/06/18 09:48 Dose: 25 mg Pantoprazole Sodium (Protonix Inj) 40 mg IVP DAILY [facility] Last Admin: 11/06/18 09:48 Dose: 40 mg Polyethylene Glycol (Miralax) 17 gm PO TID [facility] Last Admin: 11/06/18 09:51 Dose: Not Given Promethazine HCl (Phenergan Syrup) 6.25 mg PO Q6H PRN PRN Reason: Cough Last Admin: 11/02/18 19:07 Dose: 6.25 mg Sucralfate (Carafate Oral Susp) 1 gm PO 0600,1600 [facility] - Labs Labs: 11/05/18 07:00 11/04/18 08:45 PT 11.8 SECONDS (9.4-12.5) 11/03/18 08:40 INR 1.03 11/03/18 08:40 APTT 23.4 Seconds (25.1-36.5) L 11/03/18 08:40 - Constitutional Appears: No Acute Distress - Head Exam Head Exam: NORMAL INSPECTION, NORMOCEPHALIC - Neck Exam Neck Exam: Normal Inspection - Respiratory Exam Respiratory Exam: Decreased Breath Sounds - Cardiovascular Exam Cardiovascular Exam: +S1, +S2 - GI/Abdominal Exam GI & Abdominal Exam: Soft - Neurological Exam Neurological Exam: Alert, Awake - Skin Skin Exam: Dry, Intact, Warm Assessment and Plan - Assessment and Plan (Free Text) Plan: All Active Problems COPD exacerbation (Acute) Symptomatic anemia (Acute) Altered mental status (Acute) Ataxia (Acute) CVA (cerebral vascular accident) (Acute) Chest pain (Acute) Chronic obstructive airway disease (Acute) Dehydration (Acute) Diarrhea (Acute) Dizziness (Acute) Dyspnea (Acute) Fall (Acute) Hip pain (Acute) Metabolic acidosis (Acute) Pneumonia (Acute) Renal failure (Acute) A 88 year old female with PMhistory of hypertension, normal pressure hydrochepalus, post VOCATIONAL REHABILITATION SPECIALIST 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 #symptomatic anemia s/p 4 units prbc transfusion H/H stable at 11 and 35 protonix regimen stool OB - negative Hematology consult with Dr crespo noted ct abd no mass or lesions,CEA screening iV Iron infusion x 2 additional days per PMD pt is status post Endo with report showing aren ulcer #Cardiac consult for SVT/bradycardia. Had burst of SVT Sleeping heart rate bradycardia- otherwise nsr Holter monitor to rule out arrhythmia Echo- ef 53% , normal LVF, moderate AR, trace MR, no vegetation or thrombus On Cozaar 25 mg daily, Synthroid 25 mcg daily, Atenolol 12.5 mg daily regimen stable for dc from cardiac standpoint per notes rev'd # left lobe infiltrate vs effusion ID consultation BC negative, UC negative IV maxipine regimen Physical therapy ordered Will follow Kusum Fishman APN BPCI/TIC - BPCIA/TIC Educated pt/family on BPCIA/CIR/Med to Bed Programs: Yes Flyers given, including CMS Beneficiary letter: Yes Pt/family verbalized understanding & agreed to program: Yes
[2018-11-06 11:59] VITALS: RESP 18
--- NOTE | 2018-11-06 15:37 | CP.PCM.PN ---
Subjective - Date & Time of Evaluation Date of Evaluation: 11/06/18 Time of Evaluation: 10:30 - Subjective Subjective: Comfortable, not in distress, no fevers. Objective - Vital Signs/Intake and Output Vital Signs (last 24 hours): Temp Pulse Resp BP Pulse Ox 97.8 F 63 20 115/68 96 11/05/18 18:14 11/05/18 18:14 11/05/18 18:14 11/05/18 18:14 11/05/18 16:27 Intake and Output: 11/05/18 11/05/18 06:59 18:59 Intake Total 320 Output Total 700 Balance -380 - Medications Medications: Current Medications Acetaminophen (Tylenol 325mg Tab) 650 mg PO Q6H PRN PRN Reason: Headache Last Admin: 11/04/18 17:33 Dose: 650 mg Albuterol/Ipratropium (Duoneb 3 Mg/0.5 Mg (3 Ml) Ud) 3 ml IH [id number] [facility] Last Admin: 11/05/18 13:22 Dose: 3 ml Atenolol (Tenormin) 12.5 mg PO DAILY [facility] Last Admin: 11/05/18 10:45 Dose: 12.5 mg Doxycycline Hyclate (Doryx) 100 mg PO Q12 [facility]; Protocol Stop: 11/11/18 12:08 Last Admin: 11/05/18 10:47 Dose: 100 mg Ferrous Sulfate (Feosol Liq) 300 mg PO WM [facility] Last Admin: 11/05/18 17:39 Dose: Not Given Cefepime HCl (Maxipime 1gm) 1 gm in 100 mls @ 100 mls/hr IVPB Q8 [facility]; Protocol Stop: 11/11/18 14:01 Last Admin: 11/05/18 13:03 Dose: 100 mls/hr Levothyroxine Sodium (Synthroid) 25 mcg PO 0600 [facility] Last Admin: 11/05/18 05:31 Dose: 25 mcg Losartan Potassium (Cozaar) 25 mg PO DAILY [facility] Last Admin: 11/05/18 10:48 Dose: 25 mg Pantoprazole Sodium (Protonix Inj) 40 mg IVP DAILY [facility] Last Admin: 11/05/18 10:48 Dose: 40 mg Polyethylene Glycol (Miralax) 17 gm PO TID [facility] Last Admin: 11/05/18 17:39 Dose: Not Given Promethazine HCl (Phenergan Syrup) 6.25 mg PO Q6H PRN PRN Reason: Cough Last Admin: 11/02/18 19:07 Dose: 6.25 mg - Labs Labs: 11/05/18 07:00 11/04/18 08:45 PT 11.8 SECONDS (9.4-12.5) 11/03/18 08:40 INR 1.03 11/03/18 08:40 APTT 23.4 Seconds (25.1-36.5) L 11/03/18 08:40 - Constitutional Appears: Chronically Ill - Head Exam Head Exam: NORMAL INSPECTION - Neck Exam Neck Exam: absent: Meningismus - Respiratory Exam Respiratory Exam: Decreased Breath Sounds - Cardiovascular Exam Cardiovascular Exam: +S1, +S2 - GI/Abdominal Exam GI & Abdominal Exam: Soft. absent: Tenderness Assessment and Plan - Assessment and Plan (Free Text) Plan: Assessment left lower HCAP history of sepsis from left lower lobe healthcare-associated pneumonia, clinically improved and S/P treatment with antibiotics HTN COPD S/P left hip replacement normal pressure hydrocephalus S/P CATALYST SUPERVISOR shunt placement hypothyroidism history of shingles GERD S/P right knee surgery Plan continue Cefepime and Doxycycline day 5; cultures have been negative; reviewed CT A/P and CXR target 4-7 days of therapy
[2018-11-06] MEDS: Sucralfate 1 gm/10 ml Oral Susp UD PO SCH (17:34)
--- NOTE | 2018-11-06 20:11 | PN ---
DATE: 11/06/2018 REASON FOR CONSULTATION AND FOLLOWUP: Followup cardiac evaluation, anemia, rule out tachy-edson syndrome, hypertension, hypothyroidism. Yesterday, the patient underwent endoscopy, Holter is in the process, but did not show any significant tachyarrhythmia or bradyarrhythmia. Endoscopy yesterday shows hiatal hernia. Recommend to continue low dose of beta madeleine, we will discontinue telemetry. Discussed with Dr. Valerio. Thank you Dr. Valerio for providing us the opportunity in taking care of the patient, Olga. Christa Wolf MD
[2018-11-07] MEDS: Albuterol-Ipratrop 3 mg / 0.5 (3 ml) UD IH SCH ×3 (02:00→13:23)
[2018-11-07] MEDS: Levothyroxine 25 MCG TAB PO SCH (05:28)
[2018-11-07] MEDS: Cefepime 1gm in NS 100ml 1 GM/100 ML BAG IVPB SCH ×2 (05:28→16:21)
[2018-11-07] MEDS: Sucralfate 1 gm/10 ml Oral Susp UD PO SCH ×2 (05:30→16:20)
[2018-11-07 06:31] VITALS: BP 134/71; PULSE 68; TEMP 98.4; O2SAT 97
--- NOTE | 2018-11-07 06:51 | CP.PCM.PN ---
Subjective - Date & Time of Evaluation Date of Evaluation: 11/07/18 Time of Evaluation: 06:25 - Subjective Subjective: Lying in bed, No distress, Reason for consultation and follow up:Cardiac evaluation of bradycardia. History of COPD, hypertension hypothyroidism Seen and examined by me and Dr. Wolf Objective - Vital Signs/Intake and Output Vital Signs (last 24 hours): Temp Pulse Resp BP Pulse Ox 98.4 F 68 18 134/71 97 11/07/18 06:00 11/07/18 06:00 11/07/18 06:00 11/07/18 06:00 11/07/18 06:00 Intake and Output: 11/06/18 11/07/18 18:59 06:59 Intake Total 200 1260 Output Total 600 Balance 200 660 - Medications Medications: Current Medications Acetaminophen (Tylenol 325mg Tab) 650 mg PO Q6H PRN PRN Reason: Headache Last Admin: 11/04/18 17:33 Dose: 650 mg Albuterol/Ipratropium (Duoneb 3 Mg/0.5 Mg (3 Ml) Ud) 3 ml IH [id number] [facility] Last Admin: 11/07/18 02:00 Dose: Not Given Atenolol (Tenormin) 12.5 mg PO DAILY [facility] Last Admin: 11/06/18 09:48 Dose: 12.5 mg Doxycycline Hyclate (Doryx) 100 mg PO Q12 [facility]; Protocol Stop: 11/11/18 12:08 Last Admin: 11/06/18 22:09 Dose: 100 mg Ferrous Sulfate (Feosol Liq) 300 mg PO WM [facility] Last Admin: 11/06/18 17:34 Dose: 300 mg Cefepime HCl (Maxipime 1gm) 1 gm in 100 mls @ 100 mls/hr IVPB Q8 [facility]; Protocol Stop: 11/11/18 14:01 Last Admin: 11/07/18 05:28 Dose: 100 mls/hr Levothyroxine Sodium (Synthroid) 25 mcg PO 0600 [facility] Last Admin: 11/07/18 05:28 Dose: 25 mcg Losartan Potassium (Cozaar) 25 mg PO DAILY [facility] Last Admin: 11/06/18 09:48 Dose: 25 mg Pantoprazole Sodium (Protonix Inj) 40 mg IVP DAILY [facility] Last Admin: 11/06/18 09:48 Dose: 40 mg Polyethylene Glycol (Miralax) 17 gm PO TID [facility] Last Admin: 11/06/18 17:31 Dose: Not Given Promethazine HCl (Phenergan Syrup) 6.25 mg PO Q6H PRN PRN Reason: Cough Last Admin: 11/02/18 19:07 Dose: 6.25 mg Sucralfate (Carafate Oral Susp) 1 gm PO 0600,1600 [facility] Last Admin: 11/07/18 05:30 Dose: 1 gm - Labs Labs: 11/05/18 07:00 11/04/18 08:45 PT 11.8 SECONDS (9.4-12.5) 11/03/18 08:40 INR 1.03 11/03/18 08:40 APTT 23.4 Seconds (25.1-36.5) L 11/03/18 08:40 - Constitutional Appears: Non-toxic, No Acute Distress - Head Exam Head Exam: NORMAL INSPECTION, NORMOCEPHALIC - Eye Exam Eye Exam: Normal appearance Pupil Exam: NORMAL ACCOMODATION - ENT Exam ENT Exam: Mucous Membranes Moist, Normal Exam - Respiratory Exam Respiratory Exam: Clear to Ausculation Bilateral, NORMAL BREATHING PATTERN - Cardiovascular Exam Cardiovascular Exam: +S1, +S2 - GI/Abdominal Exam GI & Abdominal Exam: Soft, Normal Bowel Sounds - Extremities Exam Extremities Exam: Full ROM, Normal Capillary Refill - Neurological Exam Neurological Exam: Alert, Awake - Psychiatric Exam Psychiatric exam: Normal Affect, Normal Mood - Skin Skin Exam: Dry, Normal Color, Warm Assessment and Plan - Assessment and Plan (Free Text) Assessment: A 88 year old female who initially admitted to the ER due to shortness of breath, admitted for pneumonia. Cardiac consult for SVT/bradycardia. 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 Had burst of SVT and while sleeping heart rate bradycardia. Left lower lobe pneumonia. On IV antibiotics.Severe anemia, hematology and GI on consult. Denies shortness of breath. Echo done. Holter monitor in progress. Echo done- LVEF 55%, mild to moderate aortic regurgitation, trace MR, mild to moderate TR, RVSP 41 mmHg, mild pulmonic valve regurgitation, no thrombus or pericardial effusion. Endoscopy done yesterday. Gastric ulcers, Hiatal hernia. Holter monitor completed ,so far no significant arrythmia, bradycardia or tachycardia. Cardiac status stable. Discharge planning. Plan: Cardiac status stble Stable blood pressure Heart rate stable No distress, awake,Denies chest pain On Cozaar 25 mg daily, Synthroid 25 mcg daily, Atenolol 12.5 mg daily Continue IV antibiotics per ID for pneumonia Continue current treatment Continue current medications Discharge planning May discharge from cardiac standpoint Will follow up Plan and treatment discussed with Dr. Wolf
[2018-11-07] MEDS: Ferrous Sulfate 300 mg/5 mL Liq UD PO SCH ×3 (07:52→18:07)
--- NOTE | 2018-11-07 08:38 | CP.PCM.PN ---
Subjective - Date & Time of Evaluation Date of Evaluation: 11/07/18 Time of Evaluation: 08:00 - Subjective Subjective: Patient seen this morning in room 277 bed 1. She is receiving respiratory treatment via nebulizer. Objective - Vital Signs/Intake and Output Vital Signs (last 24 hours): Temp Pulse Resp BP Pulse Ox 98.4 F 68 18 134/71 97 11/07/18 06:00 11/07/18 06:00 11/07/18 06:00 11/07/18 06:00 11/07/18 06:00 Intake and Output: 11/07/18 11/07/18 06:59 18:59 Intake Total 1260 Output Total 600 Balance 660 - Medications Medications: Current Medications Acetaminophen (Tylenol 325mg Tab) 650 mg PO Q6H PRN PRN Reason: Headache Last Admin: 11/04/18 17:33 Dose: 650 mg Albuterol/Ipratropium (Duoneb 3 Mg/0.5 Mg (3 Ml) Ud) 3 ml IH [id number] [facility] Last Admin: 11/07/18 08:09 Dose: 3 ml Atenolol (Tenormin) 12.5 mg PO DAILY [facility] Last Admin: 11/06/18 09:48 Dose: 12.5 mg Doxycycline Hyclate (Doryx) 100 mg PO Q12 [facility]; Protocol Stop: 11/11/18 12:08 Last Admin: 11/06/18 22:09 Dose: 100 mg Ferrous Sulfate (Feosol Liq) 300 mg PO WM [facility] Last Admin: 11/07/18 07:52 Dose: 300 mg Cefepime HCl (Maxipime 1gm) 1 gm in 100 mls @ 100 mls/hr IVPB Q8 [facility]; Protocol Stop: 11/11/18 14:01 Last Admin: 11/07/18 05:28 Dose: 100 mls/hr Levothyroxine Sodium (Synthroid) 25 mcg PO 0600 [facility] Last Admin: 11/07/18 05:28 Dose: 25 mcg Losartan Potassium (Cozaar) 25 mg PO DAILY [facility] Last Admin: 11/06/18 09:48 Dose: 25 mg Pantoprazole Sodium (Protonix Inj) 40 mg IVP DAILY [facility] Last Admin: 11/06/18 09:48 Dose: 40 mg Polyethylene Glycol (Miralax) 17 gm PO TID [facility] Last Admin: 11/06/18 17:31 Dose: Not Given Promethazine HCl (Phenergan Syrup) 6.25 mg PO Q6H PRN PRN Reason: Cough Last Admin: 11/02/18 19:07 Dose: 6.25 mg Sucralfate (Carafate Oral Susp) 1 gm PO 0600,1600 [facility] Last Admin: 11/07/18 05:30 Dose: 1 gm - Labs Labs: 11/05/18 07:00 11/04/18 08:45 PT 11.8 SECONDS (9.4-12.5) 11/03/18 08:40 INR 1.03 11/03/18 08:40 APTT 23.4 Seconds (25.1-36.5) L 11/03/18 08:40 - Constitutional Appears: No Acute Distress - Head Exam Head Exam: ATRAUMATIC, NORMOCEPHALIC - Respiratory Exam Respiratory Exam: Clear to Ausculation Bilateral, NORMAL BREATHING PATTERN - Cardiovascular Exam Cardiovascular Exam: REGULAR RHYTHM, +S1, +S2 - GI/Abdominal Exam GI & Abdominal Exam: Soft, Normal Bowel Sounds. absent: Tenderness - Extremities Exam Extremities Exam: Normal Inspection - Neurological Exam Neurological Exam: Alert, Awake Assessment and Plan - Assessment and Plan (Free Text) Assessment: Symptomatic anemia secondary to aren ulcer LLL pneumonia HTN NPH s/p BENEFITS CONSULTING ANALYST shunt Dementia ASHD Plan: Patient underwent EGD which showed aren ulcer, and hiatal hernia. continue Protonix and Carafate. Patient received Venofer infusion yesterday. Patient is on IV Cef epime and oral Doxycycline for pneumonia. continue as per infectious disease. She was evaluated for possible tachy-edson syndrome. No further events of tachycardia or bradycardia noted on Holter monitor. Patient started on low dose beta-madeleine.
[2018-11-07] MEDS: POLYETHYLENE GLYCOL 3350 17 GM/Dose PACKET PO SCH ×3 (10:30→18:07)
--- NOTE | 2018-11-07 10:50 | PN ---
DATE: 11/07/2018 REASON FOR CONSULTATION: Followup, cardiac evaluation, anemia, rule out tachy-edson syndrome, hypertension, and hyperlipidemia. The patient had endoscopy done yesterday. Telemetry shows normal sinus and no acute ST-T changes. Holter preliminary reviewed. No evidence of significant arrhythmia. RECOMMENDATIONS: 1. Discontinue telemetry. 2. Continue losartan 3. Continue atenolol 12.5 mg daily. Thank you, Dr. Valerio for providing opportunity in taking care of the patient, Bethany Espinoza. We will follow with you. Christa Wolf MD
--- NOTE | 2018-11-07 13:07 | CP.PCM.APN ---
Subjective - Date & Time of Evaluation Date of Evaluation: 11/07/18 Time of Evaluation: 10:00 - Subjective Subjective: pt seen and examined - being transferred to , offers no complaints Review of Systems - Review of Systems All systems: reviewed and no additional remarkable complaints except Objective - Vital Signs/Intake and Output Vital Signs (last 24 hours): Temp Pulse Resp BP Pulse Ox 98.4 F 68 18 134/71 97 11/07/18 06:00 11/07/18 06:00 11/07/18 06:00 11/07/18 06:00 11/07/18 06:00 Intake and Output: 11/07/18 11/07/18 06:59 18:59 Intake Total 1260 Output Total 600 Balance 660 - Medications Medications: Current Medications Acetaminophen (Tylenol 325mg Tab) 650 mg PO Q6H PRN PRN Reason: Headache Last Admin: 11/04/18 17:33 Dose: 650 mg Albuterol/Ipratropium (Duoneb 3 Mg/0.5 Mg (3 Ml) Ud) 3 ml IH [id number] [facility] Last Admin: 11/07/18 08:09 Dose: 3 ml Atenolol (Tenormin) 12.5 mg PO DAILY [facility] Last Admin: 11/07/18 10:31 Dose: 12.5 mg Doxycycline Hyclate (Doryx) 100 mg PO Q12 [facility]; Protocol Stop: 11/11/18 12:08 Last Admin: 11/07/18 10:30 Dose: 100 mg Ferrous Sulfate (Feosol Liq) 300 mg PO WM [facility] Last Admin: 11/07/18 07:52 Dose: 300 mg Cefepime HCl (Maxipime 1gm) 1 gm in 100 mls @ 100 mls/hr IVPB Q8 [facility]; Protocol Stop: 11/11/18 14:01 Last Admin: 11/07/18 05:28 Dose: 100 mls/hr Levothyroxine Sodium (Synthroid) 25 mcg PO 0600 [facility] Last Admin: 11/07/18 05:28 Dose: 25 mcg Losartan Potassium (Cozaar) 25 mg PO DAILY [facility] Last Admin: 11/07/18 10:31 Dose: 25 mg Pantoprazole Sodium (Protonix Inj) 40 mg IVP DAILY [facility] Last Admin: 11/07/18 10:31 Dose: 40 mg Polyethylene Glycol (Miralax) 17 gm PO TID [facility] Last Admin: 11/07/18 10:30 Dose: 17 gm Promethazine HCl (Phenergan Syrup) 6.25 mg PO Q6H PRN PRN Reason: Cough Last Admin: 11/02/18 19:07 Dose: 6.25 mg Sucralfate (Carafate Oral Susp) 1 gm PO 0600,1600 [facility] Last Admin: 11/07/18 05:30 Dose: 1 gm - Labs Labs: 11/05/18 07:00 11/04/18 08:45 PT 11.8 SECONDS (9.4-12.5) 11/03/18 08:40 INR 1.03 11/03/18 08:40 APTT 23.4 Seconds (25.1-36.5) L 11/03/18 08:40 - Constitutional Appears: No Acute Distress - Respiratory Exam Respiratory Exam: Decreased Breath Sounds, NORMAL BREATHING PATTERN - Cardiovascular Exam Cardiovascular Exam: +S1, +S2 - GI/Abdominal Exam GI & Abdominal Exam: Soft, Normal Bowel Sounds - Neurological Exam Neurological Exam: Awake Assessment and Plan - Assessment and Plan (Free Text) Plan: A 88 year old female with PMhistory of hypertension, normal pressure hydrochepalus, post COOKER CLEANER 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 #symptomatic anemia s/p 4 units prbc transfusion H/H stable at 11 and 35 protonix regimen stool OB - negative Hematology consult with Dr crespo noted ct abd no mass or lesions,CEA screening iV Iron infusion x 2 additional days per PMD pt is status post Endo with report showing aren ulcer- GI has signed off per note #Cardiac consult for SVT/bradycardia. Had burst of SVT Sleeping heart rate bradycardia- otherwise nsr Holter monitor to rule out arrhythmia Echo- ef 53% , normal LVF, moderate AR, trace MR, no vegetation or thrombus On Cozaar 25 mg daily, Synthroid 25 mcg daily, Atenolol 12.5 mg daily regimen stable for dc from cardiac standpoint per notes rev'd # left lobe infiltrate vs effusion ID consultation BC negative, UC negative IV maxipine regimen Physical therapy ordered Discussed with Dr Hudson thi morning, TCu eval and transfer plan discussed Pt awaiting p.t eval recs - will follow up Kusum Fishman
--- NOTE | 2018-11-07 16:18 | CARD ---
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 Hookup date: 2018-11-03 Removal date: 2018-11-04 Scan date: 2018-11-06 Recording time: 23 hr 59 min Heart Rate Data Total Beats: [id number] Min HR: 57 BPM at 7:20:56 AM Avg HR: 73 BPM Max HR: 102 BPM at 5:49:43 PM Ventricular Ectopy Total VE Beats: 17 (0.0%) Vent Runs: 1 Beats: 6 Longest: 6 Fastest: 115 BPM Single/Interp PVC: 11/ Supraventricular Ectopy Total VE Beats: 39181 (11.4%) Atrial Runs: 34 Beats: 110 Longest: 4 Fastest: 133 BPM Atrial Pairs: 292 Events Drop/Late: 0/50 Longest R-R: 1.8 sec at 10:14:42 AM Single PAC's: [id number] Bi/Trigeminy: Beats Conclusion SINUS RHYTHM / SINUS BRADYCARDIA / SINUS TACHYCARDIA MINIMUM HR 57 MAXIMUM HR 102 FREQUENT APC'S / BIGEMINY / TRIGEMINY BLOCKED APC'S ATRIAL RUNS LONGEST 4 BEATS ISOLATED VPC'S - 1 RUN OF 6 BEATS 115 BPM
--- NOTE | 2018-11-07 16:49 | CP.PCM.PN ---
Subjective - Date & Time of Evaluation Date of Evaluation: 11/07/18 Time of Evaluation: 15:20 - Subjective Subjective: Comfortable, no fevers, not in distress. Objective - Vital Signs/Intake and Output Vital Signs (last 24 hours): Temp Pulse Resp BP Pulse Ox 98.4 F 78 18 130/70 96 11/06/18 11:58 11/06/18 11:58 11/06/18 11:58 11/06/18 11:58 11/05/18 16:27 Intake and Output: 11/06/18 11/06/18 06:59 18:59 Intake Total 660 Output Total 1000 Balance -340 - Medications Medications: Current Medications Acetaminophen (Tylenol 325mg Tab) 650 mg PO Q6H PRN PRN Reason: Headache Last Admin: 11/04/18 17:33 Dose: 650 mg Albuterol/Ipratropium (Duoneb 3 Mg/0.5 Mg (3 Ml) Ud) 3 ml IH [id number] [facility] Last Admin: 11/06/18 13:27 Dose: 3 ml Atenolol (Tenormin) 12.5 mg PO DAILY [facility] Last Admin: 11/06/18 09:48 Dose: 12.5 mg Doxycycline Hyclate (Doryx) 100 mg PO Q12 [facility]; Protocol Stop: 11/11/18 12:08 Last Admin: 11/06/18 09:48 Dose: 100 mg Ferrous Sulfate (Feosol Liq) 300 mg PO WM [facility] Last Admin: 11/06/18 13:45 Dose: 300 mg Cefepime HCl (Maxipime 1gm) 1 gm in 100 mls @ 100 mls/hr IVPB Q8 [facility]; Protocol Stop: 11/11/18 14:01 Last Admin: 11/06/18 05:24 Dose: 100 mls/hr Levothyroxine Sodium (Synthroid) 25 mcg PO 0600 [facility] Last Admin: 11/06/18 05:24 Dose: 25 mcg Losartan Potassium (Cozaar) 25 mg PO DAILY [facility] Last Admin: 11/06/18 09:48 Dose: 25 mg Pantoprazole Sodium (Protonix Inj) 40 mg IVP DAILY [facility] Last Admin: 11/06/18 09:48 Dose: 40 mg Polyethylene Glycol (Miralax) 17 gm PO TID [facility] Last Admin: 11/06/18 13:45 Dose: 17 gm Promethazine HCl (Phenergan Syrup) 6.25 mg PO Q6H PRN PRN Reason: Cough Last Admin: 11/02/18 19:07 Dose: 6.25 mg Sucralfate (Carafate Oral Susp) 1 gm PO 0600,1600 [facility] - Labs Labs: 11/05/18 07:00 11/04/18 08:45 PT 11.8 SECONDS (9.4-12.5) 11/03/18 08:40 INR 1.03 11/03/18 08:40 APTT 23.4 Seconds (25.1-36.5) L 11/03/18 08:40 - Constitutional Appears: Chronically Ill - Head Exam Head Exam: NORMAL INSPECTION - Respiratory Exam Respiratory Exam: Decreased Breath Sounds - Cardiovascular Exam Cardiovascular Exam: +S1, +S2 - GI/Abdominal Exam GI & Abdominal Exam: Soft. absent: Tenderness Assessment and Plan - Assessment and Plan (Free Text) Plan: Assessment left lower HCAP history of sepsis from left lower lobe healthcare-associated pneumonia, clinically improved and S/P treatment with antibiotics HTN COPD S/P left hip replacement normal pressure hydrocephalus S/P SUPERVISOR BRIAR SHOP shunt placement hypothyroidism history of shingles GERD S/P right knee surgery Plan continue Cefepime and Doxycycline day 6; cultures have been negative; reviewed CT A/P and CXR target 4-7 days of therapy
--- NOTE | 2018-11-07 19:06 | CP.PCM.PN ---
Subjective - Date & Time of Evaluation Date of Evaluation: 11/06/18 Time of Evaluation: 18:00 - Subjective Subjective: GC improved. Son bedside. underwent EGD today, showed hiatal hernia, [place] ulcer. Severe iron deficiency. On IV iron. CEA not elevated. Objective - Vital Signs/Intake and Output Vital Signs (last 24 hours): Temp Pulse Resp BP Pulse Ox 98.4 F 68 18 134/71 97 11/07/18 06:00 11/07/18 06:00 11/07/18 06:00 11/07/18 06:00 11/07/18 06:00 Intake and Output: 11/07/18 11/07/18 06:59 18:59 Intake Total 1260 Output Total 600 Balance 660 - Medications Medications: Current Medications Acetaminophen (Tylenol 325mg Tab) 650 mg PO Q6H PRN PRN Reason: Headache Last Admin: 11/04/18 17:33 Dose: 650 mg Albuterol/Ipratropium (Duoneb 3 Mg/0.5 Mg (3 Ml) Ud) 3 ml IH [id number] [facility] Last Admin: 11/07/18 13:23 Dose: 3 ml Atenolol (Tenormin) 12.5 mg PO DAILY [facility] Last Admin: 11/07/18 10:31 Dose: 12.5 mg Doxycycline Hyclate (Doryx) 100 mg PO Q12 [facility]; Protocol Stop: 11/11/18 12:08 Last Admin: 11/07/18 10:30 Dose: 100 mg Ferrous Sulfate (Feosol Liq) 300 mg PO WM [facility] Last Admin: 11/07/18 18:07 Dose: Not Given Cefepime HCl (Maxipime 1gm) 1 gm in 100 mls @ 100 mls/hr IVPB Q8 [facility]; Protocol Stop: 11/11/18 14:01 Last Admin: 11/07/18 16:21 Dose: 100 mls/hr Levothyroxine Sodium (Synthroid) 25 mcg PO 0600 [facility] Last Admin: 11/07/18 05:28 Dose: 25 mcg Losartan Potassium (Cozaar) 25 mg PO DAILY [facility] Last Admin: 11/07/18 10:31 Dose: 25 mg Pantoprazole Sodium (Protonix Inj) 40 mg IVP DAILY [facility] Last Admin: 11/07/18 10:31 Dose: 40 mg Polyethylene Glycol (Miralax) 17 gm PO TID [facility] Last Admin: 11/07/18 18:07 Dose: Not Given Promethazine HCl (Phenergan Syrup) 6.25 mg PO Q6H PRN PRN Reason: Cough Last Admin: 11/02/18 19:07 Dose: 6.25 mg Sucralfate (Carafate Oral Susp) 1 gm PO 0600,1600 [facility] Last Admin: 11/07/18 16:20 Dose: 1 gm - Labs Labs: 11/05/18 07:00 11/04/18 08:45 PT 11.8 SECONDS (9.4-12.5) 11/03/18 08:40 INR 1.03 11/03/18 08:40 APTT 23.4 Seconds (25.1-36.5) L 11/03/18 08:40 - Constitutional Appears: Chronically Ill - Head Exam Head Exam: ATRAUMATIC, NORMAL INSPECTION, NORMOCEPHALIC - Eye Exam Eye Exam: Normal appearance - ENT Exam ENT Exam: Mucous Membranes Moist, Normal Exam - Neck Exam Neck Exam: Normal Inspection - Respiratory Exam Respiratory Exam: Clear to Ausculation Bilateral - Cardiovascular Exam Cardiovascular Exam: REGULAR RHYTHM, +S1, +S2 - GI/Abdominal Exam GI & Abdominal Exam: absent: Bruit, Distended, Firm, Guarding, Rigid, Soft, Tenderness, Diminished Bowel Sounds, Hernia, Hyperactive Bowel Sounds, Hypoactive Bowel Sounds, Normal Bowel Sounds, Organomegaly, Pulsatile Mass, Rebound, Mass - Extremities Exam Extremities Exam: absent: Calf Tenderness, Full ROM, Joint Swelling, Normal Capillary Refill, Normal Inspection, Pedal Edema, Tenderness - Back Exam Back Exam: absent: CVA tenderness (L), CVA tenderness (R), Full ROM, muscle spasm, NORMAL INSPECTION, paraspinal tenderness, rash noted, tenderness, vertebral tenderness - Neurological Exam Neurological Exam: Alert, CN II-XII Intact, Oriented x3 - Skin Skin Exam: Pallor Assessment and Plan - Assessment and Plan (Free Text) Assessment: 1. Severe iron deficiency anemia. EGD showed [place]2. LLL ulcer. might be the source of bleeding. She will need colonoscopy also. CT abdomen no mass lesion. On IV iron. Hb/hct stable now. 2. LLL PNA. 3. Tachy edson syndrome. stable now. Thank you for allowing us to participate in her care.
--- NOTE | 2018-11-09 23:43 | DS ---
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 According to the family, she was confused and feeling weak. She also complained of some abdominal discomfort. She is found to have severe anemia with hemoglobin of 5.5. HOSPITAL COURSE: The patient was admitted to the telemetry floor. She was transfused a total of 4 units of packed red blood cells. She was seen by gastrointestinal, Dr. Brown; Hematology, Dr. Coleman. Chest x-ray showed possible infiltrate and effusion. The patient was seen by Infectious Disease and started on IV meropenem and oral doxycycline for left lower lobe pneumonia. The patient also has of SVT. She was seen by Cardiology, Dr. Wolf. Holter monitor and echocardiogram were done. Holter monitor showed some sinus bradycardia and tachycardia, but no intervention was necessary as per Cardiology. The patient was started on low-dose beta-madeleine, atenolol 12.5 mg once a day. She was cleared for endoscopy. She underwent EGD, which showed a large hiatal hernia and also Samuel ulcer within the hiatal hernia. The patient was continued on Protonix. Carafate was added. She was also given an infusion of Venofer. The patient needed further rehab. She was transferred to the transitional care unit for rehab and completion of antibiotic treatment. 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 DISCHARGE MEDICATIONS: Protonix 40 mg once a day, Carafate 1 g twice a day, DuoNeb every 6 hours, Tenormin 12.5 mg once a day, doxycycline 100 mg twice a day, liquid 300 mg twice a week, cefepime 1 g every 8 hours, Synthroid 25 mcg daily, Cozaar 25 mg daily, MiraLax 17 g twice a day, Phenergan every 6 hours as needed for cough. FOLLOWUP: The patient will be followed up in the transitional care unit. Pedro Valerio MD
== END 2018-11-07 19:56 | DRG 377 ==
LOC: ED 17:55 → ERH 20:18 → 2RSO 11-01 00:31 → 5RSO 11-07 10:09
PROVIDERS: ADMIT Internal Medicine; ATTEND Internal Medicine
PROC: 30233N1 Transfusion of Nonautologous Red Blood Cells into Peripheral Vein, Percutaneous Approach (ICD-10-PCS; 2018-10-31)
PROC: 0T9B70Z Drainage of Bladder with Drainage Device, Via Natural or Artificial Opening (ICD-10-PCS; 2018-11-02)
PROC: 0DJ08ZZ Inspection of Upper Intestinal Tract, Via Natural or Artificial Opening Endoscopic (ICD-10-PCS; principal; 2018-11-05 14:30)
DX: K25.4 Chronic or unspecified gastric ulcer with hemorrhage (principal); J18.1 Lobar pneumonia, unspecified organism; J44.1 Chronic obstructive pulmonary disease with (acute) exacerbation; I47.1 Supraventricular tachycardia; J44.0 Chronic obstructive pulmonary disease with (acute) lower respiratory infection; J90 Pleural effusion, not elsewhere classified; G91.2 (Idiopathic) normal pressure hydrocephalus; K22.2 Esophageal obstruction; I10 Essential (primary) hypertension; E03.9 Hypothyroidism, unspecified; F03.90 Unspecified dementia, unspecified severity, without behavioral disturbance, psychotic disturbance, mood disturbance, and anxiety; K56.41 Fecal impaction; K44.9 Diaphragmatic hernia without obstruction or gangrene; R00.1 Bradycardia, unspecified; F32.9 Major depressive disorder, single episode, unspecified; I25.10 Atherosclerotic heart disease of native coronary artery without angina pectoris; I08.3 Combined rheumatic disorders of mitral, aortic and tricuspid valves; K21.9 Gastro-esophageal reflux disease without esophagitis; K29.70 Gastritis, unspecified, without bleeding; D50.9 Iron deficiency anemia, unspecified; M19.90 Unspecified osteoarthritis, unspecified site; R33.9 Retention of urine, unspecified; Z96.642 Presence of left artificial hip joint; Z98.2 Presence of cerebrospinal fluid drainage device; Z87.891 Personal history of nicotine dependence

== ENCOUNTER 2018-11-07 19:56 | Inpatient (IN) | payer OTHER, MEDICARE ==
[2018-11-07] MEDS ORDERED: Cefepime (Maxipime) 1 g Inj IVPB SCH (22:15)
[2018-11-07] MEDS: Cefepime 1gm in NS 100ml 1 GM/100 ML BAG IVPB SCH (22:45)
[2018-11-08] MEDS: Albuterol 0.083% Inhal Sol (2.5 mg/3 mL) UD IH SCH ×4 (01:15→21:02)
[2018-11-08] MEDS: Sucralfate 1 gm/10 ml Oral Susp UD PO SCH ×2 (05:52→17:05)
[2018-11-08] MEDS: Cefepime 1gm in NS 100ml 1 GM/100 ML BAG IVPB SCH ×3 (05:55→21:28)
[2018-11-08] MEDS: Levothyroxine 25 MCG TAB PO SCH (05:56)
[2018-11-08] MEDS: Ferrous Sulfate 300 mg/5 mL Liq UD PO SCH ×3 (08:01→17:06)
--- NOTE | 2018-11-08 08:14 | CP.PCM.HP ---
History of Present Illness - History of Present Illness History of Present Illness: This is an 88 year old female with history of normal pressure hydrocephalus with SHIFT LAB TECHNICIAN shunt, hypertension, atherosclerotic heart disease, chronic obstructive pulmonary disease and dementia who was admitted to the acute floor of the [facility] for severe symptomatic anemia. Patient was found to have large hiatal hernia with ulcer. She is now admitted to the [facility] for rehab. Present on Admission - Present on Admission Any Indicators Present on Admission: No History of DVT/PE: No History of Uncontrolled Diabetes: No Urinary Catheter: No Decubitus Ulcer Present: No Review of Systems - Constitutional Constitutional: absent: Chills, Fever - Cardiovascular Cardiovascular: absent: Chest Pain, Diaphoresis, Dyspnea - Respiratory Respiratory: absent: Cough, Dyspnea, Wheezing - Gastrointestinal Gastrointestinal: absent: Abdominal Pain, Nausea, Vomiting Past Patient History - Infectious Disease Hx of Infectious Diseases: None - Past Social History Smoking Status: Former Smoker - CARDIAC Hx Cardiac Disorders: Yes Hx Hypertension: Yes - PULMONARY Hx Chronic Obstructive Pulmonary Disease (COPD): Yes - NEUROLOGICAL Hx Neurological Disorder: Yes (hydrocephalus,SHIFT LAB TECHNICIAN shunt) Hx Dementia: Yes Hx Dizziness: Yes - HEENT Hx HEENT Problems: Yes - RENAL Hx Chronic Kidney Disease: No - ENDOCRINE/METABOLIC Hx Endocrine Disorders: Yes Hx Hypothyroidism: Yes - HEMATOLOGICAL/ONCOLOGICAL Hx Blood Transfusions: No Hx Blood Transfusion Reaction: No - INTEGUMENTARY Hx Dermatological Problems: No - MUSCULOSKELETAL/RHEUMATOLOGICAL Hx Falls: Yes - GASTROINTESTINAL Hx Gastrointestinal Disorders: Yes - GENITOURINARY/GYNECOLOGICAL Hx Genitourinary Disorders: Yes Hx Reproductive Disorders: No - PSYCHIATRIC Hx Psychophysiologic Disorder: Yes Hx Anxiety: Yes Hx Substance Use: No - SURGICAL HISTORY Hx Surgeries: Yes - ANESTHESIA Hx Anesthesia Reactions: No Hx Malignant Hyperthermia: No Meds Allergies/Adverse Reactions: Allergies Allergy/AdvReac Type Severity Reaction Status Date / Time No Known Allergies Allergy Verified 10/31/18 18:17 Physical Exam - Constitutional Appears: No Acute Distress - Head Exam Head Exam: ATRAUMATIC, NORMOCEPHALIC - Respiratory Exam Respiratory Exam: Decreased Breath Sounds, NORMAL BREATHING PATTERN - Cardiovascular Exam Cardiovascular Exam: REGULAR RHYTHM, +S1, +S2 - GI/Abdominal Exam GI & Abdominal Exam: Normal Bowel Sounds, Soft. absent: Tenderness - Neurological Exam Neurological exam: Alert Results - Vital Signs Recent Vital Signs: Last Vital Signs Temp 97.9 F 11/07/18 23:18 Pulse 66 11/08/18 01:15 Resp 18 11/07/18 23:18 BP 123/65 11/07/18 23:18 Pulse Ox Assessment & Plan - Assessment and Plan (Free Text) Assessment: Acute iron deficiency anemia secondary to ulcer LLL pneumonia HTN COPD ASHD NPH with SHIFT LAB TECHNICIAN shunt Dementia Plan: continue Protonix and Carafate for bleeding ulcer continue respiratory treatments hardy catheter has been removed; monitor urine output for retention continue physical therapy Consult ID, GI, Hematology and Cardiology
[2018-11-08] MEDS: POLYETHYLENE GLYCOL 3350 17 GM/Dose PACKET PO SCH ×3 (09:47→17:05)
--- NOTE | 2018-11-08 14:26 | CP.PCM.CON ---
History of Present Illness - History of Present Illness History of Present Illness: 87 year old female with PMH of [place], COPD, S/P left hip replacement, normal pressure hydrocephalus S/P PRODUCTION QUALITY ANALYST shunt placement, hypothyroidism, history of shingles, GERD, S/P right knee surgery initially came in to [facility] because of cough and SOB and was found to have left sided HCAP. She has been on antibiotics and has been improving and is now transferred to [facility] for continued medical therapy and physical rehab. Infectious diseases consult is requested to continue her antibiotic therapy. She is comfortable in bed, no fevers, no nausea or vomiting, no cough, no SOB at rest, no abdominal pain, no diarrhea. Review of Systems - Review of Systems All systems: reviewed and no additional remarkable complaints except (as per HPI) Past Patient History - Infectious Disease Hx of Infectious Diseases: None - Past Social History Smoking Status: Former Smoker - CARDIAC Hx Cardiac Disorders: Yes Hx Hypertension: Yes - PULMONARY Hx Chronic Obstructive Pulmonary Disease (COPD): Yes - NEUROLOGICAL Hx Neurological Disorder: Yes (hydrocephalus,PRODUCTION QUALITY ANALYST shunt) Hx Dementia: Yes Hx Dizziness: Yes - HEENT Hx HEENT Problems: Yes - RENAL Hx Chronic Kidney Disease: No - ENDOCRINE/METABOLIC Hx Endocrine Disorders: Yes Hx Hypothyroidism: Yes - HEMATOLOGICAL/ONCOLOGICAL Hx Blood Transfusions: No Hx Blood Transfusion Reaction: No - INTEGUMENTARY Hx Dermatological Problems: No - MUSCULOSKELETAL/RHEUMATOLOGICAL Hx Falls: Yes - GASTROINTESTINAL Hx Gastrointestinal Disorders: Yes - GENITOURINARY/GYNECOLOGICAL Hx Genitourinary Disorders: Yes Hx Reproductive Disorders: No - PSYCHIATRIC Hx Psychophysiologic Disorder: Yes Hx Anxiety: Yes Hx Substance Use: No - SURGICAL HISTORY Hx Surgeries: Yes - ANESTHESIA Hx Anesthesia Reactions: No Hx Malignant Hyperthermia: No Meds Allergies/Adverse Reactions: Allergies Allergy/AdvReac Type Severity Reaction Status Date / Time No Known Allergies Allergy Verified 10/31/18 18:17 - Medications Medications: Current Medications Acetaminophen (Tylenol 325mg Tab) 650 mg PO Q6H PRN; Protocol PRN Reason: Headache Albuterol Sulfate (Albuterol 0.083% Inhal Bhumi (2.5 Mg/3 Ml) Ud) 2.5 mg IH [id number] JARRELL; Protocol Last Admin: 11/08/18 01:15 Dose: Not Given Atenolol (Tenormin) 12.5 mg PO DAILY JARRELL; Protocol Doxycycline Hyclate (Doryx) 100 mg PO Q12 JARRELL; Protocol Stop: 11/11/18 12:08 Last Admin: 11/07/18 22:52 Dose: 100 mg Ferrous Sulfate (Feosol Liq) 300 mg PO WM JARRELL; Protocol Cefepime HCl (Maxipime 1gm) 1 gm in 100 mls @ 100 mls/hr IVPB Q8 JARRELL Stop: 11/11/18 14:01 Last Admin: 11/08/18 05:55 Dose: 100 mls/hr Levothyroxine Sodium (Synthroid) 25 mcg PO 0600 JARRELL; Protocol Last Admin: 11/08/18 05:56 Dose: 25 mcg Losartan Potassium (Cozaar) 25 mg PO DAILY JARRELL; Protocol Pantoprazole Sodium (Protonix Inj) 40 mg IVP 0600 JARRELL; Protocol Last Admin: 11/08/18 05:55 Dose: 40 mg Polyethylene Glycol (Miralax) 17 gm PO TID JARRELL; Protocol Promethazine HCl (Phenergan Syrup) 6.25 mg PO Q6H PRN; Protocol PRN Reason: Cough Sucralfate (Carafate Oral Susp) 1 gm PO 0600,1600 JARRELL; Protocol Last Admin: 11/08/18 05:52 Dose: 1 gm Physical Exam - Constitutional Appears: No Acute Distress, Chronically Ill - Head Exam Head Exam: NORMAL INSPECTION - Respiratory Exam Respiratory Exam: Decreased Breath Sounds - Cardiovascular Exam Cardiovascular Exam: +S1, +S2 - GI/Abdominal Exam GI & Abdominal Exam: Soft. absent: Tenderness Results - Vital Signs Recent Vital Signs: Last Vital Signs Temp 97.9 F 11/07/18 23:18 Pulse 66 11/08/18 01:15 Resp 18 11/07/18 23:18 BP 123/65 11/07/18 23:18 Pulse Ox Assessment & Plan - Assessment and Plan (Free Text) Plan: Assessment left lower HCAP, clinically improving history of sepsis from left lower lobe healthcare-associated pneumonia, clinically improved and S/P treatment with antibiotics HTN COPD S/P left hip replacement normal pressure hydrocephalus S/P PRODUCTION QUALITY ANALYST shunt placement hypothyroidism history of shingles GERD S/P right knee surgery Plan continue Cefepime and Doxycycline day 7; cultures have been negative; reviewed CT A/P and CXR target up to 7 days of therapy
[2018-11-09] MEDS: Albuterol 0.083% Inhal Sol (2.5 mg/3 mL) UD IH SCH ×4 (01:47→20:31)
[2018-11-09] MEDS: Cefepime 1gm in NS 100ml 1 GM/100 ML BAG IVPB SCH ×3 (05:23→22:05)
[2018-11-09] MEDS: Pantoprazole 40 mg EC Tab PO SCH (05:24)
[2018-11-09] MEDS: Levothyroxine 25 MCG TAB PO SCH (05:24)
[2018-11-09] MEDS: Promethazine 6.25 MG/5 ML CUP PO PRN ×2 (06:15→22:05)
--- NOTE | 2018-11-09 08:10 | CP.PCM.PN ---
Subjective - Date & Time of Evaluation Date of Evaluation: 11/09/18 Time of Evaluation: 07:40 - Subjective Subjective: Patient is in the [facility] for rehab and completion of antibiotic treatment for pneumonia. She has no new complaints. Objective - Vital Signs/Intake and Output Vital Signs (last 24 hours): Temp Pulse Resp BP Pulse Ox 98.7 F 70 20 132/75 95 11/08/18 10:00 11/08/18 10:00 11/08/18 10:00 11/08/18 10:00 11/08/18 10:00 - Medications Medications: Current Medications Acetaminophen (Tylenol 325mg Tab) 650 mg PO Q6H PRN; Protocol PRN Reason: Headache Albuterol Sulfate (Albuterol 0.083% Inhal Bhumi (2.5 Mg/3 Ml) Ud) 2.5 mg IH [id number] JARRELL; Protocol Last Admin: 11/09/18 07:49 Dose: 2.5 mg Atenolol (Tenormin) 12.5 mg PO DAILY JARRELL; Protocol Last Admin: 11/08/18 09:48 Dose: 12.5 mg Doxycycline Hyclate (Doryx) 100 mg PO 0900,2100 JARRELL; Protocol Stop: 11/11/18 12:08 Ferrous Sulfate (Feosol Liq) 300 mg PO TID JARRELL; Protocol Cefepime HCl (Maxipime 1gm) 1 gm in 100 mls @ 100 mls/hr IVPB Q8 JARRELL Stop: 11/11/18 14:01 Last Admin: 11/09/18 05:23 Dose: 100 mls/hr Levothyroxine Sodium (Synthroid) 25 mcg PO 0600 JARRELL; Protocol Last Admin: 11/09/18 05:24 Dose: 25 mcg Losartan Potassium (Cozaar) 25 mg PO DAILY JARRELL; Protocol Last Admin: 11/08/18 09:47 Dose: 25 mg Pantoprazole Sodium (Protonix Ec Tab) 40 mg PO 0600 JARRELL Last Admin: 11/09/18 05:24 Dose: 40 mg Polyethylene Glycol (Miralax) 17 gm PO TID JARRELL; Protocol Last Admin: 11/08/18 17:05 Dose: 17 gm Promethazine HCl (Phenergan Syrup) 6.25 mg PO Q6H PRN; Protocol PRN Reason: Cough Last Admin: 01/20/19 06:15 Dose: 6.25 mg Sucralfate (Carafate Oral Susp) 1 gm PO BID JARRELL; Protocol - Constitutional Appears: No Acute Distress - Head Exam Head Exam: ATRAUMATIC, NORMOCEPHALIC - Respiratory Exam Respiratory Exam: Clear to Ausculation Bilateral, NORMAL BREATHING PATTERN - Cardiovascular Exam Cardiovascular Exam: REGULAR RHYTHM, +S1, +S2 - GI/Abdominal Exam GI & Abdominal Exam: Soft, Normal Bowel Sounds. absent: Tenderness - Extremities Exam Extremities Exam: Normal Inspection - Neurological Exam Neurological Exam: Alert, Awake Assessment and Plan - Assessment and Plan (Free Text) Assessment: LLL Pneumonia GI Bleed secondary to ulcers HTN Dementia NPH with LITIGATION DOCKET MANAGER shunt Plan: Patient is on IV Cefepime and oral doxycycline as per infectious disease. continue antibiotics as per ID. continue current medications check CBC, CMP. We will also repeat an iron and TIBC as patient received an iron infusion a few days ago.
[2018-11-09] MEDS: Ferrous Sulfate 300 mg/5 mL Liq UD PO SCH ×3 (09:15→17:13)
[2018-11-09] MEDS: POLYETHYLENE GLYCOL 3350 17 GM/Dose PACKET PO SCH ×3 (09:22→17:13)
[2018-11-09] MEDS: Sucralfate 1 gm/10 ml Oral Susp UD PO SCH ×2 (09:23→17:14)
--- NOTE | 2018-11-09 13:12 | CP.PCM.PN ---
Subjective - Date & Time of Evaluation Date of Evaluation: 11/09/18 Time of Evaluation: 10:10 - Subjective Subjective: Comfortable in bed, no fevers, not short of breath at rest. Objective - Vital Signs/Intake and Output Vital Signs (last 24 hours): Temp Pulse Resp BP Pulse Ox 98.7 F 70 20 132/75 95 11/08/18 10:00 11/08/18 10:00 11/08/18 10:00 11/08/18 10:00 11/08/18 10:00 - Medications Medications: Current Medications Acetaminophen (Tylenol 325mg Tab) 650 mg PO Q6H PRN; Protocol PRN Reason: Headache Albuterol Sulfate (Albuterol 0.083% Inhal Bhumi (2.5 Mg/3 Ml) Ud) 2.5 mg IH [id number] JARRELL; Protocol Last Admin: 11/08/18 07:47 Dose: 2.5 mg Atenolol (Tenormin) 12.5 mg PO DAILY JARRELL; Protocol Last Admin: 11/08/18 09:48 Dose: 12.5 mg Doxycycline Hyclate (Doryx) 100 mg PO Q12 JARRELL; Protocol Stop: 11/11/18 12:08 Last Admin: 11/08/18 09:47 Dose: 100 mg Ferrous Sulfate (Feosol Liq) 300 mg PO WM JARRELL; Protocol Last Admin: 11/08/18 11:03 Dose: 300 mg Cefepime HCl (Maxipime 1gm) 1 gm in 100 mls @ 100 mls/hr IVPB Q8 JARRELL Stop: 11/11/18 14:01 Last Admin: 11/08/18 13:36 Dose: 100 mls/hr Levothyroxine Sodium (Synthroid) 25 mcg PO 0600 JARRELL; Protocol Last Admin: 11/08/18 05:56 Dose: 25 mcg Losartan Potassium (Cozaar) 25 mg PO DAILY JARRELL; Protocol Last Admin: 11/08/18 09:47 Dose: 25 mg Pantoprazole Sodium (Protonix Ec Tab) 40 mg PO 0600 JARRELL Polyethylene Glycol (Miralax) 17 gm PO TID JARRELL; Protocol Last Admin: 11/08/18 14:05 Dose: Not Given Promethazine HCl (Phenergan Syrup) 6.25 mg PO Q6H PRN; Protocol PRN Reason: Cough Sucralfate (Carafate Oral Susp) 1 gm PO 0600,1600 JARRELL; Protocol Last Admin: 11/08/18 05:52 Dose: 1 gm - Constitutional Appears: Chronically Ill - Head Exam Head Exam: NORMAL INSPECTION - Neck Exam Neck Exam: absent: Meningismus - Respiratory Exam Respiratory Exam: Decreased Breath Sounds - Cardiovascular Exam Cardiovascular Exam: +S1, +S2 - GI/Abdominal Exam GI & Abdominal Exam: Soft. absent: Tenderness Assessment and Plan - Assessment and Plan (Free Text) Plan: Assessment left lower HCAP, clinically improved and S/P treatment with antibiotics history of sepsis from left lower lobe healthcare-associated pneumonia, clinically improved and S/P treatment with antibiotics HTN COPD S/P left hip replacement normal pressure hydrocephalus S/P HOT PRESS OPERATOR shunt placement hypothyroidism history of shingles GERD S/P right knee surgery Plan completed 7 days of Cefepime and Doxycycline; cultures have been negative; reviewed CT A/P and CXR will continue to monitor clinically off antibiotics since she is at risk for nosocomial infections
[2018-11-10] MEDS: Levothyroxine 25 MCG TAB PO SCH (05:19)
[2018-11-10] MEDS: Pantoprazole 40 mg EC Tab PO SCH (05:19)
[2018-11-10] MEDS: Cefepime 1gm in NS 100ml 1 GM/100 ML BAG IVPB SCH (05:19)
[2018-11-10 07:10] LABS: BASO # 0.02 K/mm3 (0.0-2.0); BASO % 0.5 % (0.0-3.0); EOS # 0.1 (0.0-0.7); GRAN # 2.13 (1.4-6.5); GRAN % 53.2 % (50.0-68.0); LYMPH # 1.2 (1.2-3.4); LYMPH % 30.8 % (22.0-35.0); MEAN CELL VOLUME 77.5 fl (80.0-105.0); MEAN CORPUSCULAR HEMOGLOBIN 23.9 pg (25.0-35.0); MEAN CORPUSCULAR HGB CONC 30.9 g/dl (31.0-37.0); MEAN PLATELET VOLUME 9.7 fl (7.0-11.0); MONO # 0.5 (0.1-0.6); MONO % 12.5 % (1.0-6.0); RBC 4.18 10^6/uL (3.5-6.1); RED CELL DISTRIBUTION WIDTH 23.1 % (11.5-14.5)
[2018-11-10] MEDS: Albuterol 0.083% Inhal Sol (2.5 mg/3 mL) UD IH SCH ×3 (07:18→20:54)
[2018-11-10 07:27] LABS: ALB/GLOB RATIO 1.2 (1.1-1.8); ALBUMIN 2.8 g/dL (3.0-4.8); ALT/SGPT 22 U/L (7-56); AST/SGOT 24 U/L (14-36); BLOOD UREA NITROGEN 13 mg/dL (7-21); CALCIUM 9.1 mg/dL (8.4-10.5); GFR NON-AFRICAN AMERICAN > 60
[2018-11-10 07:35] LABS: IRON 51 ug/dL (45-180)
[2018-11-10 07:44] LABS: % IRON SATURATION 16 % (20-55); TOTAL IRON BINDING CAPACITY 319 ug/dL (265-497)
--- NOTE | 2018-11-10 08:24 | CP.PCM.PN ---
Subjective - Date & Time of Evaluation Date of Evaluation: 11/10/18 Time of Evaluation: 08:00 - Subjective Subjective: Patient is admitted to the [facility] for rehab and completion of IV antibiotics. Objective - Vital Signs/Intake and Output Vital Signs (last 24 hours): Temp Pulse Resp BP Pulse Ox 97.6 F 72 16 145/90 95 11/09/18 10:00 11/09/18 10:00 11/09/18 10:00 11/09/18 10:00 11/09/18 10:00 - Medications Medications: Current Medications Acetaminophen (Tylenol 325mg Tab) 650 mg PO Q6H PRN; Protocol PRN Reason: Headache Albuterol Sulfate (Albuterol 0.083% Inhal Bhumi (2.5 Mg/3 Ml) Ud) 2.5 mg IH [id number] JARRELL; Protocol Last Admin: 11/10/18 07:18 Dose: 2.5 mg Atenolol (Tenormin) 12.5 mg PO DAILY JARRELL; Protocol Last Admin: 11/09/18 09:21 Dose: 12.5 mg Doxycycline Hyclate (Doryx) 100 mg PO 0900,2100 JARRELL; Protocol Stop: 11/11/18 12:08 Last Admin: 11/10/18 08:04 Dose: 100 mg Ferrous Sulfate (Feosol Liq) 300 mg PO TID JARRELL; Protocol Last Admin: 11/09/18 17:13 Dose: 300 mg Cefepime HCl (Maxipime 1gm) 1 gm in 100 mls @ 100 mls/hr IVPB Q8 JARRELL Stop: 11/11/18 14:01 Last Admin: 11/10/18 05:19 Dose: 100 mls/hr Levothyroxine Sodium (Synthroid) 25 mcg PO 0600 JARRELL; Protocol Last Admin: 11/10/18 05:19 Dose: 25 mcg Losartan Potassium (Cozaar) 25 mg PO DAILY JARRELL; Protocol Last Admin: 11/09/18 09:23 Dose: 25 mg Pantoprazole Sodium (Protonix Ec Tab) 40 mg PO 0600 JARRELL Last Admin: 11/10/18 05:19 Dose: 40 mg Polyethylene Glycol (Miralax) 17 gm PO TID JARRELL; Protocol Last Admin: 11/09/18 17:13 Dose: Not Given Promethazine HCl (Phenergan Syrup) 6.25 mg PO Q6H PRN; Protocol PRN Reason: Cough Last Admin: 11/09/18 22:05 Dose: 6.25 mg Sucralfate (Carafate Oral Susp) 1 gm PO BID JARRELL; Protocol Last Admin: 11/09/18 17:14 Dose: 1 gm - Labs Labs: 11/10/18 06:30 11/10/18 06:30 - Constitutional Appears: No Acute Distress - Head Exam Head Exam: ATRAUMATIC, NORMOCEPHALIC - Respiratory Exam Respiratory Exam: Clear to Ausculation Bilateral, NORMAL BREATHING PATTERN - Cardiovascular Exam Cardiovascular Exam: REGULAR RHYTHM, +S1, +S2 - GI/Abdominal Exam GI & Abdominal Exam: Soft, Normal Bowel Sounds. absent: Tenderness - Extremities Exam Extremities Exam: Normal Inspection - Neurological Exam Neurological Exam: Alert, Awake Assessment and Plan - Assessment and Plan (Free Text) Assessment: LLL pneumonia GI Bleed secondary to aren ulcer in hiatal hernia HTN ASHD Dementia NPH with TAKE OUT WAITRESS shunt Plan: continue current medications Hemoglobin is 10 this morning; continue to monitor serum iron is normal now after venofer infusion
[2018-11-10] MEDS: POLYETHYLENE GLYCOL 3350 17 GM/Dose PACKET PO SCH ×3 (09:49→17:01)
[2018-11-10] MEDS: Sucralfate 1 gm/10 ml Oral Susp UD PO SCH ×2 (09:53→17:01)
[2018-11-10] MEDS: Ferrous Sulfate 300 mg/5 mL Liq UD PO SCH ×3 (09:53→17:02)
--- NOTE | 2018-11-10 11:24 | CP.PCM.PN ---
Subjective - Date & Time of Evaluation Date of Evaluation: 11/10/18 Time of Evaluation: 09:50 - Subjective Subjective: Comfortable in bed, no fevers, no diarrhea noted. Objective - Vital Signs/Intake and Output Vital Signs (last 24 hours): Temp Pulse Resp BP Pulse Ox 97.6 F 72 16 145/90 95 11/09/18 10:00 11/09/18 10:00 11/09/18 10:00 11/09/18 10:00 11/09/18 10:00 - Medications Medications: Current Medications Acetaminophen (Tylenol 325mg Tab) 650 mg PO Q6H PRN; Protocol PRN Reason: Headache Albuterol Sulfate (Albuterol 0.083% Inhal Bhumi (2.5 Mg/3 Ml) Ud) 2.5 mg IH [id number] [facility]; Protocol Last Admin: 11/09/18 07:49 Dose: 2.5 mg Atenolol (Tenormin) 12.5 mg PO DAILY JARRELL; Protocol Last Admin: 11/09/18 09:21 Dose: 12.5 mg Doxycycline Hyclate (Doryx) 100 mg PO 0900,2100 JARRELL; Protocol Stop: 11/11/18 12:08 Last Admin: 11/09/18 09:14 Dose: 100 mg Ferrous Sulfate (Feosol Liq) 300 mg PO TID JARRELL; Protocol Last Admin: 11/09/18 09:15 Dose: 300 mg Cefepime HCl (Maxipime 1gm) 1 gm in 100 mls @ 100 mls/hr IVPB Q8 JARRELL Stop: 11/11/18 14:01 Last Admin: 11/09/18 05:23 Dose: 100 mls/hr Levothyroxine Sodium (Synthroid) 25 mcg PO 0600 JARRELL; Protocol Last Admin: 11/09/18 05:24 Dose: 25 mcg Losartan Potassium (Cozaar) 25 mg PO DAILY JARRELL; Protocol Last Admin: 11/09/18 09:23 Dose: 25 mg Pantoprazole Sodium (Protonix Ec Tab) 40 mg PO 0600 JARRELL Last Admin: 11/09/18 05:24 Dose: 40 mg Polyethylene Glycol (Miralax) 17 gm PO TID JARRELL; Protocol Last Admin: 11/09/18 09:22 Dose: Not Given Promethazine HCl (Phenergan Syrup) 6.25 mg PO Q6H PRN; Protocol PRN Reason: Cough Last Admin: 11/09/18 06:15 Dose: 6.25 mg Sucralfate (Carafate Oral Susp) 1 gm PO BID JARRELL; Protocol Last Admin: 11/09/18 09:23 Dose: 1 gm - Constitutional Appears: Chronically Ill - Head Exam Head Exam: NORMAL INSPECTION - Respiratory Exam Respiratory Exam: Decreased Breath Sounds - Cardiovascular Exam Cardiovascular Exam: +S1, +S2 - GI/Abdominal Exam GI & Abdominal Exam: Soft. 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
--- NOTE | 2018-11-10 21:33 | CON ---
DATE: 11/10/2018 REASON FOR CONSULTATION: Cardiac arrhythmia, continuity of care in Transitional Care Unit, and SVT. 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 The patient underwent Holter monitored echo and is being managed on the floor. Now, the patient is transferred to the Transitional Care for the continuity of care. PAST MEDICAL HISTORY: Significant for dementia, normal pressure hydrocephalus, history of ventriculoperitoneal shunt, hypertension, back pain, insomnia, iron deficiency anemia, history of dehydration, history of diarrhea in the past, history of CVA, history of recent pneumonia, history of altered mental status, questionable history of dementia, and COPD. SOCIAL HISTORY: Denies any smoking. Denies any history of alcohol abuse. RECENT CARDIAC WORKUP: As follows; the patient had echocardiography done on 11/04/2018 that revealed ejection fraction 55%, [id number] aortic regurgitation, aortic sclerosis with mild aortic stenosis, trace mitral regurgitation, RV systolic pressure of 41, [id number] tricuspid regurgitation, mild pulmonary insufficiency dated 11/04/2018. The patient had a Holter monitor done on 11/03/2018 that revealed normal sinus, sinus bradycardia, sinus tachycardia, lowest heart rate of 57 at 7:20 a.m., faster heart rate of 102 at 5:49 p.m. Frequent APCs bigeminy, blocked APCs. No evidence of tachy-edson syndrome noted. CURRENT MEDICATIONS: The patient is taking Cozaar 25 mg daily, potassium chloride, Protonix, levothyroxine, aspirin, and atenolol 12.5 mg was started. REVIEW OF SYSTEMS: As per HPI. PHYSICAL EXAMINATION: VITAL SIGNS: Height of the patient 5 feet 2 inches, weight of the patient 125 pounds, and body mass index 23 kg/m2. Rest of the examination; temperature afebrile, heart rate 59, and blood pressure . HEENT: PERRLA. Extraocular muscles intact. NECK: Supple. No carotid bruits or thyromegaly. CHEST: Clear to auscultation. HEART: S1 and S2 regular. ABDOMEN: Soft. EXTREMITIES: Clubbing and cyanosis negative. LABORATORY DATA: Blood workup as follows; WBC 4, hemoglobin 10, hematocrit 32.4, and platelet count 199. Chemistry shows sodium 130, potassium 3, chloride 109, carbon dioxide 27, anion gap of 6, BUN of 13, and creatinine 0.7. IMPRESSION: An 88-year-old female with past medical history significant for dementia, normal pressure hydrocephalus, status post ventriculoperitoneal shunt, hypertension, back pain, insomnia, iron-deficiency anemia, history of gastrointestinal bleed, status post endoscopy, recently on this admission found to have mild gastritis, history of dementia, history of cerebrovascular accident, history of altered mental status, admitted with severe anemia, and left lower lobe pneumonia. 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 Cardiology consult was called and the patient was seen on the floor. Holter done, no significant arrhythmia noted. The patient was bradycardic at rate of 57 at 7:20 a.m. and faster heart rate is 102 at 5:45 p.m. Echocardiogram dated 11/04/2018 showed ejection fraction normal, [id number] aortic regurgitation, aortic sclerosis with mild aortic stenosis, trace [id number] tricuspid regurgitation, and right ventricular systolic pressure 51. History of anemia and pneumonia. RECOMMENDATIONS: The patient is in Transitional Care Unit. Continue rehab. Continue losartan. Continue low dose of atenolol. CVS status is stable. We will follow with you. Thank you Dr. Valerio for providing us the opportunity in taking care of the patient, Bethany Espinoza. Christa Wolf MD
[2018-11-11] MEDS: Albuterol 0.083% Inhal Sol (2.5 mg/3 mL) UD IH SCH ×4 (02:35→20:16)
[2018-11-11] MEDS: Pantoprazole 40 mg EC Tab PO SCH (05:01)
[2018-11-11] MEDS: Levothyroxine 25 MCG TAB PO SCH (05:01)
[2018-11-11] MEDS: Sucralfate 1 gm/10 ml Oral Susp UD PO SCH ×2 (05:55→17:07)
--- NOTE | 2018-11-11 08:11 | CP.PCM.PN ---
Subjective - Date & Time of Evaluation Date of Evaluation: 11/11/18 Time of Evaluation: 07:45 - Subjective Subjective: Patient is in the transitional care unit for rehab. Objective - Vital Signs/Intake and Output Vital Signs (last 24 hours): Temp Pulse Resp BP Pulse Ox 97.6 F 55 L 16 120/62 95 11/09/18 10:00 11/10/18 09:54 11/09/18 10:00 11/10/18 09:54 11/09/18 10:00 - Medications Medications: Current Medications Acetaminophen (Tylenol 325mg Tab) 650 mg PO Q6H PRN; Protocol PRN Reason: Headache Albuterol Sulfate (Albuterol 0.083% Inhal Bhumi (2.5 Mg/3 Ml) Ud) 2.5 mg IH [id number] JARRELL; Protocol Last Admin: 11/11/18 02:35 Dose: Not Given Atenolol (Tenormin) 12.5 mg PO DAILY JARRELL; Protocol Last Admin: 11/10/18 09:54 Dose: Not Given Ferrous Sulfate (Feosol Liq) 300 mg PO TID JARRELL; Protocol Last Admin: 11/10/18 17:02 Dose: 300 mg Levothyroxine Sodium (Synthroid) 25 mcg PO 0600 JARRELL; Protocol Last Admin: 11/11/18 05:01 Dose: 25 mcg Losartan Potassium (Cozaar) 25 mg PO DAILY JARRELL; Protocol Last Admin: 11/10/18 09:53 Dose: Not Given Pantoprazole Sodium (Protonix Ec Tab) 40 mg PO 0600 JARRELL Last Admin: 11/11/18 05:01 Dose: 40 mg Polyethylene Glycol (Miralax) 17 gm PO TID JARRELL; Protocol Last Admin: 11/10/18 17:01 Dose: Not Given Promethazine HCl (Phenergan Syrup) 6.25 mg PO Q6H PRN; Protocol PRN Reason: Cough Last Admin: 11/09/18 22:05 Dose: 6.25 mg Sucralfate (Carafate Oral Susp) 1 gm PO 0630,1630 JARRELL; Protocol Last Admin: 11/11/18 05:55 Dose: 1 gm - Labs Labs: 11/10/18 06:30 11/10/18 06:30 - Constitutional Appears: No Acute Distress - Head Exam Head Exam: ATRAUMATIC, NORMOCEPHALIC - Respiratory Exam Respiratory Exam: Decreased Breath Sounds, NORMAL BREATHING PATTERN - Cardiovascular Exam Cardiovascular Exam: REGULAR RHYTHM, +S1, +S2 - GI/Abdominal Exam GI & Abdominal Exam: Soft, Normal Bowel Sounds. absent: Tenderness - Extremities Exam Extremities Exam: Normal Inspection - Neurological Exam Neurological Exam: Alert, Awake Assessment and Plan - Assessment and Plan (Free Text) Assessment: GI Bleed secondary to aren ulcers in hiatal hernia LLL Pneumonia HTN COPD Hypothyroidism NPH with FIRE LIEUTENANT shunt Plan: Patient's hemoglobin is 10. continue Protonix and carafate for ulcer in the hiatal hernia. Patient has completed treatment with Cefepime and Doxycycline for pneumonia. We will repeat a Chest X-ray today. continue synthroid for hypothyroidism. continue Atenolol, and Cozaar for hypertension. continue Albuterol nebulizer treatments for COPD.
[2018-11-11] MEDS ORDERED: Potassium Chloride 20 mEq ER Tab PO ONE (09:22)
[2018-11-11] MEDS: POLYETHYLENE GLYCOL 3350 17 GM/Dose PACKET PO SCH ×4 (09:56→17:08)
[2018-11-11] MEDS: Ferrous Sulfate 300 mg/5 mL Liq UD PO SCH ×3 (09:56→17:08)
--- NOTE | 2018-11-11 10:36 | RAD ---
Date of service: 11/11/2018 HISTORY: pneumonia COMPARISON: 10/31/2018 TECHNIQUE: Chest PA and lateral FINDINGS: LUNGS: No active pulmonary disease. PLEURA: Moderate to large left effusion CARDIOVASCULAR: Aortic calcification Moderate cardiomegaly no pulmonary vascular congestion. OSSEOUS STRUCTURES: No significant abnormalities. VISUALIZED UPPER ABDOMEN: Normal. OTHER FINDINGS: None. IMPRESSION: Moderate to large left effusion
--- NOTE | 2018-11-11 11:56 | PN ---
DATE: 11/11/2018 REASON FOR CONSULTATION: Followup, continuity care in transitional care unit, cardiac arrhythmia, SVT, rule out tachy-edson syndrome. SUBJECTIVE: The patient denied any chest pain, shortness of breath, or any palpitation. OBJECTIVE: GENERAL: Not in apparent distress, lying flat in the bed, waiting for the breakfast. VITAL SIGNS: Temperature afebrile. Heart rate 59, blood pressure 123/62. HEENT: PERRLA. Extraocular muscles are intact. NECK: Supple. No carotid bruit or thyromegaly. CHEST: Clear to auscultation. HEART: S1 and S2 regular. ABDOMEN: Soft. EXTREMITIES: Clubbing and cyanosis negative. LABORATORY DATA: Blood workup as follows: WBC 4, hemoglobin 10, hematocrit 32.4, and platelet count 199. Chemistry shows sodium 130, potassium 3.7, chloride 109, carbon dioxide 27, anion gap of 6, BUN of 13, and creatinine 0.7. Total protein is 5.2, albumin 2.8, albumin-globulin ratio 1.2. IMPRESSION: An 88-year-old female with a past medical history significant for dementia, normal pressure hydrocephalus, status post ventriculoperitoneal shunt, hypertension, back pain, insomnia, iron-deficiency anemia, history of gastrointestinal bleed, status post endoscopy and recently found to have mild gastritis, history of dementia, history of cerebrovascular accident who was admitted with altered mental status, left lower lobe pneumonia. The patient had one episode of supraventricular tachycardia and bradycardia. Cardiac consult was called to rule out tachy-edson syndrome. The patient underwent Holter monitor that shows essentially normal sinus, heart rate lowest 57 at 7:20 a.m. and faster heart rate was 102 at 5:45 p.m. Echo dated 11/04/2018 showed ejection fraction normal, [id number] aortic regurgitation, mild aortic stenosis, [id number] tricuspid regurgitation, right ventricular systolic pressure 51, history of anemia and pneumonia. No further episode of arrhythmia noted. RECOMMENDATION: Now, the patient is in transitional care unit. Continue rehab. Continue losartan 25 mg daily. Continue ferrous sulfate for his iron deficiency anemia. Continue levothyroxine 25 mcg daily and continue atenolol 12.5 mg daily. We will follow with you. We will supplement potassium. Thank you Dr. Valerio for providing us the opportunity in taking care of the patient, Bethany Espinoza. Christa Wolf MD
--- NOTE | 2018-11-11 13:24 | CP.PCM.PN ---
Subjective - Date & Time of Evaluation Date of Evaluation: 11/11/18 Time of Evaluation: 11:05 - Subjective Subjective: No fevers, non-toxic. Objective - Vital Signs/Intake and Output Vital Signs (last 24 hours): Temp Pulse Resp BP Pulse Ox 97.6 F 85 16 122/70 95 11/09/18 10:00 11/11/18 09:56 11/09/18 10:00 11/11/18 09:56 11/09/18 10:00 - Medications Medications: Current Medications Acetaminophen (Tylenol 325mg Tab) 650 mg PO Q6H PRN; Protocol PRN Reason: Headache Albuterol Sulfate (Albuterol 0.083% Inhal Bhumi (2.5 Mg/3 Ml) Ud) 2.5 mg IH [id number] JARRELL; Protocol Last Admin: 11/11/18 07:25 Dose: 2.5 mg Atenolol (Tenormin) 12.5 mg PO DAILY JARRELL; Protocol Last Admin: 11/11/18 09:56 Dose: 12.5 mg Ferrous Sulfate (Feosol Liq) 300 mg PO TID JARRELL; Protocol Last Admin: 11/11/18 09:56 Dose: 300 mg Levothyroxine Sodium (Synthroid) 25 mcg PO 0600 JARRELL; Protocol Last Admin: 11/11/18 05:01 Dose: 25 mcg Losartan Potassium (Cozaar) 25 mg PO DAILY JARRELL; Protocol Last Admin: 11/11/18 09:55 Dose: 25 mg Pantoprazole Sodium (Protonix Ec Tab) 40 mg PO 0600 JARRELL Last Admin: 11/11/18 05:01 Dose: 40 mg Polyethylene Glycol (Miralax) 17 gm PO TID JARRELL; Protocol Last Admin: 11/11/18 10:00 Dose: Not Given Promethazine HCl (Phenergan Syrup) 6.25 mg PO Q6H PRN; Protocol PRN Reason: Cough Last Admin: 11/09/18 22:05 Dose: 6.25 mg Sucralfate (Carafate Oral Susp) 1 gm PO 0630,1630 JARRELL; Protocol Last Admin: 11/11/18 05:55 Dose: 1 gm - Labs Labs: 11/10/18 06:30 11/10/18 06:30 - Constitutional Appears: Non-toxic, Chronically Ill - Head Exam Head Exam: NORMAL INSPECTION - Respiratory Exam Respiratory Exam: Decreased Breath Sounds - Cardiovascular Exam Cardiovascular Exam: +S1, +S2 - GI/Abdominal Exam GI & Abdominal Exam: Soft. 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
[2018-11-12] MEDS: Albuterol 0.083% Inhal Sol (2.5 mg/3 mL) UD IH SCH ×4 (01:25→19:54)
[2018-11-12] MEDS: Ferrous Sulfate 300 mg/5 mL Liq UD PO SCH ×3 (09:58→17:10)
[2018-11-12] MEDS: POLYETHYLENE GLYCOL 3350 17 GM/Dose PACKET PO SCH ×3 (09:59→17:10)
--- NOTE | 2018-11-12 10:42 | PN ---
DATE: 11/12/2018 SUBJECTIVE: The patient is in [facility], Transitional Care Unit. The patient is seen for rehab ambulation therapy. The patient has past history of hypertension, chronic lung disease and normal pressure hydrocephalus. The patient has ventriculoperitoneal shunt. She also has a history of anemia and gastritis. PHYSICAL EXAMINATION: VITAL SIGNS: The patient's pulse is 78, blood pressure 115/75, respirations are 18, O2 sat 97% on room air. HEENT: The patient's head is normocephalic except in the area of the DISABILITIES SERVICES OFFICER shunt on the right side of the head. LUNGS: Clear. HEART: Normal sinus rhythm clinically. ABDOMEN: Soft. Liver and spleen is not palpable. No tenderness. CENTRAL NERVOUS SYSTEM: No focal deficit. LABORATORY DATA: The hemoglobin 10.0 now. The chemistry; the patient's iron is 51, total iron binding capacity is 319. O2 saturation is 16. The patient's creatinine and BUN are within normal range. MEDICATIONS: The patient's medications consists of DuoNeb. The patient is on Carafate 1 g daily. The patient is on Losartan 25 mg daily. The patient is on pantoprazole 40 mg p.o. daily. Synthroid 25 mcg daily. The patient also gets atenolol 12.5 mg daily and Tylenol for pain. The patient is improving with physical therapy and we will continue current management. Rick Valerio MD JESSICA
--- NOTE | 2018-11-12 11:32 | PN ---
DATE: 11/12/2018 REASON FOR CONSULTATION: Followup, continuity of the care in transitional care unit, arrhythmia, SVT, rule out tachy-edson syndrome. SUBJECTIVE: The patient denied any chest pain, shortness of breath, or any palpitation. OBJECTIVE: GENERAL: Lying flat in the bed, not in apparent distress. VITAL SIGNS: Temperature afebrile, heart rate 78, blood pressure 123/62. HEENT: PERRLA. Extraocular muscles intact. NECK: Supple. No carotid bruit or thyromegaly. CHEST: Clear to auscultation. HEART: S1 and S2 regular. ABDOMEN: Soft. EXTREMITIES: Clubbing and cyanosis negative. LABORATORY DATA: Blood workup as follows: WBC 4, hemoglobin 10, hematocrit 32.4 and platelet count 199. Chemistry shows sodium 130, potassium 3.7, chloride 109, carbon dioxide 6, anion gap of 13, BUN 13 and creatinine 0.7. Total protein is 5.2, albumin 2.8. IMPRESSION: An 88-year-old female with past medical history significant for hypertension, admitted with anemia, possible gastrointestinal bleed, history of dementia, history of normal pressure hydrocephalus, status post ventriculoperitoneal shunt, history of back pain, history of insomnia, history of iron-deficiency anemia, history of gastrointestinal bleed, status post endoscopy, recently found to have mild gastritis, history of dementia, history of cerebrovascular accident in the past admitted with altered mental status, left lower lobe pneumonia, found to be one episode of supraventricular tachycardia and then bradycardia. The patient's Holter with no evidence of tachy-edson syndrome noted, lowest heart rate 57 at 7:20 a.m. and fastest heart rate 102 at 5:45 p.m. The patient had also echo to rule out any structural heart disease dated 11/04/2018 that showed ejection fraction normal, [id number] aortic regurgitation, mild aortic stenosis, [id number] mitral regurgitation, right ventricular systolic pressure 51. No further episode of arrhythmia noted. Now, the patient is in transitional care unit. RECOMMENDATION: Continue rehab. Continue losartan. Continue ferrous sulfate for iron deficiency anemia. Continue levothyroxine for hypothyroidism. Continue atenolol 12.5 mg. Continue rehab. CVS status is stable. No further cardiac workup is planned or warranted. Since the patient has protein calorie malnutrition, mild to moderate, is not present on admission, we will start some supplement that will be started by Dr. Valerio. Thank you Dr. Valerio for providing us the opportunity in taking care of the patient, Bethany Espinoza. Christa Wolf MD
--- NOTE | 2018-11-12 15:58 | CP.PCM.PN ---
Subjective - Date & Time of Evaluation Date of Evaluation: 11/12/18 Time of Evaluation: 09:35 - Subjective Subjective: Afebrile, comfortable. Objective - Vital Signs/Intake and Output Vital Signs (last 24 hours): Temp Pulse Resp BP Pulse Ox 97.6 F 85 16 122/70 95 11/09/18 10:00 11/11/18 09:56 11/09/18 10:00 11/11/18 09:56 11/09/18 10:00 - Medications Medications: Current Medications Acetaminophen (Tylenol 325mg Tab) 650 mg PO Q6H PRN; Protocol PRN Reason: Headache Albuterol Sulfate (Albuterol 0.083% Inhal Bhumi (2.5 Mg/3 Ml) Ud) 2.5 mg IH [id number] JARRELL; Protocol Last Admin: 11/11/18 07:25 Dose: 2.5 mg Atenolol (Tenormin) 12.5 mg PO DAILY JARRELL; Protocol Last Admin: 11/11/18 09:56 Dose: 12.5 mg Ferrous Sulfate (Feosol Liq) 300 mg PO TID JARRELL; Protocol Last Admin: 11/11/18 09:56 Dose: 300 mg Levothyroxine Sodium (Synthroid) 25 mcg PO 0600 JARRELL; Protocol Last Admin: 11/11/18 05:01 Dose: 25 mcg Losartan Potassium (Cozaar) 25 mg PO DAILY JARRELL; Protocol Last Admin: 11/11/18 09:55 Dose: 25 mg Pantoprazole Sodium (Protonix Ec Tab) 40 mg PO 0600 JARRELL Last Admin: 11/11/18 05:01 Dose: 40 mg Polyethylene Glycol (Miralax) 17 gm PO TID JARRELL; Protocol Last Admin: 11/11/18 10:00 Dose: Not Given Promethazine HCl (Phenergan Syrup) 6.25 mg PO Q6H PRN; Protocol PRN Reason: Cough Last Admin: 11/09/18 22:05 Dose: 6.25 mg Sucralfate (Carafate Oral Susp) 1 gm PO 0630,1630 JARRELL; Protocol Last Admin: 11/11/18 05:55 Dose: 1 gm - Labs Labs: 11/10/18 06:30 11/10/18 06:30 - Constitutional Appears: Chronically Ill - Head Exam Head Exam: NORMAL INSPECTION - Respiratory Exam Respiratory Exam: Decreased Breath Sounds - Cardiovascular Exam Cardiovascular Exam: +S1, +S2 - GI/Abdominal Exam GI & Abdominal Exam: Soft. absent: Tenderness Assessment and Plan - Assessment and Plan (Free Text) Plan: Assessment left lower HCAP, clinically improved and S/P treatment with antibiotics history of sepsis from left lower lobe healthcare-associated pneumonia, clinically improved and S/P treatment with antibiotics HTN COPD S/P left hip replacement normal pressure hydrocephalus S/P BAG GRADER shunt placement hypothyroidism history of shingles GERD S/P right knee surgery Plan completed 7 days of Cefepime and Doxycycline; cultures have been negative; reviewed CT A/P and CXR will continue to monitor clinically off antibiotics since she is at risk for hospital-acquired infections
[2018-11-12] MEDS: Sucralfate 1 gm/10 ml Oral Susp UD PO SCH (17:09)
--- NOTE | 2018-11-12 22:49 | CP.PCM.CON ---
History of Present Illness - History of Present Illness History of Present Illness: Pt. is a 88 year old female admitted with severe anemia. EGD showed large hiatal hernia, gastric ulcer. She was transferred to rehab for deconditioning. Hb is stable now. Review of Systems - Constitutional Constitutional: Fatigue, Malaise - EENT Eyes: absent: As Per HPI, Blind Spots, Blurred Vision, Change in Vision, Decreas ed Night Vision, Diplopia, Discharge, Dry Eye, Exophthalmos, Floaters, Irritation, Itchy Eyes, Loss of Peripheral Vision, Pain, Photophobia, Requires Corrective Lenses, Sees Flashes, Spots in Vision, Tunnel Vision, Other Visual Disturbances, Loss of Vision, Other Nose/Mouth/Throat: absent: As Per HPI, Epistaxis, Nasal Congestion, Nasal Discharge, Nasal Obstruction, Nasal Trauma, Nose Pain, Post Nasal Drip, Sinus Pain, Sinus Pressure, Bleeding Gums, Change in Voice, Dental Pain, Dry Mouth, Dysphagia, Halitosis, Hoarsness, Lip Swelling, Mouth Lesions, Mouth Pain, Odynophagia, Sore Throat, Throat Swelling, Tongue Swelling, Facial Pain, Neck Pain, Neck Mass, Other - Cardiovascular Cardiovascular: absent: As Per HPI, Acrocyanosis, Chest Pain, Chest Pain at Rest, Chest Pain with Activity, Claudication, Diaphoresis, Dyspnea, Dyspnea on Exertion, Edema, Irregular Heart Rhythm, Pain Radiating to Arm/Neck/Jaw, Leg Edema, Leg Ulcers, Lightheadedness, Orthopnea, Palpitations, Paroxysmal Nocturnal Dyspnea, Pedal Edema, Radiating Pain, Rapid Heart Rate, Slow Heart Rate, Syncope, Other - Respiratory Respiratory: absent: As Per HPI, Cough, Dyspnea, Hemoptysis, Dyspnea on Exertion, Wheezing, Snoring, Stridor, Pain on Inspiration, Chest Congestion, Excessive Mucous Production, Change in Mucous Color, Pain with Coughing, Other - Gastrointestinal Gastrointestinal: absent: As Per HPI, Abdominal Pain, Belching, Bloating, Change in Bowel Habits, Change in Stool Character, Coffee Ground Emesis, Constipation, Cramping, Diarrhea, Dyspepsia, Dysphagia, Early Satiety, Excessive Flatus, Fecal Incontinence, Heartburn, Hematemesis, Hematochezia, Loose Stools, Melena, Nausea, Odynophagia, Temesmus, Vomiting, Other - Genitourinary Genitourinary: absent: As Per HPI, Change in Urinary Stream, Difficulty Urinating, Dysuria, Flank Pain, Hematuria, Pyuria, Nocturia, Urinary Incontinence, Urinary Frequency, Urinary Hesitance, Urinary Urgency, Voiding Freq/Small Amts, Freq UTI, Hx Renal/Bladder Calculi, Hx /Renal Surgery, Bladder Distension, Other - Menstruation Menstruation: absent: As Per HPI, Amenorrhea, Amenorrhea/ Control, Currently Menstual, Cycle <21 Days, Cycle >35 Days, Cycle Variable, Menses 1-7 Days, Menses >/= 8 Days, Menses Variable, Cycle > 4 Weeks Between, No Menses for 6 Months, Heavy Menses, Light Menses, Normal Menses, Spotting Between Cycles, S/P Hysterectomy, Menopausal, Post Menopausal, Premenarche, Abnormal Vaginal Bleeding, Dysmenorrhea, Other - Musculoskeletal Musculoskeletal: Abnormal Gait - Integumentary Integumentary: absent: As Per HPI, Acne, Alopecia, Bleeding Lesions, Change in Hair, Change in Nails, Change in Pigmentation, Changing Lesions, Dry Skin, Eryth kemar, Furuncle, Hirsutism, Lesions, New Lesions, Non-Healing Lesions, Photosensitivity, Pruritus, Rash, Skin Pain, Skin Ulcer, Sores, Striae, Swelling, Unusual Bruising, Wounds, Jaundice, Other - Neurological Neurological: absent: As Per HPI, Abnormal Gait, Abnormal Hearing, Abnormal Movements, Abnormal Speech, Behavioral Changes, Burning Sensations, Confusion, Convulsions, Disequilibrium, Dizziness, Numbness, Focal Weakness, Frequent Falls, Headaches, Lack of Coordination, Loss of Vision, Memory Loss, Paresthesias, Radicular Pain, Restless Legs, Sensory Deficit, Syncope, Tingling, Tremor, Vertigo, Weakness, Other Visual Disturbances, Other - Psychiatric Psychiatric: absent: As Per HPI, Abnormal Sleep Pattern, Anhedonia, Anxiety, Auditory Hallucinations, Behavioral Changes, Change in Appetite, Change in Libido, Confusion, Depression, Difficulty Concentrating, Hallucinations, Homicidal Ideation, Hopelessness, Irritability, Memory Loss, Mood Swings, Panic Attacks, Paranoia, Suicidal Ideation, Visual Hallucinations, Tactile Hallucinations, Other - Endocrine Endocrine: absent: As Per HPI, Change in Body Appearance, Change in Libido, Cold Intolorance, Deepening of Voice, Excessive Sweating, Fatigue, Flushing, Heat Intolorance, Increase in Ring/Shoe/Hat Size, Palpitations, Polydipsia, Polyphagia, Polyuria, Other - Hematologic/Lymphatic Hematologic: As Per HPI Past Patient History - Infectious Disease Hx of Infectious Diseases: None - Past Social History Smoking Status: Former Smoker - CARDIAC Hx Cardiac Disorders: Yes Hx Hypertension: Yes - PULMONARY Hx Chronic Obstructive Pulmonary Disease (COPD): Yes - NEUROLOGICAL Hx Neurological Disorder: Yes (hydrocephalus,DEPUTY PROGRAM MANAGER shunt) Hx Dementia: Yes Hx Dizziness: Yes - HEENT Hx HEENT Problems: Yes - RENAL Hx Chronic Kidney Disease: No - ENDOCRINE/METABOLIC Hx Endocrine Disorders: Yes Hx Hypothyroidism: Yes - HEMATOLOGICAL/ONCOLOGICAL Hx Blood Transfusions: No Hx Blood Transfusion Reaction: No - INTEGUMENTARY Hx Dermatological Problems: No - MUSCULOSKELETAL/RHEUMATOLOGICAL Hx Falls: Yes - GASTROINTESTINAL Hx Gastrointestinal Disorders: Yes - GENITOURINARY/GYNECOLOGICAL Hx Genitourinary Disorders: Yes Hx Reproductive Disorders: No - PSYCHIATRIC Hx Psychophysiologic Disorder: Yes Hx Anxiety: Yes Hx Substance Use: No - SURGICAL HISTORY Hx Surgeries: Yes - ANESTHESIA Hx Anesthesia Reactions: No Hx Malignant Hyperthermia: No Meds Allergies/Adverse Reactions: Allergies Allergy/AdvReac Type Severity Reaction Status Date / Time No Known Allergies Allergy Verified 10/31/18 18:17 - Medications Medications: Current Medications Acetaminophen (Tylenol 325mg Tab) 650 mg PO Q6H PRN; Protocol PRN Reason: Headache Albuterol Sulfate (Albuterol 0.083% Inhal Bhumi (2.5 Mg/3 Ml) Ud) 2.5 mg IH [id number] JARRELL; Protocol Last Admin: 11/12/18 19:54 Dose: Not Given Atenolol (Tenormin) 12.5 mg PO DAILY JARRELL; Protocol Last Admin: 11/12/18 09:59 Dose: Not Given Ferrous Sulfate (Feosol Liq) 300 mg PO TID JARRELL; Protocol Last Admin: 11/12/18 17:10 Dose: 300 mg Levothyroxine Sodium (Synthroid) 25 mcg PO 0600 JARRELL; Protocol Last Admin: 11/11/18 05:01 Dose: 25 mcg Losartan Potassium (Cozaar) 25 mg PO DAILY JARRELL; Protocol Last Admin: 11/12/18 09:58 Dose: Not Given Pantoprazole Sodium (Protonix Ec Tab) 40 mg PO 0600 JARRELL Last Admin: 11/11/18 05:01 Dose: 40 mg Polyethylene Glycol (Miralax) 17 gm PO TID [facility]; Protocol Last Admin: 11/12/18 17:10 Dose: Not Given Promethazine HCl (Phenergan Syrup) 6.25 mg PO Q6H PRN; Protocol PRN Reason: Cough Last Admin: 11/09/18 22:05 Dose: 6.25 mg Sucralfate (Carafate Oral Susp) 1 gm PO 0630,1630 JARRELL; Protocol Last Admin: 11/12/18 17:09 Dose: 1 gm Physical Exam - Constitutional Appears: Non-toxic, Chronically Ill - Head Exam Head Exam: ATRAUMATIC, NORMAL INSPECTION, NORMOCEPHALIC - Eye Exam Eye Exam: Normal appearance - ENT Exam ENT Exam: Mucous Membranes Moist, Normal Exam - Neck Exam Neck exam: Positive for: Normal Inspection - Respiratory Exam Respiratory Exam: Clear to Auscultation Bilateral, NORMAL BREATHING PATTERN - Cardiovascular Exam Cardiovascular Exam: REGULAR RHYTHM, +S1, +S2 - GI/Abdominal Exam GI & Abdominal Exam: Normal Bowel Sounds, Soft - Extremities Exam Extremities exam: Positive for: normal inspection - Neurological Exam Neurological exam: Alert, CN II-XII Intact, Oriented x3 Results - Vital Signs Recent Vital Signs: Last Vital Signs Temp 98.5 F 11/12/18 16:00 Pulse 81 11/12/18 16:00 Resp 18 11/12/18 16:00 BP 126/73 11/12/18 16:00 Pulse Ox 94 L 11/12/18 16:00 - Labs Result Diagrams: 11/10/18 06:30 11/10/18 06:30 Assessment & Plan - Assessment and Plan (Free Text) Assessment: 1. iron deficiency anemia, secondary to chronic blood loss , likely from gastric ulcer. Hb/hct stable now. She can continue IV iron as out patient . 2. Gastric ulcer : following. no active bleeding. 3. participating in PT. Thank you DR. Hudson for allowing us to participate in her care. - Date & Time Date: 11/10/18 Time: 09:00
[2018-11-13] MEDS: Albuterol 0.083% Inhal Sol (2.5 mg/3 mL) UD IH SCH ×4 (01:40→21:04)
[2018-11-13] MEDS: Sucralfate 1 gm/10 ml Oral Susp UD PO SCH ×2 (05:33→17:30)
[2018-11-13] MEDS: Levothyroxine 25 MCG TAB PO SCH (05:34)
[2018-11-13] MEDS: Pantoprazole 40 mg EC Tab PO SCH (05:34)
--- NOTE | 2018-11-13 08:06 | CP.PCM.PN ---
Subjective - Date & Time of Evaluation Date of Evaluation: 11/13/18 Time of Evaluation: 07:45 - Subjective Subjective: Patient is admitted to the [facility] for rehab. Objective - Vital Signs/Intake and Output Vital Signs (last 24 hours): Temp Pulse Resp BP Pulse Ox 98.7 F 67 20 110/64 96 11/13/18 06:00 11/13/18 06:00 11/13/18 06:00 11/13/18 06:00 11/13/18 06:00 - Medications Medications: Current Medications Acetaminophen (Tylenol 325mg Tab) 650 mg PO Q6H PRN; Protocol PRN Reason: Headache Albuterol Sulfate (Albuterol 0.083% Inhal Bhumi (2.5 Mg/3 Ml) Ud) 2.5 mg IH [id number] JARRELL; Protocol Last Admin: 11/13/18 07:14 Dose: 2.5 mg Atenolol (Tenormin) 12.5 mg PO DAILY JARRELL; Protocol Last Admin: 11/12/18 09:59 Dose: Not Given Ferrous Sulfate (Feosol Liq) 300 mg PO TID JARRELL; Protocol Last Admin: 11/12/18 17:10 Dose: 300 mg Levothyroxine Sodium (Synthroid) 25 mcg PO 0600 JARRELL; Protocol Last Admin: 11/13/18 05:34 Dose: 25 mcg Losartan Potassium (Cozaar) 25 mg PO DAILY JARRELL; Protocol Last Admin: 11/12/18 09:58 Dose: Not Given Pantoprazole Sodium (Protonix Ec Tab) 40 mg PO 0600 JARRELL Last Admin: 11/13/18 05:34 Dose: 40 mg Polyethylene Glycol (Miralax) 17 gm PO TID JRARELL; Protocol Last Admin: 11/12/18 17:10 Dose: Not Given Promethazine HCl (Phenergan Syrup) 6.25 mg PO Q6H PRN; Protocol PRN Reason: Cough Last Admin: 11/09/18 22:05 Dose: 6.25 mg Sucralfate (Carafate Oral Susp) 1 gm PO 0630,1630 JARRELL; Protocol Last Admin: 11/13/18 05:33 Dose: 1 gm - Labs Labs: 11/10/18 06:30 11/10/18 06:30 - Constitutional Appears: No Acute Distress - Head Exam Head Exam: ATRAUMATIC, NORMOCEPHALIC - Respiratory Exam Respiratory Exam: Clear to Ausculation Bilateral, NORMAL BREATHING PATTERN - Cardiovascular Exam Cardiovascular Exam: REGULAR RHYTHM, +S1, +S2 - GI/Abdominal Exam GI & Abdominal Exam: Soft, Normal Bowel Sounds. absent: Tenderness - Extremities Exam Extremities Exam: Normal Inspection - Neurological Exam Neurological Exam: Alert, Awake Assessment and Plan - Assessment and Plan (Free Text) Assessment: Gait dysfunction COPD HTN Arthritis LLL pneumonia moderate to large pleural effusion NPH with FOOD PRESERVATION SCIENTIST shunt Dementia Plan: Patient has completed course of antibiotics for pneumonia. Repeat chest x-ray shows moderate to large pleural effusion. Will consult pulmonary with Dr. Ward. continue physical therapy
--- NOTE | 2018-11-13 10:51 | CON ---
DATE: 11/13/2018 PULMONARY CONSULTATION REASON FOR PULMONARY CONSULTATION: Left pleural effusion. REFERRING PHYSICIAN: Dr. Valerio. 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 In the emergency room, the patient was also noted to be very anemic. She was thus admitted for additional evaluation and treatment. I did discuss the case with Dr. Valerio at length. The patient did have an endoscopy, which showed multiple Samuel ulcers. The patient was also transfused. There have been no additional signs of active GI bleeding. In addition, the patient's pulmonary status also improved significantly. She was transferred to the transitional unit for additional physical therapy. Chest x-ray done on 11/11/2018 revealed an increased left pleural effusion. I am thus asked to evaluate on this case for additional management. The patient is not short of breath at rest. She denies dyspnea on exertion. She does state to a minimal occasional cough with no significant sputum production. There is no history of chest pain, coughing up of blood, or chest pain - brought on with deep respirations. There is no history of temperatures, chills or infectious exposure. There is no history of night sweats, weight loss or appetite change prior to the above events. No history of calf pains. No history of syncope or diaphoresis. No history of recent travel or trauma. REVIEW OF SYSTEMS: No history of nausea, vomiting or diarrhea. No acute urinary symptoms. No new neurologic complaints. Rest of the review of systems is negative. ALLERGIES: NO KNOWN ALLERGIES. SOCIAL HISTORY: Positive for tobacco and negative for alcohol. FAMILY HISTORY: No inheritable diseases. HOME MEDICATIONS: Include Cozaar, Protonix, Synthroid, Flovent, albuterol nebulizer treatments and aspirin. PHYSICAL EXAMINATION: GENERAL: The patient appears comfortable this morning. She is not short of breath at rest. VITAL SIGNS: Temperature is 98.7, pulse 67, respirations 18/20, blood pressure 110/64. Oxygen saturation on nasal cannula is 96%. HEENT: Normocephalic, atraumatic. No JVD. CARDIOVASCULAR: Systolic ejection murmur at the lower left sternal border. No S3 gallop. LUNGS: Decreased breath sounds - left lower lobe. Minimal rhonchi. No wheezing. EXTREMITIES: Mild edema. No cyanosis, no clubbing. Calves are nontender to palpation. GI: Abdomen is soft, nontender and nondistended. Bowel sounds are positive. SKIN: No acute rash. NEUROLOGIC: Exam limited at the present time. PERTINENT LABORATORY DATA: Chest x-ray was done on 11/11/2018 and reviewed. There is a moderately large left pleural effusion noted. Chest x-ray was also reviewed from 10/31/2018. On that film, there is a small left pleural effusion. Abdominal and pelvic CT scan was also done. On the CT scan, a small to moderate left pleural effusion is noted with probable adjacent compressive atelectasis. CBC: White count 4.0K, hemoglobin 10.0, hematocrit 32.4, platelets of 199,000. Complete metabolic profile: Chloride 109. Total protein 5.2, albumin 2.8. Rest of the metabolic profile is within normal limits. IMPRESSION: 1. Enlarging left pleural effusion. 2. Chronic obstructive pulmonary disease. 3. Anemia. 4. Status post gastrointestinal bleeding. 5. Cardiac arrhythmias. PLAN: Again, I did discuss the case with Dr. Valerio at length. I have also discussed the case with the nurse at length. I have also reviewed the chart at length. The patient does not appear to be an adequate historian. The patient presented to [facility] - originally on 10/31/2018 - with a 1-day history of worsening pulmonary symptoms. In addition, the patient was noted to be severely anemic. She was thus admitted for additional evaluation. I did review the notes by Cardiology and Gastroenterology. Endoscopy was done. Results are noted. The patient does not appear to have an active GI bleed at this point in time. I also reviewed the last two chest x-rays and the CT scan of the abdomen. It certainly appears that the left pleural effusion is now enlarging. Dr. Arnol Martínez (Interventional Radiology) will be called on the case for a possible thoracentesis. Again, this is an elderly,chronically ill, primarily homebound patient. Clinical status of the patient certainly appears improved - compared to her initial presentation. However, given the above, the future status/prognosis for this patient definitely appears guarded. Again, I did discuss the case with Dr. Valerio at length. Thank you very much for this pulmonary consultation. Abdoul Ward MD JESSICA
[2018-11-13] MEDS: Ferrous Sulfate 300 mg/5 mL Liq UD PO SCH ×3 (11:00→17:32)
[2018-11-13] MEDS: POLYETHYLENE GLYCOL 3350 17 GM/Dose PACKET PO SCH ×2 (11:00→17:32)
--- NOTE | 2018-11-13 13:23 | CP.PCM.PN ---
Subjective - Date & Time of Evaluation Date of Evaluation: 11/13/18 Time of Evaluation: 10:15 - Subjective Subjective: No fevers, not in distress. Objective - Vital Signs/Intake and Output Vital Signs (last 24 hours): Temp Pulse Resp BP Pulse Ox 98.6 F 76 18 103/53 L 94 L 11/11/18 10:00 11/12/18 13:52 11/11/18 10:00 11/12/18 09:59 11/12/18 13:52 - Medications Medications: Current Medications Acetaminophen (Tylenol 325mg Tab) 650 mg PO Q6H PRN; Protocol PRN Reason: Headache Albuterol Sulfate (Albuterol 0.083% Inhal Buhmi (2.5 Mg/3 Ml) Ud) 2.5 mg IH [id number] JARRLEL; Protocol Last Admin: 11/12/18 13:15 Dose: 2.5 mg Atenolol (Tenormin) 12.5 mg PO DAILY JARRELL; Protocol Last Admin: 11/12/18 09:59 Dose: Not Given Ferrous Sulfate (Feosol Liq) 300 mg PO TID JARRELL; Protocol Last Admin: 11/12/18 13:10 Dose: 300 mg Levothyroxine Sodium (Synthroid) 25 mcg PO 0600 JARRELL; Protocol Last Admin: 11/11/18 05:01 Dose: 25 mcg Losartan Potassium (Cozaar) 25 mg PO DAILY JARRELL; Protocol Last Admin: 11/12/18 09:58 Dose: Not Given Pantoprazole Sodium (Protonix Ec Tab) 40 mg PO 0600 JARRELL Last Admin: 11/11/18 05:01 Dose: 40 mg Polyethylene Glycol (Miralax) 17 gm PO TID JARRELL; Protocol Last Admin: 11/12/18 13:10 Dose: Not Given Promethazine HCl (Phenergan Syrup) 6.25 mg PO Q6H PRN; Protocol PRN Reason: Cough Last Admin: 11/09/18 22:05 Dose: 6.25 mg Sucralfate (Carafate Oral Susp) 1 gm PO 0630,1630 JARRELL; Protocol Last Admin: 11/11/18 17:07 Dose: 1 gm - Labs Labs: 11/10/18 06:30 11/10/18 06:30 - Constitutional Appears: Chronically Ill - Head Exam Head Exam: NORMAL INSPECTION - Respiratory Exam Respiratory Exam: Decreased Breath Sounds - Cardiovascular Exam Cardiovascular Exam: +S1, +S2 - GI/Abdominal Exam GI & Abdominal Exam: Soft. 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
--- NOTE | 2018-11-13 15:53 | PN ---
DATE: 11/13/2018 LOCATION: The patient is in room 321, bed 1. REASON FOR CONSULTATION AND FOLLOWUP: SVT, rule out tachybrady syndrome, deconditioning. SUBJECTIVE: The patient is lying flat in bed without any chest pain, shortness of breath or palpitation. PHYSICAL EXAMINATION: VITAL SIGNS: Blood pressure 102/51, respirations 15, pulse 81, and temperature 98.4. HEENT: Head is normocephalic. Eyes: Pupils normal. Conjunctivae slightly pale. NECK: JVP low. Carotid equal. THORAX: AP diameter normal. LUNGS: No significant rales. CARDIOVASCULAR: S1 and S2. ABDOMEN: Soft. No tenderness. No organomegaly. Bowel sounds normal. EXTREMITIES: No clubbing. No cyanosis. LABORATORY DATA: WBC 4, hemoglobin 10, hematocrit 32.4, and platelet 199. Sodium 138, potassium 3.7, BUN 13, creatinine 0.7. AST and ALT normal. Total protein 5.2, albumin 2.8. DIAGNOSES: Hypertension, anemia, possible gastrointestinal bleeding, history of dementia, history of normal pressure hydrocephalus, status post ventricular peritoneal shunt, history of back pain, history of insomnia, iron deficiency anemia, history of gastrointestinal bleeding status post endoscopy, recently found to have mild gastritis, dementia, history of cerebrovascular accident in the past, admitted with altered mental status, left lower lobe pneumonia, found to have one episode of supraventricular tachycardia, and then the patient has bradycardia. PLAN: The patient's Holter monitor did not show any evidence of tachybrady syndrome. Lowest heart rate was 57 at 07:20 a.m. and fastest heart rate was 102 at 05:40 p.m. Patient's echo on 11/04/2018 showed ejection fraction normal, mild to moderate arterial regurgitation, mild aortic stenosis, trace to mild mitral regurgitation, right ventricular systolic pressure 51 suggestive of moderate pulmonary hypertension. Since the patient had no more arrhythmia, we will continue rehab. We will continue present therapy with ferrous sulfate for her anemia. The patient is also getting losartan, atenolol 12.5 mg oral daily. We will continue physical therapy. We will continue to follow with you. The patient ____ calorie malnutrition. We will follow closely. Christa Iniguez MD
[2018-11-14] MEDS: Albuterol 0.083% Inhal Sol (2.5 mg/3 mL) UD IH SCH ×4 (02:46→20:25)
[2018-11-14] MEDS: Pantoprazole 40 mg EC Tab PO SCH (05:12)
[2018-11-14] MEDS: Levothyroxine 25 MCG TAB PO SCH (05:12)
[2018-11-14] MEDS: Sucralfate 1 gm/10 ml Oral Susp UD PO SCH ×2 (05:42→17:37)
--- NOTE | 2018-11-14 07:55 | PN ---
DATE: 11/14/2018 PULMONARY NOTE SUBJECTIVE: The patient appears comfortable this morning. She is not short of breath at rest. PHYSICAL EXAMINATION: VITALS: Temperature is 98.2, pulse 73, respirations 18, blood pressure 122/61. Oxygen saturation on nasal cannula is 97%. HEENT: Normocephalic, atraumatic. No JVD. CARDIOVASCULAR: Systolic ejection murmur at the lower left sternal border. No S3 gallop. LUNGS: Decreased breath sounds - left lower lobe. Minimal rhonchi. No wheezing. EXTREMITIES: Mild edema. No cyanosis, no clubbing. Calves are nontender to palpation. GASTROINTESTINAL: Abdomen is soft, nontender, and nondistended. Bowel sounds are positive. SKIN: No acute rash. NEUROLOGIC: Exam limited at the present time. IMPRESSION: 1. Enlarging left pleural effusion. 2. Chronic obstructive pulmonary disease. 3. Anemia. 4. Status post gastrointestinal bleeding. 5. Cardiac arrhythmias. PLAN: The patient appears very comfortable this morning. She is not short of breath at rest. She does state to "feeling good" overall. I did discuss case with the night nurse at length. The night nurse stated that the patient had a good night. On physical exam, there is no significant bronchospasm noted. In addition, the oxygen saturation on nasal cannula is 97%. I will continue the current nebulizer treatments for now. Inputs by Cardiology and Infectious Disease are also noted. In addition, Dr. Arnol Martínez (Interventional Radiology) has been called on the case for possible thoracentesis. Clinical status of the patient is certainly improved - compared to the initial presentation. However, given the above, the future status/prognosis for this elderly patient certainly remains guarded. I will discuss the above with Dr. Valerio. Abdoul Ward MD MTDAncelmo
--- NOTE | 2018-11-14 07:58 | CP.PCM.PN ---
Subjective - Date & Time of Evaluation Date of Evaluation: 11/14/18 Time of Evaluation: 07:40 - Subjective Subjective: Patient is in room 321 bed 1. Patient denies shortness of breath or chest pain. Objective - Vital Signs/Intake and Output Vital Signs (last 24 hours): Temp Pulse Resp BP Pulse Ox 98.2 F 73 18 122/61 97 11/14/18 05:52 11/14/18 05:52 11/14/18 05:52 11/14/18 05:52 11/14/18 05:52 - Medications Medications: Current Medications Acetaminophen (Tylenol 325mg Tab) 650 mg PO Q6H PRN; Protocol PRN Reason: Headache Albuterol Sulfate (Albuterol 0.083% Inhal Bhumi (2.5 Mg/3 Ml) Ud) 2.5 mg IH [id number] JARRELL; Protocol Last Admin: 11/14/18 07:14 Dose: 2.5 mg Atenolol (Tenormin) 12.5 mg PO DAILY JARRELL; Protocol Last Admin: 11/13/18 11:07 Dose: Not Given Ferrous Sulfate (Feosol Liq) 300 mg PO TID JARRELL; Protocol Last Admin: 11/13/18 17:32 Dose: 300 mg Levothyroxine Sodium (Synthroid) 25 mcg PO 0600 JARRELL; Protocol Last Admin: 11/14/18 05:12 Dose: 25 mcg Losartan Potassium (Cozaar) 25 mg PO DAILY JARRELL; Protocol Last Admin: 11/13/18 11:05 Dose: Not Given Pantoprazole Sodium (Protonix Ec Tab) 40 mg PO 0600 JARRELL Last Admin: 11/14/18 05:12 Dose: 40 mg Polyethylene Glycol (Miralax) 17 gm PO TID JARRELL; Protocol Last Admin: 11/13/18 17:32 Dose: Not Given Promethazine HCl (Phenergan Syrup) 6.25 mg PO Q6H PRN; Protocol PRN Reason: Cough Last Admin: 11/09/18 22:05 Dose: 6.25 mg Sucralfate (Carafate Oral Susp) 1 gm PO 0630,1630 JARRELL; Protocol Last Admin: 11/14/18 05:42 Dose: 1 gm - Labs Labs: 11/10/18 06:30 11/10/18 06:30 - Constitutional Appears: No Acute Distress - Head Exam Head Exam: ATRAUMATIC, NORMOCEPHALIC - Respiratory Exam Respiratory Exam: Decreased Breath Sounds, NORMAL BREATHING PATTERN - Cardiovascular Exam Cardiovascular Exam: REGULAR RHYTHM, +S1, +S2 - GI/Abdominal Exam GI & Abdominal Exam: Soft, Normal Bowel Sounds. absent: Tenderness - Extremities Exam Extremities Exam: Normal Inspection - Neurological Exam Neurological Exam: Alert, Awake Assessment and Plan - Assessment and Plan (Free Text) Assessment: Gait dysfunction Samuel ulcer Large pleural effusion LLL pneumonia HTN Dementia NPH with TRANSITION NURSE shunt Plan: continue current medications continue PT Patient with large pleural effusion seen on chest x-ray. Effusion has increased in size since admission to the acute floor. Patient seen by pulmonary. Discussed with Dr. Ward. Consult with Dr. Arnol Martínez has been ordered for thoracentesis.
[2018-11-14] MEDS: Ferrous Sulfate 300 mg/5 mL Liq UD PO SCH ×3 (10:17→17:37)
[2018-11-14] MEDS: POLYETHYLENE GLYCOL 3350 17 GM/Dose PACKET PO SCH ×3 (10:17→17:37)
--- NOTE | 2018-11-14 13:40 | CP.PCM.PN ---
Subjective - Date & Time of Evaluation Date of Evaluation: 11/14/18 Time of Evaluation: 11:05 - Subjective Subjective: Afebrile, comfortable in bed. Objective - Vital Signs/Intake and Output Vital Signs (last 24 hours): Temp Pulse Resp BP Pulse Ox 98.4 F 81 16 102/51 L 93 L 11/13/18 10:00 11/13/18 11:07 11/13/18 10:00 11/13/18 11:07 11/13/18 10:00 - Medications Medications: Current Medications Acetaminophen (Tylenol 325mg Tab) 650 mg PO Q6H PRN; Protocol PRN Reason: Headache Albuterol Sulfate (Albuterol 0.083% Inhal Bhumi (2.5 Mg/3 Ml) Ud) 2.5 mg IH [id number] JARRELL; Protocol Last Admin: 11/13/18 13:05 Dose: 2.5 mg Atenolol (Tenormin) 12.5 mg PO DAILY JARRELL; Protocol Last Admin: 11/13/18 11:07 Dose: Not Given Ferrous Sulfate (Feosol Liq) 300 mg PO TID JARRELL; Protocol Last Admin: 11/13/18 11:00 Dose: 300 mg Levothyroxine Sodium (Synthroid) 25 mcg PO 0600 JARRELL; Protocol Last Admin: 11/13/18 05:34 Dose: 25 mcg Losartan Potassium (Cozaar) 25 mg PO DAILY JARRELL; Protocol Last Admin: 11/13/18 11:05 Dose: Not Given Pantoprazole Sodium (Protonix Ec Tab) 40 mg PO 0600 JARRELL Last Admin: 11/13/18 05:34 Dose: 40 mg Polyethylene Glycol (Miralax) 17 gm PO TID JARRELL; Protocol Last Admin: 11/13/18 11:00 Dose: 17 gm Promethazine HCl (Phenergan Syrup) 6.25 mg PO Q6H PRN; Protocol PRN Reason: Cough Last Admin: 11/09/18 22:05 Dose: 6.25 mg Sucralfate (Carafate Oral Susp) 1 gm PO 0630,1630 JARRELL; Protocol Last Admin: 11/13/18 05:33 Dose: 1 gm - Labs Labs: 11/10/18 06:30 11/10/18 06:30 - Constitutional Appears: Chronically Ill - Head Exam Head Exam: NORMAL INSPECTION - Respiratory Exam Respiratory Exam: Decreased Breath Sounds - Cardiovascular Exam Cardiovascular Exam: +S1, +S2 - GI/Abdominal Exam GI & Abdominal Exam: Soft. absent: Tenderness Assessment and Plan - Assessment and Plan (Free Text) Plan: Assessment S/P left lower HCAP, clinically improved and S/P treatment with antibiotics history of sepsis from left lower lobe healthcare-associated pneumonia, clinically improved and S/P treatment with antibiotics HTN COPD S/P left hip replacement normal pressure hydrocephalus S/P FIREWORKS MAKER shunt placement hypothyroidism history of shingles GERD S/P right knee surgery Plan completed 7 days of Cefepime and Doxycycline; cultures have been negative; reviewed CT A/P and CXR will continue to monitor clinically off antibiotics since she is at risk for nosocomial infections
--- NOTE | 2018-11-14 15:25 | PN ---
DATE: 11/14/2018 LOCATION: The patient is in Transitional Care Unit, room 321, bed 1. REASON FOR CONSULTATION: SVT, rule out tachybrady syndrome and deconditioning. SUBJECTIVE: The patient is lying comfortably in bed, denies any cardiac symptoms like chest pain, shortness of breath, or palpitation. PHYSICAL EXAMINATION: VITAL SIGNS: Blood pressure 113/71, respiration 18, pulse 85, and temperature 98.2. HEENT: Head is normocephalic. Eyes; pupils normal. Conjunctivae slightly pale. NECK: JVP low. Carotid equal. THORAX: AP diameter normal. LUNGS: No significant rales. CARDIOVASCULAR: S1 and S2. ABDOMEN: Soft. No tenderness. No organomegaly. EXTREMITIES: No clubbing. No cyanosis. LABORATORY DATA: WBC 4, hemoglobin 10, hematocrit 32.4, and platelet 199. Sodium 138, potassium 3.7, BUN 13, and creatinine 0.7. AST and ALT normal. Total protein 5.2 and albumin 2.8. DIAGNOSES: Hypertension, anemia, possible gastrointestinal bleeding, history of dementia, history of normal pressure hydrocephalus status post ventriculoperitoneal shunt, history of back pain, insomnia, iron deficiency anemia, gastrointestinal bleeding status post endoscopy found to have mild gastritis and history of cerebrovascular accident. Admitted with altered mental status, left lower lobe pneumonia, episode of supraventricular tachycardia, then the patient has bradycardia. PLAN: The patient's Holter monitor was reviewed and showed no evidence of tachybrady syndrome. On monitor, lowest heart rate was 57 at 7:20 a.m. and fastest heart rate was 102 at 5:40 p.m. Echo on showed normal ejection fraction, [id number] aortic regurgitation, mild aortic stenosis, trace to mild mitral regurgitation, right ventricular systolic pressure 51 mmHg suggestive of moderate pulmonary hypertension. Please continue physical therapy for deconditioning and the patient is also getting ferrous sulfate, losartan and atenolol. We will continue to follow closely with you. Christa Iniguez MD
[2018-11-15] MEDS: Albuterol 0.083% Inhal Sol (2.5 mg/3 mL) UD IH SCH ×4 (03:01→19:56)
[2018-11-15] MEDS: Pantoprazole 40 mg EC Tab PO SCH (05:15)
[2018-11-15] MEDS: Levothyroxine 25 MCG TAB PO SCH (05:15)
[2018-11-15] MEDS: Sucralfate 1 gm/10 ml Oral Susp UD PO SCH ×2 (05:30→17:43)
[2018-11-15 06:57] LABS: BASO # 0.03 K/mm3 (0.0-2.0); BASO % 0.7 % (0.0-3.0); EOS # 0.1 (0.0-0.7); EOS % 2.6 % (1.5-5.0); HEMOGLOBIN 10.4 g/dL (12.0-16.0); LYMPH # 1.1 (1.2-3.4); LYMPH % 24.5 % (22.0-35.0); MEAN CELL VOLUME 77.9 fl (80.0-105.0); MEAN CORPUSCULAR HEMOGLOBIN 24.2 pg (25.0-35.0); MEAN CORPUSCULAR HGB CONC 31.1 g/dl (31.0-37.0); MEAN PLATELET VOLUME 9.8 fl (7.0-11.0); MONO # 0.5 (0.1-0.6); MONO % 11.3 % (1.0-6.0); RBC 4.29 10^6/uL (3.5-6.1); RED CELL DISTRIBUTION WIDTH 24.9 % (11.5-14.5); WHITE BLOOD COUNT 4.6 10^3/uL (4.5-11.0)
[2018-11-15 07:40] LABS: BLOOD UREA NITROGEN 16 mg/dL (7-21); CALCIUM 9.4 mg/dL (8.4-10.5); GFR NON-AFRICAN AMERICAN > 60
[2018-11-15] MEDS: POLYETHYLENE GLYCOL 3350 17 GM/Dose PACKET PO SCH ×3 (10:09→17:43)
[2018-11-15] MEDS: Ferrous Sulfate 300 mg/5 mL Liq UD PO SCH ×3 (10:09→17:43)
--- NOTE | 2018-11-15 10:28 | PN ---
DATE: 11/15/2018 LOCATION: The patient is in the Transitional Care Unit Care [facility] in [place]. SUBJECTIVE: The patient was admitted for rehabilitation and management of pulmonary infection. The patient has past history of dementia, normal pressure hydrocephalus, she has ventriculoperitoneal shunt which is functional. The patient also has history of chronic lung disease, hypertension and anemia. The patient presented initially with severe anemia and required blood transfusion. Endoscopy showed evidence of bleeding also in the stomach. The source of bleeding was ulcer; the anemia was secondary to the ulceration and bleed. The patient has some mild hypothyroidism and the patient received physical therapy and rehabilitation which improved her clinical condition. Over the last couple of days, the patient's pleural effusion on the left side has increased in size. The patient has cough which is intermittent and sporadic and not productive. PHYSICAL EXAMINATION: VITAL SIGNS: Pulse is 85, blood pressure 120/70, the patient's respiration is 18-20 per minute, the patient's O2 sat is 98% on room air. GENERAL: The patient appears comfortable, not able to talk. She is confused. HEENT: Head is normocephalic. She has evidence of the shunt placement on the right side of the scalp. NECK: Thyroid is not clinically enlarged. JVP is flat. Carotid pulses are present. LUNGS: Trachea is central. Breath sounds are diminished on the left side. The patient's breath sounds are heard on the right side. HEART: Normal sinus rhythm. S1 and S2, present. ABDOMEN: Soft. Liver and spleen not palpable. No tenderness and no masses. CENTRAL NERVOUS SYSTEM: as mentioned, the patient has mild dementia. She has no focal neurological deficit. MEDICATIONS: The patient's medications at this time, she is on DuoNeb on respiratory treatment. The patient is on Carafate 1 g once a day. The patient is on Losartan 25 mg daily. The patient is on ferrous sulfate 300 mg three times a day. The patient is on MiraLax 17 g p.o. three times a day. The patient gets Phenergan with codeine for cough, pantoprazole 40 mg daily, Synthroid 25 mcg daily, Atenolol 12.5 mg daily. IMPRESSION AND PLAN: The patient is on oxygen p.r.n. Prior to being admitted to Transitional Care Unit, the patient has had 4 units of blood. She also had Venofer infusion, 200 mg of it. Her serum iron level has been raised. The iron deficiency anemia is temporarily corrected. We will treat the patient with current status until Saturday. The patient will have thoracentesis of the left side of the chest to drain the fluid and we will also send it for diagnoses. The patient's medication list evaluated, but she is not on any antibiotic at this time. We will have Infectious Disease also reevaluate the patient today. The patient's prognosis is guarded. Condition, clinically improving, but she has an acute increase of fluid in the left chest that has to be attended to. Rick Valerio MD MTDD
--- NOTE | 2018-11-15 11:56 | PN ---
DATE: 11/15/2018 SUBJECTIVE: The patient is in bed in no acute distress, nontoxic. OBJECTIVE: VITAL SIGNS: Temperature of 97, blood pressure is 95/50, respiratory rate of 18. HEENT: Unremarkable. NECK: Supple. LUNGS: Have decreased breath sounds. HEART: Normal S1, S2. ABDOMEN: Soft, nontender. LABORATORY EXAMINATION: Reveals a white count of 4.6 and hemoglobin of 10. Chemistries reveals a BUN of 16, creatinine of 0.7. Microbiology is reviewed and review of orders reveals the patient to be off of antibiotics. ASSESSMENT AND PLAN: This is an 88-year-old female who was seen earlier today in room 321, tolerating her breakfast well and status post left lower healthcare-associated pneumonia and status post treatment with hypertension and chronic obstructive lung disease and now off of antibiotics and the patient is at risk for developing nosocomial infections. Eduar Nolan MD
--- NOTE | 2018-11-15 14:50 | PN ---
DATE: 11/15/2018 REASON FOR CONSULTATION AND FOLLOWUP: Continuity of the care in transitional care unit, SVT, rule out tachy-edson syndrome. SUBJECTIVE: The patient denied any chest pain, shortness of breath, or any palpitation. PHYSICAL EXAMINATION GENERAL; Not in apparent distress, lying flat on the bed. VITAL SIGNS: Temperature is afebrile, heart rate 85, blood pressure 95/51. HEENT: PERRLA. Extraocular muscles intact. NECK: Supple. No carotid bruit or thyromegaly. CHEST: Clear to auscultation. HEART: S1 and S2 regular. ABDOMEN: Soft. EXTREMITIES: Clubbing and cyanosis negative. LABORATORY DATA: Blood work as follows; WBC 4.6, hemoglobin , hematocrit 33.4, platelet count 220. Chemistry shows sodium 135. potassium 4.2, chloride 101, carbon dioxide 31, anion gap of 7, BUN 16 and creatinine 0.7. IMPRESSION: An 88-year-old female with a past medical history of hypertension, anemia, possible gastrointestinal bleed, history of dementia, history of normal pressure hydrocephalus, status post ventriculoperitoneal shunt, history of back pain, admitted with low hemoglobin, supraventricular tachycardia, Holter was done, no evidence of tachy-edson syndrome, history of cerebrovascular accident in the past, initially admitted with altered mental status, left lower lobe pneumonia. Holter shows lowest heart rate of 57 at 7:20 and the fastest heart rate was 102 at 5:40 p.m. Echo shows no significant destruction heart disease with right ventricular systolic pressure of 51, [id number] mitral regurgitation, mild aortic stenosis, [id number] aortic regurgitation. As mentioned no significant except mild valvular regurgitation and valvular heart disease. RECOMMENDATIONS: Continue low dose atenolol 12.5. Continue losartan, CVS status is stable. Continue rehab. Possible discharge. Thank you Dr. Valerio for providing us the opportunity in taking care of the patient, Bethany Espinoza. Christa Wolf MD
[2018-11-16] MEDS: Albuterol 0.083% Inhal Sol (2.5 mg/3 mL) UD IH SCH ×4 (01:28→19:38)
[2018-11-16] MEDS: Levothyroxine 25 MCG TAB PO SCH (05:20)
[2018-11-16] MEDS: Pantoprazole 40 mg EC Tab PO SCH (05:20)
[2018-11-16] MEDS: Sucralfate 1 gm/10 ml Oral Susp UD PO SCH ×2 (05:32→17:30)
--- NOTE | 2018-11-16 09:34 | CP.PCM.PN ---
Subjective - Date & Time of Evaluation Date of Evaluation: 11/16/18 Time of Evaluation: 08:15 - Subjective Subjective: Patient seen this morning. She is lying in bed eating breakfast. Objective - Vital Signs/Intake and Output Vital Signs (last 24 hours): Temp Pulse Resp BP Pulse Ox 97.7 F 97 H 18 108/68 99 11/15/18 16:00 11/15/18 16:00 11/15/18 16:00 11/15/18 16:00 11/15/18 10:00 - Medications Medications: Current Medications Acetaminophen (Tylenol 325mg Tab) 650 mg PO Q6H PRN; Protocol PRN Reason: Headache Albuterol Sulfate (Albuterol 0.083% Inhal Bhumi (2.5 Mg/3 Ml) Ud) 2.5 mg IH [id number] JARRELL; Protocol Last Admin: 11/16/18 07:20 Dose: 2.5 mg Atenolol (Tenormin) 12.5 mg PO DAILY JARRELL; Protocol Last Admin: 11/15/18 10:09 Dose: Not Given Ferrous Sulfate (Feosol Liq) 300 mg PO TID JARRELL; Protocol Last Admin: 11/15/18 17:43 Dose: 300 mg Levothyroxine Sodium (Synthroid) 25 mcg PO 0600 JARRELL; Protocol Last Admin: 11/16/18 05:20 Dose: 25 mcg Losartan Potassium (Cozaar) 25 mg PO DAILY JARRELL; Protocol Last Admin: 11/15/18 10:08 Dose: Not Given Pantoprazole Sodium (Protonix Ec Tab) 40 mg PO 0600 JARRELL Last Admin: 11/16/18 05:20 Dose: 40 mg Polyethylene Glycol (Miralax) 17 gm PO TID JARRELL; Protocol Last Admin: 11/15/18 17:43 Dose: Not Given Promethazine HCl (Phenergan Syrup) 6.25 mg PO Q6H PRN; Protocol PRN Reason: Cough Last Admin: 11/09/18 22:05 Dose: 6.25 mg Sucralfate (Carafate Oral Susp) 1 gm PO 0630,1630 JARRELL; Protocol Last Admin: 11/16/18 05:32 Dose: 1 gm - Labs Labs: 11/15/18 06:00 11/15/18 06:00 - Constitutional Appears: No Acute Distress - Head Exam Head Exam: ATRAUMATIC, NORMOCEPHALIC - Respiratory Exam Respiratory Exam: Decreased Breath Sounds Additional comments: absent breath sounds on left side - Cardiovascular Exam Cardiovascular Exam: REGULAR RHYTHM, +S1, +S2 - GI/Abdominal Exam GI & Abdominal Exam: Soft, Tenderness, Normal Bowel Sounds - Extremities Exam Extremities Exam: Normal Inspection - Neurological Exam Neurological Exam: Alert, Awake Assessment and Plan - Assessment and Plan (Free Text) Assessment: Gait dysfunction L pleural effusion Pneumonia COPD HTN Dementia 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 Check stool for C. diff. continue Protonix and Carafate. large pleural effusion on left side seen on chest x-ray; Dr. Jimmy Martínez consulted. Patient to have thoracentesis tomorrow.
[2018-11-16] MEDS: Ferrous Sulfate 300 mg/5 mL Liq UD PO SCH ×3 (10:06→17:41)
[2018-11-16] MEDS: POLYETHYLENE GLYCOL 3350 17 GM/Dose PACKET PO SCH ×3 (10:06→17:42)
[2018-11-16] MEDS: Promethazine 6.25 MG/5 ML CUP PO PRN (10:07)
[2018-11-16] MEDS ORDERED: Alum-Mag Hydrox-Simethicone Susp (30 mL) PO ONE (10:47)
--- NOTE | 2018-11-16 14:15 | PN ---
DATE: 11/16/2018 SUBJECTIVE: The patient is in bed in no acute distress, nontoxic. No fevers and no chills. PHYSICAL EXAMINATION VITAL SIGNS: The patient's temperature is 98, blood pressure is 108/60, respiratory rate of 18. HEENT: Examination of HEENT is unremarkable. NECK: Supple. LUNGS: Have decreased breath sounds. HEART: Normal S1 and S2. ABDOMEN: Soft, nontender. LABORATORY DATA: Laboratory examination reveals the patient's white count is 4.6, hemoglobin of 10, and platelets of 220. Chemistries reveal a BUN of 16, creatinine of 0.7. ASSESSMENT AND PLAN: This is an 88-year-old female who was seen earlier today in room 321, status post left lower healthcare-associated pneumonia, status post treatment in a face of hypertension, chronic obstructive lung disease, currently off antibiotics, afebrile. The patient is at risk for developing nosocomial infections. We will follow with you. Eduar Nolan MD
--- NOTE | 2018-11-16 15:24 | PN ---
DATE: 11/16/2018 REASON FOR CONSULTATION AND FOLLOWUP: Continuity of the care in Transitional Care Unit, SVT, rule out tachybrady syndrome. SUBJECTIVE: The patient denies any chest pain, shortness of breath, or any palpitation. OBJECTIVE: Not in apparent distress. PHYSICAL EXAMINATION: As follows: VITAL SIGNS: Temperature afebrile, heart rate is 80, blood pressure 120/75. HEENT: PERRLA. Extraocular muscles intact. NECK: Supple. No carotid bruit or thyromegaly. CHEST: Clear to auscultation. HEART: S1 and S2 regular. ABDOMEN: Soft. EXTREMITIES: Clubbing and cyanosis negative. LABORATORY DATA: Blood workup as follows; WBC 4.6, hemoglobin 10. , hematocrit 33.4, and platelet count 220. Chemistry shows sodium 135, potassium 4.0, chloride 101, carbon dioxide 31, anion gap of 7, BUN 16, and creatinine 0.7. IMPRESSION: An 88-year-old female with past medical history significant for hypertension; anemia; possible gastrointestinal bleed; history of dementia; history of normal pressure hydrocephalus, status post ventriculoperitoneal shunt; history of back pain, admitted with low hemoglobin; supraventricular tachycardia, Holter done, no evidence of tachy-edson syndrome; history of cerebrovascular accident in the past. Endoscopy shows mild gastritis. Echo showed mild aortic stenosis, [id number] aortic regurgitation. RECOMMENDATIONS: Continue low dose atenolol. Continue losartan, CVS status is stable. The patient occasionally wheezes. . The patient is already on albuterol inhaler started, we will continue p.r.n., otherwise, the patient is stable, CVS status is stable. The patient is okay to be discharged from Cardiology point of view when the patient is stable for medically. Christa Wolf MD
[2018-11-16 16:57] VITALS: TEMP 98.4
[2018-11-17] MEDS: Albuterol 0.083% Inhal Sol (2.5 mg/3 mL) UD IH SCH ×3 (01:17→13:15)
[2018-11-17] MEDS: Pantoprazole 40 mg EC Tab PO SCH (05:42)
[2018-11-17] MEDS: Sucralfate 1 gm/10 ml Oral Susp UD PO SCH (05:43)
[2018-11-17] MEDS: Levothyroxine 25 MCG TAB PO SCH (05:43)
--- NOTE | 2018-11-17 07:22 | RAD ---
Date of service: 11/17/2018 HISTORY: effusion level COMPARISON: Chest radiographs 11/11/2018. FINDINGS: LUNGS: There is not complete opacification left hemithorax, arguably under some tension as there is a rightward midline shift of the mediastinal anatomy. Patient is rotated toward the left indicating that the mediastinal shift is not positional. No right-sided airspace disease. PLEURA: Large left pleural effusion present with underlying atelectasis or infiltrate not excluded. No right pleural effusion. No pneumothorax bilaterally. CARDIOVASCULAR: Calcific atherosclerotic changes are seen related to the thoracic aorta. Unable to evaluate cardiac size. No definite pulmonary vascular congestion. OSSEOUS STRUCTURES: No significant abnormalities. VISUALIZED UPPER ABDOMEN: Surgical clips right upper quadrant abdomen. OTHER FINDINGS: None. IMPRESSION: Complete opacification left hemithorax likely due to a combination of infiltrate, atelectasis and particularly large pleural effusion. CT can confirm. Further, mediastinal shift toward the right suggest potential effusion under tension. Findings discussed with nurse Wise at CCU with written down and read back verification 11/17/2018 7:10 a.m.. Apparently this patient is scheduled for thoracentesis today already.
--- NOTE | 2018-11-17 08:17 | CP.PCM.PN ---
Subjective - Date & Time of Evaluation Date of Evaluation: 11/17/18 Time of Evaluation: 08:00 - Subjective Subjective: Patient seen this morning in room 321 bed 1. Patient is short of breath. She is tired and wants to sleep. She denies pain. Objective - Vital Signs/Intake and Output Vital Signs (last 24 hours): Temp Pulse Resp BP Pulse Ox 98.4 F 86 18 106/69 94 L 11/16/18 16:00 11/16/18 16:00 11/16/18 16:00 11/16/18 16:00 11/16/18 16:00 - Medications Medications: Current Medications Acetaminophen (Tylenol 325mg Tab) 650 mg PO Q6H PRN; Protocol PRN Reason: Headache Albuterol Sulfate (Albuterol 0.083% Inhal Bhumi (2.5 Mg/3 Ml) Ud) 2.5 mg IH [id number] JARRELL; Protocol Last Admin: 11/17/18 07:25 Dose: 2.5 mg Atenolol (Tenormin) 12.5 mg PO DAILY JARRELL; Protocol Last Admin: 11/16/18 10:07 Dose: 12.5 mg Ferrous Sulfate (Feosol Liq) 300 mg PO TID JARRELL; Protocol Last Admin: 11/16/18 17:41 Dose: 300 mg Levothyroxine Sodium (Synthroid) 25 mcg PO 0600 JARRELL; Protocol Last Admin: 11/17/18 05:43 Dose: 25 mcg Losartan Potassium (Cozaar) 25 mg PO DAILY JARRELL; Protocol Last Admin: 11/16/18 10:05 Dose: 25 mg Pantoprazole Sodium (Protonix Ec Tab) 40 mg PO 0600 JARRELL Last Admin: 11/17/18 05:42 Dose: 40 mg Polyethylene Glycol (Miralax) 17 gm PO TID JARRELL; Protocol Last Admin: 11/16/18 17:42 Dose: Not Given Promethazine HCl (Phenergan Syrup) 6.25 mg PO Q6H PRN; Protocol PRN Reason: Cough Last Admin: 11/16/18 10:07 Dose: 6.25 mg Sucralfate (Carafate Oral Susp) 1 gm PO 0630,1630 JARRELL; Protocol Last Admin: 11/17/18 05:43 Dose: 1 gm - Labs Labs: 11/15/18 06:00 11/15/18 06:00 - Constitutional Appears: No Acute Distress - Head Exam Additional comments: [employer]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 Patient is now short of breath with occasional wheezing. continue respiratory treatments Patient will need to be admitted to medical floor after thoracentesis. continue current medications.
--- NOTE | 2018-11-17 08:29 | CP.PCM.PN ---
Subjective - Date & Time of Evaluation Date of Evaluation: 11/13/18 Time of Evaluation: 09:00 - Subjective Subjective: comfortable in bed. Participating in PT. Hb/Hct stable . No SOB. C/O fatigue. Objective - Vital Signs/Intake and Output Vital Signs (last 24 hours): Temp Pulse Resp BP Pulse Ox 98.4 F 86 18 106/69 94 L 11/16/18 16:00 11/16/18 16:00 11/16/18 16:00 11/16/18 16:00 11/16/18 16:00 - Medications Medications: Current Medications Acetaminophen (Tylenol 325mg Tab) 650 mg PO Q6H PRN; Protocol PRN Reason: Headache Albuterol Sulfate (Albuterol 0.083% Inhal Bhumi (2.5 Mg/3 Ml) Ud) 2.5 mg IH [id number] JARRELL; Protocol Last Admin: 11/17/18 07:25 Dose: 2.5 mg Atenolol (Tenormin) 12.5 mg PO DAILY JARRELL; Protocol Last Admin: 11/16/18 10:07 Dose: 12.5 mg Ferrous Sulfate (Feosol Liq) 300 mg PO TID JARRELL; Protocol Last Admin: 11/16/18 17:41 Dose: 300 mg Levothyroxine Sodium (Synthroid) 25 mcg PO 0600 JARRELL; Protocol Last Admin: 11/17/18 05:43 Dose: 25 mcg Losartan Potassium (Cozaar) 25 mg PO DAILY JARRELL; Protocol Last Admin: 11/16/18 10:05 Dose: 25 mg Pantoprazole Sodium (Protonix Ec Tab) 40 mg PO 0600 JARRELL Last Admin: 11/17/18 05:42 Dose: 40 mg Polyethylene Glycol (Miralax) 17 gm PO TID JARRELL; Protocol Last Admin: 11/16/18 17:42 Dose: Not Given Promethazine HCl (Phenergan Syrup) 6.25 mg PO Q6H PRN; Protocol PRN Reason: Cough Last Admin: 11/16/18 10:07 Dose: 6.25 mg Sucralfate (Carafate Oral Susp) 1 gm PO 0630,1630 JARRELL; Protocol Last Admin: 11/17/18 05:43 Dose: 1 gm - Labs Labs: 11/15/18 06:00 11/15/18 06:00 - Constitutional Appears: Cachectic, Chronically Ill - Head Exam Head Exam: ATRAUMATIC, NORMAL INSPECTION, NORMOCEPHALIC - Eye Exam Eye Exam: Normal appearance Pupil Exam: NORMAL ACCOMODATION - ENT Exam ENT Exam: Mucous Membranes Moist, Normal Exam - Neck Exam Neck Exam: Normal Inspection - Respiratory Exam Respiratory Exam: Clear to Ausculation Bilateral, NORMAL BREATHING PATTERN - Cardiovascular Exam Cardiovascular Exam: REGULAR RHYTHM, +S1, +S2 - GI/Abdominal Exam GI & Abdominal Exam: Normal Bowel Sounds - Back Exam Back Exam: NORMAL INSPECTION - Neurological Exam Neurological Exam: Alert, Awake, CN II-XII Intact, Oriented x3 - Skin Skin Exam: Normal Color, Warm Assessment and Plan - Assessment and Plan (Free Text) Assessment: 1. iron deficiency anemia, likely due to GI bleed from gastric ulcer. Hb/Hct stable. will continue to monitor. IV iron if needed will be continued as out pt. 2. Renal : stable BUN, creatinine. 3. GC improved. 4. encouraged ambulation. Thank you Dr. Hudson for allowing us to participate in her care.
--- NOTE | 2018-11-17 08:57 | PN ---
DATE: 11/15/2018 SUBJECTIVE: The patient remains comfortable, in no acute distress. Nurses report the patient's status remained stable. PHYSICAL EXAMINATION: VITAL SIGNS: Temperature 98.6, pulse 72, respiratory rate 18, blood pressure 120/60, O2 saturation 97% on supplemental oxygen. HEENT: Normocephalic, atraumatic. NECK: Supple. No JVD. No lymphadenopathy. No bruit. No mass. CARDIOVASCULAR: Regular rhythm. S1, S2. No gallop appreciated. Soft systolic ejection murmur as described previously. LUNGS: Global decrease in breath sounds with minimal rhonchi. No wheezing or rales noted. ABDOMEN: Soft. Bowel sounds normoactive without mass, guarding, rebound or organomegaly. EXTREMITIES: No clubbing, cyanosis or edema. NEUROLOGIC: No focal findings. LYMPH NODES: Not palpable in the supraclavicular notch nor in the cervical or inguinal areas. CLINICAL IMPRESSION: 1. Monitor for enlarging left pleural effusion. 2. Chronic obstructive pulmonary disease. 3. Anemia. 4. Status post gastrointestinal bleed. 5. Cardiac arrhythmias. 6. Failure to thrive. PLAN: Continue monitoring this patient closely. Although the patient feels well, a followup x-ray is suggested. Continue treatment for chronic obstructive pulmonary disease on a chronic basis. Possible followup for the thoracentesis will be considered. Chest x-ray requested. Jeet Christian MD
--- NOTE | 2018-11-17 09:35 | PN ---
DATE: 11/17/2018 SUBJECTIVE: The patient appears comfortable this morning. She is not short of breath at rest. OBJECTIVE: VITAL SIGNS (last noted in the computer): Temperature is 98.4, pulse 86, respirations 18, blood pressure 106/69. Oxygen saturation on nasal cannula is 94%. HEENT: Normocephalic, atraumatic. NECK: No JVD. CARDIOVASCULAR: Systolic ejection murmur at the lower left sternal border. No S3 gallop. LUNGS: Decreased breath sounds - left lung. Minimal/less rhonchi. No wheezing. EXTREMITIES: Mild edema. No cyanosis, no clubbing. Calves nontender to palpation. GASTROINTESTINAL: Abdomen is soft, nontender, and nondistended. Bowel sounds are positive. SKIN: No acute rash. NEUROLOGIC: Limited at the present time. PERTINENT LABORATORY DATA: Chest x-ray was done this morning and reviewed. The left effusion continues to enlarge and now there is a contralateral tracheal shift. Official results-pending. IMPRESSION: 1. Enlarging left pleural effusion. 2. Chronic obstructive pulmonary disease. 3. Asthma. 4. Status post gastrointestinal bleeding. 5. Cardiac arrhythmias. PLAN: The patient appears comfortable this morning. She is not short of breath at rest. The patient does state to feeling pretty good overall. I did discuss the case with the night nurse at length. The night nurse stated the patient had an uneventful night. I did review the chest x-ray as above. The left pleural effusion continues to enlarge, and now there is a contralateral tracheal shift. The patient is scheduled for thoracentesis (with Dr. Arnol Martínez) later this morning. On physical exam, there is no significant bronchospasm noted. In addition, there is no significant alveolar-arterial gradient. I will continue the current nebulizer treatments for now. Again, the patient is scheduled for thoracentesis later this morning. Her future status/prognosis remains very guarded. I will discuss the above with the attending physician. Abdoul Ward MD JESSICA
[2018-11-17] MEDS: POLYETHYLENE GLYCOL 3350 17 GM/Dose PACKET PO SCH ×2 (10:25→13:11)
[2018-11-17] MEDS: Ferrous Sulfate 300 mg/5 mL Liq UD PO SCH ×2 (10:28→13:11)
[2018-11-17 10:30] VITALS: BP 111/71; PULSE 73
[2018-11-17] MEDS: Promethazine 6.25 MG/5 ML CUP PO PRN (13:11)
--- NOTE | 2018-11-17 13:12 | CP.PCM.PN ---
Subjective - Date & Time of Evaluation Date of Evaluation: 11/17/18 Time of Evaluation: 10:45 - Subjective Subjective: Patient is scheduled for thoracentesis on the left for pleural effusion, not in distress, no fevers. Objective - Vital Signs/Intake and Output Vital Signs (last 24 hours): Temp Pulse Resp BP Pulse Ox 98.4 F 73 18 111/71 94 L 11/16/18 16:00 11/17/18 10:11/16/18 16:00 11/17/18 10:11/16/18 16:00 - Medications Medications: Current Medications Acetaminophen (Tylenol 325mg Tab) 650 mg PO Q6H PRN; Protocol PRN Reason: Headache Albuterol Sulfate (Albuterol 0.083% Inhal Bhumi (2.5 Mg/3 Ml) Ud) 2.5 mg IH [id number] JARRELL; Protocol Last Admin: 11/17/18 07:25 Dose: 2.5 mg Atenolol (Tenormin) 12.5 mg PO DAILY JARRELL; Protocol Last Admin: 11/17/18 10:28 Dose: 12.5 mg Ferrous Sulfate (Feosol Liq) 300 mg PO TID JARRELL; Protocol Last Admin: 11/17/18 10:28 Dose: 300 mg Levothyroxine Sodium (Synthroid) 25 mcg PO 0600 JARRELL; Protocol Last Admin: 11/17/18 05:43 Dose: 25 mcg Losartan Potassium (Cozaar) 25 mg PO DAILY JARRELL; Protocol Last Admin: 11/17/18 10:28 Dose: 25 mg Pantoprazole Sodium (Protonix Ec Tab) 40 mg PO 0600 JARRELL Last Admin: 11/17/18 05:42 Dose: 40 mg Polyethylene Glycol (Miralax) 17 gm PO TID JARRELL; Protocol Last Admin: 11/17/18 10:25 Dose: Not Given Promethazine HCl (Phenergan Syrup) 6.25 mg PO Q6H PRN; Protocol PRN Reason: Cough Last Admin: 11/16/18 10:07 Dose: 6.25 mg Sucralfate (Carafate Oral Susp) 1 gm PO 0630,1630 JARRELL; Protocol Last Admin: 11/17/18 05:43 Dose: 1 gm - Labs Labs: 11/15/18 06:00 11/15/18 06:00 - Constitutional Appears: Chronically Ill - Head Exam Head Exam: NORMAL INSPECTION - Respiratory Exam Respiratory Exam: Decreased Breath Sounds - Cardiovascular Exam Cardiovascular Exam: +S1, +S2 - GI/Abdominal Exam GI & Abdominal Exam: Soft. absent: Tenderness Assessment and Plan - Assessment and Plan (Free Text) Plan: Assessment S/P left lower HCAP, clinically improved and S/P treatment with antibiotics left sided pleural effusion, etiology to be determined history of sepsis from left lower lobe healthcare-associated pneumonia, clinically improved and S/P treatment with antibiotics HTN COPD S/P left hip replacement normal pressure hydrocephalus S/P SANITATION WORKER shunt placement hypothyroidism history of shingles GERD S/P right knee surgery Plan completed 7 days of Cefepime and Doxycycline will continue to monitor clinically off antibiotics since she is at risk for hospital-acquired infections patient planned for thoracentesis today and will follow up pleural fluid analysis
[2018-11-17 13:59] VITALS: RESP 14; O2SAT 98
--- NOTE | 2018-11-17 15:11 | PN ---
DATE: 11/17/2018 REASON FOR CONSULTATION: Continuity of the care in Transitional Care Unit, SVT, rule out tachybrady syndrome. SUBJECTIVE: The patient denies any chest pain, shortness of breath, or any palpitation. OBJECTIVE GENERAL: Not in apparent distress.. VITAL SIGNS: Temperature afebrile, heart rate 72, and blood pressure 101/71. HEENT: PERRLA. Extraocular muscles intact. NECK: Supple. No carotid bruit or thyromegaly. CHEST: Clear to auscultation. HEART: S1 and S2 regular. ABDOMEN: Soft. EXTREMITIES: Clubbing and cyanosis negative LABORATORY DATA: Blood work up as follows; WBC 4.6, hemoglobin 10.4, hematocrit 33.4 and platelet count 220. Chemistry shows sodium 135, potassium 4.2, chloride 102, carbon dioxide 31, anion gap of 17, BUN 16 and creatinine 0.7. IMPRESSION: An 88-year-old female with past medical history significant for hypertension, anemia, possible gastrointestinal bleed, history of dementia, history of normal pressure hydrocephalus, status post ventriculoperitoneal shunt; history of back pain, admitted with low hemoglobin, found to have supraventricular tachycardia, Holter shows no evidence of tachybrady syndrome. Currently, the patient is stable on 12.5 of atenolol once a day, history of cerebrovascular accident, history of endoscopy, mild gastritis. Echo shows mild aortic stenosis, [id number] aortic regurgitation. RECOMMENDATIONS: Continue albuterol inhaler. Continue losartan 25 p.o. Continue multivitamin . Continue atenolol 12.5 mg p.o. daily. Continue rehab. Thank you Dr. Valerio for providing us the opportunity in taking care of the patient,Bethany Espinoza. Christa Wolf MD
== END 2018-11-17 15:40 | disposition short-term general hospital (02) | DRG 193 ==
LOC: TRCU 19:56
PROVIDERS: ADMIT Internal Medicine; ATTEND Internal Medicine
PROC: F07Z9FZ Gait Training/Functional Ambulation Treatment using Assistive, Adaptive, Supportive or Protective Equipment (ICD-10-PCS; principal; 2018-11-08)
PROC: F08Z4FZ Home Management Treatment using Assistive, Adaptive, Supportive or Protective Equipment (ICD-10-PCS; 2018-11-08)
PROC: 3E0F7GC Introduction of Other Therapeutic Substance into Respiratory Tract, Via Natural or Artificial Opening (ICD-10-PCS; 2018-11-08)
DX: J18.1 Lobar pneumonia, unspecified organism (principal); K25.4 Chronic or unspecified gastric ulcer with hemorrhage; J44.0 Chronic obstructive pulmonary disease with (acute) lower respiratory infection; J90 Pleural effusion, not elsewhere classified; I47.1 Supraventricular tachycardia; G91.2 (Idiopathic) normal pressure hydrocephalus; Z79.2 Long term (current) use of antibiotics; D50.0 Iron deficiency anemia secondary to blood loss (chronic); R62.7 Adult failure to thrive; I25.10 Atherosclerotic heart disease of native coronary artery without angina pectoris; I10 Essential (primary) hypertension; F03.90 Unspecified dementia, unspecified severity, without behavioral disturbance, psychotic disturbance, mood disturbance, and anxiety; I35.1 Nonrheumatic aortic (valve) insufficiency; E03.9 Hypothyroidism, unspecified; K21.9 Gastro-esophageal reflux disease without esophagitis; E78.5 Hyperlipidemia, unspecified; K44.9 Diaphragmatic hernia without obstruction or gangrene; K29.70 Gastritis, unspecified, without bleeding; Y95 Nosocomial condition; G47.00 Insomnia, unspecified; Z98.2 Presence of cerebrospinal fluid drainage device; Z86.73 Personal history of transient ischemic attack (TIA), and cerebral infarction without residual deficits; Z86.19 Personal history of other infectious and parasitic diseases; Z96.642 Presence of left artificial hip joint; Z87.891 Personal history of nicotine dependence

== ENCOUNTER 2018-11-17 14:50 | Inpatient (IN) | payer MEDICARE ==
--- NOTE | 2018-11-17 15:27 | ED PDOC ---
Arrival/HPI - General Chief Complaint: Shortness Of Breath Time Seen by Provider: 11/17/18 15:10 Historian: Patient - History of Present Illness Narrative History of Present Illness (Text): 11/17/18 15:24 88 year old female, with past medical history of normal pressure hydrocephalus with DRAIN TILER shunt, hypertension, atherosclerotic heart disease, chronic obstructive pulmonary disease and dementia, was sent down to TCU by PMD for needle thoracostomy today. Patient was diagnosed with left pleural effusion by Chest X- ray today and was subsequently referred to the ED. Dr. Arnol Martínez has already been contacted prior to arrival. Patient currently denies any somatic complaints. Patient denies any fevers, chills, headache, dizziness, chest pain, shortness of breath, dyspnea on exertion, cough, abdominal pain, nausea, vomiting, diarrhea, back pain, neck pain, or any other complaints. Time/Duration: Prior to Arrival Symptom Onset: Gradual Symptom Course: Unchanged Activities at Onset: Light Context: Other (Sent from TCU) Past Medical History - Provider Review Nursing Documentation Reviewed: Yes - Infectious Disease Hx of Infectious Diseases: None - Cardiac Hx Cardiac Disorders: Yes Hx Hypertension: Yes - Pulmonary Hx Chronic Obstructive Pulmonary Disease (COPD): Yes - Neurological Hx Neurological Disorder: Yes (hydrocephalus,DRAIN TILER shunt) Hx Dementia: Yes Hx Dizziness: Yes - HEENT Hx HEENT Disorder: Yes - Renal Hx Renal Disorder: No - Endocrine/Metabolic Hx Endocrine Disorders: Yes Hx Hypothyroidism: Yes - Hematological/Oncological Hx Blood Transfusions: No Hx Blood Transfusion Reaction: No - Integumentary Hx Dermatological Disorder: No - Musculoskeletal/Rheumatological Hx Falls: Yes - Gastrointestinal Hx Gastrointestinal Disorders: Yes - Genitourinary/Gynecological Hx Genitourinary Disorders: Yes Hx Reproductive Disorders: No - Psychiatric Hx Psychophysiologic Disorder: Yes Hx Anxiety: Yes Hx Substance Use: No - Surgical History Hx Cholecystectomy: Yes Hx Joint Replacement: (left hip replacement) Hx Musculoskeletal Surgery: Yes Hx Orthopedic Surgery: Yes (right knee surgery, rotator cuff surgery) - Anesthesia Hx Anesthesia: Yes Hx Anesthesia Reactions: No Hx Malignant Hyperthermia: No - Suicidal Assessment Feels Threatened In Home Enviroment: No Family/Social History - Physician Review Nursing Documentation Reviewed: Yes Family/Social History: No Known Family HX Smoking Status: Former Smoker Hx Alcohol Use: Yes (SOCIAL) Hx Substance Use: No Hx Substance Use Treatment: No Allergies/Home Meds Allergies/Adverse Reactions: Allergies No Known Allergies Allergy (Verified 10/31/18 18:17) Home Medications: Home Meds Medication Instructions Recorded Confirmed Levothyroxine [Synthroid] 25 mcg PO DAILY 09/18/17 10/31/18 Albuterol 0.083% [Albuterol 0.083% 2.5 mg IH Q6H 12/20/17 10/31/18 Inhal Bhumi (2.5 mg/3 ml) UD] Acetaminophen [Tylenol 325mg tab] 650 mg PO Q6H PRN 11/17/18 Atenolol [Tenormin] 12.5 mg PO DAILY 11/17/18 Ferrous Sulfate [Feosol Liq] 300 mg PO TID 11/17/18 Losartan [Cozaar] 25 mg PO DAILY 11/17/18 Pantoprazole Sodium [Protonix] 40 mg PO DAILY 11/17/18 Polyethylene Glycol 3350 [Miralax] 17 gm PO TID 11/17/18 Promethazine [Phenergan Syrup] 1 tsp PO Q6H PRN 11/17/18 Sucralfate [Carafate] 1 gm PO BID 11/17/18 Review of Systems - Physician Review All systems were reviewed & negative as marked: Yes - Review of Systems Constitutional: absent: Fevers Respiratory: absent: SOB, Cough Cardiovascular: absent: Chest Pain Gastrointestinal: absent: Abdominal Pain, Diarrhea, Nausea, Vomiting Genitourinary Female: absent: Dysuria, Urine Output Changes Musculoskeletal: absent: Back Pain, Neck Pain Skin: absent: Rash Neurological: absent: Headache, Dizziness Physical Exam Respiratory Rate: Normal Appearance: Positive for: Well-Appearing, Non-Toxic, Comfortable Mental Status: Positive for: Alert and Oriented X 3 - Systems Exam Head: Present: Atraumatic, Normocephalic Pupils: Present: PERRL Extroacular Muscles: Present: EOMI Conjunctiva: Present: Normal Respiratory/Chest: Present: Good Air Exchange, Decreased Breath Sounds (diminish ed breath sounds to the left). No: Respiratory Distress, Accessory Muscle Use Cardiovascular: Present: Regular Rate and Rhythm, Normal S1, S2. No: Murmurs Abdomen: No: Tenderness, Distention, Peritoneal Signs Back: Present: Normal Inspection Upper Extremity: Present: Normal Inspection. No: Cyanosis, Edema Lower Extremity: Present: Normal Inspection. No: Edema Neurological: Present: GCS=15, CN II-XII Intact, Speech Normal Skin: Present: Warm, Dry, Normal Color. No: Rashes Psychiatric: Present: Alert, Oriented x 3, Normal Insight, Normal Concentration Medical Decision Making ED Course and Treatment: 11/17/18 15:27 Impression: 88 year old female presents to the ED for needle thoracostomy today. Plan: -- Needle thoracostomy -- Reassess and disposition Prior Visits: Notes and results from previous visits were reviewed. Progress Notes: - Scribe Statement The provider has reviewed the documentation as recorded by the Scribe Lani Rogers. All medical record entries made by the Scribe were at my direction and personally dictated by me. I have reviewed the chart and agree that the record accurately reflects my personal performance of the history, physical exam, medical decision making, and the department course for this patient. I have also personally directed, reviewed, and agree with the discharge instructions and disposition. Disposition/Present on Arrival - Present on Arrival Any Indicators Present on Arrival: No History of DVT/PE: No History of Uncontrolled Diabetes: No Urinary Catheter: No History of Decub. Ulcer: No History Surgical Site Infection Following: None - Disposition Have Diagnosis and Disposition been Completed?: Yes Diagnosis: Pleural effusion Disposition: HOSPITALIZED Disposition Time: 15:25 Condition: FAIR
--- NOTE | 2018-11-17 15:48 | CP.PCM.HP ---
History of Present Illness - History of Present Illness History of Present Illness: This is an 88 year old female with history of normal pressure hydrocephalus with ventriculoperitoneal shunt, atherosclerotic heart disease, hypertension, hypothyroidism, dementia, samuel ulcer within hiatal hernia and chronic obstructive pulmonary disease who was discharged from the transitional care unit today where she participated in rehab for deconditioning. Patient became short of breath this morning with occasional wheezing. CXR shows large left pleural effusion. Patient to have thoracentesis done by Dr. Earlene Martínez. Present on Admission - Present on Admission Any Indicators Present on Admission: No History of DVT/PE: No History of Uncontrolled Diabetes: No Urinary Catheter: No Decubitus Ulcer Present: No Review of Systems - Constitutional Constitutional: absent: Chills, Excessive Sweating, Fever - Cardiovascular Cardiovascular: Dyspnea. absent: Chest Pain, Diaphoresis, Leg Ulcers - Respiratory Respiratory: As Per HPI - Gastrointestinal Gastrointestinal: absent: Abdominal Pain, Nausea, Vomiting Past Patient History - Infectious Disease Hx of Infectious Diseases: None - Past Social History Smoking Status: Former Smoker - CARDIAC Hx Cardiac Disorders: Yes Hx Hypertension: Yes - PULMONARY Hx Chronic Obstructive Pulmonary Disease (COPD): Yes - NEUROLOGICAL Hx Neurological Disorder: Yes (hydrocephalus,TABLEAU REPORT DEVELOPER shunt) Hx Dementia: Yes Hx Dizziness: Yes - HEENT Hx HEENT Problems: Yes - RENAL Hx Chronic Kidney Disease: No - ENDOCRINE/METABOLIC Hx Endocrine Disorders: Yes Hx Hypothyroidism: Yes - HEMATOLOGICAL/ONCOLOGICAL Hx Blood Transfusions: No Hx Blood Transfusion Reaction: No - INTEGUMENTARY Hx Dermatological Problems: No - MUSCULOSKELETAL/RHEUMATOLOGICAL Hx Falls: Yes - GASTROINTESTINAL Hx Gastrointestinal Disorders: Yes - GENITOURINARY/GYNECOLOGICAL Hx Genitourinary Disorders: Yes Hx Reproductive Disorders: No - PSYCHIATRIC Hx Psychophysiologic Disorder: Yes Hx Anxiety: Yes Hx Substance Use: No - SURGICAL HISTORY Hx Cholecystectomy: Yes Hx Joint Replacement: (left hip replacement) Hx Musculoskeletal Surgery: Yes Hx Orthopedic Surgery: Yes (right knee surgery, rotator cuff surgery) - ANESTHESIA Hx Anesthesia: Yes Hx Anesthesia Reactions: No Hx Malignant Hyperthermia: No Meds Allergies/Adverse Reactions: Allergies Allergy/AdvReac Type Severity Reaction Status Date / Time No Known Allergies Allergy Verified 10/31/18 18:17 Physical Exam - Constitutional Appears: No Acute Distress - Head Exam Additional comments: history of ventriculoperitoneal shunt - Respiratory Exam Respiratory Exam: Decreased Breath Sounds, Wheezes Additional comments: absent breath sounds left side - Cardiovascular Exam Cardiovascular Exam: REGULAR RHYTHM, +S1, +S2 - GI/Abdominal Exam GI & Abdominal Exam: Normal Bowel Sounds, Soft. absent: Tenderness - Extremities Exam Extremities exam: Positive for: normal inspection - Neurological Exam Neurological exam: Alert Results - Vital Signs Recent Vital Signs: Last Vital Signs Temp 98.4 F 11/17/18 15:26 Pulse 87 11/17/18 15:26 Resp 18 11/17/18 15:26 BP 109/42 L 11/17/18 15:26 Pulse Ox 91 L 11/17/18 15:26 Assessment & Plan - Assessment and Plan (Free Text) Assessment: Left pleural effusion Samuel ulcer in hiatal hernia HTN COPD LLL pneumonia ASHD NPH with TABLEAU REPORT DEVELOPER shunt Dementia Plan: Patient with large left pleural effusion. Consult Dr. Arnol Martínez for thoracentesis. continue respiratory treatments patient finished 7 days of antibiotics for pneumonia continue protonix and carafate for ulcer within hiatal hernia
[2018-11-17 17:06] LABS: BODY FLUID TYPE PLEURAL
[2018-11-17 17:48] LABS: BF GROSS APPEARANCE CLOUDY (CLEAR); BODY FLUID TOTAL COUNT 100 (0-0)
[2018-11-17] MEDS: Sucralfate 1 gm/10 ml Oral Susp UD PO SCH (18:53)
--- NOTE | 2018-11-17 20:03 | US ---
PROCEDURE: Ultrasound guided left thoracentesis. CLINICAL HISTORY: Left pleural effusion. Shortness of breath. Needs diagnostic and therapeutic thoracentesis PHYSICIAN(S): Arnol Martínez MD. TECHNIQUE: The relative risks and indications of the procedure were explained to the patient and her son and consent obtained. The patient was placed in a sitting position on the stretcher and sonography of the right chest performed. This revealed a moderate to large leftpleural effusion. A left posterolateral intercostal approach was selected and the area prepped and draped usual sterile fashion. 1% Xylocaine was used to anesthetize the skin and soft tissues. A 7 [place] thoracentesis catheter was trocared into the left pleural cavity and 1400ccof mitch fluid aspirated. Specimens were sent to the lab. IMPRESSION: 1. Ultrasound guided left thoracentesis. 1400cc of mitch fluid were aspirated. The appropriate labs were sent
[2018-11-17 21:26] VITALS: BMI 22.8
[2018-11-17] MEDS ORDERED: Influenza Vaccine 60 mcg/0.5 mL SYR (4YR UP) IM ONE (21:27)
[2018-11-17] MEDS ORDERED: Pneumococcal 23-Valent Vaccine IM ONE (21:27)
[2018-11-17] MEDS: Ferrous Sulfate 300 mg/5 mL Liq UD PO SCH (21:48)
[2018-11-18] MEDS: Promethazine 6.25 MG/5 ML CUP PO PRN (00:54)
[2018-11-18] MEDS: Albuterol 0.083% Inhal Sol (2.5 mg/3 mL) UD IH SCH ×5 (01:29→20:00)
--- NOTE | 2018-11-18 08:02 | CP.PCM.PN ---
Subjective - Date & Time of Evaluation Date of Evaluation: 11/18/18 Time of Evaluation: 07:35 - Subjective Subjective: Patient is seen this morning in room 572 bed 1. Pleural fluid was removed yesterday. Objective - Vital Signs/Intake and Output Vital Signs (last 24 hours): Temp Pulse Resp BP Pulse Ox 98.4 F 87 18 109/42 L 91 L 11/17/18 15:26 11/17/18 20:50 11/17/18 20:50 11/17/18 15:26 11/17/18 15:26 - Medications Medications: Current Medications Acetaminophen (Tylenol 325mg Tab) 650 mg PO Q6H PRN PRN Reason: Pain, Mild (1-3) Albuterol Sulfate (Albuterol 0.083% Inhal Bhumi (2.5 Mg/3 Ml) Ud) 2.5 mg IH Q6H [facility] Last Admin: 11/18/18 07:46 Dose: 2.5 mg Atenolol (Tenormin) 12.5 mg PO DAILY [facility] Ferrous Sulfate (Feosol Liq) 300 mg PO TID [facility] Last Admin: 11/17/18 21:48 Dose: 300 mg Levothyroxine Sodium (Synthroid) 25 mcg PO ACB [facility] Losartan Potassium (Cozaar) 25 mg PO DAILY [facility] Pantoprazole Sodium (Protonix Ec Tab) 40 mg PO DAILY [facility] Promethazine HCl (Phenergan Syrup) 6.25 mg PO Q6H PRN PRN Reason: Cough Last Admin: 11/18/18 00:54 Dose: 6.25 mg Sucralfate (Carafate Oral Susp) 1 gm PO BID [facility] Last Admin: 11/17/18 18:53 Dose: 1 gm - Constitutional Appears: No Acute Distress - Head Exam Head Exam: ATRAUMATIC, NORMOCEPHALIC - Respiratory Exam Respiratory Exam: Decreased Breath Sounds, Wheezes, NORMAL BREATHING PATTERN Additional comments: absent breath sounds on left side - Cardiovascular Exam Cardiovascular Exam: REGULAR RHYTHM, +S1, +S2 - GI/Abdominal Exam GI & Abdominal Exam: Soft, Normal Bowel Sounds. absent: Tenderness - Extremities Exam Extremities Exam: Normal Inspection - Neurological Exam Neurological Exam: Alert, Awake Assessment and Plan - Assessment and Plan (Free Text) Assessment: Left pleural effusion s/p thoracentesis COPD Samuel ulcer within hiatal hernia HTN Dementia Normal pressure hydrocephalus with DISC PAD PLATE FILLER shunt Plan: Patient had thoracentesis performed yesterday by Dr. Earlene Martínez. 1400 ml of mitch fluid were removed. Awaiting culture and cytology results. continue respiratory treatments. awaiting repeat chest x-ray. Consult infectious disease and pulmonary. continue Protonix and Carafate for ulcer. hemoglobin is stable.
[2018-11-18 08:55] LABS: BASO # 0.02 K/mm3 (0.0-2.0); BASO % 0.4 % (0.0-3.0); EOS # 0.2 (0.0-0.7); EOS % 3.8 % (1.5-5.0); HEMOGLOBIN 11.3 g/dL (12.0-16.0); LYMPH # 1.2 (1.2-3.4); LYMPH % 26.6 % (22.0-35.0); MEAN CELL VOLUME 79.3 fl (80.0-105.0); MEAN CORPUSCULAR HEMOGLOBIN 24.4 pg (25.0-35.0); MEAN CORPUSCULAR HGB CONC 30.7 g/dl (31.0-37.0); MEAN PLATELET VOLUME 10.2 fl (7.0-11.0); MONO # 0.5 (0.1-0.6); MONO % 10.1 % (1.0-6.0); RBC 4.64 10^6/uL (3.5-6.1); RED CELL DISTRIBUTION WIDTH 24.9 % (11.5-14.5); WHITE BLOOD COUNT 4.5 10^3/uL (4.5-11.0)
[2018-11-18] MEDS: Levothyroxine 25 MCG TAB PO SCH (08:57)
[2018-11-18] MEDS: Sucralfate 1 gm/10 ml Oral Susp UD PO SCH ×2 (09:03→18:25)
[2018-11-18] MEDS: Pantoprazole 40 mg EC Tab PO SCH (09:03)
[2018-11-18 09:11] LABS: BLOOD UREA NITROGEN 16 mg/dL (7-21); CALCIUM 9.2 mg/dL (8.4-10.5); GFR NON-AFRICAN AMERICAN > 60
[2018-11-18] MEDS: Acetylcysteine 20% Inhal Soln (4ml) IH SCH ×2 (09:30→20:00)
--- NOTE | 2018-11-18 09:58 | PN ---
DATE: 11/18/2018 PULMONARY NOTE SUBJECTIVE: The patient appears comfortable this morning. She is not short of breath at rest. PHYSICAL EXAMINATION: VITAL SIGNS: (Last noted in the computer): Temperature is 98.4, pulse 87, respirations 18, blood pressure 109/42. Oxygen saturation on room air is 94%. HEENT: Normocephalic, atraumatic. NECK: No JVD. CARDIOVASCULAR: Systolic ejection murmur at the lower left sternal border. No S3 gallop. LUNGS: Still with decreased breath sounds - left lung. Very minimal/less rhonchi. No wheezing. GI: Abdomen is soft, nontender and nondistended. Bowel sounds are positive. EXTREMITIES: Mild edema. No cyanosis, no clubbing. Calves are nontender to palpation. SKIN: No acute rash. NEUROLOGIC: Exam limited at the present time. IMPRESSION: 1. Large left pleural effusion. Status post thoracentesis. 2. Chronic obstructive pulmonary disease. 3. Asthma. 4. Status post gastrointestinal bleeding. 5. Cardiac arrhythmias. PLAN: The patient appears comfortable this morning. She is not short of breath at rest. She does state to feeling better overall. I did discuss the case with the night nurse at length. The night nurse stated the patient had an uneventful night. The patient is status post thoracentesis by Dr. Arnol Martínez. Notes are reviewed. We are awaiting a repeat chest x-ray to be done. The pleural fluid results are also pending. I am certainly concerned with this patient, who has a very large unilateral left-sided pleural effusion.. Again, we are awaiting the pleural fluid cytology - to rule out underlying malignancy. Inputs by Cardiology and Infectious Disease are also noted. The clinical status of the patient appears very guarded at this point in time. It also appears that the future status/prognosis for this elderly patient is poor. I will discuss the above with Dr. Valerio. Abdoul Ward MD MTDD
--- NOTE | 2018-11-18 10:16 | RAD ---
Date of service: 11/18/2018 HISTORY: lt thora COMPARISON: 11/17/2018 FINDINGS: LUNGS: No definite infiltrate. PLEURA: Large left pleural effusion, slightly improved compared to prior. CARDIOVASCULAR: No aortic atherosclerotic calcification present. Normal cardiac size. No pulmonary vascular congestion. OSSEOUS STRUCTURES: No significant abnormalities. VISUALIZED UPPER ABDOMEN: Normal. OTHER FINDINGS: None. IMPRESSION: Large left pleural effusion decreased compared to prior examination.
[2018-11-18] MEDS: Ferrous Sulfate 300 mg/5 mL Liq UD PO SCH ×3 (10:23→18:25)
--- NOTE | 2018-11-18 11:17 | CARD ---
APPROVED REPORT Date of service: 11/17/2018 EKG Measurement Heart [id number] <Conclusion> Sinus rhythm with occasional and consecutive premature ventricular complexes and fusion complexes Low voltage QRS Incomplete right bundle branch block Abnormal ECG
--- NOTE | 2018-11-18 11:49 | CP.PCM.APN ---
Subjective - Date & Time of Evaluation Date of Evaluation: 11/18/18 Time of Evaluation: 10:00 - Subjective Subjective: Pt seen and examined. Denies chest pain or shortness of breath. Objective - Vital Signs/Intake and Output Vital Signs (last 24 hours): Temp Pulse Resp BP Pulse Ox 98.2 F 73 18 104/71 95 11/18/18 06:00 11/18/18 06:00 11/18/18 06:00 11/18/18 06:00 11/18/18 06:00 - Medications Medications: Current Medications Acetaminophen (Tylenol 325mg Tab) 650 mg PO Q6H PRN PRN Reason: Pain, Mild (1-3) Acetylcysteine (Acetylcysteine 20%) 4 ml IH BIDRESP [facility] Last Admin: 11/18/18 09:30 Dose: Not Given Albuterol Sulfate (Albuterol 0.083% Inhal Bhumi (2.5 Mg/3 Ml) Ud) 2.5 mg IH 0800,1400,2000 [facility] Atenolol (Tenormin) 12.5 mg PO DAILY [facility] Ferrous Sulfate (Feosol Liq) 300 mg PO TID [facility] Last Admin: 11/17/18 21:48 Dose: 300 mg Levothyroxine Sodium (Synthroid) 25 mcg PO ACB [facility] Last Admin: 11/18/18 08:57 Dose: 25 mcg Losartan Potassium (Cozaar) 25 mg PO DAILY [facility] Pantoprazole Sodium (Protonix Ec Tab) 40 mg PO DAILY [facility] Last Admin: 11/18/18 09:03 Dose: 40 mg Promethazine HCl (Phenergan Syrup) 6.25 mg PO Q6H PRN PRN Reason: Cough Last Admin: 11/18/18 00:54 Dose: 6.25 mg Sucralfate (Carafate Oral Susp) 1 gm PO BID [facility] Last Admin: 11/18/18 09:03 Dose: 1 gm - Labs Labs: 11/18/18 08:40 11/18/18 08:40 - Constitutional Appears: No Acute Distress - Head Exam Head Exam: ATRAUMATIC - Respiratory Exam Additional comments: decreased breath sounds to L lung. Mild rhonchi to R lung. - Cardiovascular Exam Cardiovascular Exam: REGULAR RHYTHM, +S1, +S2 - GI/Abdominal Exam GI & Abdominal Exam: Soft, Normal Bowel Sounds - Rectal Exam Rectal Exam: Deferred - Neurological Exam Neurological Exam: Alert, Awake Assessment and Plan - Assessment and Plan (Free Text) Assessment: Pt is an 88 y.o. 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 She is S/P ultrasound guided L thoracentesis yesterday. Plan: ID, Pulm, and IR on consult Pending pleural fluid cytology Meds per MAR Will continue to follow
--- NOTE | 2018-11-18 13:21 | CP.PCM.CON ---
History of Present Illness - History of Present Illness History of Present Illness: 87 year old female with PMH of HTN, COPD, S/P left hip replacement, normal pressure hydrocephalus S/P MANAGER UNIVERSAL shunt placement, hypothyroidism, history of shingles, GERD, S/P right knee surgery [place] [facility] [place] and was treated with antibiotics for probable left sided HCAP. She responded well and was transferred to [facility] and completed her course of antibiotics. She started having some SOB again and CXR showed increasing left sided pleural effusion and was transferred back to the medical floor and underwent thoracentesis, which yielded mitch-colored fluid. Infectious Diseases consult is requested to further evaluate and manage. Patient is currently undergoing suctioning and is agitated and full ROS is difficult to obtain because of this. I talked to the son at bedside who states there was no note of fevers, no vomiting, no diarrhea, no loss of consciousness. Review of Systems - Review of Systems All systems: reviewed and no additional remarkable complaints except (as per HPI) Past Patient History - Infectious Disease Hx of Infectious Diseases: None - Past Social History Smoking Status: Former Smoker - CARDIAC Hx Cardiac Disorders: Yes Hx Hypertension: Yes - PULMONARY Hx Respiratory Disorders: Yes (L pleural effusion) Hx Bronchitis: Yes Hx Chronic Obstructive Pulmonary Disease (COPD): Yes Other/Comment: thoracenthesis done today 11/16/18 - NEUROLOGICAL Hx Neurological Disorder: Yes (hydrocephalus,MANAGER UNIVERSAL shunt) Hx Dementia: Yes Hx Dizziness: Yes (vertigo) Other/Comment: memory loss - HEENT Hx HEENT Problems: Yes (ione) Other/Comment: eyes sensitive to light wears sunglasses - RENAL Hx Chronic Kidney Disease: No - ENDOCRINE/METABOLIC Hx Endocrine Disorders: Yes Hx Hypothyroidism: Yes - HEMATOLOGICAL/ONCOLOGICAL Hx Blood Disorders: Yes Hx Anemia: Yes Hx Shingles: Yes - INTEGUMENTARY Hx Dermatological Problems: No - MUSCULOSKELETAL/RHEUMATOLOGICAL Hx Musculoskeletal Disorders: Yes Hx Falls: Yes (past) Hx Fractures: Yes (left hip) Hx Unsteady Gait: Yes (walker) - GASTROINTESTINAL Hx Gastrointestinal Disorders: Yes (c dif 08/26/16) Hx Gastroesophageal Reflux: Yes - GENITOURINARY/GYNECOLOGICAL Hx Genitourinary Disorders: Yes Hx Incontinence: Yes (urine and stool) Hx Urinary Tract Infection: Yes - PSYCHIATRIC Hx Psychophysiologic Disorder: Yes Hx Anxiety: Yes Hx Substance Use: No - SURGICAL HISTORY Hx Surgeries: Yes Hx Cholecystectomy: Yes Hx Joint Replacement: Yes (left hip replacement) Hx Musculoskeletal Surgery: Yes Hx Orthopedic Surgery: Yes (right knee surgery, rotator cuff surgery) - ANESTHESIA Hx Anesthesia: Yes Hx Anesthesia Reactions: No Hx Malignant Hyperthermia: No Meds Allergies/Adverse Reactions: Allergies Allergy/AdvReac Type Severity Reaction Status Date / Time No Known Allergies Allergy Verified 10/31/18 18:17 - Medications Medications: Current Medications Acetaminophen (Tylenol 325mg Tab) 650 mg PO Q6H PRN PRN Reason: Pain, Mild (1-3) Albuterol Sulfate (Albuterol 0.083% Inhal Bhumi (2.5 Mg/3 Ml) Ud) 2.5 mg IH Q6H [facility] Last Admin: 11/18/18 07:46 Dose: 2.5 mg Atenolol (Tenormin) 12.5 mg PO DAILY [facility] Ferrous Sulfate (Feosol Liq) 300 mg PO TID [facility] Last Admin: 11/17/18 21:48 Dose: 300 mg Levothyroxine Sodium (Synthroid) 25 mcg PO ACB [facility] Losartan Potassium (Cozaar) 25 mg PO DAILY [facility] Pantoprazole Sodium (Protonix Ec Tab) 40 mg PO DAILY [facility] Promethazine HCl (Phenergan Syrup) 6.25 mg PO Q6H PRN PRN Reason: Cough Last Admin: 11/18/18 00:54 Dose: 6.25 mg Sucralfate (Carafate Oral Susp) 1 gm PO BID [facility] Last Admin: 11/17/18 18:53 Dose: 1 gm Physical Exam - Constitutional Appears: Chronically Ill - Head Exam Head Exam: NORMAL INSPECTION - Respiratory Exam Respiratory Exam: Decreased Breath Sounds - Cardiovascular Exam Cardiovascular Exam: +S1, +S2 - GI/Abdominal Exam GI & Abdominal Exam: Soft. absent: Tenderness Results - Vital Signs Recent Vital Signs: Last Vital Signs Temp 98.4 F 11/17/18 15:26 Pulse 87 11/17/18 20:50 Resp 18 11/17/18 20:50 BP 109/42 L 11/17/18 15:26 Pulse Ox 91 L 11/17/18 15:26 - Labs Result Diagrams: 11/18/18 08:40 11/18/18 08:40 Labs: Laboratory Results - last 24 hr 11/17/18 11/17/18 17:00 17:00 Fluid Source Pleural Fluid Appearance Cloudy Fluid WBC 915.0 H Fluid RBC 49532.0 H Fluid Tot Cell Count 100 H Fluid Mononuclear Cell 83.3 H Fl Polymorphonucl Cell 16.7 H Fluid Comment Red Thoracentesis Fluid pH 7.5 Assessment & Plan - Assessment and Plan (Free Text) Plan: Assessment left sided left sided pleural effusion, etiology to be determined, R/O malignancy, S/P thoracentesis S/P left lower HCAP, clinically improved and S/P treatment with antibiotics history of sepsis from left lower lobe healthcare-associated pneumonia, clinically improved and S/P treatment with antibiotics HTN COPD S/P left hip replacement normal pressure hydrocephalus S/P MANAGER UNIVERSAL shunt placement hypothyroidism history of shingles GERD S/P right knee surgery Plan completed 7 days of Cefepime and Doxycycline will continue to monitor clinically off antibiotics since she is at risk for nosocomial infections will follow up pleural fluid analysis and cultures discussed with Dr. Ward
--- NOTE | 2018-11-18 14:12 | CT ---
Date of service: 11/18/2018 PROCEDURE: CT Chest without contrast HISTORY: effusion, r/o infiltrate, consolidation COMPARISON: Prior chest CT without contrast 08/28/2012. TECHNIQUE: Contiguous axial images were obtained through the chest without intravenous contrast enhancement. Sagittal and coronal reconstructions were performed. Radiation dose: Total exam DLP = 460.76 mGy-cm. This CT exam was performed using one or more of the following dose reduction techniques: Automated exposure control, adjustment of the mA and/or kV according to patient size, and/or use of iterative reconstruction technique. FINDINGS: LUNGS: Right lung appears well aerated with no discrete mass appreciable. Occasional tiny fibrotic changes are appreciated with associated emphysema. The left lung is compressed by a large left pleural effusion with the central airways clear at the right side and throughout the trachea. Secondary and tertiary airways appear collapsed or opacified by fluid or mucoid material. An element of postobstructive atelectasis likely affects left lower lobe and possibly the lingula. MEDIASTINUM: Calcific atherosclerotic changes are seen related to the thoracic aorta. Cardiomegaly reiterated. Main pulmonary artery is dilated to 3.5 cm which may indicate pulmonary artery hypertension. Clinically correlate further. No significant lymphadenopathy grossly apparent. No aortic atherosclerotic calcification. PLEURA: Large left pleural effusion is again identified not simply change compared prior portable chest 11/18/2018. No right pleural effusion. Trace pericardial effusion or thickening is identified. No pneumothorax. Left pleural effusion is under an element attention is the heart is shifted over to the right. BONES: No fracture. No destructive lesion. UPPER ABDOMEN: Tiny lucency seen at the medial portion left lobe liver too small to characterize. Markedly atrophic pancreas identified and a catheter identified in the left upper quadrant abdomen. Large hiatal hernia identified. OTHER FINDINGS: Questionable peritoneal drainage catheter other drainage catheter identified in the left upper quadrant abdomen. IMPRESSION: 1. Large left pleural effusion exerting compression atelectasis at the left lower lobe and lingula. Underlying pneumonia or postobstructive atelectasis is suspected. Latter is favored over the former given possible fluid or mucoid material is thin 2nd tertiary branches of the left upper and lower lobe as discussed above. No similar findings at the right-sided airways. 2. No significant lymphadenopathy appreciable. No discrete mass identified within aerated lung diaz. 3. Cardiomegaly enlarged hiatal hernia identified as well as dilatation of the main pulmonary artery up to 3.5 cm which could reflect pulmonary artery hypertension. Clinically correlate further. 4. 2 apparent hepatic lucencies are identified which are nonspecific in character. The medial left lobe lesion appears to be complex fluid or soft tissue measuring up to 1.3 cm greatest dimension with the medial right lobe lesion measures 1.4 cm and is less dense follow-up MRI without contrast can be utilized for added characterization or abdomen ultrasound.
[2018-11-19] MEDS: Acetylcysteine 20% Inhal Soln (4ml) IH SCH ×2 (07:37→20:00)
[2018-11-19] MEDS: Albuterol 0.083% Inhal Sol (2.5 mg/3 mL) UD IH SCH ×3 (07:37→20:00)
--- NOTE | 2018-11-19 08:29 | CP.PCM.PN ---
Subjective - Date & Time of Evaluation Date of Evaluation: 11/19/18 Time of Evaluation: 08:00 - Subjective Subjective: Patient is seen this morning in room 572 bed 1. She is awake and feeling better than yesterday. Objective - Vital Signs/Intake and Output Vital Signs (last 24 hours): Temp Pulse Resp BP Pulse Ox 98.5 F 83 20 102/72 97 11/18/18 23:13 11/18/18 23:13 11/18/18 23:13 11/18/18 23:13 11/18/18 23:13 Intake and Output: 11/19/18 11/19/18 06:59 18:59 Intake Total 350 Balance 350 - Medications Medications: Current Medications Acetaminophen (Tylenol 325mg Tab) 650 mg PO Q6H PRN PRN Reason: Pain, Mild (1-3) Acetylcysteine (Acetylcysteine 20%) 4 ml IH BIDRESP [facility] Last Admin: 11/19/18 07:37 Dose: 4 ml Albuterol Sulfate (Albuterol 0.083% Inhal Bhumi (2.5 Mg/3 Ml) Ud) 2.5 mg IH 0800,1400,2000 [facility] Last Admin: 11/19/18 07:37 Dose: 2.5 mg Atenolol (Tenormin) 12.5 mg PO DAILY [facility] Last Admin: 11/18/18 12:22 Dose: 12.5 mg Ferrous Sulfate (Feosol Liq) 300 mg PO TID [facility] Last Admin: 11/18/18 18:25 Dose: 300 mg Levothyroxine Sodium (Synthroid) 25 mcg PO ACB [facility] Last Admin: 11/18/18 08:57 Dose: 25 mcg Losartan Potassium (Cozaar) 25 mg PO DAILY [facility] Last Admin: 11/18/18 12:22 Dose: 25 mg Pantoprazole Sodium (Protonix Ec Tab) 40 mg PO DAILY [facility] Last Admin: 11/18/18 09:03 Dose: 40 mg Promethazine HCl (Phenergan Syrup) 6.25 mg PO Q6H PRN PRN Reason: Cough Last Admin: 11/18/18 00:54 Dose: 6.25 mg Sucralfate (Carafate Oral Susp) 1 gm PO BID [facility] Last Admin: 11/18/18 18:25 Dose: 1 gm - Labs Labs: 11/18/18 08:40 11/18/18 08:40 - Constitutional Appears: No Acute Distress - Head Exam Head Exam: ATRAUMATIC, NORMOCEPHALIC - Respiratory Exam Respiratory Exam: Decreased Breath Sounds, NORMAL BREATHING PATTERN Additional comments: absent breath sounds on left, clear to auscultation on right - Cardiovascular Exam Cardiovascular Exam: REGULAR RHYTHM, +S1, +S2 - GI/Abdominal Exam GI & Abdominal Exam: Soft, Normal Bowel Sounds - Neurological Exam Neurological Exam: Alert, Awake Assessment and Plan - Assessment and Plan (Free Text) Assessment: Large left pleural effusion Samuel ulcer within hiatal hernia HTN COPD 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 Repeat chest x-ray shows large effusion is still present on the left. CT chest does now show any mass or lymphadenopathy. Lucent lesions seen in liver. will order ultrasound abdomen. awaiting pleural fluid analysis and cytology. physical therapy to evaluate patient. continue Protonix and carafate for ulcer.
[2018-11-19] MEDS: Sucralfate 1 gm/10 ml Oral Susp UD PO SCH ×2 (11:01→18:01)
[2018-11-19] MEDS: Ferrous Sulfate 300 mg/5 mL Liq UD PO SCH ×3 (11:01→18:01)
[2018-11-19] MEDS: Levothyroxine 25 MCG TAB PO SCH (11:02)
[2018-11-19] MEDS: Pantoprazole 40 mg EC Tab PO SCH (11:02)
[2018-11-19] MEDS: Promethazine 6.25 MG/5 ML CUP PO PRN (11:06)
--- NOTE | 2018-11-19 13:20 | PN ---
DATE: 11/19/2018 SUBJECTIVE: The patient appears comfortable this morning. She is not short of breath at rest. She appears very weak. PHYSICAL EXAMINATION: VITAL SIGNS: Temperature is 98.1, pulse 68, respirations 18/20, blood pressure 106/65. Oxygen saturation on nasal cannula is 96%-97%. HEENT: Normocephalic, atraumatic. No JVD. CARDIOVASCULAR: Systolic ejection murmur at the lower left sternal border. No S3 gallop. LUNGS: Slight improvement in breath sounds - left lung. No rhonchi. No wheezing. EXTREMITIES: Mild edema. No cyanosis, no clubbing. Calves are nontender to palpation. GASTROINTESTINAL: Abdomen is soft, nontender, nondistended. Bowel sounds are positive. SKIN: No acute rash. NEUROLOGIC: Exam limited at the present time. PERTINENT LABORATORY DATA: CAT scan of the chest was done yesterday and reviewed. A large left pleural effusion remains, with adjacent compressive atelectasis. The central airways appear clear. There is no evidence of pulmonary mass or nodule. There is no significant lymphadenopathy. IMPRESSION: 1. Large left pleural effusion. Status post thoracentesis. 2. Chronic obstructive pulmonary disease. 3. Asthma. 4. Status post gastrointestinal bleeding. 5. Cardiac arrhythmias. PLAN: The patient appears more comfortable this morning. She is not short of breath at rest. She does state to feeling better overall. I did discuss the case with night nurse at length. The night nurse stated the patient had an uneventful night. I did review the CAT scan of the chest. Findings are noted above. There remains a large left pleural effusion with adjacent compressive atelectasis. Again, there is no evidence of lung mass or nodule. There is no lymphadenopathy. On physical exam, there is no significant bronchospasm noted. In addition, the oxygen saturation on nasal cannula is now 96%-97%. I will continue the current nebulizer treatments for now. Clinical status of the patient does appear improved - compared to last week. However, again, unfortunately, it does appear that the future status/prognosis for this elderly patient is poor. We are still awaiting the pleural fluid results. I will discuss the above with Dr. Valerio. Abdoul Ward MD MTDD
--- NOTE | 2018-11-19 14:12 | CP.PCM.PN ---
Subjective - Date & Time of Evaluation Date of Evaluation: 11/19/18 Time of Evaluation: 10:30 - Subjective Subjective: Patient is not short of breath at rest, no fevers overnight. Objective - Vital Signs/Intake and Output Vital Signs (last 24 hours): Temp Pulse Resp BP Pulse Ox 98.1 F 66 18 100/63 96 11/19/18 06:00 11/19/18 11:03 11/19/18 06:00 11/19/18 11:03 11/19/18 06:00 Intake and Output: 11/19/18 11/19/18 06:59 18:59 Intake Total 350 Balance 350 - Medications Medications: Current Medications Acetaminophen (Tylenol 325mg Tab) 650 mg PO Q6H PRN PRN Reason: Pain, Mild (1-3) Acetylcysteine (Acetylcysteine 20%) 4 ml IH BIDRESP [facility] Last Admin: 11/19/18 07:37 Dose: 4 ml Albuterol Sulfate (Albuterol 0.083% Inhal Bhumi (2.5 Mg/3 Ml) Ud) 2.5 mg IH 0800,1400,2000 [facility] Last Admin: 11/19/18 13:07 Dose: 2.5 mg Atenolol (Tenormin) 12.5 mg PO DAILY [facility] Last Admin: 11/19/18 11:03 Dose: 12.5 mg Ferrous Sulfate (Feosol Liq) 300 mg PO TID [facility] Last Admin: 11/19/18 11:01 Dose: 300 mg Levothyroxine Sodium (Synthroid) 25 mcg PO ACB [facility] Last Admin: 11/19/18 11:02 Dose: 25 mcg Losartan Potassium (Cozaar) 25 mg PO DAILY [facility] Last Admin: 11/19/18 11:02 Dose: 25 mg Pantoprazole Sodium (Protonix Ec Tab) 40 mg PO DAILY [facility] Last Admin: 11/19/18 11:02 Dose: 40 mg Promethazine HCl (Phenergan Syrup) 6.25 mg PO Q6H PRN PRN Reason: Cough Last Admin: 11/19/18 11:06 Dose: 6.25 mg Sucralfate (Carafate Oral Susp) 1 gm PO BID [facility] Last Admin: 11/19/18 11:01 Dose: 1 gm - Labs Labs: 11/18/18 08:40 11/18/18 08:40 - Constitutional Appears: Chronically Ill - Head Exam Head Exam: NORMAL INSPECTION - Respiratory Exam Respiratory Exam: Decreased Breath Sounds - Cardiovascular Exam Cardiovascular Exam: +S1, +S2 - GI/Abdominal Exam GI & Abdominal Exam: Soft. absent: Tenderness Assessment and Plan - Assessment and Plan (Free Text) Plan: Assessment left sided left sided pleural effusion, etiology to be determined, R/O malignancy, S/P thoracentesis S/P left lower HCAP, clinically improved and S/P treatment with antibiotics history of sepsis from left lower lobe healthcare-associated pneumonia, clinically improved and S/P treatment with antibiotics HTN COPD S/P left hip replacement normal pressure hydrocephalus S/P WAX PUMPER shunt placement hypothyroidism history of shingles GERD S/P right knee surgery Plan completed 7 days of Cefepime and Doxycycline will continue to monitor clinically off antibiotics since she is at risk for hospital-acquired infections will follow up pleural fluid analysis and cultures - so far cultures are negative discussed with Dr. Ward previously
--- NOTE | 2018-11-19 19:44 | PN ---
DATE: 11/19/2018 SUBJECTIVE: I was asked to reevaluate the patient's left pleural effusion. She had a left thoracentesis 2 days ago in which 1400 mL of straw-colored fluid was aspirated. The appropriate labs were sent. A CT the following day demonstrates [id number] residual left pleural effusion Clinically, the patient's breathing has improved. I would recommend awaiting pleural fluid analysis. Given the quick reaccumulation, we might consider the patient for a tunneled pleural catheter to manage the effusion more efficiently. At this point, I would wait a few days, get the fluid results and then speak with the family. Arnol Martínez MD MTDD
[2018-11-20] MEDS: Albuterol 0.083% Inhal Sol (2.5 mg/3 mL) UD IH SCH ×3 (07:59→19:54)
[2018-11-20] MEDS: Acetylcysteine 20% Inhal Soln (4ml) IH SCH ×2 (07:59→19:54)
--- NOTE | 2018-11-20 08:16 | CP.PCM.PN ---
Subjective - Date & Time of Evaluation Date of Evaluation: 11/20/18 Time of Evaluation: 07:45 - Subjective Subjective: Patient seen this morning in room 572 bed 1. She is lying in bed, feeling tired. Objective - Vital Signs/Intake and Output Vital Signs (last 24 hours): Temp Pulse Resp BP Pulse Ox 99.0 F 66 18 86/48 L 98 11/19/18 22:00 11/19/18 22:00 11/19/18 22:00 11/19/18 22:00 11/19/18 22:00 Intake and Output: 11/20/18 11/20/18 06:59 18:59 Intake Total 0 Balance 0 - Medications Medications: Current Medications Acetaminophen (Tylenol 325mg Tab) 650 mg PO Q6H PRN PRN Reason: Pain, Mild (1-3) Acetylcysteine (Acetylcysteine 20%) 4 ml IH BIDRESP [facility] Last Admin: 11/20/18 07:59 Dose: 4 ml Albuterol Sulfate (Albuterol 0.083% Inhal Bhumi (2.5 Mg/3 Ml) Ud) 2.5 mg IH 08 00,1400,2000 [facility] Last Admin: 11/20/18 07:59 Dose: 2.5 mg Atenolol (Tenormin) 12.5 mg PO DAILY [facility] Last Admin: 11/19/18 11:03 Dose: 12.5 mg Ferrous Sulfate (Feosol Liq) 300 mg PO TID [facility] Last Admin: 11/19/18 18:01 Dose: 300 mg Levothyroxine Sodium (Synthroid) 25 mcg PO ACB [facility] Last Admin: 11/19/18 11:02 Dose: 25 mcg Losartan Potassium (Cozaar) 25 mg PO DAILY [facility] Last Admin: 11/19/18 11:02 Dose: 25 mg Pantoprazole Sodium (Protonix Ec Tab) 40 mg PO DAILY [facility] Last Admin: 11/19/18 11:02 Dose: 40 mg Promethazine HCl (Phenergan Syrup) 6.25 mg PO Q6H PRN PRN Reason: Cough Last Admin: 11/19/18 11:06 Dose: 6.25 mg Sucralfate (Carafate Oral Susp) 1 gm PO BID [facility] Last Admin: 11/19/18 18:01 Dose: 1 gm - Labs Labs: 11/18/18 08:40 11/18/18 08:40 - Constitutional Appears: No Acute Distress - Head Exam Additional comments: UNDERCOATER shunt - Respiratory Exam Respiratory Exam: Decreased Breath Sounds, NORMAL BREATHING PATTERN Additional comments: right lung clear, decreased breath sounds on left - Cardiovascular Exam Cardiovascular Exam: REGULAR RHYTHM, +S1, +S2 - GI/Abdominal Exam GI & Abdominal Exam: Soft, Normal Bowel Sounds. absent: Tenderness - Extremities Exam Extremities Exam: Normal Inspection - Neurological Exam Neurological Exam: Alert, Awake Assessment and Plan - Assessment and Plan (Free Text) Assessment: Left pleural effusion COPD NPH with UNDERCOATER shunt HTN Dementia Plan: Patient's blood pressure is low this morning. continue to monitor. If pressure continues to be low, will start IV fluids. continue Protonix and Carafate for ulcer. Patient has large left pleural effusion present after thoracentesis. Re-evaluated by Dr. Earlene Martínez, who recommends waiting a few days before inserting catheter to drain pleural fluid. Awaiting cytology results on the fluid. Awaiting abdominal ultrasound for liver lesions seen on CT. for TRCU.
--- NOTE | 2018-11-20 09:34 | PN ---
DATE: 11/20/2018 PULMONARY NOTE SUBJECTIVE: The patient appears comfortable this morning. She is not short of breath at rest. She does appear very weak. OBJECTIVE: VITAL SIGNS: (Last noted in the computer): Temperature is 99, pulse 66, respirations 18, blood pressure 86/48. Oxygen saturation on nasal cannula is 98%. HEENT: Normocephalic, atraumatic. No JVD. CARDIOVASCULAR: Systolic ejection murmur at the lower left sternal border. No S3 gallop. LUNGS: Decreased breath sounds - left lower lobe. Minimal rhonchi. No wheezing. EXTREMITIES: Mild edema. No cyanosis, no clubbing. Calves are nontender to palpation. GASTROINTESTINAL: Abdomen is soft, nontender and nondistended. Bowel sounds are positive. SKIN: No acute rash. NEUROLOGIC: Exam limited at the present time. IMPRESSION: 1. Large left pleural effusion. Status post thoracentesis. 2. Chronic obstructive pulmonary disease. 3. Asthma. 4. Status post gastrointestinal bleeding. 5. Cardiac arrhythmias. PLAN: The patient appears comfortable this morning. She is not short of breath at rest. She does appear very weak. She does state to feeling better overall. I discussed case with the night nurse at length. The night nurse stated the patient had an uneventful night. On physical exam, there is no significant bronchospasm noted. In addition, there is no significant alveolar-arterial gradient. I will continue the current nebulizer treatments for now. Input by Dr. Arnol Martínez is noted. We are awaiting the pleural fluid results. Clinical status of the patient is certainly improved - compared to last week. However, unfortunately, it does appear that the future status/prognosis for this elderly patient is poor. I will discuss the above with the attending physician. Abdoul Ward MD MTDD
[2018-11-20] MEDS: Sucralfate 1 gm/10 ml Oral Susp UD PO SCH ×2 (09:59→18:56)
[2018-11-20] MEDS: Ferrous Sulfate 300 mg/5 mL Liq UD PO SCH ×3 (10:00→18:57)
[2018-11-20] MEDS: Pantoprazole 40 mg EC Tab PO SCH (10:00)
[2018-11-20] MEDS: Promethazine 6.25 MG/5 ML CUP PO PRN (10:00)
[2018-11-20] MEDS: Levothyroxine 25 MCG TAB PO SCH (10:05)
--- NOTE | 2018-11-20 14:51 | CP.PCM.PN ---
Subjective - Date & Time of Evaluation Date of Evaluation: 11/20/18 Time of Evaluation: 11:20 - Subjective Subjective: No fevers, comfortable on a chair, not short of breath at rest. Objective - Vital Signs/Intake and Output Vital Signs (last 24 hours): Temp Pulse Resp BP Pulse Ox 98.1 F 66 18 100/63 96 11/19/18 06:00 11/19/18 11:03 11/19/18 06:00 11/19/18 11:03 11/19/18 06:00 Intake and Output: 11/19/18 11/19/18 06:59 18:59 Intake Total 350 Balance 350 - Medications Medications: Current Medications Acetaminophen (Tylenol 325mg Tab) 650 mg PO Q6H PRN PRN Reason: Pain, Mild (1-3) Acetylcysteine (Acetylcysteine 20%) 4 ml IH BIDRESP [facility] Last Admin: 11/19/18 07:37 Dose: 4 ml Albuterol Sulfate (Albuterol 0.083% Inhal Bhumi (2.5 Mg/3 Ml) Ud) 2.5 mg IH 0800,1400,2000 [facility] Last Admin: 11/19/18 13:07 Dose: 2.5 mg Atenolol (Tenormin) 12.5 mg PO DAILY [facility] Last Admin: 11/19/18 11:03 Dose: 12.5 mg Ferrous Sulfate (Feosol Liq) 300 mg PO TID [facility] Last Admin: 11/19/18 11:01 Dose: 300 mg Levothyroxine Sodium (Synthroid) 25 mcg PO ACB [facility] Last Admin: 11/19/18 11:02 Dose: 25 mcg Losartan Potassium (Cozaar) 25 mg PO DAILY [facility] Last Admin: 11/19/18 11:02 Dose: 25 mg Pantoprazole Sodium (Protonix Ec Tab) 40 mg PO DAILY [facility] Last Admin: 11/19/18 11:02 Dose: 40 mg Promethazine HCl (Phenergan Syrup) 6.25 mg PO Q6H PRN PRN Reason: Cough Last Admin: 11/19/18 11:06 Dose: 6.25 mg Sucralfate (Carafate Oral Susp) 1 gm PO BID [facility] Last Admin: 11/19/18 11:01 Dose: 1 gm - Labs Labs: 11/18/18 08:40 11/18/18 08:40 - Constitutional Appears: No Acute Distress, Chronically Ill - Head Exam Head Exam: NORMAL INSPECTION - Respiratory Exam Respiratory Exam: Decreased Breath Sounds - Cardiovascular Exam Cardiovascular Exam: +S1, +S2 - GI/Abdominal Exam GI & Abdominal Exam: Soft. absent: Tenderness Assessment and Plan - Assessment and Plan (Free Text) Plan: Assessment left sided left sided pleural effusion, etiology to be determined, R/O malignancy, S/P thoracentesis S/P left lower HCAP, clinically improved and S/P treatment with antibiotics history of sepsis from left lower lobe healthcare-associated pneumonia, clinically improved and S/P treatment with antibiotics HTN COPD S/P left hip replacement normal pressure hydrocephalus S/P HORTICULTURAL THERAPIST shunt placement hypothyroidism history of shingles GERD S/P right knee surgery Plan completed 7 days of Cefepime and Doxycycline will continue to monitor clinically off antibiotics since she is at risk for healthcare-associated infections will follow up pleural fluid analysis and cultures - so far cultures are negative discussed with Dr. Ward previously discussed with son Richard over the phone that cultures from the pleural fluid are negative so far
--- NOTE | 2018-11-20 15:33 | US ---
Date of service: 11/20/2018 HISTORY: liver lesion on CT chest; H/O PIT FURNACE MELTER shunt COMPARISON: None. TECHNIQUE: Sonographic evaluation of the abdomen. FINDINGS: LIVER: Measures 14.9 cm. Normal echogenicity of the liver parenchyma. No mass. No intrahepatic bile duct dilatation. GALLBLADDER: Status post cholecystectomy COMMON BILE DUCT: Measures 4.1 mm. No stones. No dilatation. PANCREAS: Unremarkable as visualized. No mass. No ductal dilatation. RIGHT KIDNEY: Measures 8.5cm. Normal echogenicity. Exophytic mid right renal cortical cyst, 1.2 x 2.1 x 2.1 cm. No solid mass. No calculus or hydronephrosis. LEFT KIDNEY: Measures 9.4cm. Normal echogenicity. Upper pole cortical cyst, 3.0 x 3.5 x 3.7 cm. No solid mass. No calculus or hydronephrosis. SPLEEN: Normal in size and contour. No mass. AORTA: No aneurysmal dilatation. IVC: Unremarkable. OTHER FINDINGS: None. IMPRESSION: Bilateral renal cysts. Status post cholecystectomy. Otherwise unremarkable.
[2018-11-21] MEDS: Albuterol 0.083% Inhal Sol (2.5 mg/3 mL) UD IH SCH ×3 (07:41→20:00)
[2018-11-21] MEDS: Acetylcysteine 20% Inhal Soln (4ml) IH SCH ×2 (07:41→20:00)
--- NOTE | 2018-11-21 08:16 | CP.PCM.PN ---
Subjective - Date & Time of Evaluation Date of Evaluation: 11/21/18 Time of Evaluation: 07:50 - Subjective Subjective: Patient is seen this morning. She has large pleural effusion on the left side. Objective - Vital Signs/Intake and Output Vital Signs (last 24 hours): Temp Pulse Resp BP Pulse Ox 98.4 F 75 18 122/70 95 11/21/18 06:00 11/21/18 06:00 11/21/18 06:00 11/21/18 06:00 11/21/18 06:00 - Medications Medications: Current Medications Acetaminophen (Tylenol 325mg Tab) 650 mg PO Q6H PRN PRN Reason: Pain, Mild (1-3) Acetylcysteine (Acetylcysteine 20%) 4 ml IH BIDRESP [facility] Last Admin: 11/21/18 07:41 Dose: 4 ml Albuterol Sulfate (Albuterol 0.083% Inhal Bhumi (2.5 Mg/3 Ml) Ud) 2.5 mg IH 0800,1400,2000 [facility] Last Admin: 11/21/18 07:41 Dose: 2.5 mg Atenolol (Tenormin) 12.5 mg PO DAILY [facility] Last Admin: 11/20/18 10:00 Dose: 12.5 mg Ferrous Sulfate (Feosol Liq) 300 mg PO TID [facility] Last Admin: 11/20/18 18:57 Dose: 300 mg Levothyroxine Sodium (Synthroid) 25 mcg PO ACB [facility] Last Admin: 11/20/18 10:05 Dose: 25 mcg Losartan Potassium (Cozaar) 25 mg PO DAILY [facility] Last Admin: 11/20/18 10:04 Dose: 25 mg Pantoprazole Sodium (Protonix Ec Tab) 40 mg PO DAILY [facility] Last Admin: 11/20/18 10:00 Dose: 40 mg Promethazine HCl (Phenergan Syrup) 6.25 mg PO Q6H PRN PRN Reason: Cough Last Admin: 11/20/18 10:00 Dose: 6.25 mg Sucralfate (Carafate Oral Susp) 1 gm PO BID [facility] Last Admin: 11/20/18 18:56 Dose: 1 gm - Labs Labs: 11/18/18 08:40 11/18/18 08:40 - Constitutional Appears: No Acute Distress - Head Exam Head Exam: ATRAUMATIC, NORMOCEPHALIC - Respiratory Exam Respiratory Exam: Decreased Breath Sounds - Cardiovascular Exam Cardiovascular Exam: REGULAR RHYTHM, +S1, +S2 - GI/Abdominal Exam GI & Abdominal Exam: Soft, Normal Bowel Sounds. 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 However, large left pleural effusion is still present. Awaiting results of cytology. continue current medications. continue PT. Patient requires assistance to walk. TRCU evaluation ordered.
--- NOTE | 2018-11-21 08:26 | PN ---
DATE: 11/21/2018 SUBJECTIVE: The patient appears comfortable this morning. She is not short of breath at rest. She remains very weak. OBJECTIVE: VITAL SIGNS: Temperature is 98.4, pulse 75, respirations 18, blood pressure 122/70. Oxygen saturation on room air is 95%-97%. HEENT: Normocephalic, atraumatic. NECK: No JVD. CARDIOVASCULAR: Systolic ejection murmur at the lower left sternal border. No S3 gallop. LUNGS: Decreased breath sounds - left lower lobe. Minimal rhonchi. No wheezing. EXTREMITIES: Mild edema. No cyanosis, no clubbing. Calves are nontender to palpation. GASTROINTESTINAL: Abdomen is soft, nontender, nondistended. Bowel sounds are positive. SKIN: No acute rash. NEUROLOGIC: Limited at the present time. IMPRESSION: 1. Large left pleural effusion, status post thoracentesis. 2. Chronic obstructive pulmonary disease. 3. Asthma. 4. Status post gastrointestinal bleeding. 5. Cardiac arrhythmias. PLAN: The patient appears comfortable this morning. She is not short of breath at rest. She remains very weak. However, she does state to feeling better overall. I did discuss the case to night nurse at length. The night nurse stated the patient had an uneventful night. On physical exam, there is no significant bronchospasm noted. In addition, the alveolar-arterial gradient has now resolved. Oxygen saturation on room air is 95%-97%. Inputs by Internal Medicine and Infectious Disease are noted. We are still awaiting the results of the pleural fluid. Clinical status of the patient is certainly improved - compared to the initial presentation. However, unfortunately, it does appear that the future status/prognosis for this elderly patient is poor. I will discuss the above with the attending physician. Abdoul Ward MD JESSICA
[2018-11-21] MEDS: Ferrous Sulfate 300 mg/5 mL Liq UD PO SCH ×3 (10:00→17:20)
--- NOTE | 2018-11-21 11:19 | CARD ---
APPROVED REPORT Date of service: 11/21/2018 EKG Measurement Heart [id number] <Conclusion> Sinus rhythm with marked sinus arrhythmia Incomplete right bundle branch block Borderline ECG
[2018-11-21] MEDS: Sucralfate 1 gm/10 ml Oral Susp UD PO SCH ×2 (12:28→17:20)
[2018-11-21] MEDS: Levothyroxine 25 MCG TAB PO SCH (12:29)
[2018-11-21] MEDS: Pantoprazole 40 mg EC Tab PO SCH (12:29)
--- NOTE | 2018-11-21 13:12 | CP.PCM.PN ---
Subjective - Date & Time of Evaluation Date of Evaluation: 11/21/18 Time of Evaluation: 10:55 - Subjective Subjective: No fevers, not in distress, currently comfortable in bed. Objective - Vital Signs/Intake and Output Vital Signs (last 24 hours): Temp Pulse Resp BP Pulse Ox 98.4 F 83 18 103/70 95 11/20/18 06:00 11/20/18 10:04 11/20/18 06:00 11/20/18 10:04 11/20/18 06:00 Intake and Output: 11/20/18 11/20/18 06:59 18:59 Intake Total 0 0 Balance 0 0 - Medications Medications: Current Medications Acetaminophen (Tylenol 325mg Tab) 650 mg PO Q6H PRN PRN Reason: Pain, Mild (1-3) Acetylcysteine (Acetylcysteine 20%) 4 ml IH BIDRESP [facility] Last Admin: 11/20/18 07:59 Dose: 4 ml Albuterol Sulfate (Albuterol 0.083% Inhal Bhumi (2.5 Mg/3 Ml) Ud) 2.5 mg IH 0800,1400,2000 [facility] Last Admin: 11/20/18 13:16 Dose: 2.5 mg Atenolol (Tenormin) 12.5 mg PO DAILY [facility] Last Admin: 11/20/18 10:00 Dose: 12.5 mg Ferrous Sulfate (Feosol Liq) 300 mg PO TID [facility] Last Admin: 11/20/18 10:00 Dose: 300 mg Levothyroxine Sodium (Synthroid) 25 mcg PO ACB [facility] Last Admin: 11/20/18 10:05 Dose: 25 mcg Losartan Potassium (Cozaar) 25 mg PO DAILY [facility] Last Admin: 11/20/18 10:04 Dose: 25 mg Pantoprazole Sodium (Protonix Ec Tab) 40 mg PO DAILY [facility] Last Admin: 11/20/18 10:00 Dose: 40 mg Promethazine HCl (Phenergan Syrup) 6.25 mg PO Q6H PRN PRN Reason: Cough Last Admin: 11/20/18 10:00 Dose: 6.25 mg Sucralfate (Carafate Oral Susp) 1 gm PO BID [facility] Last Admin: 11/20/18 09:59 Dose: 1 gm - Labs Labs: 11/18/18 08:40 01/29/19 08:40 - Constitutional Appears: Chronically Ill - Head Exam Head Exam: NORMAL INSPECTION - ENT Exam ENT Exam: Mucous Membranes Moist - Neck Exam Neck Exam: absent: Lymphadenopathy, Meningismus - Respiratory Exam Respiratory Exam: Decreased Breath Sounds - Cardiovascular Exam Cardiovascular Exam: +S1, +S2 - GI/Abdominal Exam GI & Abdominal Exam: Soft. 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 Ward previously discussed with son Richard over the phone that cultures from the pleural fluid are negative so far
--- NOTE | 2018-11-21 14:38 | RAD ---
Date of service: 11/21/2018 HISTORY: f/u pleural effusion COMPARISON: Comparison made with chest radiograph and CT scan chest both dated 11/18/2017. FINDINGS: LUNGS: Complete left hemithorax which has progressed since prior exam, secondary to and increase in either atelectasis or large left-sided effusion. There may be some minimal right basilar atelectasis.. PLEURA: No apparent pneumothorax. CARDIOVASCULAR: [id number] aortic atherosclerotic calcification present. Heart size difficult to assess due to silhouetting left cardiac border however cardiomegaly noted on prior CT scan chest. OSSEOUS STRUCTURES: No significant abnormalities. VISUALIZED UPPER ABDOMEN: Large hiatal hernia poorly delineated on this exam OTHER FINDINGS: None. IMPRESSION: Complete left hemithorax which has progressed since prior exam, secondary to and increase in either atelectasis or large left-sided effusion. There may be some minimal right basilar atelectasis..
[2018-11-21] MEDS: Promethazine 6.25 MG/5 ML CUP PO PRN (20:15)
[2018-11-22] MEDS: Levothyroxine 25 MCG TAB PO SCH (08:37)
[2018-11-22] MEDS: Acetylcysteine 20% Inhal Soln (4ml) IH SCH ×2 (08:52→19:35)
[2018-11-22] MEDS: Albuterol 0.083% Inhal Sol (2.5 mg/3 mL) UD IH SCH ×2 (08:52→19:35)
[2018-11-22] MEDS: Pantoprazole 40 mg EC Tab PO SCH (09:57)
[2018-11-22] MEDS: Ferrous Sulfate 300 mg/5 mL Liq UD PO SCH ×3 (09:58→17:25)
[2018-11-22] MEDS: Sucralfate 1 gm/10 ml Oral Susp UD PO SCH ×2 (09:58→17:25)
--- NOTE | 2018-11-22 13:39 | PN ---
DATE: 11/22/2018 LOCATION: Patient is in room 572 at [facility] in [place]. SUBJECTIVE: She is an 88-year-old female. She was admitted with severe anemia. She has a history of chronic lung disease, hypertension, dementia. She has a ventriculoperitoneal shunt for normal pressure hydrocephalus. The patient is in medical floor now with left-sided pleural effusion, which was drained and the patient has predominant monocyte lymphocytic count in the fluid. The pathology report for cytology diagnosis has not been revealed. The patient is complaining of pain this morning in the lower abdomen on the left side, and she is moaning and groaning. PHYSICAL EXAMINATION: VITAL SIGNS: Pulse is 89, blood pressure 103/65, temperature 97.1, O2 sat 90% on room air. HEENT: Head normocephalic. There is evidence of ventriculoperitoneal shunt device on the right side of the head. NECK: The thyroid is not enlarged. No lymph nodes. LUNGS: Trachea is central. Breath sounds are diminished on the left side. On palpation, there is dullness on the left side of the chest from top to bottom. HEART: Normal sinus rhythm, sinus tachycardia. ABDOMEN: Soft. There is some mild tenderness in the left lower quadrant. The patient is having point tenderness involving the left lower quadrant. LABORATORY DATA: The patient has had recent blood work. White count is 4,500. The patient's hemoglobin is 11.3. The patient's chemistry, the patient's sodium is 136, creatinine is 0.6, and BUN is 16. We will re-consult Dr. Brown, binding end stitcher to see the patient. The patient has had evaluation by him in the recent past and is being treated for gastritis. MEDICATIONS: The patient's medications consist of albuterol and Mucomyst. The patient is on Carafate 1 g b.i.d. The patient is on pantoprazole 40 mg daily, ferrous sulfate 300 mg t.i.d., losartan 25 mg daily, Synthroid 25 mcg daily, atenolol 12.5 mg daily. ASSESSMENT AND PLAN: The patient is on a heart-healthy diet. Condition seemed to be subacute, intermittently acute discomfort in the abdomen. We will follow up with advise from Dr. Brown. The patient also has progressive increasing fluid on the left side of the chest. This might have to be drained and then may be the patient needs chest tube continuous pleural fluid drainage. Rick Valerio MD Psychiatric # [id number]
--- NOTE | 2018-11-22 14:25 | PN ---
DATE: 11/22/2018 PULMONARY PROGRESS NOTE SUBJECTIVE: The patient was seen and examined at bedside. She is wearing nasal cannula. She is not short of breath at rest. PHYSICAL EXAMINATION: GENERAL: She is awake, alert, in no acute distress. HEENT: Examination of head, normocephalic and atraumatic. NECK: Supple with no jugular vein distention. CARDIOVASCULAR: S1, S2. Regular. PULMONARY: There were markedly diminished breath sounds at entire left lung. The right lung breath sounds are clear. GASTROINTESTINAL: Soft. Nontender. No organomegaly. : Within normal limits EXTREMITIES: No pedal edema. No cyanosis. SKIN: Dry; intact ASSESSMENT AND PLAN: I reviewed her yesterday's chest x-ray which reveals a complete opacification of left hemithorax. The trachea is pushed to the right. Therefore, it is consistent with effusion rather than atelectasis. The effusion was tapped once, which needs evacuation of this pleural fluid. The attending contacted Dr. Martínez for repeat evacuation. Large-bore chest tube can be placed with valve for continuing evacuation of fluid until diagnosis will become clear and decision on further care will be made. We will await results of cytology. Such large pleural effusions are always highly suspicious for malignancy. I do not see signs of congestive heart failure or pneumonia, other etiologies much less likely. Josiah Lance MD [facility] H[facility]PITALAncelmo
--- NOTE | 2018-11-22 17:34 | CP.PCM.PN ---
Subjective - Date & Time of Evaluation Date of Evaluation: 11/22/18 Time of Evaluation: 09:40 - Subjective Subjective: Comfortable in bed, no fevers. Objective - Vital Signs/Intake and Output Vital Signs (last 24 hours): Temp Pulse Resp BP Pulse Ox 98.4 F 75 18 122/70 95 11/21/18 06:00 11/21/18 06:00 11/21/18 06:00 11/21/18 06:00 11/21/18 06:00 Intake and Output: 11/21/18 11/21/18 06:59 18:59 Intake Total 300 Balance 300 - Medications Medications: Current Medications Acetaminophen (Tylenol 325mg Tab) 650 mg PO Q6H PRN PRN Reason: Pain, Mild (1-3) Last Admin: 11/21/18 09:39 Dose: 650 mg Acetylcysteine (Acetylcysteine 20%) 4 ml IH BIDRESP [facility] Last Admin: 11/21/18 07:41 Dose: 4 ml Albuterol Sulfate (Albuterol 0.083% Inhal Bhumi (2.5 Mg/3 Ml) Ud) 2.5 mg IH 0800,1400,2000 [facility] Last Admin: 11/21/18 07:41 Dose: 2.5 mg Atenolol (Tenormin) 12.5 mg PO DAILY [facility] Last Admin: 11/21/18 12:28 Dose: 12.5 mg Ferrous Sulfate (Feosol Liq) 300 mg PO TID [facility] Last Admin: 11/21/18 10:00 Dose: Not Given Levothyroxine Sodium (Synthroid) 25 mcg PO ACB [facility] Last Admin: 11/21/18 12:29 Dose: 25 mcg Losartan Potassium (Cozaar) 25 mg PO DAILY [facility] Last Admin: 11/21/18 12:29 Dose: 25 mg Pantoprazole Sodium (Protonix Ec Tab) 40 mg PO DAILY [facility] Last Admin: 11/21/18 12:29 Dose: 40 mg Promethazine HCl (Phenergan Syrup) 6.25 mg PO Q6H PRN PRN Reason: Cough Last Admin: 11/20/18 10:00 Dose: 6.25 mg Sucralfate (Carafate Oral Susp) 1 gm PO BID [facility] Last Admin: 11/21/18 12:28 Dose: 1 gm - Labs Labs: 11/18/18 08:40 11/18/18 08:40 - Constitutional Appears: Chronically Ill - Head Exam Head Exam: NORMAL INSPECTION - Respiratory Exam Respiratory Exam: Decreased Breath Sounds - Cardiovascular Exam Cardiovascular Exam: +S1, +S2 - GI/Abdominal Exam GI & Abdominal Exam: Soft. absent: Tenderness Assessment and Plan - Assessment and Plan (Free Text) Plan: Assessment left sided left sided pleural effusion, etiology to be determined, R/O malignancy, S/P thoracentesis S/P left lower HCAP, clinically improved and S/P treatment with antibiotics history of sepsis from left lower lobe healthcare-associated pneumonia, clinically improved and S/P treatment with antibiotics HTN COPD S/P left hip replacement normal pressure hydrocephalus S/P ORTHOPEDIC CODER shunt placement hypothyroidism history of shingles GERD S/P right knee surgery Plan completed 7 days of Cefepime and Doxycycline will continue to monitor clinically off antibiotics since she is at risk for nosocomial infections follow up pleural fluid cytology - cultures so far cultures are negative discussed with Dr. Ward previously discussed with son Richard over the phone that cultures from the pleural fluid ar e negative
[2018-11-23] MEDS: Promethazine 6.25 MG/5 ML CUP PO PRN (02:59)
[2018-11-23] MEDS: Albuterol 0.083% Inhal Sol (2.5 mg/3 mL) UD IH SCH ×3 (08:06→20:02)
[2018-11-23] MEDS: Acetylcysteine 20% Inhal Soln (4ml) IH SCH ×2 (08:06→20:02)
[2018-11-23] MEDS: Levothyroxine 25 MCG TAB PO SCH ×2 (08:43→08:44)
[2018-11-23] MEDS: Sucralfate 1 gm/10 ml Oral Susp UD PO SCH ×2 (09:24→17:44)
[2018-11-23] MEDS: Ferrous Sulfate 300 mg/5 mL Liq UD PO SCH ×3 (09:24→17:44)
[2018-11-23] MEDS: Pantoprazole 40 mg EC Tab PO SCH (09:24)
--- NOTE | 2018-11-23 12:26 | PN ---
DATE: 11/23/2018 PULMONARY PROGRESS NOTE SUBJECTIVE: The patient was seen and examined at bedside. She has mildly short of breath at rest; however, the nurse reports episodes of more severe shortness of breath at least twice this morning. Oxygen saturation is acceptable. PHYSICAL EXAMINATION: VITAL SIGNS: Her pulse is 88, respirations 20, pulse oximetry 94% on nasal cannula, and blood pressure 115/50. HEAD, EYES, EARS, NOSE, AND THROAT: Within normal limits. NECK: Supple with no jugular vein distention. CARDIOVASCULAR: S1 and S2. No S3. Regular. PULMONARY: Markedly diminished breath sounds in the entire left hemithorax. GASTROINTESTINAL: Soft and nontender. No organomegaly. EXTREMITIES: No pedal edema. SKIN: No acute skin rash. NEUROLOGIC: Limited at the present time. ASSESSMENT: 1. Large left pleural effusion. 2. Hypoxia. 3. Dyspnea. PLAN: The patient will require a larger chest tube to assure proper and gradual draining of the effusion. This cannot be removed in the entire team in one procedure, has to allow to be drained gradually to avoid sudden shift and unilateral pulmonary edema. This will be communicated with Dr. Valerio. Josiah Lance MD
--- NOTE | 2018-11-23 12:40 | PN ---
DATE: 11/23/2018 LOCATION: The patient is seen in [facility], room 572, bed 1. SUBJECTIVE: The patient is an 88-year-old female. The patient was admitted with pleural effusion to the medical floor. The patient has past history of hypertension, chronic lung disease, hypothyroidism. The patient also has history of normal pressure hydrocephalus, ventriculoperitoneal shunt has been placed in the past. The patient has mild dementia. The patient also suffers from chronic iron deficiency anemia. The patient is currently in the medical floor. She is being observed for progressive increase in pleural fluid on the left side of the chest. The patient lays on the left side. She has shortness of breath noted while the patient is breathing. The patient is afebrile. PHYSICAL EXAMINATION VITAL SIGNS: Pulse is 77, blood pressure 115/53, respirations 16 to 20 per minute, the patient's temperature 97.8. The patient's O2 sat is 94% on room air. HEENT: The patient's head is normocephalic. There is a ventriculoperitoneal shunt on the right side of the head. NECK: Thyroid is not enlarged. The device that runs into the peritoneal cavity is on the right side in the neck area. The patient thyroid is clinically not enlarged. The JVP is flat. Carotid pulses are present. LUNGS: Trachea is central. Breath sounds are vesicular on the right side, diminished totally on the left side. HEART: Normal sinus rhythm. S1 and S2 present. ABDOMEN: Soft. She does have some undefined tenderness in the left lower quadrant with abdominal pain. CENTRAL NERVOUS SYSTEM: She is conscious, but she has some confusion and no focal neurological deficits are noted at this time. LABORATORY DATA: The patient's blood work done recently, shows this patient's hemoglobin is 11.3. The patient is on hematinic. Medications; iron supplement. The patient is on multivitamin. The patient's chemistry; the chemical parameters, BMP is within normal range. The patient's BUN is 16 and anion gap is low 8. The patient's chest x-ray shows opacity on the left side of the chest and instrumentation technologist comments regarding the patient's condition at this time. The patient needs chest tube for drainage and the patient also needs diagnosis to be established prior to further treatment. Currently, the patient is going to be kept on observation until Dr. Arnol Martínez to be able to do the procedure on Saturday. In the meantime, will provide medical care for the patient, give all of medications. MEDICATIONS: List of medications are; the patient is on albuterol that is DuoNeb with Mucomyst. The patient is Carafate 1 g b.i.d. The patient is on losartan 25 mg daily, Feosol liquid 300 mg three times a day. The patient is on cough medicine as needed p.r.n. The patient is on pantoprazole 40 mg daily, Synthroid 25 mcg daily, atenolol 12.5 mg daily, Tylenol for pain, headache, body pain and fever. ASSESSMENT AND PLAN: The patient's overall condition is unstable. The prognosis is not clear at this time, because of the patient diagnosis not been established. However, the patient's family very concerned about the patient's condition and they want to know what's really to be done and we will keep the family embraced on the condition and treatment plan as . Rick Valerio MD
--- NOTE | 2018-11-23 21:35 | PN ---
DATE: 11/23/2018 SUBJECTIVE: The patient is in bed, in no acute distress. OBJECTIVE: VITAL SIGNS: On exam, temperature is 98, blood pressure is 115/50, respiratory rate of 18, heart rate of 77. HEENT: Examination of HEENT is unremarkable. NECK: Supple. LUNGS: Have decreased breath sounds. HEART: Normal S1, S2. ABDOMEN: Soft. LABORATORY EXAMINATION: Noted. Pleural fluid cultures, no fungal elements. Review of orders reveals the patient off of antibiotics. ASSESSMENT AND PLAN: This is an 88-year-old female seen earlier today in 572, bed 1 with a left-sided pleural effusion, etiology and completed 7 days of cefepime and doxycycline, currently off of antibiotics, and the patient with hypertension, chronic obstructive pulmonary disease, hypothyroidism, history of shingles, gastroesophageal reflux disease, normal pressure hydrocephalus status post ventriculoperitoneal shunt placement. Overall, prognosis is poor. Eduar Nolan MD
[2018-11-24] MEDS: guaiFENesin 100 mg/5 ml Syrup UD PO PRN (04:33)
[2018-11-24] MEDS: Albuterol 0.083% Inhal Sol (2.5 mg/3 mL) UD IH SCH ×3 (07:38→19:49)
[2018-11-24] MEDS: Acetylcysteine 20% Inhal Soln (4ml) IH SCH ×2 (07:38→19:48)
--- NOTE | 2018-11-24 08:20 | CP.PCM.PN ---
Subjective - Date & Time of Evaluation Date of Evaluation: 11/24/18 Time of Evaluation: 07:45 - Subjective Subjective: Patient is seen this morning while receiving respiratory treatment. She denies abdominal pain this morning. Objective - Vital Signs/Intake and Output Vital Signs (last 24 hours): Temp Pulse Resp BP Pulse Ox 97.8 F 70 22 123/90 98 11/23/18 22:00 11/23/18 22:00 11/23/18 22:00 11/23/18 22:00 11/23/18 22:00 Intake and Output: 11/24/18 11/24/18 06:59 18:59 Intake Total 120 Balance 120 - Medications Medications: Current Medications Acetaminophen (Tylenol 325mg Tab) 650 mg PO Q6H PRN PRN Reason: Pain, Mild (1-3) Last Admin: 11/23/18 02:42 Dose: 650 mg Acetylcysteine (Acetylcysteine 20%) 4 ml IH BIDRESP [facility] Last Admin: 11/24/18 07:38 Dose: 4 ml Albuterol Sulfate (Albuterol 0.083% Inhal Bhumi (2.5 Mg/3 Ml) Ud) 2.5 mg IH 0800,1400,2000 [facility] Last Admin: 11/24/18 07:38 Dose: 2.5 mg Atenolol (Tenormin) 12.5 mg PO DAILY [facility] Last Admin: 11/23/18 09:24 Dose: 12.5 mg Ferrous Sulfate (Feosol Liq) 300 mg PO TID [facility] Last Admin: 11/23/18 17:44 Dose: 300 mg Guaifenesin (Robitussin) 100 mg PO Q4H PRN PRN Reason: Cough Last Admin: 11/24/18 04:33 Dose: 100 mg Levothyroxine Sodium (Synthroid) 25 mcg PO ACB [facility] Last Admin: 11/23/18 08:44 Dose: 25 mcg Losartan Potassium (Cozaar) 25 mg PO DAILY [facility] Last Admin: 11/23/18 10:37 Dose: 25 mg Pantoprazole Sodium (Protonix Ec Tab) 40 mg PO DAILY [facility] Last Admin: 11/23/18 09:24 Dose: 40 mg Promethazine HCl (Phenergan Syrup) 6.25 mg PO Q6H PRN PRN Reason: Cough Last Admin: 11/23/18 02:59 Dose: 6.25 mg Sucralfate (Carafate Oral Susp) 1 gm PO BID [facility] Last Admin: 11/23/18 17:44 Dose: 1 gm - Labs Labs: 11/18/18 08:40 11/18/18 08:40 - Constitutional Appears: No Acute Distress - Head Exam Additional comments: BUSINESS TEST ANALYST shunt - Respiratory Exam Respiratory Exam: Decreased Breath Sounds Additional comments: absent breath sounds on left side - Cardiovascular Exam Cardiovascular Exam: REGULAR RHYTHM, +S1, +S2 - GI/Abdominal Exam GI & Abdominal Exam: Soft, Normal Bowel Sounds. absent: Tenderness - Extremities Exam Extremities Exam: Normal Inspection - Neurological Exam Neurological Exam: Alert, Awake Assessment and Plan - Assessment and Plan (Free Text) Assessment: Large pleural effusion LLQ abdominal pain HTN NPH with BUSINESS TEST ANALYST shunt dementia Hypothyroidism Plan: Patient was complaining of abdominal pain over the weekend. Left lower quadrant tenderness seems to be resolved. Patient is on liquid diet as per gastroenterology, Dr. Brown. Large pleural effusion is still present on the left. Dr. Lance's note is reviewed - a large bore catheter needs to be inserted for drainage of the effusion. Awaiting pathology report on pleural fluid.
--- NOTE | 2018-11-24 08:48 | PN ---
DATE: 11/24/2018 PULMONARY NOTE SUBJECTIVE: The patient appears comfortable this morning. She is not short of breath at rest. She remains very weak appearing. OBJECTIVE: VITAL SIGNS: Temperature is 97.8, pulse 70, respirations 18/20, blood pressure 123/90. Oxygen saturation on nasal cannula is 98%. HEENT: Normocephalic, atraumatic. NECK: No JVD. CARDIOVASCULAR: Systolic ejection murmur at the lower left sternal border. No S3 gallop. LUNGS: Decreased breath sounds - left lung. Minimal rhonchi. No wheezing. EXTREMITIES: Mild edema. No cyanosis, no clubbing. Calves are nontender to palpation. GASTROINTESTINAL: Abdomen is soft, nontender, and nondistended. Bowel sounds are positive. SKIN: No acute rash. NEUROLOGIC: Limited at the present time. IMPRESSION: 1. Large left pleural effusion, status post thoracentesis. 2. Chronic obstructive pulmonary disease. 3. Asthma. 4. Status post gastrointestinal bleeding. 5. Cardiac arrhythmias. PLAN: The patient appears comfortable this morning. She is not short of breath at rest. She does appear very weak. She does state to feeling better overall. I did discuss the case with night nurse at length. The night nurse stated the patient had a uneventful night. On physical exam, there is no significant bronchospasm noted. In addition, there is no significant alveolar-arterial gradient. I will continue the current nebulizer treatments for now. I did review the notes by Dr. Lance (my partner). As noted, there has been reaccumulation of the fluid in the left chest - with a contralateral tracheal shift. Again, we are awaiting for the final pleural fluid cytology to be ready. However, the rapid accumulation of this unilateral left-sided pleural effusion - appears very ominous for malignancy. Clinical status of the patient appears guarded at this point in time. Her future/overall prognosis appears poor. I will discuss the above with the attending physician. Abdoul Ward MD [facility]
--- NOTE | 2018-11-24 10:32 | CP.PCM.APN ---
Subjective - Date & Time of Evaluation Date of Evaluation: 11/24/18 Time of Evaluation: 08:30 - Subjective Subjective: Pt seen and examined today. States she feels a little tired but denies shortness of breath or chest pain. Objective - Vital Signs/Intake and Output Vital Signs (last 24 hours): Temp Pulse Resp BP Pulse Ox 98.4 F 74 20 141/92 H 92 L 11/24/18 06:00 11/24/18 06:00 11/24/18 06:00 11/24/18 06:00 11/24/18 06:00 Intake and Output: 11/24/18 11/24/18 06:59 18:59 Intake Total 120 Balance 120 - Medications Medications: Current Medications Acetaminophen (Tylenol 325mg Tab) 650 mg PO Q6H PRN PRN Reason: Pain, Mild (1-3) Last Admin: 11/23/18 02:42 Dose: 650 mg Acetylcysteine (Acetylcysteine 20%) 4 ml IH BIDRESP [facility] Last Admin: 11/24/18 07:38 Dose: 4 ml Albuterol Sulfate (Albuterol 0.083% Inhal Bhumi (2.5 Mg/3 Ml) Ud) 2.5 mg IH 0800,1400,2000 [facility] Last Admin: 11/24/18 07:38 Dose: 2.5 mg Atenolol (Tenormin) 12.5 mg PO DAILY [facility] Last Admin: 11/23/18 09:24 Dose: 12.5 mg Ferrous Sulfate (Feosol Liq) 300 mg PO TID [facility] Last Admin: 11/23/18 17:44 Dose: 300 mg Guaifenesin (Robitussin) 100 mg PO Q4H PRN PRN Reason: Cough Last Admin: 11/24/18 04:33 Dose: 100 mg Levothyroxine Sodium (Synthroid) 25 mcg PO ACB [facility] Last Admin: 11/23/18 08:44 Dose: 25 mcg Losartan Potassium (Cozaar) 25 mg PO DAILY [facility] Last Admin: 11/23/18 10:37 Dose: 25 mg Pantoprazole Sodium (Protonix Ec Tab) 40 mg PO DAILY [facility] Last Admin: 11/23/18 09:24 Dose: 40 mg Promethazine HCl (Phenergan Syrup) 6.25 mg PO Q6H PRN PRN Reason: Cough Last Admin: 11/23/18 02:59 Dose: 6.25 mg Sucralfate (Carafate Oral Susp) 1 gm PO BID JARRELL Last Admin: 11/23/18 17:44 Dose: 1 gm - Labs Labs: 11/18/18 08:40 11/18/18 08:40 - Constitutional Appears: Well, No Acute Distress - Head Exam Head Exam: NORMOCEPHALIC - Neck Exam Neck Exam: Full ROM - Respiratory Exam Additional comments: decreased breath sounds to L lung - Cardiovascular Exam Cardiovascular Exam: REGULAR RHYTHM, +S1, +S2 - GI/Abdominal Exam GI & Abdominal Exam: Soft, Normal Bowel Sounds - Rectal Exam Rectal Exam: Deferred - Extremities Exam Extremities Exam: Normal Inspection - Neurological Exam Neurological Exam: Alert, Awake Assessment and Plan - Assessment and Plan (Free Text) Assessment: Pt is an 88 y.o. female who is S/P ultrasound guided L thoracentesis for L pleural effusion. 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 Will f/u with IR. IR, Pulm, and ID on consult Meds per mar Will continue to follow
[2018-11-24] MEDS: Levothyroxine 25 MCG TAB PO SCH (10:51)
[2018-11-24] MEDS: Sucralfate 1 gm/10 ml Oral Susp UD PO SCH ×2 (10:52→18:49)
[2018-11-24] MEDS: Ferrous Sulfate 300 mg/5 mL Liq UD PO SCH ×3 (10:52→18:49)
[2018-11-24] MEDS: Pantoprazole 40 mg EC Tab PO SCH (10:53)
[2018-11-24] MEDS: Albuterol 0.083% Inhal Sol (2.5 mg/3 mL) UD INH PRN ×2 (11:50→18:49)
[2018-11-24] MEDS ORDERED: Barium Sulfate Susp 2.1% w/v, 2.0% w/w 450 mL Bottle PO ONE (12:16)
--- NOTE | 2018-11-24 14:16 | CP.PCM.PN ---
Subjective - Date & Time of Evaluation Date of Evaluation: 11/24/18 Time of Evaluation: 09:30 - Subjective Subjective: Comfortable on a chair, no fevers. Objective - Vital Signs/Intake and Output Vital Signs (last 24 hours): Temp Pulse Resp BP Pulse Ox 98.4 F 75 20 150/92 H 92 L 11/24/18 06:00 11/24/18 10:53 11/24/18 06:00 11/24/18 10:53 11/24/18 06:00 Intake and Output: 11/24/18 11/24/18 06:59 18:59 Intake Total 120 120 Balance 120 120 - Medications Medications: Current Medications Acetaminophen (Tylenol 325mg Tab) 650 mg PO Q6H PRN PRN Reason: Pain, Mild (1-3) Last Admin: 11/23/18 02:42 Dose: 650 mg Acetylcysteine (Acetylcysteine 20%) 4 ml IH BIDRESP [facility] Last Admin: 11/24/18 07:38 Dose: 4 ml Albuterol Sulfate (Albuterol 0.083% Inhal Bhumi (2.5 Mg/3 Ml) Ud) 2.5 mg IH 0800,1400,2000 [facility] Last Admin: 11/24/18 13:16 Dose: 2.5 mg Albuterol Sulfate (Albuterol 0.083% Inhal Bhumi (2.5 Mg/3 Ml) Ud) 2.5 mg INH Q2H PRN PRN Reason: Shortness of Breath Last Admin: 11/24/18 11:50 Dose: 2.5 mg Atenolol (Tenormin) 12.5 mg PO DAILY [facility] Last Admin: 11/24/18 10:53 Dose: 12.5 mg Ferrous Sulfate (Feosol Liq) 300 mg PO TID [facility] Last Admin: 11/24/18 13:20 Dose: Not Given Guaifenesin (Robitussin) 100 mg PO Q4H PRN PRN Reason: Cough Last Admin: 11/24/18 04:33 Dose: 100 mg Levothyroxine Sodium (Synthroid) 25 mcg PO ACB [facility] Last Admin: 11/24/18 10:51 Dose: 25 mcg Losartan Potassium (Cozaar) 25 mg PO DAILY [facility] Last Admin: 11/24/18 10:52 Dose: 25 mg Pantoprazole Sodium (Protonix Ec Tab) 40 mg PO DAILY [facility] Last Admin: 11/24/18 10:53 Dose: 40 mg Promethazine HCl (Phenergan Syrup) 6.25 mg PO Q6H PRN PRN Reason: Cough Last Admin: 11/23/18 02:59 Dose: 6.25 mg Sucralfate (Carafate Oral Susp) 1 gm PO BID [facility] Last Admin: 11/24/18 10:52 Dose: 1 gm - Labs Labs: 11/18/18 08:40 11/18/18 08:40 - Constitutional Appears: Chronically Ill - Head Exam Head Exam: NORMAL INSPECTION - Neck Exam Neck Exam: absent: Meningismus - Respiratory Exam Respiratory Exam: Decreased Breath Sounds - Cardiovascular Exam Cardiovascular Exam: +S1, +S2 - GI/Abdominal Exam GI & Abdominal Exam: Soft. 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 Ward previously follow up further plans for the carcinoma associated with pleural effusion overall prognosis is poor
--- NOTE | 2018-11-24 15:17 | CP.PCM.PN ---
<Yosi Powell - Last Filed: 11/24/18 16:53> Subjective - Date & Time of Evaluation Date of Evaluation: 11/24/18 Time of Evaluation: 15:06 - Subjective Subjective: GI Progress Note for Dr. Brown Patient seen and examined at bedside. No acute overnight events. Patient states that abdominal pain persists. Patient tolerating diet. Patient denies CP, SOB n/v, fever, chills, CONTRERAS, or dizziness. Objective - Vital Signs/Intake and Output Vital Signs (last 24 hours): Temp Pulse Resp BP Pulse Ox 97.7 F 95 H 18 134/88 92 L 11/24/18 14:00 11/24/18 14:00 11/24/18 14:00 11/24/18 14:00 11/24/18 14:00 Intake and Output: 11/24/18 11/24/18 06:59 18:59 Intake Total 120 120 Balance 120 120 - Medications Medications: Current Medications Acetaminophen (Tylenol 325mg Tab) 650 mg PO Q6H PRN PRN Reason: Pain, Mild (1-3) Last Admin: 11/23/18 02:42 Dose: 650 mg Acetylcysteine (Acetylcysteine 20%) 4 ml IH BIDRESP [facility] Last Admin: 11/24/18 07:38 Dose: 4 ml Albuterol Sulfate (Albuterol 0.083% Inhal Bhumi (2.5 Mg/3 Ml) Ud) 2.5 mg IH 0800,1400,2000 [facility] Last Admin: 11/24/18 13:16 Dose: 2.5 mg Albuterol Sulfate (Albuterol 0.083% Inhal Bhumi (2.5 Mg/3 Ml) Ud) 2.5 mg INH Q2H PRN PRN Reason: Shortness of Breath Last Admin: 11/24/18 11:50 Dose: 2.5 mg Atenolol (Tenormin) 12.5 mg PO DAILY [facility] Last Admin: 11/24/18 10:53 Dose: 12.5 mg Ferrous Sulfate (Feosol Liq) 300 mg PO TID [facility] Last Admin: 11/24/18 13:20 Dose: Not Given Guaifenesin (Robitussin) 100 mg PO Q4H PRN PRN Reason: Cough Last Admin: 11/24/18 04:33 Dose: 100 mg Levothyroxine Sodium (Synthroid) 25 mcg PO ACB [facility] Last Admin: 11/24/18 10:51 Dose: 25 mcg Losartan Potassium (Cozaar) 25 mg PO DAILY [facility] Last Admin: 11/24/18 10:52 Dose: 25 mg Pantoprazole Sodium (Protonix Ec Tab) 40 mg PO DAILY [facility] Last Admin: 11/24/18 10:53 Dose: 40 mg Promethazine HCl (Phenergan Syrup) 6.25 mg PO Q6H PRN PRN Reason: Cough Last Admin: 11/23/18 02:59 Dose: 6.25 mg Sucralfate (Carafate Oral Susp) 1 gm PO BID [facility] Last Admin: 11/24/18 10:52 Dose: 1 gm - Labs Labs: 11/18/18 08:40 11/18/18 08:40 - Constitutional Appears: No Acute Distress - Head Exam Head Exam: NORMAL INSPECTION - Eye Exam Eye Exam: Normal appearance - ENT Exam ENT Exam: Mucous Membranes Moist - Neck Exam Neck Exam: Normal Inspection - Respiratory Exam Respiratory Exam: Clear to Ausculation Bilateral. absent: Rales, Rhonchi, Wheezes - Cardiovascular Exam Cardiovascular Exam: RRR, +S1, +S2. absent: Gallop, Rubs, Murmur - GI/Abdominal Exam GI & Abdominal Exam: Guarding, Soft, Tenderness (LLQ). absent: Distended, Rebound - Extremities Exam Extremities Exam: Normal Inspection - Neurological Exam Neurological Exam: Alert, Awake - Psychiatric Exam Psychiatric exam: Normal Affect - Skin Skin Exam: Normal Color, Warm Assessment and Plan - Assessment and Plan (Free Text) Assessment: 88 yo F with PMH of NPH s/p shunt, HTN, anemia, COPD, and hypothyroidism was [place] [facility] [place] and HCAP. Patient was transfused pRBC and had EGD showing large hiatal hernia, gastritis, and samuel ulcers. Patient's Hgb remained stable and pulmonary status improved was transferred to TCU. However, while in TCU patient had worsening dyspnea and increased pleural effusion and subsequently readmitted. Cytologic studies of the pleural effusion was positive for small cell neuroendocrine carcinoma. GI is consulted for abdominal pain. 1. Abdominal pain 2. Left-sided pleural effusion 3. Small cell neuroendocrine carcinoma 4. H/o Anemia 5. H/o Gastritis 6. H/o Samuel Ulcer 7. H/o Large hiatal hernia Plan: - Abdomen/Pelvis CT with PO contrast ordered - Cont PO iron; hgb stable - Cont PPI - Full liquid diet, advance as tolerated Patient discussed in detail with Dr. Brown. Rhys Powell, PGY2 <Caroline Brown V - Last Filed: 11/25/18 00:03> Objective - Vital Signs/Intake and Output Vital Signs (last 24 hours): Temp Pulse Resp BP Pulse Ox 97.9 F 86 22 157/66 H 93 L 11/24/18 22:03 11/24/18 22:03 11/24/18 22:03 11/24/18 22:03 11/24/18 22:03 Intake and Output: 11/24/18 11/25/18 18:59 06:59 Intake Total 120 100 Balance 120 100 - Medications Medications: Current Medications Acetaminophen (Tylenol 325mg Tab) 650 mg PO Q6H PRN PRN Reason: Pain, Mild (1-3) Last Admin: 11/24/18 19:03 Dose: 650 mg Acetylcysteine (Acetylcysteine 20%) 4 ml IH BIDRESP [facility] Last Admin: 11/24/18 19:48 Dose: 4 ml Albuterol Sulfate (Albuterol 0.083% Inhal Bhumi (2.5 Mg/3 Ml) Ud) 2.5 mg IH 0800,1400,2000 [facility] Last Admin: 11/24/18 19:49 Dose: 2.5 mg Albuterol Sulfate (Albuterol 0.083% Inhal Bhumi (2.5 Mg/3 Ml) Ud) 2.5 mg INH Q2H PRN PRN Reason: Shortness of Breath Last Admin: 11/24/18 18:49 Dose: 2.5 mg Atenolol (Tenormin) 12.5 mg PO DAILY [facility] Last Admin: 11/24/18 10:53 Dose: 12.5 mg Ferrous Sulfate (Feosol Liq) 300 mg PO TID [facility] Last Admin: 11/24/18 18:49 Dose: 300 mg Guaifenesin (Robitussin) 100 mg PO Q4H PRN PRN Reason: Cough Last Admin: 11/24/18 04:33 Dose: 100 mg Levothyroxine Sodium (Synthroid) 25 mcg PO ACB [facility] Last Admin: 11/24/18 10:51 Dose: 25 mcg Losartan Potassium (Cozaar) 25 mg PO DAILY [facility] Last Admin: 11/24/18 10:52 Dose: 25 mg Nitroglycerin (Nitro-Bid 2% Oint) 1 ea TOP Q6H PRN PRN Reason: Pain, severe (8-10) Last Admin: 11/24/18 20:37 Dose: 1 ea Pantoprazole Sodium (Protonix Ec Tab) 40 mg PO DAILY [facility] Last Admin: 11/24/18 10:53 Dose: 40 mg Promethazine HCl (Phenergan Syrup) 6.25 mg PO Q6H PRN PRN Reason: Cough Last Admin: 11/23/18 02:59 Dose: 6.25 mg Sucralfate (Carafate Oral Susp) 1 gm PO BID [facility] Last Admin: 11/24/18 18:49 Dose: 1 gm - Labs Labs: 11/24/18 20:40 11/24/18 20:40 Attending/Attestation - Attestation I have personally seen and examined this patient.: Yes I have fully participated in the care of the patient.: Yes I have reviewed all pertinent clinical information, including history, physical exam and plan: Yes Notes (Text): This is an addendum to GI consult report dictated by the Director Operations Broadcast. The patient was seen and evaluated earlier. Medical records, lab studies, imagings were reviewed. Last 24 hours events reviewed. Agreed with the above treatment plan as outlined in Director Operations Broadcast 's notes with the addition of the following 11/25/18 00:02
--- NOTE | 2018-11-24 19:02 | CT ---
Date of service: 11/24/2018 PROCEDURE: CT Abdomen and Pelvis with Oral contrast. HISTORY: abdominal pain COMPARISON: Comparison is made with 11/01/2018 TECHNIQUE: Contiguous axial images of the abdomen and pelvis. Oral contrast was administered. No IV contrast given. Coronal and Sagittal reformats generated. Radiation dose: Total exam DLP = 351.93 mGy-cm. This CT exam was performed using one or more of the following dose reduction techniques: Automated exposure control, adjustment of the mA and/or kV according to patient size, and/or use of iterative reconstruction technique. FINDINGS: LOWER THORAX: Again noted is large left pleural effusion which has increased in size since the previous exam associated with complete collapse of the left lower lobe. There is a large hiatus hernia seen. LIVER: No significant interval change in the liver noted since the previous exam GALLBLADDER AND BILE DUCTS: Status post cholecystectomy. PANCREAS: Fatty replacement of the pancreas is again noted. SPLEEN: Unremarkable. No splenomegaly. ADRENALS: Unremarkable. KIDNEYS AND URETERS: Unremarkable. No stone or hydronephrosis. Again seen is large cystic lesion exophytic from the left kidney. BLADDER: Grossly unremarkable. REPRODUCTIVE: Status post hysterectomy. APPENDIX: No evidence of appendicitis. BOWEL: Unremarkable. No obstruction. No gross mural thickening. PERITONEUM: Unremarkable. No fluid collection. No free air. LYMPH NODES: Interval significant increase in the size of para-aortic and peripancreatic lymphadenopathy since the previous exam. VASCULATURE: Unremarkable. No aortic aneurysm. Diffuse atherosclerotic calcification noted. BONES: No fracture or destructive lesion. OTHER FINDINGS: None. IMPRESSION: Interval significant increase in the size of para-aortic and peripancreatic lymphadenopathy in the mid to upper abdomen since the previous exam. Interval increase in the size of left pleural effusion associated with complete collapse of the left lower lung since the prior study. Otherwise no significant interval changes.
[2018-11-24] MEDS ORDERED: Nitroglycerin 2% Ointment Foilpak UD TOP PRN (20:08)
--- NOTE | 2018-11-24 20:33 | PCM.RRT ---
<Patrick Mckeon - Last Filed: 11/24/18 20:36> AL[employer] LAW ENFORCEMENT AGENT Nurse Assessment - Situation Date: 11/24/18 Time ALCOHOL LAW ENFORCEMENT AGENT was called: 20:00 ALCOHOL LAW ENFORCEMENT AGENT Responder Arrival Time: 20:01 ALCOHOL LAW ENFORCEMENT AGENT Location:: 5R [facility] [employer]COH[employer] LAW ENFORCEMENT AGENT Reason for Call: Chest Pain, O2 Saturation below 90% ALCOHOL LAW ENFORCEMENT AGENT Called By: RN - IV IV Inserted during ALCOHOL LAW ENFORCEMENT AGENT?: Yes IV Fluids Initiated During ALCOHOL LAW ENFORCEMENT AGENT?: Rh 20 - Respiratory Oxygen Delivery Method: Nasal Cannula @L/min Oxygen Flow Rate: 2 Received Nebulizer Treatments:: No (got treatment prior to RR) Was the Patient Ventilated with Bag/Mask 100% O2?: No Secretions Suctioned?: No Was the Patient Intubated?: No Was the Patient Placed on a Ventilator?: No - Diagnostic Test Ordered EKG: Yes CT Scan: No - Stat Labs Ordered [employer] LAW ENFORCEMENT AGENT Stat Labs Ordered: CBC, BMP, TROPONIN CPR started during ALCOHOL LAW ENFORCEMENT AGENT?: No - Vital Signs Vital Sign: Rapid Response Vital Sign Blood Pressure 157/66 Pulse Rate 82 Respiratory Rate 17 Temperature 98 F - Finger Stick Blood Glucose Finger Stick Blood Glucose: 220 - Time AL[employer] LAW ENFORCEMENT AGENT Ended Time ALCO[employer] LAW ENFORCEMENT AGENT Ended: 20:10 - Vital Signs at end of ALCOHOL LAW ENFORCEMENT AGENT Vital Signs at end of ALCO[employer] LAW ENFORCEMENT AGENT: Rapid Response End Vital Sign Blood Pressure 157/70 Pulse Rate 82 Respiratory Rate 17 Temperature 98 F O2 Sat by Pulse Oximetry 92 - Recommendations Notifications: Family or Designated Caregiver I.Reason for ALCOHOL LAW ENFORCEMENT AGENT - A) Acute Change in Patient: Subjective: Pt had rapid called stating for chest pain. Pt states that about 10 mins prior she began noticing chest pain which started while she was just laying in bed surrounded by family. Pt states that there is no radiation of the pain and the pt is non-diaphoretic. Pt states that now the pain is improved. She has hx of L sided pleural effusion complicated with L sided pneumo. Pts VS were stable during the entire event and the pt was noted to be sating well. - Respiratory Oxygen Delivery Method: Nasal Cannula @L/min Oxygen Flow Rate: 2 - Constitutional Appears: Non-toxic, No Acute Distress - Head Head Exam: ATRAUMATIC, NORMAL INSPECTION, NORMOCEPHALIC - Eyes Eye Exam: EOMI, Normal appearance, PERRL - Respiratory Exam Respiratory Exam: Clear to Ausculation Bilateral, NORMAL BREATHING PATTERN. absent: Accessory Muscle Use, Rales, Rhonchi, Wheezes, Respiratory Distress, Stridor - Cardiovascular Exam Cardiovascular Exam: RRR, +S1, +S2. absent: Gallop, Rubs - GI/Abdominal Exam GI & Abdominal Exam: Soft, Normal Bowel Sounds. absent: Firm, Guarding, Rigid, Tenderness - Neurological Exam Neurological Exam: Alert, Awake, Oriented x3 - Extremities Exam Extremities Exam: Full ROM, Normal Inspection Plan - Assessment of Findings&Treatment Plan Pt had rapid called for chest pain, pt has existing hx of L sided pleural effusion and L sided pneumo 2/2 Lung ca. - R/o ACS vs pleuritic chest pain from effusion and pneumo - CBC STAT - CMP STAT - Mag STAT - Phos STAT - 1/2inch nitropaste q6h prn - Trops STAT - EKG STAT - ASA 325mg held due to pts existing hx of ulcers. - Lipitor 20 - Will cont to follow labs throughout the night. <Dina Torres - Last Filed: 11/25/18 01:45> AL[employer] LAW ENFORCEMENT AGENT Nurse Assessment - Vital Signs Vital Sign: Rapid Response Vital Sign Blood Pressure 157/66 Pulse Rate 82 Respiratory Rate 17 Temperature 98 F - Vital Signs at end of ALCOHOL LAW ENFORCEMENT AGENT Vital Signs at end of ALCOHOL LAW ENFORCEMENT AGENT: Rapid Response End Vital Sign Blood Pressure 157/70 Pulse Rate 82 Respiratory Rate 17 Temperature 98 F O2 Sat by Pulse Oximetry 92 Attending/Attestation - Attestation I have personally seen and examined this patient.: Yes I have fully participated in the care of the patient.: Yes I have reviewed all pertinent clinical information, including history, physical exam and plan: Yes
[2018-11-24 20:48] LABS: BASO # 0.01 K/mm3 (0.0-2.0); BASO % 0.1 % (0.0-3.0); HEMOGLOBIN 12.7 g/dL (12.0-16.0); LYMPH # 0.8 (1.2-3.4); LYMPH % 9.2 % (22.0-35.0); MEAN CELL VOLUME 78.4 fl (80.0-105.0); MEAN CORPUSCULAR HEMOGLOBIN 25.2 pg (25.0-35.0); MEAN CORPUSCULAR HGB CONC 32.2 g/dl (31.0-37.0); MONO # 1.2 (0.1-0.6); MONO % 13.3 % (1.0-6.0); RBC 5.04 10^6/uL (3.5-6.1); RED CELL DISTRIBUTION WIDTH 25.3 % (11.5-14.5); WHITE BLOOD COUNT 9.1 10^3/uL (4.5-11.0)
[2018-11-24 21:06] LABS: ALB/GLOB RATIO 1.2 (1.1-1.8); ALBUMIN 3.5 g/dL (3.0-4.8); ALT/SGPT 14 U/L (7-56); AST/SGOT 28 U/L (14-36); BLOOD UREA NITROGEN 28 mg/dL (7-21); CALCIUM 9.1 mg/dL (8.4-10.5); GFR NON-AFRICAN AMERICAN 53
[2018-11-24 21:09] LABS: TROPONIN I 0.02 ng/mL
[2018-11-25] MEDS: Albuterol 0.083% Inhal Sol (2.5 mg/3 mL) UD INH PRN (04:12)
[2018-11-25 07:30] LABS: BASO # 0.01 K/mm3 (0.0-2.0); BASO % 0.1 % (0.0-3.0); EOS % 0.1 % (1.5-5.0); HEMOGLOBIN 11.6 g/dL (12.0-16.0); LYMPH # 0.9 (1.2-3.4); LYMPH % 11.6 % (22.0-35.0); MEAN CELL VOLUME 78.6 fl (80.0-105.0); MEAN CORPUSCULAR HEMOGLOBIN 24.6 pg (25.0-35.0); MEAN CORPUSCULAR HGB CONC 31.4 g/dl (31.0-37.0); MEAN PLATELET VOLUME 9.9 fl (7.0-11.0); MONO # 0.9 (0.1-0.6); MONO % 11.3 % (1.0-6.0); RBC 4.71 10^6/uL (3.5-6.1); RED CELL DISTRIBUTION WIDTH 25.1 % (11.5-14.5); WHITE BLOOD COUNT 8.1 10^3/uL (4.5-11.0)
[2018-11-25] MEDS: Acetylcysteine 20% Inhal Soln (4ml) IH SCH ×2 (07:31→19:39)
[2018-11-25] MEDS: Albuterol 0.083% Inhal Sol (2.5 mg/3 mL) UD IH SCH ×3 (07:35→19:39)
[2018-11-25 07:37] LABS: ALB/GLOB RATIO 1.2 (1.1-1.8); ALBUMIN 3.2 g/dL (3.0-4.8)
--- NOTE | 2018-11-25 09:40 | PN ---
DATE: 11/25/2018 PULMONARY NOTE SUBJECTIVE: The patient appears restless this morning. She is mildly short of breath, but in no acute distress. PHYSICAL EXAMINATION: VITAL SIGNS: (Last noted in the computer): Temperature is 97.9, pulse 86, respirations 20/22, blood pressure 157/66. Oxygen saturation on nasal cannula is 93%. HEENT: Normocephalic, atraumatic. No JVD. CARDIOVASCULAR: Systolic ejection murmur at the lower left sternal border. No S3 gallop. LUNGS: Decreased breath sounds - left lung. Minimal rhonchi. No wheezing. EXTREMITIES: Mild edema. No cyanosis, no clubbing. Calves are nontender to palpation. GASTROINTESTINAL: Abdomen is soft, nontender and nondistended. Bowel sounds are positive. SKIN: No acute rash. NEUROLOGIC: Exam limited at the present time. 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 IMPRESSION: 1. Advanced/extensive small cell carcinoma. 2. Large right pleural effusion, status post thoracentesis. 3. Chronic obstructive pulmonary disease. 4. Asthma. 5. Status post gastrointestinal bleeding. 6. Cardiac arrhythmias. PLAN: The patient appears restless this morning. She is mildly short of breath, but in no acute distress. She does remain very weak. I did discuss the case with the night nurse at length. The night nurse confirms that the patient has been restless during her shift. On physical exam, there is only mild bronchospasm noted. In addition, there is an increase in the alveolar-arterial gradient. I will continue the current nebulizer treatments for now. Cytopathology from the pleural fluid is noted above. It is consistent with advanced small cell carcinoma. This makes the overall prognosis very, very poor. The patient is for possible chest tube placement. However, I would also consider a palliative care consult with Junie Melton (and consider hospice evaluation). Again, given the above, the future status/prognosis for this patient is very poor. I will discuss the above with the attending physician. Abdoul Ward MD JESSICA
[2018-11-25] MEDS: Sucralfate 1 gm/10 ml Oral Susp UD PO SCH ×2 (10:26→18:42)
[2018-11-25] MEDS: Ferrous Sulfate 300 mg/5 mL Liq UD PO SCH ×3 (10:26→18:01)
[2018-11-25] MEDS: Pantoprazole 40 mg EC Tab PO SCH (10:27)
[2018-11-25] MEDS: Levothyroxine 25 MCG TAB PO SCH (10:29)
--- NOTE | 2018-11-25 11:31 | PN ---
DATE: 11/25/2018 LOCATION: The patient is in [facility] in room 572, bed 1. SUBJECTIVE: She is 88-year-old female. She was admitted with anemia and shortness of breath. The patient was found to have pleural fluid on the left chest. She has past history of hypertension, hypothyroidism, chronic lung disease, normal pressure hydrocephalus. 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 The patient is rapid response, but there was no cardiac emergency. PHYSICAL EXAMINATION: VITAL SIGNS: This morning; pulse is 86, blood pressure 157/62, respiration is 22 and O2 sat is 93% on room air. HEENT: The patient's head is normocephalic. site of CASE MAKER shunt is noted. NECK: The thyroid is not enlarged. JVP is flat. LUNGS: Breath sounds are diminished on the left side. The patient has dullness to percussion. ABDOMEN: Soft and nontender. No masses. CENTRAL NERVOUS SYSTEM: The patient has no focal neurological deficit noted. The patient is confused. She is able to ambulate. The patient's pending chest tube placement in the left side of the chest to drain the pleural fluid. 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 The patient needs conservative treatment according to the family discussing out so far. chest tube was done and then subsequent treatment plan. MEDICATIONS: The patient is on DuoNeb, Mucomyst, Losartan and Carafate. The patient is on iron, nitroglycerin patch that was placed yesterday for chest pain. The patient has pantoprazole, Synthroid, atenolol and Tylenol for pain. LABORATORY DATA: The patient's blood work. There was no abnormal troponin detected. Yesterday the patient had blood work, the hemoglobin was 11.6. IMPRESSION AND PLAN: We will keep eye on the patient and clinically we will followup. Rick Valerio MD
--- NOTE | 2018-11-25 11:53 | CP.PCM.PN ---
<Yosi Powell - Last Filed: 11/25/18 11:48> Subjective - Date & Time of Evaluation Date of Evaluation: 11/25/18 Time of Evaluation: 11:48 - Subjective Subjective: GI Progress Note for Dr. Brown Patient seen and examined at bedside. No acute overnight events. Patient states that abdominal pain is still present. [employer]STATE INVESTOR called overnight for chest pain, but ACS ruled out. Objective - Vital Signs/Intake and Output Vital Signs (last 24 hours): Temp Pulse Resp BP Pulse Ox 97.9 F 74 20 119/81 96 11/25/18 06:00 11/25/18 10:27 11/25/18 06:00 11/25/18 10:27 11/25/18 06:00 Intake and Output: 11/25/18 11/25/18 06:59 18:59 Intake Total 100 Balance 100 - Medications Medications: Current Medications Acetaminophen (Tylenol 325mg Tab) 650 mg PO Q6H PRN PRN Reason: Pain, Mild (1-3) Last Admin: 11/24/18 19:03 Dose: 650 mg Acetylcysteine (Acetylcysteine 20%) 4 ml IH BIDRESP [facility] Last Admin: 11/25/18 07:31 Dose: 4 ml Albuterol Sulfate (Albuterol 0.083% Inhal Bhumi (2.5 Mg/3 Ml) Ud) 2.5 mg IH 0800,1400,2000 [facility] Last Admin: 11/25/18 07:35 Dose: 2.5 mg Albuterol Sulfate (Albuterol 0.083% Inhal Bhumi (2.5 Mg/3 Ml) Ud) 2.5 mg INH Q2H PRN PRN Reason: Shortness of Breath Last Admin: 11/25/18 04:12 Dose: 2.5 mg Atenolol (Tenormin) 12.5 mg PO DAILY [facility] Last Admin: 11/25/18 10:27 Dose: 12.5 mg Ferrous Sulfate (Feosol Liq) 300 mg PO TID [facility] Last Admin: 11/25/18 10:26 Dose: 300 mg Guaifenesin (Robitussin) 100 mg PO Q4H PRN PRN Reason: Cough Last Admin: 11/24/18 04:33 Dose: 100 mg Levothyroxine Sodium (Synthroid) 25 mcg PO ACB [facility] Last Admin: 11/25/18 10:29 Dose: 25 mcg Losartan Potassium (Cozaar) 25 mg PO DAILY [facility] Last Admin: 11/25/18 10:26 Dose: 25 mg Nitroglycerin (Nitro-Bid 2% Oint) 1 ea TOP Q6H PRN PRN Reason: Pain, severe (8-10) Last Admin: 11/24/18 20:37 Dose: 1 ea Pantoprazole Sodium (Protonix Ec Tab) 40 mg PO DAILY [facility] Last Admin: 11/25/18 10:27 Dose: 40 mg Promethazine HCl (Phenergan Syrup) 6.25 mg PO Q6H PRN PRN Reason: Cough Last Admin: 11/23/18 02:59 Dose: 6.25 mg Sucralfate (Carafate Oral Susp) 1 gm PO BID [facility] Last Admin: 11/25/18 10:26 Dose: 1 gm - Labs Labs: 11/25/18 07:00 11/25/18 07:00 - Constitutional Appears: No Acute Distress - Head Exam Head Exam: NORMAL INSPECTION - Eye Exam Eye Exam: Normal appearance - ENT Exam ENT Exam: Mucous Membranes Moist - Respiratory Exam Respiratory Exam: Clear to Ausculation Bilateral. absent: Rales, Rhonchi, Wheezes - Cardiovascular Exam Cardiovascular Exam: RRR, +S1, +S2. absent: Gallop, Rubs, Murmur - GI/Abdominal Exam GI & Abdominal Exam: Soft, Tenderness. absent: Distended, Guarding, Rebound - Neurological Exam Neurological Exam: Alert, Awake - Skin Skin Exam: Normal Color, Warm Assessment and Plan - Assessment and Plan (Free Text) Assessment: 88 yo F with PMH of NPH s/p shunt, HTN, anemia, COPD, and hypothyroidism was recently [place] [facility] [place] and HCAP. Patient was transfused pRBC and had EGD showing large hiatal hernia, gastritis, and samuel ulcers. Patient's Hgb remained stable and pulmonary status improved was transferred to TCU. However, while in TCU patient had worsening dyspnea and increased pleural effusion and subsequently readmitted. Cytologic studies of the pleural effusion was positive for small cell neuroendocrine carcinoma. GI is consulted for abdominal pain. 1. Abdominal pain 2. Left-sided pleural effusion 3. Small cell neuroendocrine carcinoma 4. H/o Anemia 5. H/o Gastritis 6. H/o Samuel Ulcer 7. H/o Large hiatal hernia Plan: - Abdomen/Pelvis CT showed interval increase in para-aortic and peripancreatic lymphadenopathy - Cont PO iron; hgb stable - Cont PPI - Advance diet as tolerated Patient discussed in detail with Dr. Brown. Rhys Powell, DO PGY2 <Caroline Brown V - Last Filed: 11/25/18 23:54> Objective - Vital Signs/Intake and Output Vital Signs (last 24 hours): Temp Pulse Resp BP Pulse Ox 98.7 F 82 16 95/43 L 91 L 11/25/18 22:53 11/25/18 22:53 11/25/18 22:53 11/25/18 22:53 11/25/18 22:53 Intake and Output: 11/25/18 11/26/18 18:59 06:59 Intake Total 180 Balance 180 - Medications Medications: Current Medications Acetaminophen (Tylenol 325mg Tab) 650 mg PO Q6H PRN PRN Reason: Pain, Mild (1-3) Last Admin: 11/25/18 19:15 Dose: 650 mg Acetylcysteine (Acetylcysteine 20%) 4 ml IH BIDRESP [facility] Last Admin: 11/25/18 19:39 Dose: 4 ml Albuterol Sulfate (Albuterol 0.083% Inhal Bhumi (2.5 Mg/3 Ml) Ud) 2.5 mg IH 0800,1400,2000 [facility] Last Admin: 11/25/18 19:39 Dose: 2.5 mg Albuterol Sulfate (Albuterol 0.083% Inhal Bhumi (2.5 Mg/3 Ml) Ud) 2.5 mg INH Q2H PRN PRN Reason: Shortness of Breath Last Admin: 11/25/18 04:12 Dose: 2.5 mg Atenolol (Tenormin) 12.5 mg PO DAILY [facility] Last Admin: 11/25/18 10:27 Dose: 12.5 mg Ferrous Sulfate (Feosol Liq) 300 mg PO TID [facility] Last Admin: 11/25/18 18:01 Dose: 300 mg Guaifenesin (Robitussin) 100 mg PO Q4H PRN PRN Reason: Cough Last Admin: 11/25/18 12:45 Dose: 100 mg Levothyroxine Sodium (Synthroid) 25 mcg PO ACB [facility] Last Admin: 11/25/18 10:29 Dose: 25 mcg Losartan Potassium (Cozaar) 25 mg PO DAILY [facility] Last Admin: 11/25/18 10:26 Dose: 25 mg Nitroglycerin (Nitro-Bid 2% Oint) 1 ea TOP Q6H PRN PRN Reason: Pain, severe (8-10) Last Admin: 11/24/18 20:37 Dose: 1 ea Pantoprazole Sodium (Protonix Ec Tab) 40 mg PO DAILY [facility] Last Admin: 11/25/18 10:27 Dose: 40 mg Promethazine HCl (Phenergan Syrup) 6.25 mg PO Q6H PRN PRN Reason: Cough Last Admin: 11/23/18 02:59 Dose: 6.25 mg Sucralfate (Carafate Oral Susp) 1 gm PO BID [facility] Last Admin: 11/25/18 18:42 Dose: 1 gm - Labs Labs: 11/25/18 07:00 11/25/18 07:00 Attending/Attestation - Attestation I have personally seen and examined this patient.: Yes I have fully participated in the care of the patient.: Yes I have reviewed all pertinent clinical information, including history, physical exam and plan: Yes Notes (Text): This is an addendum to GI progress report dictated by the GI Fellow. The patient was seen and examined earlier. Medical records, lab studies, imagings were reviewed. Last 24 hours events reviewed. Agreed with the above treatment plan as outlined in GI Fellow 's notes with the addition of the following 11/25/18 23:54
--- NOTE | 2018-11-25 12:17 | CARD ---
APPROVED REPORT Date of service: 11/24/2018 EKG Measurement Heart [id number] DC 120P28 [id number] <Conclusion> Sinus rhythm with premature atrial complexes Incomplete right bundle branch block Borderline ECG
[2018-11-25] MEDS: guaiFENesin 100 mg/5 ml Syrup UD PO PRN (12:45)
[2018-11-25] MEDS ORDERED: Lidocaine 2% Inj (20ml) ONE (13:52)
[2018-11-25] MEDS ORDERED: Iodixanol 320 mg/ml 150 ml Bottle IV ONE (13:52)
--- NOTE | 2018-11-25 14:24 | CP.PCM.PN ---
Subjective - Date & Time of Evaluation Date of Evaluation: 11/25/18 Time of Evaluation: 09:50 - Subjective Subjective: Patient is for possible chest tube placement, not in distress in bed, no fevers, at times agitated. Objective - Vital Signs/Intake and Output Vital Signs (last 24 hours): Temp Pulse Resp BP Pulse Ox 98.4 F 75 20 150/92 H 92 L 11/24/18 06:00 11/24/18 10:53 11/24/18 06:00 11/24/18 10:53 11/24/18 06:00 Intake and Output: 11/24/18 11/24/18 06:59 18:59 Intake Total 120 120 Balance 120 120 - Medications Medications: Current Medications Acetaminophen (Tylenol 325mg Tab) 650 mg PO Q6H PRN PRN Reason: Pain, Mild (1-3) Last Admin: 11/23/18 02:42 Dose: 650 mg Acetylcysteine (Acetylcysteine 20%) 4 ml IH BIDRESP [facility] Last Admin: 11/24/18 07:38 Dose: 4 ml Albuterol Sulfate (Albuterol 0.083% Inhal Bhumi (2.5 Mg/3 Ml) Ud) 2.5 mg IH 0800,1400,2000 [facility] Last Admin: 11/24/18 13:16 Dose: 2.5 mg Albuterol Sulfate (Albuterol 0.083% Inhal Bhumi (2.5 Mg/3 Ml) Ud) 2.5 mg INH Q2H PRN PRN Reason: Shortness of Breath Last Admin: 11/24/18 11:50 Dose: 2.5 mg Atenolol (Tenormin) 12.5 mg PO DAILY [facility] Last Admin: 11/24/18 10:53 Dose: 12.5 mg Ferrous Sulfate (Feosol Liq) 300 mg PO TID [facility] Last Admin: 11/24/18 13:20 Dose: Not Given Guaifenesin (Robitussin) 100 mg PO Q4H PRN PRN Reason: Cough Last Admin: 11/24/18 04:33 Dose: 100 mg Levothyroxine Sodium (Synthroid) 25 mcg PO ACB [facility] Last Admin: 11/24/18 10:51 Dose: 25 mcg Losartan Potassium (Cozaar) 25 mg PO DAILY [facility] Last Admin: 11/24/18 10:52 Dose: 25 mg Pantoprazole Sodium (Protonix Ec Tab) 40 mg PO DAILY [facility] Last Admin: 11/24/18 10:53 Dose: 40 mg Promethazine HCl (Phenergan Syrup) 6.25 mg PO Q6H PRN PRN Reason: Cough Last Admin: 11/23/18 02:59 Dose: 6.25 mg Sucralfate (Carafate Oral Susp) 1 gm PO BID [facility] Last Admin: 11/24/18 10:52 Dose: 1 gm - Labs Labs: 11/18/18 08:40 11/18/18 08:40 - Constitutional Appears: Chronically Ill - Head Exam Head Exam: NORMAL INSPECTION - Respiratory Exam Respiratory Exam: Decreased Breath Sounds - Cardiovascular Exam Cardiovascular Exam: +S1, +S2 - GI/Abdominal Exam GI & Abdominal Exam: Soft. absent: Tenderness Assessment and Plan - Assessment and Plan (Free Text) Plan: Assessment left sided left sided pleural effusion, S/P thoracentesis - cytology showing neuroendocrine carcinoma S/P left lower HCAP, clinically improved and S/P treatment with antibiotics history of sepsis from left lower lobe healthcare-associated pneumonia, clinically improved and S/P treatment with antibiotics HTN COPD S/P left hip replacement normal pressure hydrocephalus S/P PHTHALIC ACID PURIFIER shunt placement hypothyroidism history of shingles GERD S/P right knee surgery Plan completed 7 days of Cefepime and Doxycycline will continue to monitor clinically off antibiotics since she is at risk for healthcare-associated infections discussed with Dr. Ward previously patient for possible chest tube placement overall prognosis is poor discussed with son at bedside that there is no infection noted with the pleural fluid
[2018-11-25] MEDS ORDERED: Sodium Chloride 0.45% 1,000 ML IV SCH (15:00)
--- NOTE | 2018-11-25 21:08 | VASCULAR ---
PROCEDURE: Ultrasound fluoroscopically placed tunneled left pleural catheter HISTORY: Small cell neuroendocrine carcinoma. Large recurrent left pleural effusion with shortness of breath. Needs Aspir catheter PHYSICIAN(S): Arnol Martínez MD. TECHNIQUE: The relative risks and indications for the procedure were explained to the patient's son and informed consent obtained. The patient was placed in a slight right decubitus position on the arteriography table and sonography of the left chest performed. This revealed a large left pleural effusion. A low intercostal approach was selected the area prepped and draped usual sterile fashion. Conscious sedation monitoring were provided throughout the procedure by a nurse. A 19 gauge needle was advanced left pleural space. Mitch fluid was aspirated. A 0.035 glidewire was directed posteriorly and superiorly. The peel-away sheath was placed. Over the Glidewire a 15.5 Israeli Aspira catheter was advanced posteriorly and superiorly. The catheter was tunneled along the intercostal margin. The catheter was secured. 2700 cc of mitch then bloody fluid was aspirated. The patient tolerated the procedure well IMPRESSION: 1. Ultrasound fluoroscopically placed tunneled left pleural catheter. 2. 2700 cc of mitch then bloody fluid was aspirated
[2018-11-25] MEDS ORDERED: HYDROmorphone 0.5 mg/0.5 ml ISec IVP STA (21:25)
[2018-11-26] MEDS: Acetylcysteine 20% Inhal Soln (4ml) IH SCH ×2 (07:37→19:46)
[2018-11-26] MEDS: Albuterol 0.083% Inhal Sol (2.5 mg/3 mL) UD IH SCH ×3 (07:38→19:47)
--- NOTE | 2018-11-26 08:05 | CP.PCM.PN ---
Subjective - Date & Time of Evaluation Date of Evaluation: 11/26/18 Time of Evaluation: 07:40 - Subjective Subjective: Patient is seen this morning in room 572 bed 1. She is feeling better. Objective - Vital Signs/Intake and Output Vital Signs (last 24 hours): Temp Pulse Resp BP Pulse Ox 98 F 72 20 95/46 L 95 11/26/18 06:00 11/26/18 06:00 11/26/18 06:00 11/26/18 06:00 11/26/18 06:00 Intake and Output: 11/26/18 11/26/18 06:59 18:59 Intake Total 180 Balance 180 - Medications Medications: Current Medications Acetaminophen (Tylenol 325mg Tab) 650 mg PO Q6H PRN PRN Reason: Pain, Mild (1-3) Last Admin: 11/25/18 19:15 Dose: 650 mg Acetylcysteine (Acetylcysteine 20%) 4 ml IH BIDRESP [facility] Last Admin: 11/26/18 07:37 Dose: 4 ml Albuterol Sulfate (Albuterol 0.083% Inhal Bhumi (2.5 Mg/3 Ml) Ud) 2.5 mg IH 0800,1400,2000 [facility] Last Admin: 11/26/18 07:38 Dose: 2.5 mg Albuterol Sulfate (Albuterol 0.083% Inhal Bhumi (2.5 Mg/3 Ml) Ud) 2.5 mg INH Q2H PRN PRN Reason: Shortness of Breath Last Admin: 11/25/18 04:12 Dose: 2.5 mg Atenolol (Tenormin) 12.5 mg PO DAILY [facility] Last Admin: 11/25/18 10:27 Dose: 12.5 mg Ferrous Sulfate (Feosol Liq) 300 mg PO TID [facility] Last Admin: 11/25/18 18:01 Dose: 300 mg Guaifenesin (Robitussin) 100 mg PO Q4H PRN PRN Reason: Cough Last Admin: 11/25/18 12:45 Dose: 100 mg Levothyroxine Sodium (Synthroid) 25 mcg PO ACB [facility] Last Admin: 11/25/18 10:29 Dose: 25 mcg Losartan Potassium (Cozaar) 25 mg PO DAILY [facility] Last Admin: 11/25/18 10:26 Dose: 25 mg Nitroglycerin (Nitro-Bid 2% Oint) 1 ea TOP Q6H PRN PRN Reason: Pain, severe (8-10) Last Admin: 11/24/18 20:37 Dose: 1 ea Pantoprazole Sodium (Protonix Ec Tab) 40 mg PO DAILY [facility] Last Admin: 11/25/18 10:27 Dose: 40 mg Promethazine HCl (Phenergan Syrup) 6.25 mg PO Q6H PRN PRN Reason: Cough Last Admin: 11/23/18 02:59 Dose: 6.25 mg Sucralfate (Carafate Oral Susp) 1 gm PO BID [facility] Last Admin: 11/25/18 18:42 Dose: 1 gm - Labs Labs: 11/25/18 07:00 11/25/18 07:00 - Constitutional Appears: No Acute Distress - Head Exam Additional comments: LIFTER DRIVER shunt - Respiratory Exam Respiratory Exam: Decreased Breath Sounds, NORMAL BREATHING PATTERN - Cardiovascular Exam Cardiovascular Exam: REGULAR RHYTHM, +S1, +S2 - GI/Abdominal Exam GI & Abdominal Exam: Soft, Normal Bowel Sounds. absent: Tenderness - Extremities Exam Extremities Exam: Normal Inspection - Neurological Exam Neurological Exam: Alert, Awake Assessment and Plan - Assessment and Plan (Free Text) Assessment: Pleural effusion secondary to lung carcinoma Small cell cancer of the lung Samuel ulcer within hiatal hernia HTN NPH with LIFTER DRIVER shunt dementia Hypothyroidism Iron deficiency anemia Plan: Patient had thoracentesis yesterday and 2700 cc's of pleural fluid was drained. Tunneled catheter was inserted for continued drainage of the pleural fluid. Patient will be discharged this morning. Discharge medications: Synthroid 25 mcg daily Albuterol 0.083% Q6h via nebulizer Losartan 25 mg daily Atenolol 12.5 mg daily Protonix 40 mg daily Carafate 1 g BID Ferrous sulfate solution 300 mg daily Scripts given for Atenolol, Protonix, Carafate and Ferrous sulfate. Patient has other medications at home. Visiting nurse will drain the pleural catheter weekly. Patient will be seen as a housecall in 1 week.
--- NOTE | 2018-11-26 08:13 | PN ---
DATE: 11/26/2018 SUBJECTIVE: The patient appears comfortable this morning. She is not short of breath at rest. She remains very weak. PHYSICAL EXAMINATION: VITAL SIGNS (Last noted in the computer): Temperature 98.7, pulse 82, respirations 16, blood pressure 95/43. Oxygen saturation on nasal cannula is 91-96%. HEENT: Normocephalic, atraumatic. NECK: No JVD. CARDIOVASCULAR: Systolic ejection murmur at the lower left sternal border. No S3 gallop. LUNGS: Improved breath sounds - left lung. Minimal rhonchi. No wheezing. EXTREMITIES: Mild edema. No cyanosis. No clubbing. Calves are nontender to palpation. GI: Abdomen is soft, nontender and nondistended. Bowel sounds are positive. SKIN: No acute rash. NEUROLOGIC: Exam limited at the present time. IMPRESSION: 1. Advanced/extensive small cell carcinoma. 2. Recurrent large left pleural effusion. 3. Chronic obstructive pulmonary disease. 4. Asthma. 5. Status post gastrointestinal bleeding. 6. Cardiac arrhythmias. PLAN The patient appears more comfortable this morning. She is not short of breath at rest. She does appear very weak. I did discuss the case with night nurse at length. The night nurse stated the patient had an uneventful night. I have also reviewed the notes by Dr. Anrol Martínez. A tunneled catheter was placed yesterday in the left pleural space. 2700 mL of bloody fluid were obtained. Inputs by Internal Medicine and Infectious Disease are also noted. Clinical status of the patient ,as well as the prognosis ,remain very poor. All are aware. I will discuss the above with Dr. Valerio. Abdoul Ward MD JESSICA
[2018-11-26] MEDS: Pantoprazole 40 mg EC Tab PO SCH (10:01)
[2018-11-26] MEDS: Sucralfate 1 gm/10 ml Oral Susp UD PO SCH ×2 (10:01→17:07)
[2018-11-26] MEDS: Ferrous Sulfate 300 mg/5 mL Liq UD PO SCH ×3 (10:01→17:07)
[2018-11-26] MEDS: Levothyroxine 25 MCG TAB PO SCH (10:01)
--- NOTE | 2018-11-26 10:53 | RAD ---
Date of service: 11/26/2018 HISTORY: lt chest tube COMPARISON: 11/21/2018 TECHNIQUE: Chest PA and lateral FINDINGS: LUNGS: There is a left-sided chest tube terminating in the left lung apex. There is minimal aerated lung in the left apex. There is improved mediastinal shift consistent with a decreasing effusion. PLEURA: No significant pleural effusion identified. No pneumothorax apparent. CARDIOVASCULAR: Aortic calcification Normal cardiac size. No pulmonary vascular congestion. OSSEOUS STRUCTURES: No significant abnormalities. VISUALIZED UPPER ABDOMEN: Normal. OTHER FINDINGS: None. IMPRESSION: There is a left-sided chest tube terminating in the left lung apex. There is minimal aerated lung in the left apex. There is improved mediastinal shift consistent with a decreasing effusion.
--- NOTE | 2018-11-26 12:35 | CP.PCM.CON ---
History of Present Illness - History of Present Illness History of Present Illness: Palliative consult requested by Dr Valerio Reason:Goals of care 88 year old female wit history of who presented to ED on 11/18/18 with shortness of breath and wheezing.Chest x ray showed a large left pleural effusion. 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 PMHx: COPD, ASHD HTN, hypothyroidism, dementia, gastric ulcer, hail hernia, hydrocephalus, shingles PSHx: left hip replacement, right knee surgery,BUMPER MACHINE OPERATOR shunt Social History: Former smoker, no alcohol or drug use. Lives with family Family History: Non contributory Advance Care Planning: The pait is DNR/DNI Review of Systems: The patient complains of mid dyspnea on exertion, discomfort at the Aspira catheter site and weakness, 12 point review otherwise negative. Past Patient History - Infectious Disease Hx of Infectious Diseases: None - Past Social History Smoking Status: Former Smoker - CARDIAC Hx Cardiac Disorders: Yes Hx Hypertension: Yes - PULMONARY Hx Chronic Obstructive Pulmonary Disease (COPD): Yes - NEUROLOGICAL Hx Neurological Disorder: Yes (hydrocephalus,BUMPER MACHINE OPERATOR shunt) Hx Dementia: Yes Hx Dizziness: Yes (vertigo) Other/Comment: memory loss - HEENT Hx HEENT Problems: Yes (ambler) Other/Comment: eyes sensitive to light wears sunglasses - RENAL Hx Chronic Kidney Disease: No - ENDOCRINE/METABOLIC Hx Hypothyroidism: Yes - HEMATOLOGICAL/ONCOLOGICAL Hx Blood Disorders: Yes Hx Anemia: Yes Hx Shingles: Yes - INTEGUMENTARY Hx Dermatological Problems: No - MUSCULOSKELETAL/RHEUMATOLOGICAL Hx Musculoskeletal Disorders: Yes Hx Falls: Yes (past) Hx Fractures: Yes (left hip) Hx Unsteady Gait: Yes (walker) - GASTROINTESTINAL Hx Gastrointestinal Disorders: Yes (c dif 08/26/16) Hx Gastroesophageal Reflux: Yes - GENITOURINARY/GYNECOLOGICAL Hx Genitourinary Disorders: Yes Hx Incontinence: Yes (urine and stool) Hx Urinary Tract Infection: Yes - PSYCHIATRIC Hx Psychophysiologic Disorder: Yes Hx Anxiety: Yes Hx Substance Use: No - SURGICAL HISTORY Hx Surgeries: Yes Hx Cholecystectomy: Yes Hx Joint Replacement: Yes (left hip replacement) Hx Musculoskeletal Surgery: Yes Hx Orthopedic Surgery: Yes (right knee surgery, rotator cuff surgery) - ANESTHESIA Hx Anesthesia: Yes Hx Anesthesia Reactions: No Hx Malignant Hyperthermia: No Meds Home Medications: Home Medication List Medication Instructions Recorded Confirmed Type Atenolol [Tenormin] 12.5 mg PO DAILY #30 tab 11/26/18 Rx Ferrous Sulfate [Feosol Liq] 300 mg PO DAILY #60 udc 11/26/18 Rx Pantoprazole [Protonix EC Tab] 40 mg PO DAILY #30 ect 11/26/18 Rx Sucralfate [Carafate Oral Susp] 1 gm PO BID #60 udc 11/26/18 Rx Allergies/Adverse Reactions: Allergies Allergy/AdvReac Type Severity Reaction Status Date / Time No Known Allergies Allergy Verified 10/31/18 18:17 - Medications Medications: Current Medications Acetaminophen (Tylenol 325mg Tab) 650 mg PO Q6H PRN PRN Reason: Pain, Mild (1-3) Last Admin: 11/25/18 19:15 Dose: 650 mg Acetylcysteine (Acetylcysteine 20%) 4 ml IH BIDRESP [facility] Last Admin: 11/26/18 07:37 Dose: 4 ml Albuterol Sulfate (Albuterol 0.083% Inhal Bhumi (2.5 Mg/3 Ml) Ud) 2.5 mg IH 0800,1400,2000 [facility] Last Admin: 11/26/18 07:38 Dose: 2.5 mg Albuterol Sulfate (Albuterol 0.083% Inhal Bhumi (2.5 Mg/3 Ml) Ud) 2.5 mg INH Q2H PRN PRN Reason: Shortness of Breath Last Admin: 11/25/18 04:12 Dose: 2.5 mg Atenolol (Tenormin) 12.5 mg PO DAILY [facility] Last Admin: 11/26/18 10:11 Dose: Not Given Ferrous Sulfate (Feosol Liq) 300 mg PO TID [facility] Last Admin: 11/26/18 10:01 Dose: 300 mg Guaifenesin (Robitussin) 100 mg PO Q4H PRN PRN Reason: Cough Last Admin: 11/25/18 12:45 Dose: 100 mg Levothyroxine Sodium (Synthroid) 25 mcg PO ACB [facility] Last Admin: 11/26/18 10:01 Dose: 25 mcg Losartan Potassium (Cozaar) 25 mg PO DAILY [facility] Last Admin: 11/25/18 10:26 Dose: 25 mg Nitroglycerin (Nitro-Bid 2% Oint) 1 ea TOP Q6H PRN PRN Reason: Pain, severe (8-10) Last Admin: 11/24/18 20:37 Dose: 1 ea Pantoprazole Sodium (Protonix Ec Tab) 40 mg PO DAILY [facility] Last Admin: 11/26/18 10:01 Dose: 40 mg Promethazine HCl (Phenergan Syrup) 6.25 mg PO Q6H PRN PRN Reason: Cough Last Admin: 11/23/18 02:59 Dose: 6.25 mg Sucralfate (Carafate Oral Susp) 1 gm PO BID [facility] Last Admin: 11/26/18 10:01 Dose: 1 gm Physical Exam - Constitutional Appears: Cachectic, Chronically Ill - Head Exam Head Exam: NORMOCEPHALIC - Eye Exam Eye Exam: Normal appearance, PERRL - ENT Exam ENT Exam: Normal Exam - Respiratory Exam Respiratory Exam: Decreased Breath Sounds, Rhonchi, Wheezes Additional comments: left Aspira catheter - Cardiovascular Exam Cardiovascular Exam: REGULAR RHYTHM, +S1, +S2 - GI/Abdominal Exam GI & Abdominal Exam: Normal Bowel Sounds, Soft - Extremities Exam Extremities exam: Positive for: pedal edema, pedal pulses present - Back Exam Back exam: NORMAL INSPECTION - Neurological Exam Neurological exam: Alert - Skin Skin Exam: Dry, Pallor - Additional Findings Additional findings: Palliative performance scale rating 40% Results - Vital Signs Recent Vital Signs: Last Vital Signs Temp 98 F 11/26/18 06:00 Pulse 72 11/26/18 06:00 Resp 20 11/26/18 06:00 BP 95/46 L 11/26/18 06:00 Pulse Ox 95 11/26/18 06:00 - Labs Result Diagrams: 11/25/18 07:00 11/25/18 07:00 Assessment & Plan - Assessment and Plan (Free Text) Assessment: 88 year old female with history ASHD,COPD,dmential HTN, hypothyroidism who was admitted with pleural effusion, pneumonia, sepsis,weakness and dyspnea. 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 I spoke with patient'sRichard. Family is aware of patients medical situation as well diagnosis of lung cancer. Offered to discuss option for home hospice care. Son is appreciative of information but wants to confer with the rest of the family regarding hospice. Son will make this decision once patient is discharged home. Time spent in goals of care discussion with family, 20 minutes Plan: Goals of care Follow up with attending with Dr Valerio as out patient Referred to rn case manager hospice for home vising nurse services
--- NOTE | 2018-11-26 14:12 | CP.PCM.PN ---
Subjective - Date & Time of Evaluation Date of Evaluation: 11/26/18 Time of Evaluation: 09:30 - Subjective Subjective: Comfortable, still weak-looking. Objective - Vital Signs/Intake and Output Vital Signs (last 24 hours): Temp Pulse Resp BP Pulse Ox 97.9 F 74 20 119/81 96 11/25/18 06:00 11/25/18 10:27 11/25/18 06:00 11/25/18 10:27 11/25/18 06:00 Intake and Output: 11/25/18 11/25/18 06:59 18:59 Intake Total 100 Balance 100 - Medications Medications: Current Medications Acetaminophen (Tylenol 325mg Tab) 650 mg PO Q6H PRN PRN Reason: Pain, Mild (1-3) Last Admin: 11/25/18 12:45 Dose: 650 mg Acetylcysteine (Acetylcysteine 20%) 4 ml IH BIDRESP [facility] Last Admin: 11/25/18 07:31 Dose: 4 ml Albuterol Sulfate (Albuterol 0.083% Inhal Bhumi (2.5 Mg/3 Ml) Ud) 2.5 mg IH 0800,1400,2000 [facility] Last Admin: 11/25/18 13:31 Dose: 2.5 mg Albuterol Sulfate (Albuterol 0.083% Inhal Bhumi (2.5 Mg/3 Ml) Ud) 2.5 mg INH Q2H PRN PRN Reason: Shortness of Breath Last Admin: 11/25/18 04:12 Dose: 2.5 mg Atenolol (Tenormin) 12.5 mg PO DAILY [facility] Last Admin: 11/25/18 10:27 Dose: 12.5 mg Ferrous Sulfate (Feosol Liq) 300 mg PO TID [facility] Last Admin: 11/25/18 10:26 Dose: 300 mg Guaifenesin (Robitussin) 100 mg PO Q4H PRN PRN Reason: Cough Last Admin: 11/25/18 12:45 Dose: 100 mg Levothyroxine Sodium (Synthroid) 25 mcg PO ACB [facility] Last Admin: 11/25/18 10:29 Dose: 25 mcg Losartan Potassium (Cozaar) 25 mg PO DAILY [facility] Last Admin: 11/25/18 10:26 Dose: 25 mg Nitroglycerin (Nitro-Bid 2% Oint) 1 ea TOP Q6H PRN PRN Reason: Pain, severe (8-10) Last Admin: 11/24/18 20:37 Dose: 1 ea Pantoprazole Sodium (Protonix Ec Tab) 40 mg PO DAILY [facility] Last Admin: 11/25/18 10:27 Dose: 40 mg Promethazine HCl (Phenergan Syrup) 6.25 mg PO Q6H PRN PRN Reason: Cough Last Admin: 11/23/18 02:59 Dose: 6.25 mg Sucralfate (Carafate Oral Susp) 1 gm PO BID JARRELL Last Admin: 11/25/18 10:26 Dose: 1 gm - Labs Labs: 11/25/18 07:00 11/25/18 07:00 - Constitutional Appears: Chronically Ill - Head Exam Head Exam: NORMAL INSPECTION - Respiratory Exam Respiratory Exam: Decreased Breath Sounds - Cardiovascular Exam Cardiovascular Exam: +S1, +S2 - GI/Abdominal Exam GI & Abdominal Exam: Soft. absent: Tenderness Assessment and Plan - Assessment and Plan (Free Text) Plan: Assessment left sided left sided pleural effusion, S/P thoracentesis - cytology showing neuroendocrine carcinoma S/P left lower HCAP, clinically improved and S/P treatment with antibiotics history of sepsis from left lower lobe healthcare-associated pneumonia, clinically improved and S/P treatment with antibiotics HTN COPD S/P left hip replacement normal pressure hydrocephalus S/P POWER SHOVEL ENGINEER shunt placement hypothyroidism history of shingles GERD S/P right knee surgery Plan completed 7 days of Cefepime and Doxycycline will continue to monitor clinically off antibiotics since she is at risk for nosocomial infections discussed with Dr. Ward previously patient for possible chest tube placement overall prognosis is poor discussed with son at bedside that there is no infection noted with the pleural fluid
[2018-11-26] MEDS ORDERED: HYDROmorphone 0.5 mg/0.5 ml ISec IVP STA (20:19)
[2018-11-26] MEDS: guaiFENesin 100 mg/5 ml Syrup UD PO PRN (21:15)
[2018-11-26 22:53] VITALS: O2SAT 97
[2018-11-27] MEDS: Albuterol 0.083% Inhal Sol (2.5 mg/3 mL) UD IH SCH (07:26)
[2018-11-27] MEDS: Acetylcysteine 20% Inhal Soln (4ml) IH SCH (07:26)
[2018-11-27 08:10] VITALS: BP 107/65; PULSE 80; RESP 17; TEMP 98
[2018-11-27] MEDS: Ferrous Sulfate 300 mg/5 mL Liq UD PO SCH (11:22)
[2018-11-27] MEDS: Sucralfate 1 gm/10 ml Oral Susp UD PO SCH (11:22)
[2018-11-27] MEDS: Pantoprazole 40 mg EC Tab PO SCH (11:23)
[2018-11-27] MEDS: Levothyroxine 25 MCG TAB PO SCH (11:23)
== END 2018-11-27 11:35 | disposition home health service (06) | DRG 181 ==
LOC: ED 14:50 → ERH 15:24 → 5RSO 11-18 00:46 → OBSVTOIN 11-18 14:39
PROVIDERS: ADMIT Internal Medicine; ATTEND Internal Medicine
PROC: 0W9B3ZX Drainage of Left Pleural Cavity, Percutaneous Approach, Diagnostic (ICD-10-PCS; principal; 2018-11-17)
PROC: 0B9P30Z Drainage of Left Pleura with Drainage Device, Percutaneous Approach (ICD-10-PCS; 2018-11-25)
DX: C7A.090 Malignant carcinoid tumor of the bronchus and lung (principal); J90 Pleural effusion, not elsewhere classified; I25.10 Atherosclerotic heart disease of native coronary artery without angina pectoris; I10 Essential (primary) hypertension; F03.90 Unspecified dementia, unspecified severity, without behavioral disturbance, psychotic disturbance, mood disturbance, and anxiety; J44.9 Chronic obstructive pulmonary disease, unspecified; E03.9 Hypothyroidism, unspecified; K44.9 Diaphragmatic hernia without obstruction or gangrene; Z66 Do not resuscitate; K21.9 Gastro-esophageal reflux disease without esophagitis; D50.9 Iron deficiency anemia, unspecified; K25.9 Gastric ulcer, unspecified as acute or chronic, without hemorrhage or perforation; K29.70 Gastritis, unspecified, without bleeding; Z96.642 Presence of left artificial hip joint; Z86.69 Personal history of other diseases of the nervous system and sense organs; Z98.2 Presence of cerebrospinal fluid drainage device; Z87.891 Personal history of nicotine dependence; Z86.19 Personal history of other infectious and parasitic diseases

== ENCOUNTER 2018-11-28 11:03 | Emergency (ER) | payer MEDICARE ==
[2018-11-28 11:04] VITALS: BMI 21.9
[2018-11-28 11:28] VITALS: O2SAT 95
--- NOTE | 2018-11-28 11:29 | ED PDOC ---
Arrival/HPI - General Chief Complaint: Medical Clearance Time Seen by Provider: 11/28/18 11:11 Historian: Patient, Family (Son) - History of Present Illness Narrative History of Present Illness (Text): 11/28/18 11:29 An 88 year old female, DNR/DNI, whose past medical history includes lung cancer, pleural effusion, COPD, CAD, hypertension, dementia, and hyperthyroidism, presents to the emergency department, accompanied by son, complaining of bleeding in chest tube since yesterday. Patient's son reports patient was discharged from the hospital yesterday at around 12 or 1 pm when he noticed at home the chest tube site was saturated with blood and the son changed the dressings himself. Per Son, 2 to 3 hours later the wound was saturated with blood again and the patient's son packed the site with extensive dressing before the patient went to sleep. Son reports the next morning the site was checked on by the a visiting nurse which was again saturated with blood and the patient was noted to have low blood pressure prompting the patient to come to the ER. The patient's son reports patient has been experiencing coughing with the occasional white or clear sputum. The patient denies any fever, chills, or any other compla ints. PMD: Dr. Valerio Time/Duration: Other (yesterday) Symptom Onset: Gradual Symptom Course: Unchanged Activities at Onset: Light Context: Home Past Medical History - Provider Review Nursing Documentation Reviewed: Yes - Infectious Disease Hx of Infectious Diseases: None - Reproductive Menopause: Yes - Cardiac Hx Cardiac Disorders: Yes Hx Hypertension: Yes - Pulmonary Hx Chronic Obstructive Pulmonary Disease (COPD): Yes - Neurological Hx Neurological Disorder: Yes (hydrocephalus,SAP MOBILITY ARCHITECT shunt) Hx Dementia: Yes Hx Dizziness: Yes (vertigo) Other/Comment: memory loss - HEENT Hx HEENT Disorder: Yes ([place]) Other/Comment: eyes sensitive to light wears sunglasses - Renal Hx Renal Disorder: No - Endocrine/Metabolic Hx Hypothyroidism: Yes - Hematological/Oncological Hx Blood Disorders: Yes Hx Anemia: Yes Hx Shingles: Yes - Integumentary Hx Dermatological Disorder: No - Musculoskeletal/Rheumatological Hx Musculoskeletal Disorders: Yes Hx Falls: Yes (past) Hx Fractures: Yes (left hip) Hx Unsteady Gait: Yes (walker) - Gastrointestinal Hx Gastrointestinal Disorders: Yes (c dif 08/26/16) Hx Gastroesophageal Reflux: Yes - Genitourinary/Gynecological Hx Genitourinary Disorders: Yes Hx Incontinence: Yes (urine and stool) Hx Urinary Tract Infection: Yes - Psychiatric Hx Psychophysiologic Disorder: Yes Hx Anxiety: Yes Hx Substance Use: No - Surgical History Hx Cholecystectomy: Yes Hx Joint Replacement: Yes (left hip replacement) Hx Musculoskeletal Surgery: Yes Hx Orthopedic Surgery: Yes (right knee surgery, rotator cuff surgery) - Anesthesia Hx Anesthesia: Yes Hx Anesthesia Reactions: No Hx Malignant Hyperthermia: No - Suicidal Assessment Feels Threatened In Home Enviroment: No Family/Social History - Physician Review Nursing Documentation Reviewed: Yes Family/Social History: No Known Family HX Smoking Status: Former Smoker Hx Alcohol Use: No Hx Substance Use: No Hx Substance Use Treatment: No Allergies/Home Meds Allergies/Adverse Reactions: Allergies No Known Allergies Allergy (Verified 10/31/18 18:17) Home Medications: Home Meds Medication Instructions Recorded Confirmed RX: Levothyroxine [Synthroid] 50 mcg PO DAILY 09/18/17 11/28/18 RX: Losartan [Cozaar] 50 mg PO DAILY 11/17/18 11/28/18 RX: Donepezil [Aricept] 5 mg PO DAILY 11/28/18 11/28/18 RX: Potassium Chloride [K-Tab ER] 20 meq PO DAILY 11/28/18 11/28/18 Review of Systems - Physician Review All systems were reviewed & negative as marked: Yes - Review of Systems Constitutional: absent: Fevers, Other (chills) Respiratory: Cough, Sputum (occasional white sputum) Physical Exam Vital Signs Reviewed: Yes Vital Signs Temp Pulse Resp BP Pulse Ox 11/28/18 11:04 98.2 F 64 18 96/52 L 95 Temperature: Afebrile Blood Pressure: Hypotensive Pulse: Regular Respiratory Rate: Normal Appearance: Positive for: Well-Appearing, Non-Toxic Pain Distress: None - Systems Exam Head: Present: Atraumatic, Normocephalic Pupils: Present: PERRL Extroacular Muscles: Present: EOMI Conjunctiva: Present: Normal Mouth: Present: Dry Neck: Present: Normal Range of Motion Respiratory/Chest: Present: Decreased Breath Sounds (Decreased breath sounds, L>R), Other (no breath sound to left lung; catheter noted in anterior lower left chest wall with saturated dressing, blood oozing around insertion site, draining noted around the tube ) Cardiovascular: Present: Regular Rate and Rhythm, Normal S1, S2. No: Murmurs Abdomen: No: Tenderness, Distention, Peritoneal Signs Back: Present: Normal Inspection Upper Extremity: Present: Normal Inspection. No: Cyanosis, Edema Lower Extremity: Present: Normal Inspection. No: Edema Skin: Present: Warm, Dry, Normal Color. No: Rashes Psychiatric: Present: Alert Medical Decision Making ED Course and Treatment: 11/28/18 11:34 Impression: 88 year old female presenting to the emergency room complaining of bleeding in her chest tube. Plan: -- CMP -- CBC -- COAGs -- Chest X-Ray -- Reassess and disposition Prior Visits: Notes and results from previous visits were reviewed. Patient was last seen in the emergency department on on 11/17/18 for a needle thoracostomy and was admitted to the hospital for pleural effusion. Progress Notes: 11/28/18 12:53 Procedure: Chest X-Ray Dictator: Derek Pimentel MD Impression: Left lower lobe infiltrate. Slight decrease in size of left effusion. 11/28/18 12:[address] Valerio who requested a consult with Dr. Martínez 11/28/18 13:[address] Martínez and was told by the legal secretary that his service would not pass the message along because Dr. Martínez had left for the day 11/28/18 13:[address] Valerio back and informed her that message was unable to reach Dr. Martínez. Dr. Valerio advised to put in orders and admit patient to her service. Dr. Valerio said to no start on antibiotics, to consult Dr. Nolan. 11/28/18 13:[address] Ward who said to speak to Dr. Martínez. 11/28/18 13:41 Dr. Ward called back stating he got in touch with Dr. Martínez and also got in touch with his vascular nurse who will come in to the ER to check on patient's catheter. 11/28/18 14:50 Xray results discussed with Dr. Valerio who states, given patient is afebrile and no elevated white count, likely xray finding is not pneumonia. 11/28/18 15:17 Vascular nurse, Viviana Springbrook RN, came to patient's bedside with asphira catheter and provided patient's family with the proper equipment, a bag and dressing, needed and is cleared to go home. Nurse Michelle notes patient and family did not get any proper information and equipment previously. Nurse Michelle assured she gave proper instruction of the catheter and supplies and assured family that patient's current bleeding amount is not worrisome and will be stable enough until their next appointment with Dr. Martínez. Dr. Martínez was notified of meeting. 11/28/18 15:[address] Valerio of progress with Nurse Viviana Figueroa. Patient will be ready for discharge. - Scribe Statement The provider has reviewed the documentation as recorded by the Scribe Mara Sadler All medical record entries made by the Scribe were at my direction and personally dictated by me. I have reviewed the chart and agree that the record accurately reflects my personal performance of the history, physical exam, medical decision making, and the department course for this patient. I have also personally directed, reviewed, and agree with the discharge instructions and disposition. Disposition/Present on Arrival - Present on Arrival Any Indicators Present on Arrival: No History of DVT/PE: No History of Uncontrolled Diabetes: No Urinary Catheter: No History of Decub. Ulcer: No History Surgical Site Infection Following: None - Disposition Have Diagnosis and Disposition been Completed?: Yes Diagnosis: Pleural effusion, Complication of chest tube Disposition: HOME/ ROUTINE Disposition Time: 15:29 Patient Plan: Discharge Condition: STABLE Discharge Instructions (ExitCare): Pleural Effusion (DC) Referrals: Pedro Valerio MD [Staff Provider] - Follow up with primary Forms: [employer] (Slovak)
[2018-11-28 11:54] LABS: BASO # 0.01 K/mm3 (0.0-2.0); BASO % 0.1 % (0.0-3.0); EOS # 0.1 (0.0-0.7); EOS % 0.5 % (1.5-5.0); HEMOGLOBIN 12.7 g/dL (12.0-16.0); LYMPH # 1.2 (1.2-3.4); LYMPH % 11.2 % (22.0-35.0); MEAN CELL VOLUME 78.5 fl (80.0-105.0); MEAN CORPUSCULAR HEMOGLOBIN 25.2 pg (25.0-35.0); MEAN CORPUSCULAR HGB CONC 32.2 g/dl (31.0-37.0); MEAN PLATELET VOLUME 9.9 fl (7.0-11.0); MONO # 1.2 (0.1-0.6); MONO % 11.5 % (1.0-6.0); RBC 5.03 10^6/uL (3.5-6.1); RED CELL DISTRIBUTION WIDTH 25.4 % (11.5-14.5); WHITE BLOOD COUNT 10.6 10^3/uL (4.5-11.0)
[2018-11-28 11:59] LABS: INR 1.11; PARTIAL THROMBOPLASTIN TIME 27.2 Seconds (26.9-38.3); PROTHROMBIN TIME 12.5 SECONDS (9.4-12.5)
[2018-11-28 12:11] LABS: ALB/GLOB RATIO 1.1 (1.1-1.8); CALCIUM 9.2 mg/dL (8.4-10.5)
--- NOTE | 2018-11-28 12:44 | RAD ---
Date of service: 11/28/2018 HISTORY: poss cath dislodged COMPARISON: No prior. TECHNIQUE: Chest PA and lateral FINDINGS: LUNGS: Left lower lobe infiltrate PLEURA: There is a decrease in the size of the left pleural effusion. There is a left-sided chest tube terminating in the left lung apex. CARDIOVASCULAR: Aortic calcification Moderate cardiomegaly no pulmonary vascular congestion. OSSEOUS STRUCTURES: No significant abnormalities. VISUALIZED UPPER ABDOMEN: Normal. OTHER FINDINGS: None. IMPRESSION: Left lower lobe infiltrate. Slight decrease in size of left effusion
[2018-11-28 15:41] VITALS: TEMP 98.1
[2018-11-28 19:39] VITALS: BP 130/57; PULSE 67; RESP 19
== END 2018-11-28 19:39 | disposition home or self-care (01) ==
LOC: ED 11:03 → ERH 13:11 → UNDOADMIN 13:11 → ED 19:39
DX: T85.9XXA Unspecified complication of internal prosthetic device, implant and graft, initial encounter (principal); Y83.8 Other surgical procedures as the cause of abnormal reaction of the patient, or of later complication, without mention of misadventure at the time of the procedure; J90 Pleural effusion, not elsewhere classified; I10 Essential (primary) hypertension; I25.10 Atherosclerotic heart disease of native coronary artery without angina pectoris; J44.9 Chronic obstructive pulmonary disease, unspecified; F03.90 Unspecified dementia, unspecified severity, without behavioral disturbance, psychotic disturbance, mood disturbance, and anxiety; Z85.118 Personal history of other malignant neoplasm of bronchus and lung; Z66 Do not resuscitate; E05.90 Thyrotoxicosis, unspecified without thyrotoxic crisis or storm

== ENCOUNTER 2018-11-29 14:29 | Inpatient (IN) | payer MEDICARE ==
[2018-11-29 14:42] VITALS: BMI 21.2
--- NOTE | 2018-11-29 15:10 | ED PDOC ---
Arrival/HPI - General Chief Complaint: Wound Check Time Seen by Provider: 11/29/18 14:53 Historian: Patient - History of Present Illness Narrative History of Present Illness (Text): 11/29/18 15:10 An 88 year old female, DNR/DNI, whose past medical history includes lung cancer, pleural effusion, COPD, CAD, hypertension, dementia, and hyperthyroidism, presents to the emergency department, accompanied by family, complaining of d rainage from chest tube since yesterday. Patient's son reports patient was discharged from the hospital on Saturday when he noticed at home the chest tube site was saturated with blood and the son changed the dressings himself. Per Son, the patient was seen in the ER yesterday when the site was again saturated with blood and the patient was noted to have low blood pressure prompting the patient to come to the ER. The patient was discharged yesterday when her condition stabilized and when a vascular nurse, Viviana Figueroa RN, saw the patient and cleared her for discharge with instructions and equipment for the catheter. Son reports the patient has returned today because the leaking of blood and fluid has continued and son believes that chest tube is slightly coming out. The patient's son reports the fluid seems to be coming out every time she coughs. The patient denies any fever, chills, diarrhea, or any other complaints. PMD: Dr. Valerio Time/Duration: Other (yesterday) Symptom Onset: Gradual Symptom Course: Unchanged Activities at Onset: Light Context: Home Past Medical History - Provider Review Nursing Documentation Reviewed: Yes - Infectious Disease Hx of Infectious Diseases: None - Cardiac Hx Cardiac Disorders: Yes Hx Hypertension: Yes - Pulmonary Hx Chronic Obstructive Pulmonary Disease (COPD): Yes - Neurological Hx Neurological Disorder: Yes (hydrocephalus,HORSE IDENTIFIER shunt) Hx Dementia: Yes Hx Dizziness: Yes (vertigo) Other/Comment: memory loss - HEENT Hx HEENT Disorder: Yes ([place]) Other/Comment: eyes sensitive to light wears sunglasses - Renal Hx Renal Disorder: No - Endocrine/Metabolic Hx Hypothyroidism: Yes - Hematological/Oncological Hx Blood Disorders: Yes Hx Anemia: Yes Hx Shingles: Yes - Integumentary Hx Dermatological Disorder: No - Musculoskeletal/Rheumatological Hx Musculoskeletal Disorders: Yes Hx Falls: Yes (past) Hx Fractures: Yes (left hip) Hx Unsteady Gait: Yes (walker) - Gastrointestinal Hx Gastrointestinal Disorders: Yes (c dif 08/26/16) Hx Gastroesophageal Reflux: Yes - Genitourinary/Gynecological Hx Genitourinary Disorders: Yes Hx Incontinence: Yes (urine and stool) Hx Urinary Tract Infection: Yes - Psychiatric Hx Psychophysiologic Disorder: Yes Hx Anxiety: Yes Hx Substance Use: No - Surgical History Hx Cholecystectomy: Yes Hx Joint Replacement: Yes (left hip replacement) Hx Musculoskeletal Surgery: Yes Hx Orthopedic Surgery: Yes (right knee surgery, rotator cuff surgery) - Anesthesia Hx Anesthesia: Yes Hx Anesthesia Reactions: No Hx Malignant Hyperthermia: No - Suicidal Assessment Feels Threatened In Home Enviroment: No Family/Social History - Physician Review Nursing Documentation Reviewed: Yes Family/Social History: No Known Family HX Smoking Status: Former Smoker Hx Alcohol Use: No Hx Substance Use: No Hx Substance Use Treatment: No Allergies/Home Meds Allergies/Adverse Reactions: Allergies No Known Allergies Allergy (Verified 10/31/18 18:17) Home Medications: Home Meds Medication Instructions Recorded Confirmed RX: Levothyroxine [Synthroid] 50 mcg PO DAILY 09/18/17 11/29/18 RX: Losartan [Cozaar] 50 mg PO DAILY 11/17/18 11/29/18 RX: Potassium Chloride [K-Tab ER] 20 meq PO DAILY 11/28/18 11/29/18 RX: Acetaminophen [Non-Aspirin 500 mg QD6 PRN 11/29/18 11/29/18 Pain Relief] RX: Promethazine DM [Phenergan DM 5 ml Q6 PRN 11/29/18 11/29/18 Syrup] Sucralfate [Carafate Oral Susp] 1 gm BID 11/29/18 11/29/18 Review of Systems - Physician Review All systems were reviewed & negative as marked: Yes - Review of Systems Constitutional: absent: Fevers, Other (chills) Eyes: absent: Vision Changes ENT: absent: Hearing Changes Respiratory: Cough Cardiovascular: absent: Chest Pain, Palpitations, Edema Gastrointestinal: absent: Abdominal Pain, Stool Changes, Constipation, Diarrhea Genitourinary Female: absent: Dysuria, Frequency Musculoskeletal: absent: Arthralgias, Back Pain, Neck Pain Skin: absent: Rash Neurological: absent: Headache, Dizziness Endocrine: absent: Diaphoresis Physical Exam Vital Signs Reviewed: Yes Vital Signs Pulse Resp Pulse Ox 11/29/18 14:30 104 H 16 95 Temperature: Afebrile Blood Pressure: Normal Pulse: Tachycardic Respiratory Rate: Normal - Systems Exam Head: Present: Atraumatic, Normocephalic Pupils: Present: PERRL Extroacular Muscles: Present: EOMI Conjunctiva: Present: Normal Mouth: Present: Moist Mucous Membranes, Dry Pharnyx: Present: Normal. No: ERYTHEMA, EXUDATE Neck: Present: Normal Range of Motion Respiratory/Chest: Present: Clear to Auscultation (R lung), Good Air Exchange, Decreased Breath Sounds (mildly decreased breath sounds, L>R), Other (left sided aspiria tunneled cathether chest tube to left lateral chest wall; stitches appears to be in place, drainage holes on chest tube noted however. ). No: Respiratory Distress, Accessory Muscle Use, Wheezes, Retracting, Rhonchi, Tachypneic, Tender to Palpation Cardiovascular: Present: Regular Rate and Rhythm, Normal S1, S2. No: Murmurs Abdomen: No: Tenderness, Distention, Peritoneal Signs Back: Present: Normal Inspection Upper Extremity: Present: Normal Inspection, Neurovascularly Intact. No: Cyanosis, Edema Lower Extremity: Present: Normal Inspection, Neurovascularly Intact. No: Edema Neurological: Present: GCS=15, Speech Normal Skin: Present: Warm, Dry, Normal Color. No: Rashes Psychiatric: Present: Alert Medical Decision Making ED Course and Treatment: 11/29/18 15:12 Impression: 88 year old female presenting to the emergency room complaining of bleeding / serious drainage in and around chest tube. No other complaints. No rash, chest pain, shortness of breath or back pain. No trauma or fall. Likely tube misplacement vs increased drainage given CA. No JVD or signs of PTX noted on exam. No cellulitis noted. Plan: -- Type and screen -- CMP -- CBC -- COAGs -- Chest X-ray -- Reassess and disposition Prior Visits: Notes and results from previous visits were reviewed. Patient was last seen in the emergency department on 11/28/18 for the bleeding in and around chest tube. Patient was discharged when the patient's condition stabled with a follow up appointment with Dr. Valerio. Progress Notes: 11/29/18 16:11 H&H largely unremarkable. No leukocytosis. No cough noted on exam. afebrile. CXR w/ chest tube no longer visualized. Dr. Finnegan consulted: endorses that since it is a tunnel catheter to leave it in place and state no urgent intervention regarding chest tbue at this time. Dr. Finnegan states catheter will need to change in the next few days. 11/29/18 16:[address] Valerio who said to admit patient to his service under Med surg. Pt in NAD, non-tachypenic, no JVD, unchanged Lung sounds from initial eval and pt denies any complaints. - RAD Interpretation Narrative RAD Interpretations (Text): 11/29/18 16:01 Procedure: Chest X-ray Dictator: Derek Pimentel MD Impression: The chest tubepreviously seen in the lef lung apex is no longer visible and has been presumably pulled out. There is a moderate size left pleural effusion and adjacent atelectasis or infiltrate. The right lung remains clear. Radiology Orders: 11/29/18 14:56 CHEST TWO VIEWS (PA/LAT) [RAD] Stat Turpentine Distiller: Radiologist - Scribe Statement The provider has reviewed the documentation as recorded by the Scribe Mara Sadler All medical record entries made by the Scribe were at my direction and personally dictated by me. I have reviewed the chart and agree that the record accurately reflects my personal performance of the history, physical exam, medical decision making, and the department course for this patient. I have also personally directed, reviewed, and agree with the discharge instructions and disposition. Disposition/Present on Arrival - Present on Arrival Any Indicators Present on Arrival: No History of DVT/PE: No History of Uncontrolled Diabetes: No Urinary Catheter: No History of Decub. Ulcer: No History Surgical Site Infection Following: None - Disposition Have Diagnosis and Disposition been Completed?: Yes Diagnosis: Complication of chest tube Disposition: HOSPITALIZED Disposition Time: 16:11 Condition: GOOD
--- NOTE | 2018-11-29 15:45 | RAD ---
Date of service: 11/29/2018 HISTORY: increased chest tube fluid COMPARISON: Chest film 11/28/2018 TECHNIQUE: Chest PA and lateral FINDINGS: LUNGS: The chest tube previously seen in the left lung apex is no longer visible and has been presumably pulled out. There is a moderate size left pleural effusion and adjacent atelectasis or infiltrate. The right lung remains clear PLEURA: No significant pleural effusion identified. No pneumothorax apparent. CARDIOVASCULAR: Aortic calcification Moderate cardiomegaly no pulmonary vascular congestion. OSSEOUS STRUCTURES: No significant abnormalities. VISUALIZED UPPER ABDOMEN: Normal. OTHER FINDINGS: None. IMPRESSION: The chest tube previously seen in the left lung apex is no longer visible and has been presumably pulled out. There is a moderate size left pleural effusion and adjacent atelectasis or infiltrate. The right lung remains clear
[2018-11-29 16:24] LABS: BASO # 0.01 K/mm3 (0.0-2.0); BASO % 0.1 % (0.0-3.0); EOS % 0.1 % (1.5-5.0); HEMOGLOBIN 12.8 g/dL (12.0-16.0); LYMPH # 1.3 (1.2-3.4); LYMPH % 12.2 % (22.0-35.0); MEAN CELL VOLUME 78.6 fl (80.0-105.0); MEAN CORPUSCULAR HGB CONC 31.8 g/dl (31.0-37.0); MEAN PLATELET VOLUME 9.8 fl (7.0-11.0); MONO # 1.2 (0.1-0.6); MONO % 10.9 % (1.0-6.0); RBC 5.13 10^6/uL (3.5-6.1); RED CELL DISTRIBUTION WIDTH 25.9 % (11.5-14.5)
[2018-11-29 16:25] LABS: ALBUMIN 2.8 g/dL (3.0-4.8); ALT/SGPT 13 U/L (7-56); AST/SGOT 35 U/L (14-36); BLOOD UREA NITROGEN 34 mg/dL (7-21); CALCIUM 8.7 mg/dL (8.4-10.5); GFR NON-AFRICAN AMERICAN 53
[2018-11-29 16:34] LABS: INR 1.11; PARTIAL THROMBOPLASTIN TIME 26.4 Seconds (26.9-38.3); PROTHROMBIN TIME 12.3 SECONDS (9.4-12.5)
[2018-11-29] MEDS ORDERED: Promethazine DM 6.25 mg-15 mg/5 ml Syrup PO PRN (19:12)
--- NOTE | 2018-11-29 19:34 | CP.PCM.HP ---
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 Patient also had large recurrent pleural effusion and catheter was inserted about 4 days ago to drain the pleural effusion. Patient was brought to the Emergency Room today because according to the family, fluid was leaking around the catheter. CXR was done which showed the pleural catheter has been dislodged. Present on Admission - Present on Admission Any Indicators Present on Admission: No History of DVT/PE: No History of Uncontrolled Diabetes: No Urinary Catheter: No Decubitus Ulcer Present: No Review of Systems - Constitutional Constitutional: absent: Chills, Excessive Sweating, Fever - Cardiovascular Cardiovascular: absent: Chest Pain, Diaphoresis - Respiratory Respiratory: Cough, Dyspnea - Gastrointestinal Gastrointestinal: absent: Abdominal Pain, Nausea, Vomiting Past Patient History - Infectious Disease Hx of Infectious Diseases: None - Past Social History Smoking Status: Former Smoker - CARDIAC Hx Cardiac Disorders: Yes Hx Hypertension: Yes - PULMONARY Hx Chronic Obstructive Pulmonary Disease (COPD): Yes - NEUROLOGICAL Hx Neurological Disorder: Yes (hydrocephalus,SOFTWARE TESTER shunt) Hx Dementia: Yes Hx Dizziness: Yes (vertigo) Other/Comment: memory loss - HEENT Hx HEENT Problems: Yes ([place]) Other/Comment: eyes sensitive to light wears sunglasses - RENAL Hx Chronic Kidney Disease: No - ENDOCRINE/METABOLIC Hx Hypothyroidism: Yes - HEMATOLOGICAL/ONCOLOGICAL Hx Blood Disorders: Yes Hx Anemia: Yes Hx Shingles: Yes - INTEGUMENTARY Hx Dermatological Problems: No - MUSCULOSKELETAL/RHEUMATOLOGICAL Hx Musculoskeletal Disorders: Yes Hx Falls: Yes (past) Hx Fractures: Yes (left hip) Hx Unsteady Gait: Yes (walker) - GASTROINTESTINAL Hx Gastrointestinal Disorders: Yes (c dif 08/26/16) Hx Gastroesophageal Reflux: Yes - GENITOURINARY/GYNECOLOGICAL Hx Genitourinary Disorders: Yes Hx Incontinence: Yes (urine and stool) Hx Urinary Tract Infection: Yes - PSYCHIATRIC Hx Psychophysiologic Disorder: Yes Hx Anxiety: Yes Hx Substance Use: No - SURGICAL HISTORY Hx Cholecystectomy: Yes Hx Joint Replacement: Yes (left hip replacement) Hx Musculoskeletal Surgery: Yes Hx Orthopedic Surgery: Yes (right knee surgery, rotator cuff surgery) - ANESTHESIA Hx Anesthesia: Yes Hx Anesthesia Reactions: No Hx Malignant Hyperthermia: No Meds Allergies/Adverse Reactions: Allergies Allergy/AdvReac Type Severity Reaction Status Date / Time No Known Allergies Allergy Verified 10/31/18 18:17 Physical Exam - Constitutional Appears: No Acute Distress - Head Exam Additional comments: SOFTWARE TESTER shunt - Respiratory Exam Respiratory Exam: Decreased Breath Sounds Additional comments: decreased breath sounds on left, clear on right - Cardiovascular Exam Cardiovascular Exam: REGULAR RHYTHM, +S1, +S2 - GI/Abdominal Exam GI & Abdominal Exam: Normal Bowel Sounds, Soft. absent: Tenderness - Extremities Exam Extremities exam: Positive for: normal inspection - Neurological Exam Neurological exam: Alert Results - Vital Signs Recent Vital Signs: Last Vital Signs Temp 97.9 F 11/29/18 17:39 Pulse 76 11/29/18 17:39 Resp 16 11/29/18 17:39 BP 105/58 L 11/29/18 17:39 Pulse Ox 93 L 11/29/18 17:39 - Labs Result Diagrams: 11/29/18 15:50 11/29/18 15:50 Labs: Laboratory Results - last 24 hr 11/29/18 11/29/18 11/29/18 15:50 15:50 15:50 WBC 11.0 RBC 5.13 Hgb 12.8 Hct 40.3 MCV 78.6 L MCH 25.0 MCHC 31.8 RDW 25.9 H Plt Count 366 MPV 9.8 Neut % (Auto) 76.7 H Lymph % (Auto) 12.2 L [place] % (Auto) 10.9 H Eos % (Auto) 0.1 L Baso % (Auto) 0.1 Lymph # (Auto) 1.3 [place] # (Auto) 1.2 H Eos # (Auto) 0.0 Baso # (Auto) 0.01 Absolute Neuts (auto) 8.42 H PT 12.3 INR 1.11 APTT 26.4 L Sodium 135 Potassium 4.5 Chloride 101 Carbon Dioxide 25 Anion Gap 14 BUN 34 H Creatinine 1.0 Est GFR ( Amer) > 60 Est GFR (Non-Af Amer) 53 Random Glucose 84 Calcium 8.7 Total Bilirubin 0.5 AST 35 ALT 13 Alkaline Phosphatase 88 Total Protein 5.5 L Albumin 2.8 L Globulin 2.7 Albumin/Globulin Ratio 1.0 L Blood Type Antibody Screen BBK History Checked 11/29/18 15:50 WBC RBC Hgb Hct MCV MCH MCHC RDW Plt Count MPV Neut % (Auto) Lymph % (Auto) [place] % (Auto) Eos % (Auto) Baso % (Auto) Lymph # (Auto) [place] # (Auto) Eos # (Auto) Baso # (Auto) Absolute Neuts (auto) PT INR APTT Sodium Potassium Chloride Carbon Dioxide Anion Gap BUN Creatinine Est GFR ( Amer) Est GFR (Non-Af Amer) Random Glucose Calcium Total Bilirubin AST ALT Alkaline Phosphatase Total Protein Albumin Globulin Albumin/Globulin Ratio Blood Type O POSITIVE Antibody Screen Negative BBK History Checked Patient has bt Assessment & Plan - Assessment and Plan (Free Text) Assessment: Dislodged pleural catheter Small cell cancer of the Lung Samuel ulcer within hiatal hernia COPD HTN Hypothyroidism NPH with SOFTWARE TESTER shunt Plan: Pleural catheter has been dislodged. Will consult Dr. Earlene Martínez for re-insertion of catheter. Pleural effusion has decreased since insertion of catheter 4 days ago. continue Protonix and Carafate for samuel ulcer within hiatal hernia continue Albuterol nebulizer respiratory treatments continue Synthroid for hypothyroidism Tylenol as needed for pain Patient is DNR/DNI
[2018-11-29] MEDS ORDERED: Influenza Vaccine 60 mcg/0.5 mL SYR (4YR UP) IM ONE (20:38)
[2018-11-29] MEDS ORDERED: Pneumococcal 23-Valent Vaccine IM ONE (20:38)
[2018-11-30] MEDS: Albuterol 0.083% Inhal Sol (2.5 mg/3 mL) UD INH SCH ×5 (01:41→21:08)
[2018-11-30] MEDS: Sucralfate 1 gm/10 ml Oral Susp UD PO SCH ×2 (05:55→16:46)
[2018-11-30] MEDS: Levothyroxine 25 MCG TAB PO SCH (05:55)
[2018-11-30] MEDS: Pantoprazole 40 mg EC Tab PO SCH (05:55)
[2018-11-30] MEDS: Acetylcysteine 20% Inhal Soln (4ml) IH SCH ×2 (07:25→21:07)
--- NOTE | 2018-11-30 08:24 | CP.PCM.PN ---
Subjective - Date & Time of Evaluation Date of Evaluation: 11/30/18 Time of Evaluation: 07:30 - Subjective Subjective: Patient seen this morning. She is lying in bed. She is coughing. Objective - Vital Signs/Intake and Output Vital Signs (last 24 hours): Temp Pulse Resp BP Pulse Ox 97.6 F 81 20 131/57 L 93 L 11/30/18 06:00 11/30/18 06:00 11/30/18 06:00 11/30/18 06:00 11/30/18 06:00 Intake and Output: 11/30/18 11/30/18 06:59 18:59 Intake Total 240 Balance 240 - Medications Medications: Current Medications Acetaminophen (Tylenol 325mg Tab) 650 mg PO Q6H PRN PRN Reason: Pain, moderate (4-7) Last Admin: 11/29/18 19:11 Dose: 650 mg Acetylcysteine (Acetylcysteine 20%) 4 ml [facility] Last Admin: 11/30/18 07:25 Dose: 4 ml Albuterol Sulfate (Albuterol 0.083% Inhal Bhumi (2.5 Mg/3 Ml) Ud) 2.5 mg INH [id number] JARRELL Last Admin: 11/30/18 07:25 Dose: 2.5 mg Atenolol (Tenormin) 12.5 mg PO DAILY [facility] Ferrous Sulfate (Feosol Liq) 300 mg PO DAILY [facility] Levothyroxine Sodium (Synthroid) 25 mcg PO 0600 [facility] Last Admin: 11/30/18 05:55 Dose: 25 mcg Losartan Potassium (Cozaar) 25 mg PO DAILY [facility] Pantoprazole Sodium (Protonix Ec Tab) 40 mg PO 0600 [facility] Last Admin: 11/30/18 05:55 Dose: 40 mg Promethazine HCl/Dextromethorphan (Phenergan Dm Syrup) 5 ml PO Q6H PRN PRN Reason: Cough Sucralfate (Carafate Oral Susp) 1 gm PO 0600,1600 [facility] Last Admin: 11/30/18 05:55 Dose: 1 gm - Labs Labs: 11/29/18 15:50 11/29/18 15:50 PT 12.3 SECONDS (9.4-12.5) 11/29/18 15:50 INR 1.11 11/29/18 15:50 APTT 26.4 Seconds (26.9-38.3) L 11/29/18 15:50 - Constitutional Appears: No Acute Distress - Head Exam Head Exam: ATRAUMATIC, NORMOCEPHALIC - Respiratory Exam Respiratory Exam: Decreased Breath Sounds, NORMAL BREATHING PATTERN Additional comments: decreased breath sounds on left; clear on right - Cardiovascular Exam Cardiovascular Exam: REGULAR RHYTHM, +S1, +S2 - GI/Abdominal Exam GI & Abdominal Exam: Soft, Normal Bowel Sounds. absent: Tenderness - Extremities Exam Extremities Exam: Normal Inspection - Neurological Exam Neurological Exam: Alert, Awake Assessment and Plan - Assessment and Plan (Free Text) Assessment: Moderate pleural effusion with pleural catheter Small cell cancer of the Lung HTN COPD Samuel ulcer within hiatal hernia Hypothyroidism NPH with TURNAROUND PLANNER shunt Dementia Plan: continue current medications Pleural catheter is dislodged and fluid was leaking all over the patient. continue Protonix and Carafate for ulcer continue synthroid for hypothyroidism continue albuterol nebulizer treatments and mucomyst for COPD continue phenergan as needed for cough Dr. Ward, head cd reactor operator has been consulted Consult Dr. Earlene Martínez to change the chest tube
--- NOTE | 2018-11-30 09:30 | CON ---
DATE OF CONSULTATION: 11/30/2018 PULMONARY CONSULTATION REASON FOR CONSULTATION: Recurrent pleural effusion. REQUESTING PHYSICIAN FOR THIS PULMONARY CONSULTATION: Dr. Valerio. SOURCE OF HISTORY: History is obtained via extensive discussion with the night nurse. I have also reviewed the chart at length, and discussed the case with the patient at length. 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 Again, I did discuss the case with the night nurse at length. In addition, chest x-ray was done in the emergency room - which showed possible migration of the chest tube. The patient was thus admitted for additional evaluation. The patient is not short of breath at rest. She does get dyspneic with any exertion. There is also a history of occasional cough with no significant sputum production. There is no history of chest pain, coughing up of blood, or chest pain - brought on with deep respirations. There is no history of temperatures, chills or infectious exposure. There is no history of night sweats. There is a history of recent weight loss with decreased appetite. No history of calf pains. No history of syncope or diaphoresis. No history of recent travel or trauma. REVIEW OF SYSTEMS: No history of nausea, vomiting or diarrhea. No acute urinary symptoms. No new neurologic or musculoskeletal complaints. Rest of the review of systems is negative. ALLERGIES: NO KNOWN ALLERGIES. SOCIAL HISTORY: Positive for former tobacco usage. No alcohol. FAMILY HISTORY: No inheritable diseases. HOME MEDICATIONS: Include sucralfate, Protonix, Cozaar, Synthroid, Tenormin, acetaminophen. PHYSICAL EXAMINATION: GENERAL: The patient appears comfortable at rest. She is not short of breath. She is not using accessory muscles for breathing. VITAL SIGNS (LAST NOTED IN THE COMPUTER): Temperature is 98.0, pulse 58, respirations 18, blood pressure 104/65. Oxygen saturation on room air - 93%. Oxygen saturation on nasal cannula - 98%. HEENT: Normocephalic, atraumatic. No JVD. CARDIOVASCULAR: Systolic ejection murmur at the lower left sternal border. No S3 or gallop. LUNGS: Decreased breath sounds - left lower lobe. Minimal bilateral rhonchi. No wheezing. EXTREMITIES: Mild edema. No cyanosis. No clubbing. Calves are nontender to palpation. GASTROINTESTINAL: Abdomen is soft, nontender, nondistended. Bowel sounds are positive. SKIN: No acute rash. NEUROLOGIC: Exam limited at the present time. PERTINENT LABORATORY DATA: Chest x-ray was done yesterday and reviewed. The chest x-ray is actually improved from earlier in the week - with increased aeration noted to the left lung. However, there is possible migration of the left-sided chest tube. CBC: White count 11.0K, hemoglobin 12.8, hematocrit 40.3, platelets of 366,000. Complete metabolic profile: BUN 34, protein 5.5, albumin 2.8. Rest of the metabolic profile is within normal limits. IMPRESSION: 1. Pleural catheter dislodgement 2. Recurrent left pleural effusion. 3. 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 4. Chronic obstructive pulmonary disease. 5. Asthma. PLAN: Again, I did discuss the case with the night nurse at length. I have also discussed the case with the patient at length, and reviewed the chart at length. I have also had multiple discussions with the emergency room and other personnel over the past 2 days - regarding this patient. The patient presents to [facility] with serosanguineous leakage around the chest tube site, and possible migration of the left chest tube. Again, I have had multiple discussions with the emergency room staff and other personnel regarding this patient over the past 2 days. The chest tube is draining, but appears to be somewhat migrated. The patient was thus admitted for additional evaluation. I did review the chest x-ray as above. The chest x-ray is actually improved - with increased aeration noted to the left lung - compared to earlier in the week. Dr. Martínez (Interventional Radiology) has been called on the case. On physical exam, there is only mild bronchospasm noted. However, there is no significant alveolar-arterial gradient. I will continue the current nebulizer treatments and add inhaled Mucomyst. I will also add aspiration precautions. Overall status/prognosis for this patient remains very, very poor. Again, we are awaiting reevaluation by Dr. Arnol Martínez - hopefully tomorrow. I will discuss the above with the attending physicians. Thank you very much for this pulmonary consultation. Abdoul Ward MD MTDAncelmo
[2018-11-30] MEDS: Ferrous Sulfate 300 mg/5 mL Liq UD PO SCH (10:43)
[2018-12-01] MEDS: Albuterol 0.083% Inhal Sol (2.5 mg/3 mL) UD INH SCH ×4 (02:46→21:27)
[2018-12-01] MEDS: Pantoprazole 40 mg EC Tab PO SCH (05:56)
[2018-12-01] MEDS: Levothyroxine 25 MCG TAB PO SCH (05:56)
[2018-12-01] MEDS: Sucralfate 1 gm/10 ml Oral Susp UD PO SCH ×2 (05:56→16:56)
[2018-12-01] MEDS: Acetylcysteine 20% Inhal Soln (4ml) IH SCH ×2 (07:05→21:27)
--- NOTE | 2018-12-01 08:19 | CP.PCM.PN ---
Subjective - Date & Time of Evaluation Date of Evaluation: 12/01/18 Time of Evaluation: 07:45 - Subjective Subjective: Patient is seen this morning. She is lying in bed. Pleurex catheter has come out and needs to be replaced. Objective - Vital Signs/Intake and Output Vital Signs (last 24 hours): Temp Pulse Resp BP Pulse Ox 97.9 F 75 17 100/57 L 95 12/01/18 06:00 12/01/18 06:00 12/01/18 06:00 12/01/18 06:00 12/01/18 06:00 Intake and Output: 12/01/18 12/01/18 06:59 18:59 Intake Total 240 Balance 240 - Medications Medications: Current Medications Acetaminophen (Tylenol 325mg Tab) 650 mg PO Q6H PRN PRN Reason: Pain, moderate (4-7) Last Admin: 11/30/18 14:52 Dose: 650 mg Acetylcysteine (Acetylcysteine 20%) 4 ml IH BIDRESP JARRELL Last Admin: 12/01/18 07:05 Dose: 4 ml Albuterol Sulfate (Albuterol 0.083% Inhal Bhumi (2.5 Mg/3 Ml) Ud) 2.5 mg INH [id number] JARRELL Last Admin: 12/01/18 07:05 Dose: 2.5 mg Atenolol (Tenormin) 12.5 mg PO DAILY J[facility]RE[facility] Last Admin: 11/30/18 10:43 Dose: 12.5 mg Ferrous Sulfate (Feosol Liq) 300 mg PO DAILY [facility] Last Admin: 11/30/18 10:43 Dose: 300 mg Levothyroxine Sodium (Synthroid) 25 mcg PO 0600 [facility] Last Admin: 12/01/18 05:56 Dose: 25 mcg Losartan Potassium (Cozaar) 25 mg PO DAILY [facility] Last Admin: 11/30/18 10:43 Dose: 25 mg Pantoprazole Sodium (Protonix Ec Tab) 40 mg PO 0600 [facility] Last Admin: 12/01/18 05:56 Dose: 40 mg Promethazine HCl/Dextromethorphan (Phenergan Dm Syrup) 5 ml PO Q6H PRN PRN Reason: Cough Last Admin: 12/01/18 05:56 Dose: 5 ml Sucralfate (Carafate Oral Susp) 1 gm PO 0600,1600 [facility] Last Admin: 12/01/18 05:56 Dose: 1 gm - Labs Labs: 11/29/18 15:50 11/29/18 15:50 PT 12.3 SECONDS (9.4-12.5) 11/29/18 15:50 INR 1.11 11/29/18 15:50 APTT 26.4 Seconds (26.9-38.3) L 11/29/18 15:50 - Constitutional Appears: No Acute Distress - Head Exam Head Exam: ATRAUMATIC, NORMOCEPHALIC - Respiratory Exam Respiratory Exam: Decreased Breath Sounds, NORMAL BREATHING PATTERN Additional comments: +decreased breath sounds on the left, clear on the right - Cardiovascular Exam Cardiovascular Exam: REGULAR RHYTHM, +S1, +S2 - GI/Abdominal Exam GI & Abdominal Exam: Soft, Normal Bowel Sounds. absent: Tenderness - Extremities Exam Extremities Exam: Normal Inspection - Neurological Exam Neurological Exam: Alert, Awake Assessment and Plan - Assessment and Plan (Free Text) Assessment: Moderate pleural effusion s/p pleural catheter Small cell lung cancer HTN COPD Dementia NPH with PERSONNEL ADVISER shunt Hypothyroidism Ulcer within hiatal hernia Plan: Dr. Earlene Martínez to check catheter to see if it can be fixed or needs to be replaced. continue protonix and carafate for ulcer hemoglobin is stable; continue iron supplement continue synthroid for hypothyroidism continue Losartan and Atenolol for hypertension continue Tylenol as needed for pain
[2018-12-01] MEDS: Ferrous Sulfate 300 mg/5 mL Liq UD PO SCH (10:18)
--- NOTE | 2018-12-01 10:29 | CP.PCM.CON ---
History of Present Illness - History of Present Illness History of Present Illness: Palliative consult requested by Dr Valerio Reason: Goals of care/hospice discussion 89 year old female with hsuty of small cell neuroendocrine lung cancer who presented to ED on with bleeding form the site left chest Aspira catheter site. Family reports patient as having discomfort at the site and some dyspnea on exertion. The patient did not have fever, chills, nausea, vomiting, constipation, diarrhea, headache, dizziness or urinary symptoms Chest x ray showed moderate cardiomegaly. Moderate size left pleural effusion and adjacent atelectasis or infiltrate.Chest tube in left apex is no longer visible PMHx: metastatic neuroendocrine small cell lung cancer, GERD, gastric ulcer,hiatal hernia, COPD,anemia,dementia, shingles, hydrocephalus PSHx: left hip replacement, right knee surgery, BASKET HAND BRAIDER shunt Social History: Former smoker, no alcohol or drug use..Lives with family. Family History: Non contributory Advance Care Planning: The patient is DNR/DNI. Review of Systems: As per HPI, 12 point review otherwise negative Past Patient History - Infectious Disease Hx of Infectious Diseases: None - Past Social History Smoking Status: Former Smoker - CARDIAC Hx Cardiac Disorders: Yes Hx Hypertension: Yes - PULMONARY Hx Chronic Obstructive Pulmonary Disease (COPD): Yes - NEUROLOGICAL Hx Neurological Disorder: Yes (hydrocephalus,BASKET HAND BRAIDER shunt) Hx Dementia: Yes Hx Dizziness: Yes (vertigo) Other/Comment: memory loss - HEENT Hx HEENT Problems: Yes ([place]) Other/Comment: eyes sensitive to light wears sunglasses - RENAL Hx Chronic Kidney Disease: No - ENDOCRINE/METABOLIC Hx Hypothyroidism: Yes - HEMATOLOGICAL/ONCOLOGICAL Hx Blood Disorders: Yes Hx Anemia: Yes Hx Shingles: Yes - INTEGUMENTARY Hx Dermatological Problems: No - MUSCULOSKELETAL/RHEUMATOLOGICAL Hx Musculoskeletal Disorders: Yes Hx Falls: Yes (past) Hx Fractures: Yes (left hip) Hx Unsteady Gait: Yes (walker) - GASTROINTESTINAL Hx Gastrointestinal Disorders: Yes (c dif 08/26/16) Hx Gastroesophageal Reflux: Yes - GENITOURINARY/GYNECOLOGICAL Hx Genitourinary Disorders: Yes Hx Incontinence: Yes (urine and stool) Hx Urinary Tract Infection: Yes - PSYCHIATRIC Hx Psychophysiologic Disorder: Yes Hx Anxiety: Yes Hx Substance Use: No - SURGICAL HISTORY Hx Cholecystectomy: Yes Hx Joint Replacement: Yes (left hip replacement) Hx Musculoskeletal Surgery: Yes Hx Orthopedic Surgery: Yes (right knee surgery, rotator cuff surgery) - ANESTHESIA Hx Anesthesia: Yes Hx Anesthesia Reactions: No Hx Malignant Hyperthermia: No Meds Allergies/Adverse Reactions: Allergies Allergy/AdvReac Type Severity Reaction Status Date / Time No Known Allergies Allergy Verified 10/31/18 18:17 - Medications Medications: Current Medications Acetaminophen (Tylenol 325mg Tab) 650 mg PO Q6H PRN PRN Reason: Pain, moderate (4-7) Last Admin: 11/30/18 14:52 Dose: 650 mg Acetylcysteine (Acetylcysteine 20%) 4 ml IH BIDRESP [facility] Last Admin: 12/01/18 07:05 Dose: 4 ml Albuterol Sulfate (Albuterol 0.083% Inhal Bhumi (2.5 Mg/3 Ml) Ud) 2.5 mg INH Q 6HRESP [facility] Last Admin: 12/01/18 07:05 Dose: 2.5 mg Atenolol (Tenormin) 12.5 mg PO DAILY [facility] Last Admin: 11/30/18 10:43 Dose: 12.5 mg Ferrous Sulfate (Feosol Liq) 300 mg PO DAILY [facility] Last Admin: 11/30/18 10:43 Dose: 300 mg Levothyroxine Sodium (Synthroid) 25 mcg PO 0600 [facility] Last Admin: 12/01/18 05:56 Dose: 25 mcg Losartan Potassium (Cozaar) 25 mg PO DAILY [facility] Last Admin: 11/30/18 10:43 Dose: 25 mg Pantoprazole Sodium (Protonix Ec Tab) 40 mg PO 0600 [facility] Last Admin: 12/01/18 05:56 Dose: 40 mg Promethazine HCl/Dextromethorphan (Phenergan Dm Syrup) 5 ml PO Q6H PRN PRN Reason: Cough Last Admin: 12/01/18 05:56 Dose: 5 ml Sucralfate (Carafate Oral Susp) 1 gm PO 0600,1600 [facility] Last Admin: 12/01/18 05:56 Dose: 1 gm Physical Exam - Constitutional Appears: Cachectic, Chronically Ill - Head Exam Head Exam: NORMOCEPHALIC - Eye Exam Eye Exam: Normal appearance, PERRL - ENT Exam ENT Exam: Mucous Membranes Moist - Respiratory Exam Respiratory Exam: Decreased Breath Sounds, Rhonchi Additional comments: mild dyspnea - Cardiovascular Exam Cardiovascular Exam: REGULAR RHYTHM, +S1 - GI/Abdominal Exam GI & Abdominal Exam: Normal Bowel Sounds, Soft - Extremities Exam Extremities exam: Positive for: pedal edema, pedal pulses present - Back Exam Back exam: NORMAL INSPECTION - Neurological Exam Additional comments: lethargic, oriented to self - Skin Skin Exam: Dry, Pallor, Warm - Additional Findings Additional findings: palliative performance scale rating 30% Results - Vital Signs Recent Vital Signs: Last Vital Signs Temp 97.9 F 12/01/18 06:00 Pulse 75 12/01/18 06:00 Resp 17 12/01/18 06:00 BP 100/57 L 12/01/18 06:00 Pulse Ox 95 12/01/18 06:00 - Labs Result Diagrams: 11/29/18 15:50 11/29/18 15:50 Assessment & Plan - Assessment and Plan (Free Text) Assessment: 88 year old female with history of metastatic neuroendocrine lung cancer, left p leural effusion, GERD, COPD, CAD, hypothyroidism,dementia who is admitted because of dislodged left chest Aspira catheter The patient is lethargic. Complains of left sided chest discomfort. There is dyspnea on exertion. When I spoke with Richard last week, he was considering hospice service for his mom. He was aware of patient's diagnosis as well as poor prognosis. He discussed option for hospice with his siblings and all were in agreement to transitioning her home with hospice services. In the interim her Aspira catheter became dislodged. She returned to hospital for replacement of catheter. Yesterday Richard met with [facility] healthcare liaison and hospice services were explained. I met with Richard this morning. Goals of care discussion ensued. Hospice services reviewed. The family is comfortable with plan for home hospice care. The patient is scheduled to have Aspira catheter replaced today. Once procedure is completed, patient to return home under [facility] hospice services. Psychosocial support provided. Time spent with family in goals of care and end of life counseling, 30 minutes Plan: Goals of care/end of life counseling IR to evaluate for replacement of left chest Aspira Catheter GERD: Continue Protonix and Carafate Pain: Would start Morphine IR 15 mg every 8 hours as needed Continue Synthroid, Losartan and Atenolol Dietary supplements
--- NOTE | 2018-12-01 11:13 | PN ---
DATE: 12/01/2018 PULMONARY NOTE SUBJECTIVE: The patient appears comfortable this morning. She is not short of breath at rest. PHYSICAL EXAMINATION: VITAL SIGNS: (Last noted in the computer): Temperature is 98.6, pulse 70, respirations 18, blood pressure 99/57. Oxygen saturation on room air is 97%. HEENT: Normocephalic, atraumatic. No JVD. CARDIOVASCULAR: Systolic ejection murmur at the lower left sternal border. No S3 gallop. LUNGS: Decreased breath sounds - left lower lobe. Minimal/less rhonchi. No wheezing. GI: Abdomen is soft, nontender, nondistended. Bowel sounds are positive. EXTREMITIES: Mild edema. No cyanosis, no clubbing. Calves are nontender to palpation. SKIN: No acute rash. NEUROLOGIC: Exam limited at the present time. IMPRESSION: 1. Pleural catheter dislodgement. 2. Recurrent left pleural effusion. 3. 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 4. Chronic obstructive pulmonary disease. 5. Asthma. PLAN: The patient appears comfortable this morning. She is not short of breath at rest. She states to feeling pretty good overall. I did have a long talk with the nurse this morning. The nurse stated the patient had an uneventful night. The nurse also stated that the indwelling pleural catheter is not functioning. On physical exam, there is no significant bronchospasm noted. In addition, there is no significant alveolar-arterial gradient. I will continue the current nebulizer treatments and aspiration precautions for now. We are awaiting reevaluation by Dr. Arnol Martínez (Interventional Radiology) - hopefully this morning. Unfortunately, the overall status/prognosis for this patient remains very, very poor. I will discuss the above with Dr. Valerio this morning. Abdoul Ward MD MTDAncelmo
--- NOTE | 2018-12-01 13:15 | CT ---
Date of service: 12/01/2018 PROCEDURE: CT Chest without contrast HISTORY: leaking lt chest tube. check position check fluid Relevant interventional procedure(s): Ultrasound-directed left thoracentesis 11/17/2018 with removal of 1.4 L of fluid from the left pleural space. COMPARISON: 11/24/2018 CT abdomen and pelvis includes lower lung diaz documenting large left pleural effusion. 11/29/2018. TECHNIQUE: Contiguous axial images were obtained through the chest without intravenous contrast enhancement. Sagittal and coronal reconstructions were performed. Radiation dose: Total exam DLP = 446.84 mGy-cm. This CT exam was performed using one or more of the following dose reduction techniques: Automated exposure control, adjustment of the mA and/or kV according to patient size, and/or use of iterative reconstruction technique. FINDINGS: LUNGS: Compressive atelectasis primarily affecting left lower lobe, to lesser extent lingula and left upper lobe. Underlying COPD. No discrete pulmonary nodules or masses. MEDIASTINUM: Unremarkable thoracic aorta. No aneurysm. Cardiomegaly. Dilated main pulmonary artery 4 cm consistent with pulmonary arterial hypertension. No lymphadenopathy. No aortic atherosclerotic calcification. PLEURA: Chest tube previously identified in the left pleural space and not visible on chest radiograph 12/09/2018 is not visible on the current CT. Complex partially loculated large left pleural effusion. Fluid is loculated superiorly, laterally, along the fissure and there is a considerable basilar subpulmonic component. No visible pneumothorax. Trace right pleural effusion. BONES: No fracture. No destructive lesion. UPPER ABDOMEN: Grossly unremarkable. OTHER FINDINGS: Persistent, centrally unchanged hiatal hernia. IMPRESSION: 1. No chest tube identified in the left pleural space. 2. No visible, significant pneumothorax. 3. Large partially loculated left pleural effusion. 4. Trace right pleural effusion. 5. Compressive atelectasis primarily affecting lingula and left lower lobe.
--- NOTE | 2018-12-01 14:38 | CP.PCM.PCO ---
Physician Communication Note - Physician Communication Note Physician Communication Note: Pending Vascular recommendation.
[2018-12-02] MEDS: Albuterol 0.083% Inhal Sol (2.5 mg/3 mL) UD INH SCH ×3 (01:09→13:58)
[2018-12-02] MEDS: Pantoprazole 40 mg EC Tab PO SCH (05:42)
[2018-12-02] MEDS: Levothyroxine 25 MCG TAB PO SCH (05:42)
[2018-12-02] MEDS: Sucralfate 1 gm/10 ml Oral Susp UD PO SCH (05:42)
[2018-12-02 06:44] VITALS: TEMP 97.2; O2SAT 95
[2018-12-02] MEDS: Acetylcysteine 20% Inhal Soln (4ml) IH SCH (07:34)
[2018-12-02 07:40] VITALS: RESP 95
--- NOTE | 2018-12-02 08:30 | CP.PCM.PN ---
Subjective - Date & Time of Evaluation Date of Evaluation: 12/02/18 Time of Evaluation: 07:30 - Subjective Subjective: Patient is seen this morning in room 560 bed 1. She is lying in bed in no acute distress. Objective - Vital Signs/Intake and Output Vital Signs (last 24 hours): Temp Pulse Resp BP Pulse Ox 97.2 F L 17 L 95 H 96/54 L 95 12/02/18 06:00 12/02/18 06:00 12/02/18 06:00 12/02/18 06:00 12/02/18 06:00 - Medications Medications: Current Medications Acetaminophen (Tylenol 325mg Tab) 650 mg PO Q6H PRN PRN Reason: Pain, moderate (4-7) Last Admin: 11/30/18 14:52 Dose: 650 mg Acetylcysteine (Acetylcysteine 20%) 4 ml IH BIDRESP [facility] Last Admin: 12/02/18 07:34 Dose: Not Given Albuterol Sulfate (Albuterol 0.083% Inhal Bhumi (2.5 Mg/3 Ml) Ud) 2.5 mg INH [id number] JARRELL Last Admin: 12/02/18 07:34 Dose: Not Given Atenolol (Tenormin) 12.5 mg PO DAILY JARRELL Last Admin: 12/01/18 10:17 Dose: 12.5 mg Ferrous Sulfate (Feosol Liq) 300 mg PO DAILY JARRELL Last Admin: 12/01/18 10:18 Dose: 300 mg Levothyroxine Sodium (Synthroid) 25 mcg PO 0600 JARRELL Last Admin: 12/02/18 05:42 Dose: 25 mcg Losartan Potassium (Cozaar) 25 mg PO DAILY JARRELL Last Admin: 12/01/18 10:19 Dose: 25 mg Pantoprazole Sodium (Protonix Ec Tab) 40 mg PO 0600 JARRELL Last Admin: 12/02/18 05:42 Dose: 40 mg Promethazine HCl/Dextromethorphan (Phenergan Dm Syrup) 5 ml PO Q6H PRN PRN Reason: Cough Last Admin: 12/01/18 05:56 Dose: 5 ml Sucralfate (Carafate Oral Susp) 1 gm PO 0600,1600 JARRELL Last Admin: 12/02/18 05:42 Dose: 1 gm - Labs Labs: 11/29/18 15:50 11/29/18 15:50 PT 12.3 SECONDS (9.4-12.5) 11/29/18 15:50 INR 1.11 11/29/18 15:50 APTT 26.4 Seconds (26.9-38.3) L 11/29/18 15:50 - Constitutional Appears: No Acute Distress - Head Exam Head Exam: ATRAUMATIC, NORMOCEPHALIC - Respiratory Exam Respiratory Exam: Decreased Breath Sounds, NORMAL BREATHING PATTERN Additional comments: decreased breath sounds on the left, clear on the right - Cardiovascular Exam Cardiovascular Exam: REGULAR RHYTHM, +S1, +S2 - GI/Abdominal Exam GI & Abdominal Exam: Soft, Normal Bowel Sounds. absent: Tenderness - Extremities Exam Extremities Exam: Normal Inspection - Neurological Exam Neurological Exam: Alert, Awake Assessment and Plan - Assessment and Plan (Free Text) Assessment: Left pleural effusion Small cell cancer of the lung COPD HTN Hypothyroidism NPH with GUN STOCKER shunt Plan: Patient has left sided pleural effusion, which has improved since placement of pleurex catheter. Catheter, however, became dislodged, and is now removed. Discussed with Dr. Earlene Martínez. We will observe the patient without the catheter. If she becomes symptomatic, a new tunneled catheter can be inserted as an outpatient. Patient can be discharged home today. She will continue her home medications.
--- NOTE | 2018-12-02 09:17 | PN ---
DATE: 12/02/2018 PULMONARY NOTE SUBJECTIVE: The patient appears comfortable this morning. She is not short of breath at rest. She remains very weak appearing. PHYSICAL EXAMINATION: VITALS: Temperature is 97.2, pulse 77, respirations 18, blood pressure 96/54. Oxygen saturation on nasal cannula is 95%. HEENT: Normocephalic, atraumatic. No JVD. CARDIOVASCULAR: Systolic ejection murmur at the lower left sternal border. No S3 gallop. LUNGS: Decreased breath sounds - left lower lobe. Minimal/less rhonchi. No wheezing. EXTREMITIES: Mild edema. No cyanosis, no clubbing. Calves are nontender to palpation. GASTROINTESTINAL: Abdomen is soft, nontender, nondistended. Bowel sounds are positive. SKIN: No acute rash. NEUROLOGIC: Exam limited at the present time. IMPRESSION: 1. Pleural catheter dislodgement. 2. Recurrent left pleural effusion. 3. 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 4. Chronic obstructive pulmonary disease. 5. Asthma. PLAN: The patient appears comfortable this morning. She is not short of breath at rest. She does state to feeling better. She remains very weak. I did discuss the case with the night nurse at length. The night nurse stated that the patient had an uneventful night. The night nurse also stated that the patient is for discharge - with home hospice. On physical exam, there is no significant bronchospasm noted. In addition, there is no significant alveolar-arterial gradient. I will continue the current nebulizer treatments for now. I did discuss the case with Dr. Arnol Martínez() at length yesterday. The indwelling pleural catheter was completely pulled out. Dr. Martínez's plan is to replace the indwelling pleural catheter if/when the patient becomes more short of breath. Overall status/prognosis for this patient remains very very, poor. All are aware. Again, the patient is for home hospice transfer. I will discuss the above with the attending physician. Abdoul Ward MD MTDAncelmo
[2018-12-02] MEDS: Ferrous Sulfate 300 mg/5 mL Liq UD PO SCH (10:34)
[2018-12-02 10:41] VITALS: BP 82/46; PULSE 80
== END 2018-12-02 16:31 | disposition hospice, home (50) | DRG 920 ==
LOC: ED 14:29 → ERH 16:25 → 5RNO 18:27
PROVIDERS: ADMIT Internal Medicine; ATTEND Internal Medicine
DX: T85.638A Leakage of other specified internal prosthetic devices, implants and grafts, initial encounter (principal); J91.0 Malignant pleural effusion; C34.92 Malignant neoplasm of unspecified part of left bronchus or lung; G91.2 (Idiopathic) normal pressure hydrocephalus; C7A.8 Other malignant neuroendocrine tumors; J98.11 Atelectasis; J44.9 Chronic obstructive pulmonary disease, unspecified; I10 Essential (primary) hypertension; F03.90 Unspecified dementia, unspecified severity, without behavioral disturbance, psychotic disturbance, mood disturbance, and anxiety; E03.9 Hypothyroidism, unspecified; I25.10 Atherosclerotic heart disease of native coronary artery without angina pectoris; K44.9 Diaphragmatic hernia without obstruction or gangrene; Z98.2 Presence of cerebrospinal fluid drainage device; I11.9 Hypertensive heart disease without heart failure; K21.9 Gastro-esophageal reflux disease without esophagitis; Z51.5 Encounter for palliative care; Z66 Do not resuscitate; Z87.11 Personal history of peptic ulcer disease; Z87.440 Personal history of urinary (tract) infections; Z87.891 Personal history of nicotine dependence; Z90.49 Acquired absence of other specified parts of digestive tract; Z96.642 Presence of left artificial hip joint